=== PATIENT | male | born 1950 | race Caucasian/White ===

== ENCOUNTER 2020-10-31 23:25 | Inpatient (IN) | payer MEDICARE, OTHER, SELFPAY ==
--- NOTE | 2020-10-31 00:17 | RAD_ITS ---
HISTORY: Syncope EXAM: XR Chest 1 View: COMPARISON: April 27, 2015 FINDINGS: # of images incl. paperwork: 2 Pulmonary emphysema persists. Progressive fibrotic lung disease within the right lung greatest within the right lung apex. Persistent sternal wires. Persisting calcific plaque within the aortic arch. Heart is not enlarged. No acute osseous pathology perceived. Pulmonary vascularity is distinct. No effusions. RAD/Chest 1 View (Portable) IMPRESSION: Worsening fibrotic lung disease with greater interstitial thickening within the right lung, greatest within the right lung apex in this patient with underlying pulmonary emphysema.. at 0045 Reported and signed by: Nickolas Rinaldi MD Electronically Signed: Nickolas Rinaldi MD at 0:44 EDT Tel , Service support ,
[2020-10-31 23:27] VITALS: PULSE 60; RESP 16; TEMP 36.4; O2SAT 95; BMI 23.8
--- NOTE | 2020-10-31 23:27 | ED.RN ---
RN CALLED FOR EKG, PULLED OLD EKGS FOR
[2020-10-31 23:30] VITALS: PULSE 59; O2SAT 96
--- NOTE | 2020-10-31 23:37 | EKG12_ITS ---
Test Reason : SOB Blood Pressure : / mmHG Vent. Rate : 062 BPM Atrial Rate : 064 BPM P-R Int : 000 ms QRS Dur : 098 ms QT Int : 430 ms P-R-T Axes : 000 097 108 degrees QTc Int : 436 ms Junctional rhythm Nonspecific T wave abnormality Abnormal ECG Confirmed by MARIBEL BRITTON, NICOLE ([id number]), editor news JAYLA FIGUEROA ([id number]) on 11/03/2020 2:21:19 PM Referred By: [facility] Confirmed By:NICOLE LÓPEZ MD
[2020-10-31 23:56] LABS: Absolute Lymphocyte Count 1.64 X10^3/uL (0.83-4.51); Absolute Neutrophil Count 3.5 X10^3/uL (2.0-7.7); Basophil# 0.03 X10^3/uL; Basophil% 0.5 % (0-1); Eosinophil# 0.23 X10^3/uL; Eosinophils% 3.7 % (0-5); Hematocrit 37.9 % (40-54); Hemoglobin 12.5 g/dL (13.0-16.5); Lymphocyte # 1.64 X10^3/ul (0.83-4.51); Lymphocyte % 26.6 % (19-41); Mean Corpuscular Hgb 32.8 pg (27.0-32.0); Mean Corpuscular Volume 99.5 fL (80-94); Mean Platelet Vol. 9.6 fl (6.2-12.0); Monocyte# 0.71 X10^3/uL; Monocyte% 11.5 % (0-10); NRBC Flagged by Analyzer 0 % (0-5); Neutrophil # 3.54 X10^3/uL (2.7-7.7); Neutrophil % 57.4 % (47-70); Platelet Count 234 K/mm3 (150-450); RBC Distribution Width CV 13.1 % (11.6-14.6); Red Blood Count 3.81 M/mm3 (4.6-6.2); White Blood Count 6.2 K/mm3 (4.4-11.0)
--- NOTE | 2020-10-31 23:57 | EDS_ITS ---
HPI History of Present Illness Chief Complaint: Syncope Informant: patient Narrative Narrative: 70-year-old male with a history of coronary artery disease status post CABG and stents. Family notes he gets his care through [facility]. Tonight the patient was sleeping in his chair. He sat forward asked his what was happening and then fell back with his eyes rolled back. Family notes that he was unresponsive for approximately 5 minutes. His states that he was pale. There is no seizure activity. There is a family member present who is a medic who states he felt for pulse and it was present. He does not remember the exact rate. Patient currently denies any symptoms. [facility] Medical History Chronic back pain History of inguinal hernia Hypertension Myocardial infarct Home Medications albuterol sulfate 2.5 mg INHALATION Q4H PRN PRN 04/27/15 [History Last Taken Unknown] aspirin 81 mg PO DAILY@0800 04/27/15 [History Last Taken Unknown] atorvastatin 40 mg PO QHS 04/27/15 [History Last Taken Unknown] carvedilol 6.25 mg PO BID 04/27/15 [History Last Taken Unknown] lisinopril 20 mg PO DAILY 04/27/15 [History Last Taken Unknown] fluticasone propion-salmeterol [Advair HFA] 2 puff INHALATION BID 10/31/20 [History Last Taken Unknown] umeclidinium [Incruse Ellipta] 1 inh INHALATION DAILY 10/31/20 [History Last Taken Unknown] Allergy/AdvReac Type Severity Reaction Status Date / Time No Known Allergies Allergy Verified 10/31/20 23:30 Surgical History Hx of CABG Social History Smoking Status: Current some day smoker tobacco type: cigarettes substance use type: does not use ROS ROS ED Constitutional Constitutional ED: Denies chills or weight loss Eyes Eyes: Denies change in vision or diplopia ENT ENT ED: Denies ear pain, rhinorrhea or sore throat Cardiovascular Cardiovascular: Denies chest pain, orthopnea, palpitations or racing heartbeat Respiratory/Chest Respiratory/Chest: Denies cough, dyspnea or orthopnea Gastrointestinal Gastrointestinal: Denies abdominal pain, diarrhea, nausea or vomiting Genitourinary Genitourinary ED: Denies dysuria, hematuria or urinary frequency Musculoskeletal Musculoskeletal: Denies arthralgias or myalgias Integumentary Denies abscess or rash Neurologic Neurologic: Denies headache(s) or weakness Psychiatric Psychiatric: Denies anxiety, depression, suicidal ideation or suicidal thoughts Endocrine Endocrinology: Denies polydipsia, polyphagia or polyuria Allergic/Immunologic Allergic/Immunologic ED: Denies mouth swelling, tongue swelling or urticaria EXAM Physical Exam Const Vital Signs: 10/31/20 23:27 10/31/20 23:30 11/01/20 00:18 Temperature 97.6 F L Temperature Source Temporal Pulse Rate 60 59 L Respiratory Rate 16 Respiratory Effort Normal Non-Labored Blood Pressure Blood Pressure Mean Pulse Ox 95 96 Oxygen Delivery Method Room Air Nasal Cannula Oxygen Flow Rate (L/min) 2 11/01/20 00:46 11/01/20 01:17 Temperature Temperature Source Pulse Rate 82 61 Respiratory Rate 16 16 Respiratory Effort Blood Pressure 139/85 H 126/86 H Blood Pressure Mean 103 99 Pulse Ox 98 98 Oxygen Delivery Method Room Air Room Air Oxygen Flow Rate (L/min) Positive well nourished and well developed General Appearance ED: well developed HEENT Reports normocephalic, head/scalp atraumatic and moist mucous membranes Eyes PERRL and EOMs intact bilaterally Neck no lymphadenopathy, supple and no JVD Resp normal respiratory effort and clear to auscultation bilaterally Cardio regular rate, regular rhythm and no murmurs GI normal to inspection, nondistended, normoactive bowel sounds and non-tender Palpation: soft Back/Spine no CVA tenderness and normal ROM Extremity normal to inspection General Extremety ED: Negative for edema General Extremity: Negative for edema Neuro oriented x3 and CN's II-XII intact bilaterally Sensorium / Orientation: alert Motor Exam: strength 5/5 throughout Psych mental status grossly normal Mood & Affect: Negative for depressed or tearful Skin no rashes or lesions noted and no wounds MDM MDM MDM Narrative Medical decision making narrative: Patient was observed on the monitor. I have found no dysrhythmias. Heart enzymes negative. Basic blood work otherwise negative. My interpretation of the chest x-ray is chronic changes. Patient has a history of coronary artery disease and has unexplained syncope. I will speak with the hospitalist regarding admission Lab Data Attestation: I reviewed the patient's lab results. Labs: Laboratory Results - last 24 hr 10/31/20 10/31/20 10/31/20 23:40 23:40 23:40 WBC 6.2 RBC 3.81 L Hgb 12.5 L Hct 37.9 L MCV 99.5 H MCH 32.8 H MCHC 33.0 RDW Std Deviation 48.0 H RDW Coeff of Jamie 13.1 Plt Count 234 MPV 9.6 Immature Gran % (Auto) 0.300 Neut % (Auto) 57.4 Lymph % (Auto) 26.6 [place] % (Auto) 11.5 H Eos % (Auto) 3.7 Baso % (Auto) 0.5 Absolute Neuts (auto) 3.5 Absolute Lymphs (auto) 1.64 Nucleated RBC % 0 PT 14.2 INR 1.2 APTT 36.2 Sodium 138 Potassium 3.5 Chloride 106 Carbon Dioxide 26.0 Anion Gap 6 BUN 6 L Creatinine 0.53 L Estim Creat Clear Calc 79.92 Est GFR (MDRD) Af Amer 196 Est GFR (MDRD) Non-Af 162 BUN/Creatinine Ratio 11.2 Glucose 113 H Calcium 7.7 L Total Bilirubin 0.40 AST 18 ALT 15 L Alkaline Phosphatase 109 Troponin I < 0.015 Total Protein 5.6 L Albumin 2.8 L Globulin 2.8 Albumin/Globulin Ratio 1.0 Urine Color Urine Clarity Urine pH Ur Specific [place] Urine Protein Urine Glucose (UA) Urine Ketones Urine Occult Blood Urine Nitrite Urine Bilirubin Urine Urobilinogen Ur Leukocyte Esterase Urine RBC Urine WBC Ur Squamous Epith Cells Urine Bacteria Hyaline Casts Urine Mucus 11/01/20 00:40 WBC RBC Hgb Hct MCV MCH MCHC RDW Std Deviation RDW Coeff of Jamie Plt Count MPV Immature Gran % (Auto) Neut % (Auto) Lymph % (Auto) [place] % (Auto) Eos % (Auto) Baso % (Auto) Absolute Neuts (auto) Absolute Lymphs (auto) Nucleated RBC % PT INR APTT Sodium Potassium Chloride Carbon Dioxide Anion Gap BUN Creatinine Estim Creat Clear Calc Est GFR (MDRD) Af Amer Est GFR (MDRD) Non-Af BUN/Creatinine Ratio Glucose Calcium Total Bilirubin AST ALT Alkaline Phosphatase Troponin I Total Protein Albumin Globulin Albumin/Globulin Ratio Urine Color Yellow Urine Clarity Clear Urine pH 6.5 Ur Specific [place] 1.010 Urine Protein 30 H Urine Glucose (UA) Normal Urine Ketones Negative Urine Occult Blood Negative Urine Nitrite Negative Urine Bilirubin Negative Urine Urobilinogen 1 H Ur Leukocyte Esterase Negative Urine RBC 0 SEEN Urine WBC 0-5 SEEN Ur Squamous Epith Cells 0 SEEN Urine Bacteria 0 SEEN Hyaline Casts 0-5 SEEN Urine Mucus 0 SEEN Radiography Diagnostic Testing: Radiology Impression Chest X-Ray 10/31/20 00:17 IMPRESSION: Worsening fibrotic lung disease with greater interstitial thickening within the right lung, greatest within the right lung apex in this patient with underlying pulmonary emphysema.. at 0045 Reported and signed by: Nickolas Rinaldi MD Electronically Signed: Nickolas Rinaldi MD at 0:44 EDT Tel , Service support , Brain CT 10/31/20 23:59 IMPRESSION: No acute intracranial abnormality. Chronic left maxillary sinus disease with some more focal fluid within the left maxillary sinus that may be acute disease Chronic changes as above. ASPECT 10. Individualized dose optimization techniques were used for this CT. at 0023 Reported and signed by: Nickolas Rinaldi MD Electronically Signed: Nickolas Rinaldi MD at 0:22 EDT Tel , Service support , EKG Initial EKG: Attestation: I personally reviewed and interpreted this EKG as follows: Comments: EKG is a sinus rhythm at a rate of 62. Discharge Plan Dx/Rx/DC Orders Clinical Impression: CAD (coronary artery disease), Syncope and collapse Disposition Disposition: Acute Care [facility]
--- NOTE | 2020-10-31 23:59 | CT_ITS ---
HISTORY: Headache Technique:CT Head or Brain W/O Contrast Injection. Sagittal and coronal 2-D reformats. Number of Images including paperwork:257 Comparison: Most recent comparison CT scan of the brain is from April 27, 2015. Most recent MRI of the brain is from April 27, 2015 as well. Findings: Periventricular deep and subcortical white matter disease is present. Mucoperiosteal thickening with osseous sclerosis and fluid within the left maxillary sinus is likely acute and chronic disease.. The brain is atrophic. Calcific ASCVD involves intracranial arteries. No acute intracranial edema or hemorrhage. No acute abnormality of orbits. Middle ear cavities and mastoid air cells are well aerated. Skull is normal. CT/Brain/Head without Contrast IMPRESSION: No acute intracranial abnormality. Chronic left maxillary sinus disease with some more focal fluid within the left maxillary sinus that may be acute disease Chronic changes as above. ASPECT 10. Individualized dose optimization techniques were used for this CT. at 0023 Reported and signed by: Nickolas Rinaldi MD Electronically Signed: Nickolas Rinaldi MD at 0:22 EDT Tel , Service support ,
[2020-11-01] VITALS (16 sets, daily range): BP systolic 114–161; BP diastolic 65–98; PULSE 61–108; RESP 14–22; TEMP 36.5–37.2; O2SAT 92–98; BMI 22.6
[2020-11-01 00:28] LABS: AST(SGOT) 18 U/L (15-37); Alanine Aminotransfer ALT/SGPT 15 U/L (16-61); Albumin, Serum 2.8 g/dL (3.2-5.0); Alkaline Phosphatase 109 U/L (45-117); Anion Gap 6 (5-15); BUN 6 mg/dL (7-18); BUN/Creat Ratio 11.2 RATIO (10-20); Calcium,Total 7.7 mg/dL (8.5-10.1); Chloride 106 mmol/L (98-107); Creatinine, Serum 0.53 mg/dL (0.70-1.30); EST Glomerular Filtration Rate 162 mL/min (>60); Est Glom Filt Rate - Afr Amer 196 mL/min (>60); Estimated Creatinine Clearance 79.92 ml/min; Globulin 2.8 g/dL (2.2-4.2); Glucose 113 mg/dL (74-106); Potassium 3.5 mmol/L (3.5-5.1); Protein, Total 5.6 g/dL (6.4-8.2); Sodium Level 138 mmol/L (136-145)
[2020-11-01 00:30] LABS: International Normalized Ratio 1.2; Partial Thromboplast Time 36.2 Seconds (24.1-36.2); Prothrombin Time (Protime)PT. 14.2 SECONDS (11.7-14.9)
[2020-11-01 00:48] LABS: Bacteria 0 SEEN /hpf (None Seen); Mucous, Urine 0 SEEN /hpf (<or=2+); Red Blood Cells-Urine 0 SEEN /hpf (0-5); Squamous Epithelial Cells - UA 0 SEEN /hpf (0-5)
[2020-11-01 00:49] LABS: Color, Urine Yellow (Yellow); Glucose, Dipstick Normal (Normal); Ketone-Dipstick Negative (Negative); Leukocyte Esterase-Dipstick Negative /ul (Negative); Nitrite-Dipstick Negative (Negative); Occult Blood-Urine Negative /ul (Negative); Protein-Dipstick 30 mg/dl (Negative); Urine Bilirubin Dipstick Negative (Negative); Urine Clarity Clear (Clear); Urine Urobilinogen 1 mg/dl (Normal); Urine pH 6.5 (5.0 - 8.0)
[2020-11-01 01:05] LABS: Hyaline Cast 0-5 SEEN /lpf (0-5); White Blood Cells 0-5 SEEN /hpf (0-5)
--- NOTE | 2020-11-01 01:51 | PCM.HP.STD ---
Documented by User: ELOISA Gutiérrez 11/01/20 02:03 HPI - General HPI Narrative ASHLEY ROBLES, is a 70 M who presents following a syncopal episode. Patient's reports that patient was sitting in his recliner asleep and when he woke up he said was going on and went to stand up but instead fell back into his recliner. Patient's reports that his eyes were back in his head and he was unresponsive however he did have a pulse of 60. Patient reports feeling tired and mildly weak at this time but otherwise has no symptoms. Patient does not remember event. [facility] Medical History Chronic back pain History of inguinal hernia Hypertension Myocardial infarct Home Medications albuterol sulfate 2.5 mg INHALATION Q4H PRN PRN 04/27/15 [History Last Taken Unknown] aspirin 81 mg PO DAILY@0800 04/27/15 [History Last Taken Unknown] atorvastatin 40 mg PO QHS 04/27/15 [History Last Taken Unknown] carvedilol 6.25 mg PO BID 04/27/15 [History Last Taken Unknown] lisinopril 20 mg PO DAILY 04/27/15 [History Last Taken Unknown] fluticasone propion-salmeterol [Advair HFA] 2 puff INHALATION BID 10/31/20 [History Last Taken Unknown] umeclidinium [Incruse Ellipta] 1 inh INHALATION DAILY 10/31/20 [History Last Taken Unknown] Allergy/AdvReac Type Severity Reaction Status Date / Time No Known Allergies Allergy Verified 10/31/20 23:30 Surgical History Hx of CABG Social History Smoking Status: Current some day smoker tobacco type: cigarettes substance use type: does not use ROS Constitutional Constitutional: Reports fatigue and weakness; Denies anorexia or chills Cardiovascular Cardiovascular: Reports syncope; Denies chest pain, edema or palpitations Respiratory/Chest Respiratory/Chest: Denies cough, shortness of breath at rest or shortness of breath with exertion Gastrointestinal Gastrointestinal: Denies abdominal pain, constipation, diarrhea, nausea or vomiting Genitourinary Genitourinary: Denies dysuria Musculoskeletal Musculoskeletal: Denies back pain, extremity pain or joint pain Integumentary Integumentary: Denies dry skin Neurologic Neurologic: Reports weakness; Denies abnormal gait, abnormal speech or confusion Psychiatric Psychiatric: Denies anxiety or depression Endocrine Endocrinology: Denies change in body appearance Hematologic/Lymphatic Hematologic/Lymphatic: Denies easy bleeding or easy bruising Vital Signs Vital Signs Vital Signs: 10/31/20 23:27 10/31/20 23:30 11/01/20 00:18 Temperature 97.6 F L Temperature Source Temporal Pulse Rate 60 59 L Respiratory Rate 16 Respiratory Effort Normal Non-Labored Blood Pressure Blood Pressure Mean Pulse Ox 95 96 Oxygen Delivery Method Room Air Nasal Cannula Oxygen Flow Rate (L/min) 2 11/01/20 00:46 11/01/20 01:17 Temperature Temperature Source Pulse Rate 82 61 Respiratory Rate 16 16 Respiratory Effort Blood Pressure 139/85 H 126/86 H Blood Pressure Mean 103 99 Pulse Ox 98 98 Oxygen Delivery Method Room Air Room Air Oxygen Flow Rate (L/min) Weight Weight: 186 lb 1.122 oz Body Mass Index (BMI) 23.8 Physical Exam Const alert and oriented x3 General Appearance: cooperative HEENT normocephalic and head/scalp atraumatic Eyes PERRL Neck supple General: trachea midline Lymph Lymphatic: no lymphadenopathy noted Resp normal respiratory effort, normal air movement and clear to auscultation bilaterally Auscultation: wheezes expiratory wheezes and throughout Cardio regular rate, regular rhythm, S1 normal heart sound and S2 normal heart sound GI normal to inspection, nondistended, normoactive bowel sounds, soft to palpation and non-tender Extremity normal capillary refill and no clubbing, cyanosis or edema General Extremity: no tenderness to palpation of joints or extremities Skin General Skin Exam: no breakdown and turgor normal Lesions: no lesions Rashes: no rashes Neuro CN's II-XII intact bilaterally Psych thought process normal, cooperative and affect normal Appearance: appropriate Lab / Micro Data Result Diagrams: 10/31/20 23:40 10/31/20 23:40 Labs: Laboratory Results - last 24 hr 10/31/20 10/31/20 10/31/20 23:40 23:40 23:40 WBC 6.2 RBC 3.81 L Hgb 12.5 L Hct 37.9 L MCV 99.5 H MCH 32.8 H MCHC 33.0 RDW Std Deviation 48.0 H RDW Coeff of Jamie 13.1 Plt Count 234 MPV 9.6 Immature Gran % (Auto) 0.300 Neut % (Auto) 57.4 Lymph % (Auto) 26.6 [place] % (Auto) 11.5 H Eos % (Auto) 3.7 Baso % (Auto) 0.5 Absolute Neuts (auto) 3.5 Absolute Lymphs (auto) 1.64 Nucleated RBC % 0 PT 14.2 INR 1.2 APTT 36.2 Sodium 138 Potassium 3.5 Chloride 106 Carbon Dioxide 26.0 Anion Gap 6 BUN 6 L Creatinine 0.53 L Estim Creat Clear Calc 79.92 Est GFR (MDRD) Af Amer 196 Est GFR (MDRD) Non-Af 162 BUN/Creatinine Ratio 11.2 Glucose 113 H Calcium 7.7 L Total Bilirubin 0.40 AST 18 ALT 15 L Alkaline Phosphatase 109 Troponin I < 0.015 Total Protein 5.6 L Albumin 2.8 L Globulin 2.8 Albumin/Globulin Ratio 1.0 Urine Color Urine Clarity Urine pH Ur Specific [place] Urine Protein Urine Glucose (UA) Urine Ketones Urine Occult Blood Urine Nitrite Urine Bilirubin Urine Urobilinogen Ur Leukocyte Esterase Urine RBC Urine WBC Ur Squamous Epith Cells Urine Bacteria Hyaline Casts Urine Mucus 11/01/20 00:40 WBC RBC Hgb Hct MCV MCH MCHC RDW Std Deviation RDW Coeff of Jamie Plt Count MPV Immature Gran % (Auto) Neut % (Auto) Lymph % (Auto) [place] % (Auto) Eos % (Auto) Baso % (Auto) Absolute Neuts (auto) Absolute Lymphs (auto) Nucleated RBC % PT INR APTT Sodium Potassium Chloride Carbon Dioxide Anion Gap BUN Creatinine Estim Creat Clear Calc Est GFR (MDRD) Af Amer Est GFR (MDRD) Non-Af BUN/Creatinine Ratio Glucose Calcium Total Bilirubin AST ALT Alkaline Phosphatase Troponin I Total Protein Albumin Globulin Albumin/Globulin Ratio Urine Color Yellow Urine Clarity Clear Urine pH 6.5 Ur Specific [place] 1.010 Urine Protein 30 H Urine Glucose (UA) Normal Urine Ketones Negative Urine Occult Blood Negative Urine Nitrite Negative Urine Bilirubin Negative Urine Urobilinogen 1 H Ur Leukocyte Esterase Negative Urine RBC 0 SEEN Urine WBC 0-5 SEEN Ur Squamous Epith Cells 0 SEEN Urine Bacteria 0 SEEN Hyaline Casts 0-5 SEEN Urine Mucus 0 SEEN Radiology Impression Chest X-Ray 10/31/20 00:17 IMPRESSION: Worsening fibrotic lung disease with greater interstitial thickening within the right lung, greatest within the right lung apex in this patient with underlying pulmonary emphysema.. at 0045 Reported and signed by: Nickolas Rinaldi MD Electronically Signed: Nickolas Rinaldi MD at 0:44 EDT Tel , Service support , Brain CT 10/31/20 23:59 IMPRESSION: No acute intracranial abnormality. Chronic left maxillary sinus disease with some more focal fluid within the left maxillary sinus that may be acute disease Chronic changes as above. ASPECT 10. Individualized dose optimization techniques were used for this CT. at 0023 Reported and signed by: Nickolas Rinaldi MD Electronically Signed: Nickolas Rinaldi MD at 0:22 EDT Tel , Service support , Assessment & Plan Assessment/Plan (1) Syncope and collapse: PLAN: 1. Syncope and collapse -Admit to PCU for continuous cardiac monitoring -Echocardiogram ordered -EEG and seizure precautions ordered due to patient's reporting bladder incontinence with episode -Trend cardiac enzymes -PT and OT to eval and treat -Orthostatic vital signs -CBC and BMP daily 2. Coronary artery disease with stent -Patient not currently on antiplatelet therapy, continue aspirin daily 3. Hyperlipidemia -Continue atorvastatin 4. Hypertension - Continue carvedilol and lisinopril -Vital signs per protocol, trend BP and heart rate 5. Chronic obstructive pulmonary disease -Routine DuoNeb nebulizer treatments with as needed albuterol nebulizer treatments DVT prophylaxis-subcu Lovenox This patient was seen by Bhavya Dao NP-C under the supervision of Dr. Wilson. Documented by User: Dr. Randall Wilson MD 11/01/20 02:13 HPI - General General Date of Admission: 11/01/20 [facility] Medical History Chronic back pain History of inguinal hernia Hypertension Myocardial infarct Home Medications albuterol sulfate 2.5 mg INHALATION Q4H PRN PRN 04/27/15 [History Last Taken Unknown] aspirin 81 mg PO DAILY@0800 04/27/15 [History Last Taken Unknown] atorvastatin 40 mg PO QHS 04/27/15 [History Last Taken Unknown] carvedilol 6.25 mg PO BID 04/27/15 [History Last Taken Unknown] lisinopril 20 mg PO DAILY 04/27/15 [History Last Taken Unknown] fluticasone propion-salmeterol [Advair HFA] 2 puff INHALATION BID 10/31/20 [History Last Taken Unknown] umeclidinium [Incruse Ellipta] 1 inh INHALATION DAILY 10/31/20 [History Last Taken Unknown] Allergy/AdvReac Type Severity Reaction Status Date / Time No Known Allergies Allergy Verified 10/31/20 23:30 Surgical History Hx of CABG Social History Smoking Status: Current some day smoker tobacco type: cigarettes substance use type: does not use Lab / Micro Data Result Diagrams: 10/31/20 23:40 10/31/20 23:40 Addendum Addendum: Hospitalist note: I am seeing this patient in conjunction with Bhavya Holt.. I independently seen and examined the patient. History and physical, laboratory data and imaging studies reviewed and I concur with the above admission and work-up plan. Patient presented to the emergency room because of syncope. According to the patient's , patient was sleeping on a recliner, woke up and said what is going on and then he fell back and was unresponsive for about 5 minutes. The patient himself denied being dizzy or lightheaded before that happened. He denied chest pain or shortness of breath. Patient's mentioned that he was incontinent of urine. No reported seizure activity. Currently, patient has no symptoms. In the emergency department, vital signs were stable. Routine blood work was unremarkable. LFT was unremarkable. EKG revealed no acute ischemic changes or cardiac arrhythmias. Troponin was negative. Urinalysis showed no evidence of infection. Chest x-ray showed no acute findings. Brain CT scan showed no acute infarct or hemorrhage. Patient is being admitted for syncope for evaluation. - Physical Exam General: Alert, Oriented x3, Cooperative, No apparent distress. HEENT: Atraumatic, PERRLA, EOMI. Neck: Supple, No JVD, Negative Carotid Bruits, Trachea Midline, Thyroid Normal. Lungs: Clear to auscultation, Normal air movement, No rhonchi, No wheeze, No rales. Cardiovascular: Regular rate, Regular Rhythm, Normal S1, Normal S2, PMI Normal. Abdomen: Bowel Sounds Present, Soft, Non Tender, Non-Distended, No Hepato-splenomegaly. Extremities: No clubbing, No cyanosis, No edema Skin: No rashes, No breakdown Neurological: Cranial nerves are intact, normal power and tone, neuro grossly intact Vital Signs are stable. Assessment and plan: #1 syncope: Unclear etiology, could be due to cardiogenic. Neurogenic etiology cannot be ruled out especially patient had urine incontinence although no reported seizure activity. No history of seizure. EKG reviewed as above. CT scan brain showed no acute findings. Plan: Admit to PCU for observation, cardiac monitoring looking for cardiac arrhythmias, 2D echocardiogram, serial cardiac enzymes, orthostatic vitals, EEG, Tylenol as needed, Zofran as needed, PT OT evaluation and treatment. #2 other chronic medical problems: Stable, continue current medications as above. This note was generated with [employer] dictation software. It may contain incorrect words, spelling, and punctuation that were not noted in checking the note before signing. Visit Charges OBSV E&M: [id number] Initial observation care L3
--- NOTE | 2020-11-01 02:26 | ECHOCS_ITS ---
Reason For Study: Syncope Procedure This was a 2D Doppler, Color Flow transthoracic echocardiogram. Contrast injection was performed. Exam performed portable in patient room. Left Ventricle Normal LV size. Moderate segmental systolic dysfunction (see wall motion). Stage 2 diastolic dysfunction. The estimated ejection fraction is 40 %. [place] : Akinetic. Mid-Anterior : Akinetic. Mid- anteroseptal : Severely Hypokinetic. The rest of the wall segments are normal. Right Ventricle Normal RV size. Normal systolic function. Atria Normal left atrium. Normal right atrium. Mitral Valve Normal mitral valve. Great Vessels Normal aortic root. The pulmonary artery is normal size. Normal inferior vena cava. Pericardium/Pleural No pericardial effusion. Medication Diluted definity 4ml given slow IV push to enhance endocardial definition. MMode/2D Measurements & Calculations LVIDd: 5.4 cm IVSd: 1.0 cm Ao root diam: 3.6 cm LVIDs: 5.0 cm LVPWd: 1.1 cm RVDd: 3.4 cm FS: 7.9 % LAV(MOD-bp): 34.6 ml LA dimension(2D): 3.5 cm LA A4 area: 15.2 cm2 LAV(MOD-bp) Indexed: 16.8 ml/m2 LAV(MOD-sp2): 33.2 ml LAV(MOD-sp4): 33.3 ml RA A4 area: 14.3 cm2 Doppler Measurements & Calculations MV E max reddy: 33.2 cm/sec Lat Peak E' Reddy: 9.0 cm/sec Med Peak E' Reddy: 7.8 cm/sec MV A max reddy: 100.1 cm/sec E/E' lat: 3.7 E/E' med: 4.3 MV E/A: 0.33 Ao V2 max: 98.2 cm/sec LV V1 max: 85.0 cm/sec PA V2 max: 64.1 cm/sec Ao max P.9 mmHg LV V1 max P.9 mmHg Ao V2 mean: 70.1 cm/sec Ao mean P.1 mmHg Ao V2 VTI: 18.3 cm ECHO/Echo Complete W/ Contrast Interpretation Summary Normal LV size. Moderate segmental systolic dysfunction (see wall motion). Stage 2 diastolic dysfunction. Contrast injection was performed. Ordering Physician: Randall Wilson Referring Physician: Connor Villasenor Performed By: Cate Durán, HELEN, RVT
[2020-11-01 06:29] LABS: Absolute Neutrophil Count 5.6 X10^3/uL (2.0-7.7); Basophil# 0.02 X10^3/uL; Basophil% 0.2 % (0-1); Eosinophil# 0.08 X10^3/uL; Hematocrit 41.7 % (40-54); Hemoglobin 13.9 g/dL (13.0-16.5); Mean Corp Hgb Conc 33.3 g/dL (32-36); Mean Corpuscular Hgb 33.1 pg (27.0-32.0); Mean Corpuscular Volume 99.3 fL (80-94); Mean Platelet Vol. 9.8 fl (6.2-12.0); Monocyte# 0.64 X10^3/uL; Monocyte% 7.8 % (0-10); NRBC Flagged by Analyzer 0 % (0-5); Neutrophil # 5.63 X10^3/uL (2.7-7.7); Neutrophil % 68.6 % (47-70); Platelet Count 260 K/mm3 (150-450); RBC Distribution Width CV 13.1 % (11.6-14.6); RBC Distribution Width SD 46.9 fl (35.1-43.9); White Blood Count 8.2 K/mm3 (4.4-11.0)
[2020-11-01 06:50] LABS: Anion Gap 2 (5-15); BUN 6 mg/dL (7-18); BUN/Creat Ratio 10.3 RATIO (10-20); Calcium,Total 8.6 mg/dL (8.5-10.1); Chloride 103 mmol/L (98-107); Creatinine, Serum 0.58 mg/dL (0.70-1.30); EST Glomerular Filtration Rate 146 mL/min (>60); Est Glom Filt Rate - Afr Amer 177 mL/min (>60); Estimated Creatinine Clearance 77.97 ml/min; Glucose 118 mg/dL (74-106); Potassium 4.2 mmol/L (3.5-5.1); Sodium Level 136 mmol/L (136-145)
[2020-11-01] MEDS: Ipratropium/Albuterol Sulfate 3 ML AMPUL.NEB INHALATION ×3 (07:10→19:02)
--- NOTE | 2020-11-01 09:27 | EKG12_ITS ---
Test Reason : Blood Pressure : / mmHG Vent. Rate : 088 BPM Atrial Rate : 088 BPM P-R Int : 208 ms QRS Dur : 104 ms QT Int : 384 ms P-R-T Axes : 075 096 084 degrees QTc Int : 464 ms Sinus rhythm with occasional Premature ventricular complexes Low voltage QRS (Limb Leads) Poor R wave progression Confirmed by KARLI BRITTON, ANKUR ([id number]), editor producer JAYLA FIGUEROA ([id number]) on 11/04/2020 1:08:45 PM Referred By: ANAM Confirmed By:ANKUR CALVILLO MD
[2020-11-01] MEDS: Aspirin 81 MG TAB.CHEW PO (09:43)
[2020-11-01] MEDS: Lisinopril 20 MG Tablet PO (09:43)
[2020-11-01] MEDS: Carvedilol 6.25 MG Tablet PO ×2 (09:43→16:28)
[2020-11-01] MEDS: Enoxaparin 40 MG/0.4 ML Syringe SC (09:43)
--- NOTE | 2020-11-01 10:06 | TELEMED_ITS ---
[facility] Tele[facility] has confirmed receipt of a request for visit. This document confirms receipt of the order initiating the consult. To find the results of the consultation, please view the patient's reports for the scanned Telemed Consult.
--- NOTE | 2020-11-01 14:25 | PCM.HOSP.N ---
Hospitalist Note Mr. Spivey is a 70-year-old male who was admitted early this morning with a syncopal episode. He was sitting in his chair asleep and he awoke and said he was going to get up and stood up and fell backwards and passed out. His reported that his eyes were in the back of his head and he was unresponsive. He did have a pulse and there is apparently an episode of urinary incontinence. This morning the patient states he feels back to normal but does not remember any of the episode. A CT of his head performed the emergency department was overall unimpressive other than chronic maxillary sinus issues. An EEG was done and is pending at this time. An echocardiogram was ordered but will not be able to be done until Monday. The patient states he may not be able to stay that long and I informed him he have to leave AGAINST MEDICAL ADVICE if that is the case. We will continue to monitor him on telemetry. His troponins were cycled and negative. His labs are overall unremarkable and his vital signs have been stable. Orthostatic vitals were negative.
[2020-11-01] MEDS: Acetaminophen 325 MG Tablet 650 MG PO (17:57)
[2020-11-01] MEDS: Atorvastatin Calcium 40 MG Tablet PO (22:28)
[2020-11-02] VITALS (12 sets, daily range): BP systolic 120–133; BP diastolic 64–81; PULSE 71–98; RESP 15–22; TEMP 36.5–36.9; O2SAT 92–94
[2020-11-02] MEDS: Acetaminophen 325 MG Tablet 650 MG PO ×3 (03:40→17:19)
[2020-11-02 05:05] LABS: Absolute Lymphocyte Count 1.55 X10^3/uL (0.83-4.51); Absolute Neutrophil Count 4.5 X10^3/uL (2.0-7.7); Basophil# 0.03 X10^3/uL; Basophil% 0.4 % (0-1); Eosinophil# 0.12 X10^3/uL; Eosinophils% 1.8 % (0-5); Hematocrit 39.9 % (40-54); Hemoglobin 13.4 g/dL (13.0-16.5); Lymphocyte # 1.55 X10^3/ul (0.83-4.51); Lymphocyte % 22.6 % (19-41); Mean Corp Hgb Conc 33.6 g/dL (32-36); Mean Corpuscular Hgb 32.8 pg (27.0-32.0); Mean Corpuscular Volume 97.8 fL (80-94); Mean Platelet Vol. 9.7 fl (6.2-12.0); Monocyte# 0.62 X10^3/uL; Monocyte% 9.1 % (0-10); NRBC Flagged by Analyzer 0 % (0-5); Neutrophil # 4.51 X10^3/uL (2.7-7.7); Neutrophil % 65.8 % (47-70); Platelet Count 234 K/mm3 (150-450); RBC Distribution Width CV 13.1 % (11.6-14.6); RBC Distribution Width SD 46.9 fl (35.1-43.9); Red Blood Count 4.08 M/mm3 (4.6-6.2); White Blood Count 6.9 K/mm3 (4.4-11.0)
[2020-11-02 05:43] LABS: Anion Gap 7 (5-15); BUN 8 mg/dL (7-18); BUN/Creat Ratio 14.4 RATIO (10-20); Calcium,Total 8.5 mg/dL (8.5-10.1); Chloride 103 mmol/L (98-107); Creatinine, Serum 0.56 mg/dL (0.70-1.30); EST Glomerular Filtration Rate 155 mL/min (>60); Est Glom Filt Rate - Afr Amer 187 mL/min (>60); Estimated Creatinine Clearance 77.97 ml/min; Glucose 113 mg/dL (74-106); Potassium 3.8 mmol/L (3.5-5.1); Sodium Level 137 mmol/L (136-145)
[2020-11-02] MEDS: Ipratropium/Albuterol Sulfate 3 ML AMPUL.NEB INHALATION ×2 (07:10→13:27)
[2020-11-02] MEDS: Lisinopril 20 MG Tablet PO (09:48)
[2020-11-02] MEDS: Carvedilol 6.25 MG Tablet PO ×2 (09:48→17:44)
[2020-11-02] MEDS: Enoxaparin 40 MG/0.4 ML Syringe SC (09:48)
[2020-11-02] MEDS: Aspirin 81 MG TAB.CHEW PO (09:48)
--- NOTE | 2020-11-02 14:25 | PCM.DC ---
Discharge Instructions Diet Discharge Diet: 2000 mg Sodium Diet Activity Discharge Activity: May Not Drive Weight Bearing Status: Weight bearing as tolerated Follow Up Care Test Results: Test results from this visit will be discussed in further detail at your follow-up appointment, if applicable. Discharge Plan Admission Admit Date/Time: 11/01/20 20:15 Primary Reason for Your Visit: Syncope Attending Provider: Samir Potter Primary Care Provider: Connor Villasenor Instructions Patient Instructions: What Is Syncope? Discharge Orders/Prescriptions Prescriptions: Continued atorvastatin 80 MG tablet 40 mg PO QHS RF: 0 carvedilol 6.25 MG tablet 6.25 mg PO BID RF: 0 albuterol sulfate 2.5 MG/3 ML solution for nebulization 2.5 mg inhalation Q4H PRN PRN (Reason: Wheezing) RF: 0 lisinopril 20 MG tablet 20 mg PO DAILY RF: 0 aspirin 81 MG tablet,chewable 81 mg PO DAILY@0800 RF: 0 Advair HFA 115-21 mcg/actuation Hfa Aerosol Inhaler 2 puff INHALATION BID RF: 0 Incruse Ellipta 62.5 mcg/actuation Blister With Device 1 inh INHALATION DAILY RF: 0 Referrals / Follow Up: Connor Villasenor MD [Primary Care Provider] - Disposition Disposition (needs filled in before D/C Order can be placed): Home, self care
--- NOTE | 2020-11-02 14:29 | DS.PCM_ITS ---
Providers Date of Admission: 11/01/20 Primary Care Physician: Dr. Connor Villasenor MD Reason For Visit: SYNCOPE Diagnosis Discharge Diagnosis (1) Syncope and collapse: Status: Acute Code(s): R55 - Syncope and collapse Medications at Discharge Home Medications albuterol sulfate 2.5 mg INHALATION Q4H PRN PRN 04/27/15 aspirin 81 mg PO DAILY@0800 04/27/15 atorvastatin 40 mg PO QHS 04/27/15 carvedilol 6.25 mg PO BID 04/27/15 lisinopril 20 mg PO DAILY 04/27/15 Advair HFA 2 puff INHALATION BID 10/31/20 Incruse Ellipta 1 inh INHALATION DAILY 10/31/20 Hospital Course Summary of Care Provided Hospital Course: This 70-year-old patient gentleman was admitted for syncopal episode after he woke up from sleeping on recliner, then he stood up, fell backwards and then passed out. Patient was unresponsive and urinary inconti nence but he says he sometimes have it because of old age. Patient was admitted to PCU on telemetry. 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 EGD was done and did not show epileptiform discharges. Patient had recent echo on November 01, 2020 reported as normal LV size, stage II diastolic dysfunction with EF 40% with chronic systolic and diastolic heart failure. Orthostatic blood pressure was negative for significant change. Patient wants to go home. Patient does not want MRI done. Does not have history of chronic migraine headache, seizure disorder or other neurological issues in the past. [facility] neurologist has been consulted. [facility] neurologist agreed no focal neurological symptoms concerning for stroke or seizure. He is okay for discharge. Discharge medication reconciliation done. Discharge follow-up instructions completed. Discharge process discussed with the patient and all questions were answered to patient's satisfaction. Total time spent, exact 35 minutes on discharge meds reconciliation, examination, coordination of care with nurses and ancillary staff, review of i maging and blood test and discussion with the patient on follow-up instructions Physical Exam Narrative Patient wants to go home. Does not have chest pain/pressure, shortness of breath, dizziness or palpitation. small battery plate assembler shows sinus rhythm with arrhythmia, PVCs. Orthostatic blood pressure is negative for significant hypotension or tachycardia General: Alert, Oriented x3, Cooperative HEENT: Atraumatic, PERRLA, EOMI, Normocephalic Oral: Oral mucosa is moist. No Gingival or Mucosal Lesions/ Ulcerations Neck: Supple, No JVD, Negative Carotid Bruits Lungs: Air entry diminished in bilateral lung bases. No crepitation/rhonchi Cardiovascular: Sinus rhythm with PVCs, regular rate. Normal S1, Normal S2, No murmurs Abdomen: Bowel Sounds Present, Soft, Non Tender, Non-Distended : No renal angle tenderness. No suprapubic tenderness. Extremities: No edema, Capillary Refill Less than 3 Seconds Skin: No rashes, No breakdown Musculoskeletal: No Tenderness to Palpation of Joints or Extremities Neurological: Cranial nerves II-XII grossly intact, Deep Tendon Reflexes 2+/4 and Symmetrical, Neuro grossly intact Psych/Mental Status: Normal Affect, Appropriate. ABG / Lab / Microbiology Data Result Diagrams: 11/02/20 04:50 11/02/20 04:50 Laboratory: Laboratory Results - last 24 hr 11/02/20 11/02/20 04:50 04:50 WBC 6.9 RBC 4.08 L Hgb 13.4 Hct 39.9 L MCV 97.8 H MCH 32.8 H MCHC 33.6 RDW Std Deviation 46.9 H RDW Coeff of Jamei 13.1 Plt Count 234 MPV 9.7 Immature Gran % (Auto) 0.300 Neut % (Auto) 65.8 Lymph % (Auto) 22.6 [place] % (Auto) 9.1 Eos % (Auto) 1.8 Baso % (Auto) 0.4 Absolute Neuts (auto) 4.5 Absolute Lymphs (auto) 1.55 Nucleated RBC % 0 Sodium 137 Potassium 3.8 Chloride 103 Carbon Dioxide 27.0 Anion Gap 7 BUN 8 Creatinine 0.56 L Estim Creat Clear Calc 77.97 Est GFR (MDRD) Af Amer 187 Est GFR (MDRD) Non-Af 155 BUN/Creatinine Ratio 14.4 Glucose 113 H Calcium 8.5 Radiography Diagnostic Testing: Radiology Impression Echocardiogram 11/01/20 02:26 Interpretation Summary Normal LV size. Moderate segmental systolic dysfunction (see wall motion). Stage 2 diastolic dysfunction. Contrast injection was performed. Ordering Physician: Randall Wilson Referring Physician: Connor Villasenor Performed By: Cate Durán, HELEN, RVT D/C Instructions Discharge Diet: 2000 mg Sodium Diet Discharge Activity: May Not Drive Weight Bearing Status: Weight bearing as tolerated Meaningful Use Info Meaningful Use Diagnoses (Choose all that apply): None applicable Discharge Plan Admission Admit Date/Time: 11/01/20 20:15 Primary Reason for Your Visit: Syncope Attending Provider: Samir Potter Primary Care Provider: Connor Villasenor Instructions Patient Instructions: What Is Syncope? Additional Instructions / Restrictions: Patient Problems: Altered Health Status related to Hospitalization Patient Goals: *Optimal Level of Health *Keep Appointments *Medication Compliance *Remain Safe Discharge Orders/Prescriptions Prescriptions: Continued atorvastatin 80 MG tablet 40 mg PO QHS RF: 0 carvedilol 6.25 MG tablet 6.25 mg PO BID RF: 0 albuterol sulfate 2.5 MG/3 ML solution for nebulization 2.5 mg inhalation Q4H PRN PRN (Reason: Wheezing) RF: 0 lisinopril 20 MG tablet 20 mg PO DAILY RF: 0 aspirin 81 MG tablet,chewable 81 mg PO DAILY@0800 RF: 0 Advair HFA 115-21 mcg/actuation Hfa Aerosol Inhaler 2 puff INHALATION BID RF: 0 Incruse Ellipta 62.5 mcg/actuation Blister With Device 1 inh INHALATION DAILY RF: 0 Referrals / Follow Up: Connor Villasenor MD [Primary Care Provider] - Disposition Disposition (needs filled in before D/C Order can be placed): Home, self care Visit Charges Inpatient E&M: 08713 Disch Hosp
[2020-11-02 16:40] LABS: Cholesterol 120 mg/dL (200); High Density Lipoprotein 50 mg/dL; Triglycerides 64 mg/dL; Very Low Density Lipoprotein 13 mg/dL (5-40)
== END 2020-11-02 17:58 | disposition home or self-care (01) | DRG 312 ==
LOC: ED 11-01 01:34 → PCU 11-01 01:53
PROVIDERS: Internal Medicine; Physician Assistant; Admitting Provider Hospitalist; Emergency Provider Emergency Medicine; PCP Family Medicine; Visit Provider Internal Medicine
DX: R55 Syncope and collapse (principal); I50.42 Chronic combined systolic (congestive) and diastolic (congestive) heart failure; R32 Unspecified urinary incontinence; I11.0 Hypertensive heart disease with heart failure; I25.10 Atherosclerotic heart disease of native coronary artery without angina pectoris; W19.XXXA Unspecified fall, initial encounter; F17.210 Nicotine dependence, cigarettes, uncomplicated; I25.2 Old myocardial infarction; Z95.1 Presence of aortocoronary bypass graft; Z95.5 Presence of coronary angioplasty implant and graft; Z79.51 Long term (current) use of inhaled steroids; Z79.82 Long term (current) use of aspirin; Z79.899 Other long term (current) drug therapy
CPT/HCPCS: 36415; 70450; 71045; 80048; 80053; 80061; 81001; 83036; 84484; 85025; 85610; 85730; 93005; 93306; 94640; 95819; 97161; 97165; 99285; J7030; Q9957; A4216; C8929; J3490

== ENCOUNTER 2021-12-08 20:30 | Inpatient (IN) | payer MEDICARE, OTHER, SELFPAY ==
[2021-12-08 20:31] VITALS: BP 126/62; PULSE 109; RESP 23; TEMP 36.4; O2SAT 86; BMI 22.4
[2021-12-08 20:46] VITALS: PULSE 102; RESP 17; O2SAT 97
--- NOTE | 2021-12-08 21:05 | EKG12_ITS ---
Test Reason : sob Blood Pressure : / mmHG Vent. Rate : 088 BPM Atrial Rate : 088 BPM P-R Int : 236 ms QRS Dur : 104 ms QT Int : 378 ms P-R-T Axes : 076 101 095 degrees QTc Int : 457 ms Sinus rhythm with 1st degree A-V block with Premature supraventricular complexes Rightward axis Nonspecific T wave abnormality Poor R wave progression Abnormal ECG Confirmed by KARLI BRITTON, ANKUR ([id number]), editor producer JAYLA FIGUEROA ([id number]) on 12/11/2021 9:31:59 AM Referred By: Coy Hua Confirmed By:ANKUR CALVILLO MD
--- NOTE | 2021-12-08 21:08 | ED.VIS.DYS ---
HPI History of Present Illness Chief Complaint: Shortness of Breath Informant: patient and spouse/S.O. Onset/Context/Timing Onset: Weeks Narrative Narrative: Sent into the ED by PCP with findings of pneumonia on outpatient work-up. 2 weeks productive sputum no fevers. No chest pains. No vomiting or diarrhea. No urinary symptoms. Reports increasing dyspnea. History of coronary disease with bypass and MIs in the past. He also reported he had CHF findings. Denies any CHF history. Patient baby aspirin. Denies recent travel surgery or immobilizations. No history of PE or DVT. Reports seeing PCP in the office today per spouse confirms he was hypoxic in the 80s and did not want to go the emergency room. Outpatient work-up pursued. They called him back with results this evening stating there is pneumonia and had concerns of CHF. After discussion he was increased to coming to emergency department. Tobacco history however significant decrease in his tobacco use stating does not go through a pack a month currently. Patient COVID vaccinated denies any infections in the past. [facility] Medical History Chronic back pain COPD (chronic obstructive pulmonary disease) History of inguinal hernia Hypertension Myocardial infarct Home Medications albuterol sulfate 2.5 mg inhalation Q4H PRN PRN Wheezing 04/27/15 [History Last Taken Unknown] aspirin 81 mg chewable tablet 81 mg PO DAILY@0800 04/27/15 [History Last Taken Unknown] atorvastatin 80 mg tablet 40 mg PO QHS 04/27/15 [History Last Taken Unknown] carvedilol 6.25 mg tablet 6.25 mg PO BID 04/27/15 [History Last Taken Unknown] lisinopril 20 mg tablet 20 mg PO DAILY 04/27/15 [History Last Taken Unknown] fluticasone propionate 115 mcg-salmeterol 21 mcg/actuation HFA inhaler (Advair HFA) 2 puff inhalation BID 10/31/20 [History Last Taken Unknown] umeclidinium 62.5 mcg/actuation blister powder for inhalation (Incruse Ellipta) 1 inh inhalation DAILY 10/31/20 [History Last Taken Unknown] Lasix 12/08/21 [History Last Taken Unknown] prednisone 12/08/21 [History Last Taken Unknown] Allergy/AdvReac Type Severity Reaction Status Date / Time No Known Allergies Allergy Verified 12/08/21 20:31 Surgical History Hx of CABG Social History Smoking Status: Current some day smoker tobacco type: cigarettes substance use type: does not use ROS ROS ED Constitutional Constitutional ED: Denies chills, fever(s) or sweats Eyes Eyes: Denies change in vision ENT ENT ED: Denies dysphagia or sore throat Cardiovascular Cardiovascular: Denies chest pain, leg edema, palpitations or racing heartbeat Respiratory/Chest Respiratory/Chest: Reports cough, dyspnea and dyspnea on exertion Gastrointestinal Gastrointestinal: Denies abdominal pain, diarrhea, nausea or vomiting Genitourinary Genitourinary ED: Denies dysuria, hematuria or urinary frequency Musculoskeletal Musculoskeletal: Denies back pain, extremity pain or neck pain Integumentary Denies rash or wounds Neurologic Neurologic: Denies headache(s), paresthesias or weakness EXAM Physical Exam Const Vital Signs: 12/08/21 20:31 12/08/21 20:46 12/08/21 20:49 Temperature 97.5 F L Temperature Source Temporal Pulse Rate 109 H 102 H Respiratory Rate 23 H 17 Respiratory Effort Short of Breath Respiratory Depth Normal Respiratory Pattern Normal Blood Pressure 126/62 H Blood Pressure Mean 83 Pulse Ox 86 97 Oxygen Delivery Method Room Air Nasal Cannula Oxygen Flow Rate (L/min) 4 12/08/21 21:54 Temperature 97.5 F L Temperature Source Temporal Pulse Rate 83 Respiratory Rate 17 Respiratory Effort Respiratory Depth Respiratory Pattern Blood Pressure 103/62 Blood Pressure Mean 75 Pulse Ox 94 Oxygen Delivery Method Nasal Cannula Oxygen Flow Rate (L/min) 4 Positive well nourished and well developed Constitutional Narrative: Currently on 4 L nasal cannula with improved dyspnea. General Appearance ED: well developed and NAD HEENT Reports moist mucous membranes normocephalic and atraumatic Eyes PERRL, EOMs intact bilaterally and conjunctivae normal General Eye ED: Yes normal appearance of both eyes Neck no lymphadenopathy and supple General: Negative for tenderness Chest Wall Chest Narrative: Midline chest scar. Chest: Negative for tenderness Resp Resp Narrative: Diminished breath sounds Effort and Inspection: symmetric chest movement; Negative for respiratory distress Cardio regular rate, regular rhythm and no murmurs Peripheral Pulses: pulses 2+ throughout GI normal to inspection, nondistended, normoactive bowel sounds and non-tender Palpation: Negative for guarding or rebound tenderness present Back/Spine no CVA tenderness and no thoracic nor lumbar tenderness Extremity normal to inspection General Extremety ED: Negative for edema or tenderness General Extremity: Negative for edema Neuro oriented x3 and no sensory deficits noted Sensorium / Orientation: awake and alert Skin no rashes or lesions noted and no wounds MDM MDM MDM Narrative Medical decision making narrative: Patient tachycardic slight tachypneic on arrival. Sepsis labs. 86% on room air on arrival. Is currently stable 4 L of oxygen. Reported pneumonia as an outpatient. Unable to obtain films. Will obtain a chest x-ray, ABG with COVID testing. We will plan for admission. ABG on 1 L of oxygen PO2 77 pH of 7.36. He was increased on oxygenation by RT secondary to this. Chest x-ray 1 view reviewed myself and read by radiology shows no acute process. Labs White count 9.9 hemoglobin 13.7 lactate is 1.5. Sodium 133 creatinine 0.7. BNP 347. Minimal lower extremity edema. With a negative chest x-ray and hypoxia I did obtain a CT of the chest to rule out PE. This was negative. #2 pulmonary nodules. There is no infiltrates on this either. Symptoms likely from COPD exacerbation. Discussed nodular findings with the patient. He has tobacco history. He is covered with doxycycline and Solu-Medrol. I spoke with hospitalist Dr. Bermudez for admission. Lab Data Attestation: I reviewed the patient's lab results. Labs: Laboratory Results - last 24 hr 12/08/21 12/08/21 12/08/21 21:00 21:00 21:00 WBC 9.9 RBC 4.27 L Hgb 13.7 Hct 42.8 MCV 100.2 H MCH 32.1 H MCHC 32.0 RDW Std Deviation 49.0 H RDW Coeff of Jamie 13.2 Plt Count 260 MPV 10.3 Immature Gran % (Auto) 0.400 Neut % (Auto) 90.9 H Lymph % (Auto) 6.9 L [place] % (Auto) 1.4 Eos % (Auto) 0.2 Baso % (Auto) 0.2 Absolute Neuts (auto) 9.0 H Absolute Lymphs (auto) 0.68 L Nucleated RBC % 0 PT 13.7 INR 1.1 APTT 52.3 H Sodium Potassium Chloride Carbon Dioxide Anion Gap BUN Creatinine Estim Creat Clear Calc Est GFR (MDRD) Af Amer Est GFR (MDRD) Non-Af BUN/Creatinine Ratio Glucose Lactic Acid 1.5 Calcium Total Bilirubin AST ALT Alkaline Phosphatase B-Natriuretic Peptide Total Protein Albumin Globulin Albumin/Globulin Ratio 12/08/21 12/08/21 12/08/21 21:00 21:05 22:35 WBC RBC Hgb Hct MCV MCH MCHC RDW Std Deviation RDW Coeff of Jamie Plt Count MPV Immature Gran % (Auto) Neut % (Auto) Lymph % (Auto) [place] % (Auto) Eos % (Auto) Baso % (Auto) Absolute Neuts (auto) Absolute Lymphs (auto) Nucleated RBC % PT INR APTT Sodium Cancelled 133 L Potassium Cancelled 5.0 Chloride Cancelled 99 Carbon Dioxide Cancelled 31.0 Anion Gap Cancelled 3 L BUN Cancelled 7 Creatinine Cancelled 0.70 Estim Creat Clear Calc Cancelled 76.07 Est GFR (MDRD) Af Amer Cancelled 142 Est GFR (MDRD) Non-Af Cancelled 118 BUN/Creatinine Ratio Cancelled 10.0 Glucose Cancelled 170 H Lactic Acid Calcium Cancelled 8.4 L Total Bilirubin Cancelled 0.50 AST Cancelled 20 ALT Cancelled 18 Alkaline Phosphatase Cancelled 146 H B-Natriuretic Peptide 347.8 H Total Protein Cancelled 6.6 Albumin Cancelled 2.8 L Globulin Cancelled 3.8 Albumin/Globulin Ratio Cancelled 0.7 L ABG Data ABG results: ABG 12/08/21 22:20 Specimen Type ART Sample Site L Brach pH 7.36 Bicarbonate Actual 28.4 H Total CO2 30 Base Excess 3 H O2 Saturation 95 ABG pCO2 49.9 H ABG pO2 78 Jake Test Positive O2 Delivery Device Cannula Liter Flow 1.0 Radiography Chest X-Ray - ED: 1 View, Read by ED Physician and Read by Radiologist Diagnostic Testing: Clinical Impression(s) from Imaging Studies Chest X-Ray 12/08/21 21:17 IMPRESSION: There are no acute findings. Electronically Signed: James Baron MD at 21:28 EDT , Chest CTA 12/08/21 23:11 IMPRESSION: 1. No evidence of PE. No aortic dissection. 2. Infrarenal aortic aneurysm is not fully included, contrast enhanced abdomen and pelvis CT or ultrasound is suggested for further evaluation of the infrarenal aorta unless previously evaluated. 3. Advanced bullous disease. Mild suspected debris within proximal left lower lobe airways, not fully occluded. 4. Coronary artery bypass grafts, with nonopacified or slightly opacified right graft. 5. Juxtapleural opacity in the posterior-lateral right upper lobe is suspected to be focal scarring, 1.8 cm maximum diameter. 6. 9 mm mildly spiculated nodular focus near a large right upper lobe bulla. Indeterminate. RECOMMENDATIONS CONCERNING PULMONARY NODULE: For high-risk patients consider a follow-up CT at 3 months. If unchanged consider an additional follow-up CT at 18-24 months. Alternatively (or additionally) PET/CT or tissue sampling could be performed. Electronically Signed: Filomena Smith MD at 0:56 EDT , EKG Initial EKG: Attestation: I personally reviewed and interpreted this EKG as follows: Comments: Sinus rate of 88, first-degree AV block. No ST or T wave changes. Discharge Plan Dx/Rx/DC Orders Clinical Impression: Hypoxia, CAD (coronary artery disease), COPD (chronic obstructive pulmonary disease), Pulmonary nodules Disposition Disposition: Acute Care Hospital [facility]
--- NOTE | 2021-12-08 21:17 | RAD_ITS ---
STUDY: X-RAY CHEST REASON FOR EXAM: Male, 71 years old. cough TECHNIQUE: XR Chest 1 View COMPARISON: 5.30.21 FINDINGS: There is no demonstrated pleural abnormality. There are multiple median sternotomy wires. Normal size heart. Normal mediastinum and arnoldo. Normal visualized pulmonary arteries. There is atherosclerotic calcification of the aortic arch with tortuosity. There are diffuse degenerative changes of the visualized thoracic spine. There is degenerative osteoarthritis of the bilateral shoulders. There is no demonstrated abnormality of the visualized soft tissue structures of the upper abdomen. RAD/Chest 1 View (Portable) IMPRESSION: There are no acute findings. Electronically Signed: James Baron MD at 21:28 EDT ,
[2021-12-08 21:21] LABS: Absolute Lymphocyte Count 0.68 X10^3/uL (0.83-4.51); Basophil# 0.02 X10^3/uL; Basophil% 0.2 % (0-1); Eosinophil# 0.02 X10^3/uL; Eosinophils% 0.2 % (0-5); Hematocrit 42.8 % (40-54); Hemoglobin 13.7 g/dL (13.0-16.5); Lymphocyte # 0.68 X10^3/ul (0.83-4.51); Lymphocyte % 6.9 % (19-41); Mean Corpuscular Hgb 32.1 pg (27.0-32.0); Mean Corpuscular Volume 100.2 fL (80-94); Mean Platelet Vol. 10.3 fl (6.2-12.0); Monocyte# 0.14 X10^3/uL; Monocyte% 1.4 % (0-10); NRBC Flagged by Analyzer 0 % (0-5); Neutrophil # 8.97 X10^3/uL (2.7-7.7); Neutrophil % 90.9 % (47-70); Platelet Count 260 K/mm3 (150-450); RBC Distribution Width CV 13.2 % (11.6-14.6); Red Blood Count 4.27 M/mm3 (4.6-6.2); White Blood Count 9.9 K/mm3 (4.4-11.0)
[2021-12-08 21:31] LABS: International Normalized Ratio 1.1; Prothrombin Time (Protime)PT. 13.7 SECONDS (11.7-14.9)
[2021-12-08 21:32] LABS: Partial Thromboplast Time 52.3 Seconds (24.1-36.2)
[2021-12-08 21:48] LABS: BNP,B-Type NATRIURETIC PEPTIDE 347.8 pg/mL (0-100)
[2021-12-08 21:54] VITALS: BP 103/62; PULSE 83; RESP 17; TEMP 36.4; O2SAT 94
[2021-12-08 21:58] LABS: Lactic Acid 1.5 mmol/L (0.4-1.9)
[2021-12-08 22:25] LABS: Allen Test Positive; Base Excess 3 mmol/L (-2 to +2); Bicarbonate 28.4 mmol/L (22-26); Blood Gas Specimen Type ART; O2 Delivery Device Cannula; PO2 78 mmHG (75-100); SITE L Brach; SO2 95 % (95-99); Total Carbon Dioxide 30 mmol/L; pCO2 49.9 mmHg (35-45); pH 7.36 (7.35-7.45)
[2021-12-08 23:08] LABS: ALB/GLOB Ratio 0.7 RATIO (0.9-2.4); AST(SGOT) 20 U/L (15-37); Alanine Aminotransfer ALT/SGPT 18 U/L (16-61); Albumin, Serum 2.8 g/dL (3.2-5.0); Alkaline Phosphatase 146 U/L (45-117); Anion Gap 3 (5-15); BUN 7 mg/dL (7-18); Calcium,Total 8.4 mg/dL (8.5-10.1); Chloride 99 mmol/L (98-107); EST Glomerular Filtration Rate 118 mL/min (>60); Est Glom Filt Rate - Afr Amer 142 mL/min (>60); Estimated Creatinine Clearance 76.07 ml/min; Globulin 3.8 g/dL (2.2-4.2); Glucose 170 mg/dL (74-106); Protein, Total 6.6 g/dL (6.4-8.2); Sodium Level 133 mmol/L (136-145)
--- NOTE | 2021-12-08 23:11 | CT_ITS ---
ACR Level 3 findings have been noted. An addendum which confirms receipt of the report will follow. EXAM: CT ANGIOGRAPHY CHEST WITHOUT AND WITH INTRAVENOUS CONTRAST CLINICAL INDICATION: hypoxia TECHNIQUE: Helically acquired angiography images were obtained of the chest without and with intravenous contrast. This CT exam was performed using one or more of the following dose reduction techniques: automated exposure control, adjustment of the mA and/or kV according to patient size, and/or use of iterative reconstruction technique. This report was created using [employer] report generation technology. MIP reconstructed images were created and reviewed. RADIATION DOSE: CTDIvol = 11.26 mGy, DLP = 416.16 mGy-cmContrast: IV 100mL [id number] COMPARISON: None. FINDINGS: PULMONARY ARTERIES: Unremarkable. Normal in caliber. No evidence of pulmonary embolism. AORTA: Calcified aorta, mildly ectatic. The infrarenal aorta appears to slightly dilated to 3.1 cm x 3.6 cm on the most inferior images, not fully included, additional evaluation is recommended if not previously evaluated. GREAT VESSELS OF AORTIC ARCH: See below. LUNGS AND PLEURAL SPACES: Advanced bullous change in the right upper lobe, milder bullous changes in the left upper lobe. Mild airway thickening, there is some debris and proximal left lower lobe airways but they are patent more distally, suspicion of bronchitis. Juxtapleural opacity with small central cavitation since or focal bronchiectasis adjacent to the right upper lateral pleura and the major fissure, measuring roughly 1.8 cm x 0.9 cm. Also mildly thick-walled appearance of large right upper lobe lateral bulla, presumed scarring at its deep margin but small irregular nodule deep to the bulla measuring roughly 7 mm x 1 cm with mildly spiculated margins, best seen on axial image #223 and coronal image #147. HEART: Median sternotomy wires. Left internal thoracic artery bypass 2 left heart appears patent. A apparent graft from the ascending aorta to right heart is not obviously opacified, suspected to be occluded. Vascular calcifications and stents in the [place] coronary arteries. Normal heart size. Mildly prominent left heart chambers. No pericardial effusion. MEDIASTINUM: Unremarkable. No mediastinal or hilar adenopathy. Esophagus is unremarkable. No hiatal hernia. THYROID: Unremarkable. No thyroid lesions. BONES/JOINTS: Unremarkable. No suspicious lytic or blastic abnormality. ADRENALS: Mild fullness of the adrenal glands suspicious for mild hyperplasia without discrete nodules. Calcification and mild narrowing at the origins of the celiac axis and SMA and marked calcification at the origins of the renal arteries, suspicion of high-grade stenosis at the origin of the right renal artery and moderate stenosis at the origin of the left renal artery. Atherosclerotic calcification of the left subclavian artery without evidence of significant stenosis. CT/CTA Chest W/WO Contrast IMPRESSION: 1. No evidence of PE. No aortic dissection. 2. Infrarenal aortic aneurysm is not fully included, contrast enhanced abdomen and pelvis CT or ultrasound is suggested for further evaluation of the infrarenal aorta unless previously evaluated. 3. Advanced bullous disease. Mild suspected debris within proximal left lower lobe airways, not fully occluded. 4. Coronary artery bypass grafts, with nonopacified or slightly opacified right graft. 5. Juxtapleural opacity in the posterior-lateral right upper lobe is suspected to be focal scarring, 1.8 cm maximum diameter. 6. 9 mm mildly spiculated nodular focus near a large right upper lobe bulla. Indeterminate. RECOMMENDATIONS CONCERNING PULMONARY NODULE: For high-risk patients consider a follow-up CT at 3 months. If unchanged consider an additional follow-up CT at 18-24 months. Alternatively (or additionally) PET/CT or tissue sampling could be performed. Electronically Signed: Filomena Smith MD at 0:56 EDT ,
[2021-12-09] VITALS (12 sets, daily range): BP systolic 109–145; BP diastolic 63–87; PULSE 74–102; RESP 15–22; TEMP 35.8–36.6; O2SAT 95–98; BMI 21.2
--- NOTE | 2021-12-09 00:47 | PCM.HP.STD ---
HPI - General General Date of Admission: 12/09/21 Date of Service: 12/09/21 Chief Complaint: SOB HPI Narrative ASHLEY ROBLES, is a 71 M who presents with progessively worsening shortness of breath above his baseline. His worsening shortness of breath has been going on for about a month. Because of shortness of SOB he has been using his 's oxygen. Associated with symptom is a productive cough of greenish-melendez and yellowish sputum. Patient and family denies any wheezes. Of note on the same day of presentation patient went to see his PCP. Patient reported that it was his annual physical while reviewing PCPs notes show that patient presented because of a fall. Reportedly at PCPs office chest x-ray was done and patient was diagnosed with pneumonia and CHF. Of note patient reports of bilateral lower legs and feet edema that started 2 days ago. ON LICENSE OF [facility] Medical History (Updated 12/09/21 @ 02:[address] Willi Bermudez MD) Chronic back pain Congestive heart failure (CHF) COPD (chronic obstructive pulmonary disease) History of inguinal hernia Hypertension Myocardial infarct Home Medications albuterol sulfate 2.5 mg inhalation Q4H PRN PRN Wheezing 04/27/15 [History Last Taken Unknown] aspirin 81 mg chewable tablet 81 mg PO DAILY@0800 HEART 04/27/15 [History Last Taken Unknown] carvedilol 6.25 mg tablet 6.25 mg PO BID HEART 04/27/15 [History Last Taken Unknown] lisinopril 20 mg tablet 20 mg PO DAILY BLOOD PRESSURE 04/27/15 [History Last Taken Unknown] fluticasone propionate 115 mcg-salmeterol 21 mcg/actuation HFA inhaler (Advair HFA) 2 puff inhalation BID COPD 10/31/20 [History Last Taken Unknown] umeclidinium 62.5 mcg/actuation blister powder for inhalation (Incruse Ellipta) 1 inh inhalation DAILY COPD 10/31/20 [History Last Taken Unknown] Lasix 12/08/21 [History Last Taken Unknown] prednisone 12/08/21 [History Last Taken Unknown] atorvastatin 40 mg tablet 40 tab PO QHS CHOLESTEROL 12/09/21 [History Last Taken Unknown] Allergy/AdvReac Type Severity Reaction Status Date / Time No Known Allergies Allergy Verified 12/08/21 20:31 Family History Other Cancer Diabetes Essential tremor Surgical History (Updated 12/09/21 @ 02:[address] Willi Bermudez MD) History of coronary artery stent placement Hx of CABG S/P CABG x 3 Social History Smoking Status: Light Smoker (<10/day) substance use type: does not use ROS ROS Narrative Pertinent positives and pertinent negatives as noted in HPI. All other systems were reviewed and are negative.. Vital Signs Vital Signs Vital Signs: 12/08/21 20:31 12/08/21 20:46 12/08/21 20:49 Temperature 97.5 F L Temperature Source Temporal Pulse Rate 109 H 102 H Respiratory Rate 23 H 17 Respiratory Effort Short of Breath Respiratory Depth Normal Respiratory Pattern Normal Blood Pressure 126/62 H Blood Pressure Mean 83 Pulse Ox 86 97 Oxygen Delivery Method Room Air Nasal Cannula Oxygen Flow Rate (L/min) 4 12/08/21 21:54 Temperature 97.5 F L Temperature Source Temporal Pulse Rate 83 Respiratory Rate 17 Respiratory Effort Respiratory Depth Respiratory Pattern Blood Pressure 103/62 Blood Pressure Mean 75 Pulse Ox 94 Oxygen Delivery Method Nasal Cannula Oxygen Flow Rate (L/min) 4 Weight Weight: 79.379 kg Body Mass Index (BMI) 22.4 Physical Exam Narrative Physical exam: General: Well-nourished, well-developed. Head: Normocephalic, atraumatic, no tenderness Eyes: Vision is grossly intact. EOMI ENT, no trauma, moist mucous membranes, no rhinorrhea Neck: Nontender, full range of motion, no spinal tenderness CVS: Regular rate and rhythm. S1-S2 present. No murmur, gallop or rub. Respiratory : clear to auscultation bilaterally, chest wall nontender, no wheezing Abdomen: Soft, nontender, nondistended, normal bowel sounds, no masses : Deferred Back: Nontender, no CVA tenderness, no midline spinal tenderness, deformities, step-offs Extremities: Bilateral lower legs and feet edema. Nontender full range of motion, no trauma Skin: Normal color, no trauma, abrasions Neuro: Alert, oriented, cranial nerves II through XII grossly intact. Psychiatry: Normal mood. Normal affect. Not depressed. Not anxious. Results Lab / Micro Data Result Diagrams: 12/08/21 21:00 07/06/22 22:35 Labs: Laboratory Results - last 24 hr 12/08/21 21:00: WBC 9.9, RBC 4.27 L, Hgb 13.7, Hct 42.8, MCV 100.2 H, MCH 32.1 H, MCHC 32.0, RDW Std Deviation 49.0 H, RDW Coeff of Jamie 13.2, Plt Count 260, MPV 10.3, Immature Gran % (Auto) 0.400, Neut % (Auto) 90.9 H, Lymph % (Auto) 6.9 L, Cobb % (Auto) 1.4, Eos % (Auto) 0.2, Baso % (Auto) 0.2, Absolute Neuts (auto) 9.0 H, Absolute Lymphs (auto) 0.68 L, Nucleated RBC % 0 12/08/21 21:00: PT 13.7, INR 1.1, APTT 52.3 H 12/08/21 21:00: Lactic Acid 1.5 12/08/21 21:00: B-Natriuretic Peptide 347.8 H 12/08/21 21:05: Sodium Cancelled, Potassium Cancelled, Chloride Cancelled, Carbon Dioxide Cancelled, Anion Gap Cancelled, BUN Cancelled, Creatinine Cancelled, Estim Creat Clear Calc Cancelled, Est GFR (MDRD) Af Amer Cancelled, Est GFR (MDRD) Non-Af Cancelled, BUN/Creatinine Ratio Cancelled, Glucose Cancelled, Calcium Cancelled, Total Bilirubin Cancelled, AST Cancelled, ALT Cancelled, Alkaline Phosphatase Cancelled, Total Protein Cancelled, Albumin Cancelled, Globulin Cancelled, Albumin/Globulin Ratio Cancelled 12/08/21 22:35: Sodium 133 L, Potassium 5.0, Chloride 99, Carbon Dioxide 31.0, Anion Gap 3 L, BUN 7, Creatinine 0.70, Estim Creat Clear Calc 76.07, Est GFR (MDRD) Af Amer 142, Est GFR (MDRD) Non-Af 118, BUN/Creatinine Ratio 10.0, Glucose 170 H, Calcium 8.4 L, Total Bilirubin 0.50, AST 20, ALT 18, Alkaline Phosphatase 146 H, Total Protein 6.6, Albumin 2.8 L, Globulin 3.8, Albumin/Globulin Ratio 0.7 L Micro: Microbiology 12/08/21 21:00 Nasal Secretion SARS-CoV-2 Antigen (Rapid) - Final ABG Data ABG results: ABG 12/08/21 22:20 Specimen Type ART Sample Site L Brach pH 7.36 Bicarbonate Actual 28.4 H Total CO2 30 Base Excess 3 H O2 Saturation 95 ABG pCO2 49.9 H ABG pO2 78 Jake Test Positive O2 Delivery Device Cannula Liter Flow 1.0 Radiology Impression Chest X-Ray 12/08/21 21:17 IMPRESSION: There are no acute findings. Electronically Signed: James Baron MD at 21:28 EDT , Assessment & Plan Assessment/Plan (1) COPD (chronic obstructive pulmonary disease): (2) Pulmonary nodule: (3) Aneurysm of infrarenal abdominal aorta: (4) Hx of CABG: (5) SOB (shortness of breath): (6) Hypoxia: PLAN: Plan SOB with hypoxia Etiology on clear; Does not appear the patient is seen chronic COPD exacerbation. Cannot rule out worsening of baseline COPD. Infleunza A and B ordered. If negative consider comprehensive respiratory panel. BNP on presentation was 245.9. His BNP on the same day of presentation but before ED visit was 347.8. Review of record showed an echocardiogram on 11/01/2020 was remarkable for left ventricular ejection fraction of 40% and stage II diastolic dysfunction as well as severe hypokinesis. Repeat echocardiogram ordered. Chest x-ray on presentation was visualized and independently interpreted. No acute cardiopulmonary process was seen. CTA chest did not show heart failure. Focal scarring seen on chest CTA. Doxycycline started the emergency department and continued. DuoNeb [id number] ordered. As needed albuterol ordered. Scheduled Mucinex ordered. Solu-Medrol 60 mg IV push ordered emergency department. Prednisone 40 mg daily ordered. Bilateral lower legs and feet edema Duplex ultrasound of bilateral legs ordered. Lasix ordered. Fluid restriction ordered. Daily weights. Strict intake and output. History of CABG CTA on this presentation showed nonopacified of slightly opacified right graft. Of note in about 2009 patient had a coronary stent. Order to obtain records of coronary stents. Echocardiogram ordered. Spiculated pulmonary nodule. Consider pulmonary referral on discharge. Of note patient's heart rate since patient is a smoker. Tobacco abuse Counseled. Smokes about 1 pack/months and not interested in nicotine patch. Possible infrarenal aortic aneurysm. CTA chest showed possible infrarenal aortic aneurysm. Contrast enhanced abdomen and pelvis CT ultrasound ordered was recommended. Ultrasound ordered. DVT prophylaxis: Subcutaneous Lovenox ordered. Charges/Coding Visit Charges Inpatient E&M: 84873 Init Hosp L3
[2021-12-09] MEDS: MethylPREDNISolone 125 MG/2 ML Vial 60 MG IV (01:17)
--- NOTE | 2021-12-09 01:24 | ECHOCS_ITS ---
Reason For Study: SOB Procedure This was a 2D Doppler, Color Flow transthoracic echocardiogram. The study was technically difficult. Contrast injection was performed. Exam performed portable in patient room. Left Ventricle Normal left ventricle. The estimated ejection fraction is 40-45 %. Right Ventricle Normal right ventricle. Normal systolic function. Atria Normal left atrium. Normal right atrium. Mitral Valve The mitral valve is structurally normal. No prolapse or stenosis seen. Trivial mitral valve insufficiency. Tricuspid Valve Normal tricuspid valve. Trivial tricuspid valve insufficiency. Aortic Valve Aortic sclerosis, no stenosis. Mild (1+) aortic valve insufficiency. Pulmonic Valve The pulmonic valve is not well visualized. Great Vessels Calcified aortic root. Pericardium/Pleural No pericardial effusion. Medication Diluted definity 3ml given slow IV push to enhance endocardial definition. MMode/2D Measurements & Calculations Ao root diam: 3.5 cm LA dimension(2D): 3.3 cm Doppler Measurements & Calculations MV E max kathy: 128.8 cm/sec Ao V2 max: 97.3 cm/sec LV V1 max: 86.8 cm/sec Ao max P.8 mmHg LV V1 max P.0 mmHg PA V2 max: 70.6 cm/sec ECHO/Echo Complete W/ Contrast Interpretation Summary The estimated ejection fraction is 40-45 %. Moderate LV systolic function Segmental wall motion abnormalities anteroapical . no significant difference from prior Echo 2020 Ordering Physician: Willi Bermudez Performed By: Tamra Duong RCS
--- NOTE | 2021-12-09 01:44 | VDLE_ITS ---
Reason For Study: Swelling RIGHT LEFT GSV is normal. GSV is normal. CFV is compressible, spontaneous, phasic, CFV is compressible, spontaneous, phasic, competent and demonstrates normal competent, and demonstrates normal augmentation. augmentation. FV is compressible, spontaneous, phasic, FV is compressible, spontaneous, phasic, competent and demonstrates normal competent and demonstrates normal augmentation. augmentation. POP V is compressible, spontaneous, phasic, POP V is compressible, spontaneous, phasic, competent and demonstrates normal competent and demonstrates normal augmentation. augmentation. T/P Trunk is compressible. T/P Trunk is compressible. PTV is compressible. PTV is compressible. RT PerV is compressible. LT PerV is compressible. Procedure This is a venous duplex using B-mode, color flow and spectral Doppler. Exam performed portable in patient room. A preliminary report was called and/or faxed to [facility]. VL/Venous Duplex US - Magan Extrem Interpretation Summary No evidence for acute deep venous thrombosis right lower extremity with patent and compressible right great saphenous vein No evidence for acute deep venous thrombosis left lower extremity with surgical ly harvested left great saphenous vein Ordering Physician: Willi Bermudez Referring Physician: Connor Villasenor Performed By: Roxy Scott RVT
--- NOTE | 2021-12-09 01:44 | US_ITS ---
PROCEDURES: ULTRASOUND AORTA REASON FOR EXAM: Male, 71 years old. R/o infrarenal aortic aneurysm -- Seen on CTA chest TECHNIQUE: Ultrasound evaluation of the aorta was performed with real-time and static melendez-scale imaging. COMPARISON: None. FINDINGS: There is tortuous elongation of the abdominal aorta. Aorta measures: Proximal 3.5 cm. Middle 6.6 cm. Distal 2.3 cm. Aorta measure transversely: Proximal 3.2 cm. Middle 6.3 cm. Distal 2.2 cm. Saccular infrarenal abdominal aortic aneurysm with a transverse dimension of 6.3 cm and longitudinal dimension of 6.6 cm. Mural thrombus is seen.. US/Aorta IMPRESSION: Saccular infrarenal abdominal aortic aneurysm with a transverse dimension of 6.3 cm. Electronically Signed: Braydon Guthrie MD at 9:37 EDT ,
[2021-12-09] MEDS: Ipratropium/Albuterol Sulfate 3 ML AMPUL.NEB INHALATION ×6 (02:08→22:47)
[2021-12-09] MEDS: guaiFENesin 600 MG Tablet PO ×3 (02:22→21:44)
[2021-12-09] MEDS: Menthol/Lanolin/Calamine/Znox 113 GM Tube 1 APPLIC TOPICAL ×3 (05:00→21:45)
[2021-12-09 07:29] LABS: Absolute Neutrophil Count 4.4 X10^3/uL (2.0-7.7); Hematocrit 41.1 % (40-54); Hemoglobin 13.3 g/dL (13.0-16.5); Lymphocyte % 15.1 % (19-41); Mean Corp Hgb Conc 32.4 g/dL (32-36); Mean Corpuscular Hgb 32.1 pg (27.0-32.0); Mean Corpuscular Volume 99.3 fL (80-94); Monocyte# 0.05 X10^3/uL; Monocyte% 0.9 % (0-10); NRBC Flagged by Analyzer 0 % (0-5); Neutrophil # 4.39 X10^3/uL (2.7-7.7); Neutrophil % 82.7 % (47-70); Platelet Count 275 K/mm3 (150-450); RBC Distribution Width SD 47.1 fl (35.1-43.9); Red Blood Count 4.14 M/mm3 (4.6-6.2); White Blood Count 5.3 K/mm3 (4.4-11.0)
[2021-12-09 08:23] LABS: Anion Gap 6 (5-15); BUN 6 mg/dL (7-18); BUN/Creat Ratio 10.2 RATIO (10-20); Calcium,Total 8.7 mg/dL (8.5-10.1); Chloride 96 mmol/L (98-107); Creatinine, Serum 0.59 mg/dL (0.70-1.30); EST Glomerular Filtration Rate 145 mL/min (>60); Est Glom Filt Rate - Afr Amer 175 mL/min (>60); Estimated Creatinine Clearance 72.45 ml/min; Glucose 177 mg/dL (74-106); Sodium Level 133 mmol/L (136-145)
[2021-12-09] MEDS: Furosemide 20 MG/2 ML VIAL IV ×2 (09:56→16:14)
[2021-12-09] MEDS: Enoxaparin 40 MG/0.4 ML Syringe SC (09:56)
[2021-12-09] MEDS: Carvedilol 6.25 MG Tablet PO ×2 (09:56→16:14)
[2021-12-09] MEDS: Aspirin 81 MG TAB.CHEW PO (09:56)
[2021-12-09] MEDS: Lisinopril 20 MG Tablet PO (09:56)
[2021-12-09] MEDS: 0.9% Saline Lock 10 ML Syringe IV ×3 (09:56→21:45)
--- NOTE | 2021-12-09 10:51 | HP.PCM_ITS ---
HPI - General General Date of Admission: 12/09/21 Date of Service: 12/09/21 Chief Complaint: SOB HPI Narrative ASHLEY ROBLES, is a 71 M who presents [facility] Medical History (Updated 12/09/21 @ 02:[address] Willi Bermudez MD) Chronic back pain Congestive heart failure (CHF) COPD (chronic obstructive pulmonary disease) History of inguinal hernia Hypertension Myocardial infarct Home Medications albuterol sulfate 2.5 mg inhalation Q4H PRN PRN Wheezing 04/27/15 [History Last Taken Unknown] aspirin 81 mg chewable tablet 81 mg PO DAILY@0800 HEART 04/27/15 [History Last Taken Unknown] carvedilol 6.25 mg tablet 6.25 mg PO BID HEART 04/27/15 [History Last Taken Unknown] lisinopril 20 mg tablet 20 mg PO DAILY BLOOD PRESSURE 04/27/15 [History Last Taken Unknown] fluticasone propionate 115 mcg-salmeterol 21 mcg/actuation HFA inhaler (Advair HFA) 2 puff inhalation BID COPD 10/31/20 [History Last Taken Unknown] umeclidinium 62.5 mcg/actuation blister powder for inhalation (Incruse Ellipta) 1 inh inhalation DAILY COPD 10/31/20 [History Last Taken Unknown] Lasix 12/08/21 [History Last Taken Unknown] prednisone 12/08/21 [History Last Taken Unknown] atorvastatin 40 mg tablet 40 tab PO QHS CHOLESTEROL 12/09/21 [History Last Taken Unknown] Allergy/AdvReac Type Severity Reaction Status Date / Time No Known Allergies Allergy Verified 12/08/21 20:31 Family History Other Cancer Diabetes Essential tremor Surgical History (Updated 12/09/21 @ 02:[address] Willi Bermudez MD) History of coronary artery stent placement Hx of CABG S/P CABG x 3 Social History Smoking Status: Light Smoker (<10/day) substance use type: does not use Vital Signs Vital Signs Vital Signs: 12/08/21 20:31 12/08/21 20:46 12/08/21 20:49 Temperature 97.5 F L Temperature Source Temporal Pulse Rate 109 H 102 H Respiratory Rate 23 H 17 Respiratory Effort Short of Breath Respiratory Depth Normal Respiratory Pattern Normal Blood Pressure 126/62 H Blood Pressure Mean 83 Blood Pressure Source Blood Pressure Position Blood Pressure Location Pulse Ox 86 97 Oxygen Delivery Method Room Air Nasal Cannula Oxygen Flow Rate (L/min) 4 12/08/21 21:54 12/09/21 01:19 12/09/21 02:01 Temperature 97.5 F L 96.5 F L 97.8 F Temperature Source Temporal Temporal Oral Pulse Rate 83 77 83 Respiratory Rate 17 16 20 H Respiratory Effort Respiratory Depth Respiratory Pattern Blood Pressure 103/62 109/63 145/81 H Blood Pressure Mean 75 78 102 Blood Pressure Source Monitor Blood Pressure Position Semi-Fowlers Blood Pressure Location Right Arm Pulse Ox 94 97 98 Oxygen Delivery Method Nasal Cannula Nasal Cannula Nasal Cannula Oxygen Flow Rate (L/min) 4 2 2 12/09/21 01:29 12/09/21 02:08 12/09/21 02:08 Temperature Temperature Source Pulse Rate 80 Respiratory Rate 18 Respiratory Effort Normal Non-Labored Respiratory Depth Normal Respiratory Pattern Normal Normal Blood Pressure Blood Pressure Mean Blood Pressure Source Blood Pressure Position Blood Pressure Location Pulse Ox 98 Oxygen Delivery Method Nasal Cannula Nasal Cannula Oxygen Flow Rate (L/min) 2 2 12/09/21 02:08 12/09/21 04:53 12/09/21 05:00 Temperature 98 F Temperature Source Oral Pulse Rate 80 Respiratory Rate 16 18 Respiratory Effort Non-Labored Normal Non-Labored Respiratory Depth Normal Normal Respiratory Pattern Normal Normal Blood Pressure 136/87 H Blood Pressure Mean 103 Blood Pressure Source Monitor Blood Pressure Position Semi-Fowlers Blood Pressure Location Left Arm Pulse Ox 98 96 Oxygen Delivery Method Nasal Cannula Nasal Cannula Nasal Cannula Oxygen Flow Rate (L/min) 2 2 2 Weight Weight: 166 lb 10.711 oz Body Mass Index (BMI) 21.2 Results Lab / Micro Data Result Diagrams: 12/09/21 06:50 12/09/21 06:50 Labs: Laboratory Results - last 24 hr 12/08/21 21:00: WBC 9.9, RBC 4.27 L, Hgb 13.7, Hct 42.8, MCV 100.2 H, MCH 32.1 H , MCHC 32.0, RDW Std Deviation 49.0 H, RDW Coeff of Jamie 13.2, Plt Count 260, MPV 10.3, Immature Gran % (Auto) 0.400, Neut % (Auto) 90.9 H, Lymph % (Auto) 6.9 L, Haakon % (Auto) 1.4, Eos % (Auto) 0.2, Baso % (Auto) 0.2, Absolute Neuts (auto) 9.0 H, Absolute Lymphs (auto) 0.68 L, Nucleated RBC % 0 12/08/21 21:00: PT 13.7, INR 1.1, APTT 52.3 H 12/08/21 21:00: Lactic Acid 1.5 12/08/21 21:00: B-Natriuretic Peptide 347.8 H 12/08/21 21:05: Sodium Cancelled, Potassium Cancelled, Chloride Cancelled, Carbon Dioxide Cancelled, Anion Gap Cancelled, BUN Cancelled, Creatinine Cancelled, Estim Creat Clear Calc Cancelled, Est GFR (MDRD) Af Amer Cancelled, Est GFR (MDRD) Non-Af Cancelled, BUN/Creatinine Ratio Cancelled, Glucose Cance lled, Calcium Cancelled, Total Bilirubin Cancelled, AST Cancelled, ALT Cancelled, Alkaline Phosphatase Cancelled, Total Protein Cancelled, Albumin Cancelled, Globulin Cancelled, Albumin/Globulin Ratio Cancelled 12/08/21 22:35: Sodium 133 L, Potassium 5.0, Chloride 99, Carbon Dioxide 31.0, Anion Gap 3 L, BUN 7, Creatinine 0.70, Estim Creat Clear Calc 76.07, Est GFR (MDRD) Af Amer 142, Est GFR (MDRD) Non-Af 118, BUN/Creatinine Ratio 10.0, Glucose 170 H, Calcium 8.4 L, Total Bilirubin 0.50, AST 20, ALT 18, Alkaline Phosphatase 146 H, Total Protein 6.6, Albumin 2.8 L, Globulin 3.8, Albumin/Globulin Ratio 0.7 L 12/09/21 06:50: WBC 5.3, RBC 4.14 L, Hgb 13.3, Hct 41.1, MCV 99.3 H, MCH 32.1 H, MCHC 32.4, RDW Std Deviation 47.1 H, RDW Coeff of Jamie 13.0, Plt Count 275, MPV 10.0, Immature Gran % (Auto) 1.300 H, Neut % (Auto) 82.7 H, Lymph % (Auto) 15.1 L, Haakon % (Auto) 0.9, Eos % (Auto) 0.0, Baso % (Auto) 0.0, Absolute Neuts (auto) 4.4, Absolute Lymphs (auto) 0.80 L, Nucleated RBC % 0 12/09/21 06:50: Sodium 133 L, Potassium 4.0, Chloride 96 L, Carbon Dioxide 31.0, Anion Gap 6, BUN 6 L, Creatinine 0.59 L, Estim Creat Clear Calc 72.45, Est GFR (MDRD) Af Amer 175, Est GFR (MDRD) Non-Af 145, BUN/Creatinine Ratio 10.2, Glucose 177 H, Calcium 8.7 Micro: Microbiology 12/08/21 21:00 Nasal Secretion SARS-CoV-2 Antigen (Rapid) - Final ABG Data ABG results: ABG 12/08/21 22:20 Specimen Type ART Sample Site L Brach pH 7.36 Bicarbonate Actual 28.4 H Total CO2 30 Base Excess 3 H O2 Saturation 95 ABG pCO2 49.9 H ABG pO2 78 Jake Test Positive O2 Delivery Device Cannula Liter Flow 1.0 Radiology Impression Chest X-Ray 12/08/21 21:17 IMPRESSION: There are no acute findings. Electronically Signed: James Baron MD at 21:28 EDT , Chest CTA 12/08/21 23:11 IMPRESSION: 1. No evidence of PE. No aortic dissection. 2. Infrarenal aortic aneurysm is not fully included, contrast enhanced abdomen and pelvis CT or ultrasound is suggested for further evaluation of the infrarenal aorta unless previously evaluated. 3. Advanced bullous disease. Mild suspected debris within proximal left lower lobe airways, not fully occluded. 4. Coronary artery bypass grafts, with nonopacified or slightly opacified right graft. 5. Juxtapleural opacity in the posterior-lateral right upper lobe is suspected to be focal scarring, 1.8 cm maximum diameter. 6. 9 mm mildly spiculated nodular focus near a large right upper lobe bulla. Indeterminate. RECOMMENDATIONS CONCERNING PULMONARY NODULE: For high-risk patients consider a follow-up CT at 3 months. If unchanged consider an additional follow-up CT at 18-24 months. Alternatively (or additionally) PET/CT or tissue sampling could be performed. Electronically Signed: iFlomena Smith MD at 0:56 EDT , ADDENDUM: 12/09/21 0114 IMPRESSION: 1. No evidence of PE. No aortic dissection. 2. Infrarenal aortic aneurysm is not fully included, contrast enhanced abdomen and pelvis CT or ultrasound is suggested for further evaluation of the infrarenal aorta unless previously evaluated. 3. Advanced bullous disease. Mild suspected debris within proximal left lower lobe airways, not fully occluded. 4. Coronary artery bypass grafts, with nonopacified or slightly opacified right graft. 5. Juxtapleural opacity in the posterior-lateral right upper lobe is suspected to be focal scarring, 1.8 cm maximum diameter. 6. 9 mm mildly spiculated nodular focus near a large right upper lobe bulla. Indeterminate. RECOMMENDATIONS CONCERNING PULMONARY NODULE: For high-risk patients consider a follow-up CT at 3 months. If unchanged consider an additional follow-up CT at 18-24 months. Alternatively (or additionally) PET/CT or tissue sampling could be performed. N.B. : Dr Coy Hua MD, confirmed on 12/09/2021 01:07:13 (ET) that the healthcare facility has received the radiology report. Electronically Signed: Filomena Smith MD at 0:56 EDT , Aorta Ultrasound 12/09/21 01:44 IMPRESSION: Saccular infrarenal abdominal aortic aneurysm with a transverse dimension of 6.3 cm. Electronically Signed: Braydon Guthrie MD at 9:37 EDT ,
--- NOTE | 2021-12-09 10:54 | PCM.PN.HOSP ---
Documented by User: ELOISA Gutiérrez 12/09/21 11:07 Subjective Subjective Patient seen and examined. Patient sitting in bed no distress noted. Patient states that he feels improved from presentation. Patient was admitted earlier this morning. Objective Data Objective Data Vital Signs: Vital Signs Temp Pulse Resp BP Pulse Ox O2 Del Method O2 Flow Rate 98 F 80 18 136/87 H 96 Nasal Cannula 2 12/09/21 04:53 12/09/21 04:53 12/09/21 04:53 12/09/21 04:53 12/09/21 04:53 12/09/21 05:00 12/09/21 05:00 Oxygen Flow Rate (L/min) 2 Oxygen Delivery Method Nasal Cannula Weight: 166 lb 10.711 oz Body Mass Index (BMI) 21.2 Intake & Output: Intake and Output for Last 24 Hours 12/07/21 12/08/21 12/09/21 23:59 23:59 23:59 Intake Total 410 / 410 Balance 410 / 410 Lab / Micro Data Result Diagrams: 12/09/21 06:50 12/09/21 06:50 Labs: Laboratory Results - last 24 hr 12/08/21 21:00: WBC 9.9, RBC 4.27 L, Hgb 13.7, Hct 42.8, MCV 100.2 H, MCH 32.1 H, MCHC 32.0, RDW Std Deviation 49.0 H, RDW Coeff of Jamie 13.2, Plt Count 260, MPV 10.3, Immature Gran % (Auto) 0.400, Neut % (Auto) 90.9 H, Lymph % (Auto) 6.9 L, [place] % (Auto) 1.4, Eos % (Auto) 0.2, Baso % (Auto) 0.2, Absolute Neuts (auto) 9.0 H, Absolute Lymphs (auto) 0.68 L, Nucleated RBC % 0 12/08/21 21:00: PT 13.7, INR 1.1, APTT 52.3 H 12/08/21 21:00: Lactic Acid 1.5 12/08/21 21:00: B-Natriuretic Peptide 347.8 H 12/08/21 21:05: Sodium Cancelled, Potassium Cancelled, Chloride Cancelled, Carbon Dioxide Cancelled, Anion Gap Cancelled, BUN Cancelled, Creatinine Cancelled, Estim Creat Clear Calc Cancelled, Est GFR (MDRD) Af Amer Cancelled, Est GFR (MDRD) Non-Af Cancelled, BUN/Creatinine Ratio Cancelled, Glucose Cancelled, Calcium Cancelled, Total Bilirubin Cancelled, AST Cancelled, ALT Cancelled, Alkaline Phosphatase Cancelled, Total Protein Cancelled, Albumin Cancelled, Globulin Cancelled, Albumin/Globulin Ratio Cancelled 12/08/21 22:35: Sodium 133 L, Potassium 5.0, Chloride 99, Carbon Dioxide 31.0, Anion Gap 3 L, BUN 7, Creatinine 0.70, Estim Creat Clear Calc 76.07, Est GFR (MDRD) Af Amer 142, Est GFR (MDRD) Non-Af 118, BUN/Creatinine Ratio 10.0, Glucose 170 H, Calcium 8.4 L, Total Bilirubin 0.50, AST 20, ALT 18, Alkaline Phosphatase 146 H, Total Protein 6.6, Albumin 2.8 L, Globulin 3.8, Albumin/Globulin Ratio 0.7 L 12/09/21 06:50: WBC 5.3, RBC 4.14 L, Hgb 13.3, Hct 41.1, MCV 99.3 H, MCH 32.1 H, MCHC 32.4, RDW Std Deviation 47.1 H, RDW Coeff of Jamie 13.0, Plt Count 275, MPV 10.0, Immature Gran % (Auto) 1.300 H, Neut % (Auto) 82.7 H, Lymph % (Auto) 15.1 L, [place] % (Auto) 0.9, Eos % (Auto) 0.0, Baso % (Auto) 0.0, Absolute Neuts (auto) 4.4, Absolute Lymphs (auto) 0.80 L, Nucleated RBC % 0 12/09/21 06:50: Sodium 133 L, Potassium 4.0, Chloride 96 L, Carbon Dioxide 31.0, Anion Gap 6, BUN 6 L, Creatinine 0.59 L, Estim Creat Clear Calc 72.45, Est GFR (MDRD) Af Amer 175, Est GFR (MDRD) Non-Af 145, BUN/Creatinine Ratio 10.2, Glucose 177 H, Calcium 8.7 Micro: Microbiology 12/08/21 21:00 Nasal Secretion SARS-CoV-2 Antigen (Rapid) - Final ABG Data ABG results: ABG 12/08/21 22:20 Specimen Type ART Sample Site L Brach pH 7.36 Bicarbonate Actual 28.4 H Total CO2 30 Base Excess 3 H O2 Saturation 95 ABG pCO2 49.9 H ABG pO2 78 Jake Test Positive O2 Delivery Device Cannula Liter Flow 1.0 Radiography Diagnostic Testing: Radiology Impression Chest X-Ray 12/08/21 21:17 IMPRESSION: There are no acute findings. Electronically Signed: James Baron MD at 21:28 EDT , Chest CTA 12/08/21 23:11 IMPRESSION: 1. No evidence of PE. No aortic dissection. 2. Infrarenal aortic aneurysm is not fully included, contrast enhanced abdomen and pelvis CT or ultrasound is suggested for further evaluation of the infrarenal aorta unless previously evaluated. 3. Advanced bullous disease. Mild suspected debris within proximal left lower lobe airways, not fully occluded. 4. Coronary artery bypass grafts, with nonopacified or slightly opacified right graft. 5. Juxtapleural opacity in the posterior-lateral right upper lobe is suspected to be focal scarring, 1.8 cm maximum diameter. 6. 9 mm mildly spiculated nodular focus near a large right upper lobe bulla. Indeterminate. RECOMMENDATIONS CONCERNING PULMONARY NODULE: For high-risk patients consider a follow-up CT at 3 months. If unchanged consider an additional follow-up CT at 18-24 months. Alternatively (or additionally) PET/CT or tissue sampling could be performed. Electronically Signed: Filomena Smith MD at 0:56 EDT , ADDENDUM: 12/09/21 0114 IMPRESSION: 1. No evidence of PE. No aortic dissection. 2. Infrarenal aortic aneurysm is not fully included, contrast enhanced abdomen and pelvis CT or ultrasound is suggested for further evaluation of the infrarenal aorta unless previously evaluated. 3. Advanced bullous disease. Mild suspected debris within proximal left lower lobe airways, not fully occluded. 4. Coronary artery bypass grafts, with nonopacified or slightly opacified right graft. 5. Juxtapleural opacity in the posterior-lateral right upper lobe is suspected to be focal scarring, 1.8 cm maximum diameter. 6. 9 mm mildly spiculated nodular focus near a large right upper lobe bulla. Indeterminate. RECOMMENDATIONS CONCERNING PULMONARY NODULE: For high-risk patients consider a follow-up CT at 3 months. If unchanged consider an additional follow-up CT at 18-24 months. Alternatively (or additionally) PET/CT or tissue sampling could be performed. N.B. : Dr Coy Hua MD, confirmed on 12/09/2021 01:07:13 (ET) that the healthcare facility has received the radiology report. Electronically Signed: Filomena Smith MD at 0:56 EDT , Aorta Ultrasound 12/09/21 01:44 IMPRESSION: Saccular infrarenal abdominal aortic aneurysm with a transverse dimension of 6.3 cm. Electronically Signed: Braydon Guthrie MD at 9:37 EDT , Physical Exam Const alert, oriented x3 and no apparent distress HEENT head/scalp atraumatic and moist oral mucous membranes Eyes conjunctivae normal and no scleral icterus Neck no lymphadenopathy and supple Resp normal respiratory effort Effort and Inspection: able to speak in complete sentences and symmetric chest movement Auscultation: wheezes expiratory wheezes and right lower Cardio regular rate, regular rhythm, S1 normal heart sound and S2 normal heart sound GI normal to inspection, nondistended, normoactive bowel sounds, soft to palpation and non-tender Extremity normal to inspection and full ROM Neuro oriented x3, moves all extremities, no focal motor deficits and no sensory deficits noted Psych affect normal Assessment & Plan Assessment/Plan (1) COPD (chronic obstructive pulmonary disease): (2) SOB (shortness of breath): PLAN: Plan Patient was admitted earlier this morning and therefore is still undergoing initial work-up. Duplex ultrasound of bilateral legs ordered as well as an echocardiogram. Patient will continue on Lasix, fluid restriction with daily weights. Documented by User: Dr. Isis Moore MD 12/09/21 15:54 Objective Data Lab / Micro Data Result Diagrams: 12/09/21 06:50 12/09/21 06:50 Assessment & Plan Assessment/Plan (1) COPD (chronic obstructive pulmonary disease): (2) SOB (shortness of breath): Charges/Coding Addendum Addendum: This patient was seen in conjunction with Otis Dao NP. I have independently interviewed and examined the patient and reviewed pertinent historical, laboratory, and other data. I have reviewed her note and concur with her documentation Patient was seen and examined. He is on 2 L of oxygen. He stated that his breathing is better than when he came in. He admitted to still smoking. He did not know about his infrarenal aortic aneurysm. He was very tearful and overwhelmed. I told him that we will consult pulmonology. Patient was admitted in the early part of the day. Physical Exam: Gen: Comfortable, not pale, not jaundiced CVS:HS I +II, regular, no murmurs RESP: Diminished at lung bases GI: BS present and normal, soft, nontender, no palpable organs EXT:No edema ASSESSMENT: 1. Acute hypoxia secondary to acute COPD exacerbation. 2. Lung nodule 3. Acute infrarenal aortic aneurysm 4. Nicotine dependence 5. CAD s/p CABG Plan: Continue on breathing treatments, prednisone Continue with Doxycycline, Lasix Vascular, pulmonology consult Repeat blood work in am Visit Charges Inpatient E&M: 30456 Subs Hosp L2
[2021-12-09] MEDS: predniSONE 20 MG Tablet 40 MG PO (13:47)
--- NOTE | 2021-12-09 14:55 | NURSING ---
UPDATED , HEAVENLY, ON PATIENT STATUS. SOON WE HUNG UP, DR CALLE CAME THROUGH WITH THE VASCULAR SURGEON. WE THEN CALLED HEAVENLY BACK AND PUT PHONE ON SPEAKER SO SHE WOULD BE UP TO DATE
--- NOTE | 2021-12-09 15:00 | CASEMGMT ---
RN CM BPM ARCHITECT CM to room to meet with patient for initial transition planning/care coordination assessment. RN FLORY introduced self and role at [facility].? Pt voices understanding and consents to assessment at this time.? Pt resting in bed in no distress at this time.? Pt is A/O at this time and answers all questions appropriately.?? Care providers, pharmacy, and demographics verified/updated at this time. PCP: Dr Villasenor Specialists: denies Preferred Pharmacy: [facility] in [place] Insurance: MCR, MMO Prescription Benefit:? Yes Living Will/HPOA:? Pt does not think he has done LW, but thinks he has done HPOA and is his . LNOK: , Shalonda. One child- Gm, son Living Arrangements: Lives w/ and son in 2-story home w/2-3 steps to enter. [employer]. Denies difficulty w/stairs. Independent. does most home mgmt tasks. Transportation: Pt states drives self and states no transportation concerns at this time.? also drives. DME: ?States has the following DME:? cane-uses on occasion, nebulizer, pulse ox. Does not have home O2. States his has home O2. If pt qualifies for O2 @ discharge, he would like [place] get [place] [facility] [place] his gets her [place] from. Pt states no need for further DME at this time.? HHC/SNF: No hx of either. Denies need for HHC. Pt wishes to return home and states has no concerns with going home at time of discharge.? Pt states smokes once in awhile, stating it is less than a pack/month and less than a carton/yr. He drinks 2-3 beers/day. He denies wanting any resources to stop drinking. CM to follow for home oxygen needs and any further discharge planning/needs.? Pt voices no further concerns/needs at this time.? Advised pt to ask for CM if any further questions/concerns/needs arise.? Voices understanding. PLAN: ?Home w/family support and discharge plans in place. CM to follow for possible home O2 @ d/c. Aditya KNIGHT RN, CM
--- NOTE | 2021-12-09 15:08 | CON.PCM.CC_ITS ---
Assessment & Plan Assessment/Plan (1) COPD (chronic obstructive pulmonary disease): (2) Pulmonary nodule: (3) Aneurysm of infrarenal abdominal aorta: (4) Hx of CABG: (5) SOB (shortness of breath): (6) Hypoxia: PLAN: Plan RECOMMENDATIONS: 1. Agree with prednisone, mucolytic and bronchodilators 2. Continue antibiotics pending culture results 3. Agree with gentle diuresis 4. Attempt to clarify with if imaging studies have been done recently 5. Consult vascular surgery for AAA 6. Encourage incentive spirometer and Acapella IMPRESSIONS: 1. Acute hypoxic respiratory insufficiency secondary to COPD exacerbation Patient does have a history of a diastolic dysfunction with elevated BNP. Patient does have advanced emphysematous changes with a long smoking history. Agree with steroid therapy, bronchodilators and antibiotics. Patient does not reportedly have exposure to antibiotics in the last 3 months, so with dox ycycline is likely sufficient. Patient would benefit from outpatient pulmonary function test for quantification clarification of lung function. Patient will also need a walking oximetry prior to discharge. We will continue to monitor during hospitalization with additional recommendations. 2. Spiculated pulmonary nodule Personal review of the nodule indicates moderate to high risk malignancy potential. Anticipate following up as an outpatient. Patient can have LungNodify testing as an outpatient to help with pretest probability. Doubt patient will be a good candidate for CT-guided biopsy given risk of pneumothorax given surrounding emphysematous changes. PET scan would be an opportunity to further characterize lesion. 3. New finding AAA Consider vascular surgery for intervention. Patient would likely be at increased risk for complications, but this would not be prohibitive. 4. Tobacco abuse/poor insight/possible dementia/CAD with CHF/hypertension/advanced age Complicates care, management, recovery and prognosis. Precontemplative on smoking cessation at this time. Patient may have an element of congestive heart failure, but is on Lasix therapy and tolerating this well. Patient may benefit from improved heart rate control from both an aneurysmal and CHF component. Okay to use a beta-tyrone from a pulmonary perspective HPI Consult Data Date of Consult: 12/09/21 HPI Narrative Reason for Consultation: Hypoxia HPI Narrative: ASHLEY ROBLES is a 71 M, with past medical history listed below, who presents to [facility] on 12/08/2021 secondary to concern for pneumonia on outpatient work-up. Patient reportedly had had 2 weeks of productive cough without fevers or chest pain. Patient had reported worsening dyspnea. Patient had reported some increased lower extremity edema and there was also some concern for possible CHF. Patient is on a baby aspirin, but denied any recent travel or immobilization. No history of thrombophilia noted. Patient reportedly had seen his PCP and was noted to be in the 80s, but refused to go to the emergency department. Later that evening patient was called and reluctantly came to the ER for an evaluation. Patient reportedly has been vaccinated ag ainst COVID-19. In the ER, patient was afebrile, but tachycardic at 109 bpm. Patient was noted to be 86% on room air, but did respond to 4 L nasal cannula. Laboratory work-up showed a white blood cell count of 9.9 with a hemoglobin of 13.7. Coagulation studies were within normal limits, along with lactate. Chemistry showed a potassium of 5, bicarbonate of 31 and an elevated BNP of 347.8. ABG showed chronic respiratory acidosis with metabolic compensation (my interpretation) and increased AA gradient. Chest x-ray showed no acute findings, but a CTA of the chest showed advanced bullous disease with a 9 mm spiculated nodule near a large right upper lobe nodule. Given patient's new hypoxia, patient was admitted to the hospital for further evaluation. Since being in the hospital, patient feels subjectively slightly improved compared to previous. Patient does have some difficulty with remembering his presentation. Patient does not believe that he has been seen by pulmonary before. Patient was defensive about his smoking. Patient does report that he has lost weight, but attributes this to dietary modification. Patient does not have any chest pain or hemoptysis. Patient states that he gets all of his medical care here and that he had a CT of the chest 9 months ago. However, review of the medical literature shows no previous CT scans of the chest. Patient does have an extensive cardiac history including stents. Patient is reportedly on Incruse and Advair. Patient estimates that he uses albuterol 2-3 times per day. Patient was not able to provide much additional review of systems. Patient was ruminating on the fact that he had an abdominal aneurysm and wanted to know what had to be done with that. FORMERLY [facility], [facility] Medical History Chronic back pain Congestive heart failure (CHF) COPD (chronic obstructive pulmonary disease) History of inguinal hernia Hypertension Myocardial infarct Home Medications albuterol sulfate 2.5 mg inhalation Q4H PRN PRN Wheezing 04/27/15 [History Last Taken Unknown] aspirin 81 mg chewable tablet 81 mg PO DAILY@0800 HEART 04/27/15 [History Last Taken Unknown] carvedilol 6.25 mg tablet 6.25 mg PO BID HEART 04/27/15 [History Last Taken Unknown] lisinopril 20 mg tablet 20 mg PO DAILY BLOOD PRESSURE 04/27/15 [History Last Taken Unknown] fluticasone propionate 115 mcg-salmeterol 21 mcg/actuation HFA inhaler (Advair HFA) 2 puff inhalation BID COPD 10/31/20 [History Last Taken Unknown] umeclidinium 62.5 mcg/actuation blister powder for inhalation (Incruse Ellipta) 1 inh inhalation DAILY COPD 10/31/20 [History Last Taken Unknown] Lasix 12/08/21 [History Last Taken Unknown] prednisone 12/08/21 [History Last Taken Unknown] atorvastatin 40 mg tablet 40 tab PO QHS CHOLESTEROL 12/09/21 [History Last Taken Unknown] Allergy/AdvReac Type Severity Reaction Status Date / Time No Known Allergies Allergy Verified 12/08/21 20:31 Family History Other Cancer Diabetes Essential tremor Surgical History History of coronary artery stent placement Hx of CABG S/P CABG x 3 Social History Smoking Status: Light Smoker (<10/day) substance use type: does not use ROS ROS Narrative See HPI Review of Systems ROS Unobtainable: due to mental status Physical Exam Const alert, oriented x3 and no apparent distress General Appearance: Negative for ill appearing HEENT head/scalp atraumatic and moist oral mucous membranes Eyes conjunctivae normal and no scleral icterus Neck no lymphadenopathy and supple Chest Chest Narrative: Increased AP diameter Resp normal respiratory effort Effort and Inspection: able to speak in complete sentences and symmetric chest movement Auscultation: wheezes expiratory wheezes and right lower Cardio regular rate, regular rhythm, S1 normal heart sound, S2 normal heart sound, no murmurs, no rub and no gallops GI normal to inspection, nondistended, normoactive bowel sounds, soft to palpation and non-tender Extremity normal to inspection and full ROM Skin no rashes or lesions noted Neuro oriented x3, moves all extremities, no focal motor deficits and no sensory deficits noted Psych Mood & Affect: labile affect Medical Records Data Attestation: I reviewed the patient's medical records Medical records narrative: Patient has not been seen at [facility] since 2014. No CT scan can be found. Patient does not have PFTs on record. Lab / Micro Data Attestation: I reviewed the patient's lab results. Result Diagrams: 12/09/21 06:50 12/09/21 06:50 Labs: Laboratory Results - last 24 hr 12/08/21 21:00: WBC 9.9, RBC 4.27 L, Hgb 13.7, Hct 42.8, MCV 100.2 H, MCH 32.1 H , MCHC 32.0, RDW Std Deviation 49.0 H, RDW Coeff of Jamie 13.2, Plt Count 260, MPV 10.3, Immature Gran % (Auto) 0.400, Neut % (Auto) 90.9 H, Lymph % (Auto) 6.9 L, [place] % (Auto) 1.4, Eos % (Auto) 0.2, Baso % (Auto) 0.2, Absolute Neuts (auto) 9.0 H, Absolute Lymphs (auto) 0.68 L, Nucleated RBC % 0 12/08/21 21:00: PT 13.7, INR 1.1, APTT 52.3 H 12/08/21 21:00: Lactic Acid 1.5 12/08/21 21:00: B-Natriuretic Peptide 347.8 H 12/08/21 21:05: Sodium Cancelled, Potassium Cancelled, Chloride Cancelled, Carbon Dioxide Cancelled, Anion Gap Cancelled, BUN Cancelled, Creatinine Canc elled, Estim Creat Clear Calc Cancelled, Est GFR (MDRD) Af Amer Cancelled, Est GFR (MDRD) Non-Af Cancelled, BUN/Creatinine Ratio Cancelled, Glucose Cancelled, Calcium Cancelled, Total Bilirubin Cancelled, AST Cancelled, ALT Cancelled, Alkaline Phosphatase Cancelled, Total Protein Cancelled, Albumin Cancelled, Globulin Cancelled, Albumin/Globulin Ratio Cancelled 07/06/22 22:35: Sodium 133 L, Potassium 5.0, Chloride 99, Carbon Dioxide 31.0, Anion Gap 3 L, BUN 7, Creatinine 0.70, Estim Creat Clear Calc 76.07, Est GFR (MDRD) Af Amer 142, Est GFR (MDRD) Non-Af 118, BUN/Creatinine Ratio 10.0, Glucose 170 H, Calcium 8.4 L, Total Bilirubin 0.50, AST 20, ALT 18, Alkaline Ph osphatase 146 H, Total Protein 6.6, Albumin 2.8 L, Globulin 3.8, Albumin/Globulin Ratio 0.7 L 12/09/21 06:50: WBC 5.3, RBC 4.14 L, Hgb 13.3, Hct 41.1, MCV 99.3 H, MCH 32.1 H, MCHC 32.4, RDW Std Deviation 47.1 H, RDW Coeff of Jamie 13.0, Plt Count 275, MPV 10.0, Immature Gran % (Auto) 1.300 H, Neut % (Auto) 82.7 H, Lymph % (Auto) 15.1 L, [place] % (Auto) 0.9, Eos % (Auto) 0.0, Baso % (Auto) 0.0, Absolute Neuts (auto) 4.4, Absolute Lymphs (auto) 0.80 L, Nucleated RBC % 0 12/09/21 06:50: Sodium 133 L, Potassium 4.0, Chloride 96 L, Carbon Dioxide 31.0, Anion Gap 6, BUN 6 L, Creatinine 0.59 L, Estim Creat Clear Calc 72.45, Est GFR (MDRD) Af Amer 175, Est GFR (MDRD) Non-Af 145, BUN/Creatinine Ratio 10.2, Glucos e 177 H, Calcium 8.7 Micro: Microbiology 12/08/21 21:00 Nasal Secretion SARS-CoV-2 Antigen (Rapid) - Final ABG Data ABG results: ABG 12/08/21 22:20 Specimen Type ART Sample Site L Brach pH 7.36 Bicarbonate Actual 28.4 H Total CO2 30 Base Excess 3 H O2 Saturation 95 ABG pCO2 49.9 H ABG pO2 78 Jake Test Positive O2 Delivery Device Cannula Liter Flow 1.0 Attestation: I personally reviewed and interpreted this ABG as follows: Interpretation: Chronic respiratory acidosis with metabolic compensation. Radiology Impression Chest X-Ray 12/08/21 21:17 IMPRESSION: There are no acute findings. Electronically Signed: James Baorn MD at 21:28 EDT , Chest CTA 12/08/21 23:11 IMPRESSION: 1. No evidence of PE. No aortic dissection. 2. Infrarenal aortic aneurysm is not fully included, contrast enhanced abdomen and pelvis CT or ultrasound is suggested for further evaluation of the infrarenal aorta unless previously evaluated. 3. Advanced bullous disease. Mild suspected debris within proximal left lower lobe airways, not fully occluded. 4. Coronary artery bypass grafts, with nonopacified or slightly opacified right graft. 5. Juxtapleural opacity in the posterior-lateral right upper lobe is suspected to be focal scarring, 1.8 cm maximum diameter. 6. 9 mm mildly spiculated nodular focus near a large right upper lobe bulla. Indeterminate. RECOMMENDATIONS CONCERNING PULMONARY NODULE: For high-risk patients consider a follow-up CT at 3 months. If unchanged consider an additional follow-up CT at 18-24 months. Alternatively (or additionally) PET/CT or tissue sampling could be performed. Electronically Signed: Filomena Smith MD at 0:56 EDT , ADDENDUM: 12/09/21 0114 IMPRESSION: 1. No evidence of PE. No aortic dissection. 2. Infrarenal aortic aneurysm is not fully included, contrast enhanced abdomen and pelvis CT or ultrasound is suggested for further evaluation of the infrarenal aorta unless previously evaluated. 3. Advanced bullous disease. Mild suspected debris within proximal left lower lobe airways, not fully occluded. 4. Coronary artery bypass grafts, with nonopacified or slightly opacified right graft. 5. Juxtapleural opacity in the posterior-lateral right upper lobe is suspected to be focal scarring, 1.8 cm maximum diameter. 6. 9 mm mildly spiculated nodular focus near a large right upper lobe bulla. Indeterminate. RECOMMENDATIONS CONCERNING PULMONARY NODULE: For high-risk patients consider a follow-up CT at 3 months. If unchanged consider an additional follow-up CT at 18-24 months. Alternatively (or additionally) PET/CT or tissue sampling could be performed. N.B. : Dr Coy Hua MD, confirmed on 12/09/2021 01:07:13 (ET) that the healthcare facility has received the radiology report. Electronically Signed: Filomena Smith MD at 0:56 EDT , Aorta Ultrasound 12/09/21 01:44 IMPRESSION: Saccular infrarenal abdominal aortic aneurysm with a transverse dimension of 6.3 cm. Electronically Signed: Braydon Guthrie MD at 9:37 EDT , Venous Doppler Study 12/09/21 01:44 Interpretation Summary No evidence for acute deep venous thrombosis right lower extremity with patent and compressible right great saphenous vein No evidence for acute deep venous thrombosis left lower extremity with surgically harvested left great saphenous vein Ordering Physician: Willi Bermudez Referring Physician: Connor Villasenor Performed By: Roxy Scott RVT Charges/Coding Visit Charges Inpatient E&M: 89735 Init Hosp L3
--- NOTE | 2021-12-09 16:16 | CT_ITS ---
STUDY: CTA Abdomen and Pelvis WO/W Contrast Injection REASON FOR EXAM: Male, 71 years old. AAA Technologist Notes general pain, hypoxia, COPD exacerbation. Prior CABG. TECHNIQUE: Axial CT angiography multi-detector data acquisition was obtained following intravenous administration of IV 100mL Isovue-370 contrast. Axial images and MIP images were reconstructed from the axial data set. Post-processing of the angiographic images was performed, with multiplanar reformation and 3D reconstruction. MIPS images were obtained. Radiation: CTDIvol = [9.59] mGy, DLP = [589.96] mGy-cm Individualized dose optimization techniques were used for this CT. COMPARISON: None. Descriptors of Narrowing: None (0%) Mild (< 50%) Moderate (50-70%) Severe (70-90%) Subtotal/Total Occlusion (90-100%) Non-Evaluable (technically non-diagnostic FINDINGS: Multiple median sternotomy wires are noted consistent for cardiac surgery. There are coronary arterial calcifications. Normal liver. Normal gallbladder and extrahepatic biliary system. Normal spleen. Normal pancreas. Normal bilateral adrenal glands. No acute findings of the right kidney. No acute findings of the left kidney. Normal visualized stomach. Normal small intestine. There are multiple colonic diverticula consistent with diverticulosis. There is non-visualization of the appendix. Normal inferior vena cava. Normal retroperitoneum. The urinary bladder is distended. This can suggest urinary retention. Minimal inflammatory stranding and subcutaneous air noted in the right subcutaneous fat anteriorly. This can suggest insulin injection sites. There is a small umbilical hernia containing fat. There are diffuse degenerative changes of the visualized lumbar spine. There is an unremarkable-appearing IVC. Vacuum disc phenomenon. Abdominal aorta: There are calcifications of the abdominal aorta. This is consistent for atherosclerotic disease. There is 65 mm infrarenal abdominal aortic aneurysm. Celiac and superior mesenteric arteries: There is mild diffuse narrowing. Inferior mesenteric artery: There is mild diffuse narrowing. Right renal artery(arteries): There is mild diffuse narrowing. Left renal artery(arteries): There is mild diffuse narrowing. Right common iliac artery: There is mild diffuse narrowing. Right external iliac artery: There is mild diffuse narrowing. Right internal iliac artery: There is mild diffuse narrowing. Left common iliac artery: There is mild diffuse narrowing. Left external iliac artery: There is mild diffuse narrowing. Left internal iliac artery: There is mild diffuse narrowing. CT/CT ANGIO ABD&PEL W/O&W/DYE IMPRESSION: (NOT LISTED IN ORDER OF SIGNIFICANCE) 65 mm infrarenal abdominal aortic aneurysm. There are multiple colonic diverticula consistent with diverticulosis. The urinary bladder is distended. This can suggest urinary retention. Other findings as above. Electronically Signed: James Baron MD at 18:28 EDT ,
--- NOTE | 2021-12-09 16:38 | EX.PCM.CON.S ---
Assessment & Plan Assessment/Plan (1) AAA (abdominal aortic aneurysm) without rupture: PLAN: -by duplex large enough to warrant repair -will obtain CTA a/p for operative planning; proximal landing zone appears amenable though borderline to endovascular on limited slices from chest CT -given cardiac history should have current status evaluated and optimized -is eager to be discharged; from my standpoint can go home after CTA with plans to follow up in office early next week to plan repair -if remains admitted over weekend for tx/eval of resp status and cardiac status would consider repair while admitted if patient agreeable -will evaluate right popliteal artery for aneurysm as outpatient HPI Consult Data Date of Consult: 12/09/21 HPI Narrative HPI Narrative: ASHLEY ROBLES, is a 71 M who presents with worsening SOB. Frequently uses enhaler at home, not on home O2 but does borrow from his when he has been more symptomatic. Initial evaluation included CTA chest which was negative for PE but incidentally the superior portion of an infrarenal AAA was visualized. This was followed up by duplex which confirmed 6 cm AAA. He has chronic low midline back pain from known degenerative disc disease. This is intermittently worse and is positional. No abdominal or pelvic pain. No prior knowledge of aneurysm. Does have significant cardiac history with multiple WA, PCI, CABG last about 10 years ago. 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 [facility]LY [facility] Medical History Chronic back pain Congestive heart failure (CHF) COPD (chronic obstructive pulmonary disease) History of inguinal hernia Hypertension Myocardial infarct Home Medications albuterol sulfate 2.5 mg inhalation Q4H PRN PRN Wheezing 04/27/15 [History Last Taken Unknown] aspirin 81 mg chewable tablet 81 mg PO DAILY@0800 HEART 04/27/15 [History Last Taken Unknown] carvedilol 6.25 mg tablet 6.25 mg PO BID HEART 04/27/15 [History Last Taken Unknown] lisinopril 20 mg tablet 20 mg PO DAILY BLOOD PRESSURE 04/27/15 [History Last Taken Unknown] fluticasone propionate 115 mcg-salmeterol 21 mcg/actuation HFA inhaler (Advair HFA) 2 puff inhalation BID COPD 10/31/20 [History Last Taken Unknown] umeclidinium 62.5 mcg/actuation blister powder for inhalation (Incruse Ellipta) 1 inh inhalation DAILY COPD 10/31/20 [History Last Taken Unknown] Lasix 12/08/21 [History Last Taken Unknown] prednisone 12/08/21 [History Last Taken Unknown] atorvastatin 40 mg tablet 40 tab PO QHS CHOLESTEROL 12/09/21 [History Last Taken Unknown] Allergy/AdvReac Type Severity Reaction Status Date / Time No Known Allergies Allergy Verified 12/08/21 20:31 Family History Other Cancer Diabetes Essential tremor Surgical History History of coronary artery stent placement Hx of CABG S/P CABG x 3 Social History Smoking Status: Light Smoker (<10/day) substance use type: does not use Physical Exam Const alert, oriented x3, no apparent distress and healthy appearing General Appearance: cooperative; Negative for combative or lethargic Orientation / Consciousness: awake Exam Limitations: no limitations HEENT Head and Scalp: normocephalic and atraumatic Eyes EOMs intact bilaterally General Eye: normal appearance of both eyes Neck full ROM, no lymphadenopathy, thyroid normal and No no carotid bruits General: trachea midline; Negative for lymphadenopathy or tenderness Thyroid: thyroid normal Lymph Lymphatic: Negative for no lymphadenopathy noted Resp normal respiratory effort, no use of accessory muscles and clear to auscultation bilaterally Effort and Inspection: Negative for labored or stridor Auscultation: wheezes Cardio regular rate, regular rhythm and no murmurs Peripheral Pulses: brachial pulses present, radial pulses present, femoral pulses present, popliteal pulses present right and left (prominent), posterior tibial pulses present and dorsalis pedis pulses present GI non-tender, non-distended and hepatosplenomegaly Palpation: pulsatile mass Back/Spine Cervical Spine: cervical ROM normal Extremity full ROM, normal capillary refill and no clubbing, cyanosis or edema Skin no rashes or lesions noted and no wounds Neuro oriented x3, CN's II-XII intact bilaterally, no focal motor deficits and no sensory deficits noted Psych thought process normal, cooperative, affect normal, speech normal and activity/motor behavior normal Lab / Micro Data Result Diagrams: 12/09/21 06:50 12/09/21 06:50 Labs: Laboratory Results - last 24 hr 12/08/21 21:00: WBC 9.9, RBC 4.27 L, Hgb 13.7, Hct 42.8, MCV 100.2 H, MCH 32.1 H, MCHC 32.0, RDW Std Deviation 49.0 H, RDW Coeff of Jamie 13.2, Plt Count 260, MPV 10.3, Immature Gran % (Auto) 0.400, Neut % (Auto) 90.9 H, Lymph % (Auto) 6.9 L, [place] % (Auto) 1.4, Eos % (Auto) 0.2, Baso % (Auto) 0.2, Absolute Neuts (auto) 9.0 H, Absolute Lymphs (auto) 0.68 L, Nucleated RBC % 0 12/08/21 21:00: PT 13.7, INR 1.1, APTT 52.3 H 12/08/21 21:00: Lactic Acid 1.5 12/08/21 21:00: B-Natriuretic Peptide 347.8 H 12/08/21 21:05: Sodium Cancelled, Potassium Cancelled, Chloride Cancelled, Carbon Dioxide Cancelled, Anion Gap Cancelled, BUN Cancelled, Creatinine Cancelled, Estim Creat Clear Calc Cancelled, Est GFR (MDRD) Af Amer Cancelled, Est GFR (MDRD) Non-Af Cancelled, BUN/Creatinine Ratio Cancelled, Glucose Cancelled, Calcium Cancelled, Total Bilirubin Cancelled, AST Cancelled, ALT Cancelled, Alkaline Phosphatase Cancelled, Total Protein Cancelled, Albumin Cancelled, Globulin Cancelled, Albumin/Globulin Ratio Cancelled 12/08/21 22:35: Sodium 133 L, Potassium 5.0, Chloride 99, Carbon Dioxide 31.0, Anion Gap 3 L, BUN 7, Creatinine 0.70, Estim Creat Clear Calc 76.07, Est GFR (MDRD) Af Amer 142, Est GFR (MDRD) Non-Af 118, BUN/Creatinine Ratio 10.0, Glucose 170 H, Calcium 8.4 L, Total Bilirubin 0.50, AST 20, ALT 18, Alkaline Phosphatase 146 H, Total Protein 6.6, Albumin 2.8 L, Globulin 3.8, Albumin/Globulin Ratio 0.7 L 12/09/21 06:50: WBC 5.3, RBC 4.14 L, Hgb 13.3, Hct 41.1, MCV 99.3 H, MCH 32.1 H, MCHC 32.4, RDW Std Deviation 47.1 H, RDW Coeff of Jamie 13.0, Plt Count 275, MPV 10.0, Immature Gran % (Auto) 1.300 H, Neut % (Auto) 82.7 H, Lymph % (Auto) 15.1 L, [place] % (Auto) 0.9, Eos % (Auto) 0.0, Baso % (Auto) 0.0, Absolute Neuts (auto) 4.4, Absolute Lymphs (auto) 0.80 L, Nucleated RBC % 0 12/09/21 06:50: Sodium 133 L, Potassium 4.0, Chloride 96 L, Carbon Dioxide 31.0, Anion Gap 6, BUN 6 L, Creatinine 0.59 L, Estim Creat Clear Calc 72.45, Est GFR (MDRD) Af Amer 175, Est GFR (MDRD) Non-Af 145, BUN/Creatinine Ratio 10.2, Glucose 177 H, Calcium 8.7 Micro: Microbiology 12/08/21 21:00 Nasal Secretion SARS-CoV-2 Antigen (Rapid) - Final ABG Data ABG results: ABG 12/08/21 22:20 Specimen Type ART Sample Site L Brach pH 7.36 Bicarbonate Actual 28.4 H Total CO2 30 Base Excess 3 H O2 Saturation 95 ABG pCO2 49.9 H ABG pO2 78 Jake Test Positive O2 Delivery Device Cannula Liter Flow 1.0 Radiology Impression Chest X-Ray 12/08/21 21:17 IMPRESSION: There are no acute findings. Electronically Signed: James Baron MD at 21:28 EDT , Chest CTA 12/08/21 23:11 IMPRESSION: 1. No evidence of PE. No aortic dissection. 2. Infrarenal aortic aneurysm is not fully included, contrast enhanced abdomen and pelvis CT or ultrasound is suggested for further evaluation of the infrarenal aorta unless previously evaluated. 3. Advanced bullous disease. Mild suspected debris within proximal left lower lobe airways, not fully occluded. 4. Coronary artery bypass grafts, with nonopacified or slightly opacified right graft. 5. Juxtapleural opacity in the posterior-lateral right upper lobe is suspected to be focal scarring, 1.8 cm maximum diameter. 6. 9 mm mildly spiculated nodular focus near a large right upper lobe bulla. Indeterminate. RECOMMENDATIONS CONCERNING PULMONARY NODULE: For high-risk patients consider a follow-up CT at 3 months. If unchanged consider an additional follow-up CT at 18-24 months. Alternatively (or additionally) PET/CT or tissue sampling could be performed. Electronically Signed: Filomena Smith MD at 0:56 EDT , ADDENDUM: 12/09/21 0114 IMPRESSION: 1. No evidence of PE. No aortic dissection. 2. Infrarenal aortic aneurysm is not fully included, contrast enhanced abdomen and pelvis CT or ultrasound is suggested for further evaluation of the infrarenal aorta unless previously evaluated. 3. Advanced bullous disease. Mild suspected debris within proximal left lower lobe airways, not fully occluded. 4. Coronary artery bypass grafts, with nonopacified or slightly opacified right graft. 5. Juxtapleural opacity in the posterior-lateral right upper lobe is suspected to be focal scarring, 1.8 cm maximum diameter. 6. 9 mm mildly spiculated nodular focus near a large right upper lobe bulla. Indeterminate. RECOMMENDATIONS CONCERNING PULMONARY NODULE: For high-risk patients consider a follow-up CT at 3 months. If unchanged consider an additional follow-up CT at 18-24 months. Alternatively (or additionally) PET/CT or tissue sampling could be performed. N.B. : Dr Coy Hua MD, confirmed on 12/09/2021 01:07:13 (ET) that the healthcare facility has received the radiology report. Electronically Signed: Filomena Smith MD at 0:56 EDT , Aorta Ultrasound 12/09/21 01:44 IMPRESSION: Saccular infrarenal abdominal aortic aneurysm with a transverse dimension of 6.3 cm. Electronically Signed: Braydon Guthrie MD at 9:37 EDT , Venous Doppler Study 12/09/21 01:44 Interpretation Summary No evidence for acute deep venous thrombosis right lower extremity with patent and compressible right great saphenous vein No evidence for acute deep venous thrombosis left lower extremity with surgically harvested left great saphenous vein Ordering Physician: Willi Bermudez Referring Physician: Connor Villasenor Performed By: Roxy Scott RVT Charges/Coding Visit Charges Inpatient E&M: 25511 Init Hosp L3
[2021-12-09] MEDS: Atorvastatin Calcium 40 MG Tablet PO (21:44)
[2021-12-10] VITALS (11 sets, daily range): BP systolic 105–125; BP diastolic 64–77; PULSE 73–102; RESP 18–22; TEMP 36.4–36.8; O2SAT 91–97
[2021-12-10] MEDS: Ipratropium/Albuterol Sulfate 3 ML AMPUL.NEB INHALATION ×6 (03:01→23:10)
[2021-12-10 05:43] LABS: Absolute Lymphocyte Count 1.65 X10^3/uL (0.83-4.51); Absolute Neutrophil Count 11.9 X10^3/uL (2.0-7.7); Basophil# 0.01 X10^3/uL; Basophil% 0.1 % (0-1); Hematocrit 39.1 % (40-54); Hemoglobin 13.3 g/dL (13.0-16.5); Lymphocyte # 1.65 X10^3/ul (0.83-4.51); Lymphocyte % 11.3 % (19-41); Mean Corpuscular Hgb 33.2 pg (27.0-32.0); Mean Corpuscular Volume 97.5 fL (80-94); Mean Platelet Vol. 10.5 fl (6.2-12.0); Monocyte# 0.87 X10^3/uL; NRBC Flagged by Analyzer 0 % (0-5); Neutrophil # 11.89 X10^3/uL (2.7-7.7); Neutrophil % 81.7 % (47-70); Platelet Count 261 K/mm3 (150-450); RBC Distribution Width CV 12.6 % (11.6-14.6); RBC Distribution Width SD 44.9 fl (35.1-43.9); Red Blood Count 4.01 M/mm3 (4.6-6.2); White Blood Count 14.6 K/mm3 (4.4-11.0)
[2021-12-10 06:33] LABS: ALB/GLOB Ratio 0.8 RATIO (0.9-2.4); AST(SGOT) 14 U/L (15-37); Alanine Aminotransfer ALT/SGPT 16 U/L (16-61); Albumin, Serum 2.7 g/dL (3.2-5.0); Alkaline Phosphatase 131 U/L (45-117); Anion Gap 7 (5-15); BUN 11 mg/dL (7-18); BUN/Creat Ratio 21.7 RATIO (10-20); Calcium,Total 8.7 mg/dL (8.5-10.1); Chloride 94 mmol/L (98-107); Creatinine, Serum 0.51 mg/dL (0.70-1.30); EST Glomerular Filtration Rate 171 mL/min (>60); Est Glom Filt Rate - Afr Amer 207 mL/min (>60); Estimated Creatinine Clearance 71.88 ml/min; Globulin 3.6 g/dL (2.2-4.2); Glucose 153 mg/dL (74-106); Protein, Total 6.3 g/dL (6.4-8.2); Sodium Level 131 mmol/L (136-145)
[2021-12-10] MEDS: Menthol/Lanolin/Calamine/Znox 113 GM Tube 1 APPLIC TOPICAL ×3 (06:47→21:51)
[2021-12-10] MEDS: Carvedilol 6.25 MG Tablet PO ×2 (08:45→16:57)
[2021-12-10] MEDS: Aspirin 81 MG TAB.CHEW PO (08:45)
[2021-12-10] MEDS: Lisinopril 20 MG Tablet PO (08:46)
[2021-12-10] MEDS: predniSONE 20 MG Tablet 40 MG PO (08:46)
[2021-12-10] MEDS: Enoxaparin 40 MG/0.4 ML Syringe SC (08:46)
[2021-12-10] MEDS: Furosemide 20 MG/2 ML VIAL IV ×2 (08:46→16:57)
[2021-12-10] MEDS: 0.9% Saline Lock 10 ML Syringe IV ×3 (08:46→21:53)
[2021-12-10] MEDS: guaiFENesin 600 MG Tablet PO ×2 (08:46→21:51)
--- NOTE | 2021-12-10 09:26 | PN.CC_ITS ---
Assessment & Plan Assessment/Plan (1) COPD (chronic obstructive pulmonary disease): (2) Pulmonary nodule: (3) Aneurysm of infrarenal abdominal aorta: (4) Hx of CABG: (5) SOB (shortness of breath): (6) Hypoxia: PLAN: Plan RECOMMENDATIONS: 1. Agree with prednisone, mucolytic and bronchodilators 2. Patient could empirically be treated with a prednisone taper for the next 12 to 14 days and 7 days of antibiotics 3. Agree with gentle diuresis 4. Attempt to clarify with if imaging studies have been done recently 5. Consult vascular surgery for AAA 6. Encourage incentive spirometer and Acapella 7. Follow-up in pulmonary office in 2 weeks with nurse practitioner IMPRESSIONS: 1. Acute hypoxic respiratory insufficiency secondary to COPD exacerbation Patient does have a history of a diastolic dysfunction with elevated BNP. Patient does have advanced emphysematous changes with a long smoking history. Agree with steroid therapy, bronchodilators and antibiotics. Patient does not reportedly have exposure to antibiotics in the last 3 months, so with doxycycline is likely sufficient. Patient would benefit from outpatient pulmonary function test for quantification clarification of lung function. Patient will also need a walking oximetry with establishment of oxygen if indicated prior to discharge. 2. Spiculated pulmonary nodule Personal review of the nodule indicates moderate to high risk malignancy potential. Anticipate following up as an outpatient. Patient can have Winnie ngNodify testing as an outpatient to help with pretest probability and PET scan. Doubt patient will be a good candidate for CT-guided biopsy given risk of pneumothorax given surrounding emphysematous changes. 3. New finding AAA Consider vascular surgery for intervention. Patient would likely be at increased risk for complications, but this would not be prohibitive. Vascular surgery has seen the patient. CTA of the abdomen has been completed 4. Tobacco abuse/poor insight/possible dementia/CAD with CHF/hypertension/advanced age Complicates care, management, recovery and prognosis. Precontemplative on smoking cessation at this time. Patient may have an element of congestive heart failure, but is on Lasix therapy and tolerating this well. Patient may benefit from improved heart rate control from both an aneurysmal and CHF component. Okay to use a beta-tyrone from a pulmonary perspective Subjective Subjective Patient subjectively feels the same as yesterday. Patient did saturate well overnight. Patient is reporting a cough that is slightly more productive compared to previous. Patient is not reporting any hemoptysis. Objective Data Objective Data Vital Signs: Vital Signs Temp Pulse Resp BP Pulse Ox O2 Del Method O2 Flow Rate 36.8 C 102 H 18 125/67 H 94 Nasal Cannula 2 12/10/21 08:35 12/10/21 08:35 12/10/21 08:35 12/10/21 08:35 12/10/21 08:35 12/10/21 08:40 12/10/21 08:40 Oxygen Flow Rate (L/min) 2 Oxygen Delivery Method Nasal Cannula Weight: 75 kg Body Mass Index (BMI) 21.2 Intake & Output: Intake and Output for Last 24 Hours 12/08/21 12/09/21 12/10/21 23:59 23:59 23:59 Intake Total 1130 / 1130 50 / 50 Output Total 1700 / 1700 600 / 600 Balance -570 / -570 -550 / -550 Lab / Micro Data Attestation: I reviewed the patient's lab results. Result Diagrams: 12/10/21 04:29 12/10/21 04:29 Labs: Laboratory Results - last 24 hr 12/10/21 04:29: WBC 14.6 H, RBC 4.01 L, Hgb 13.3, Hct 39.1 L, MCV 97.5 H, MCH 33.2 H, MCHC 34.0, RDW Std Deviation 44.9 H, RDW Coeff of Jamie 12.6, Plt Count 261, MPV 10.5, Immature Gran % (Auto) 0.900, Neut % (Auto) 81.7 H, Lymph % (Auto) 11.3 L, [place] % (Auto) 6.0, Eos % (Auto) 0.0, Baso % (Auto) 0.1, Absolute Neuts (auto) 11.9 H, Absolute Lymphs (auto) 1.65, Nucleated RBC % 0 12/10/21 04:29: Sodium 131 L, Potassium 4.0, Chloride 94 L, Carbon Dioxide 30.0, Anion Gap 7, BUN 11, Creatinine 0.51 L, Estim Creat Clear Calc 71.88, Est GFR (MDRD) Af Amer 207, Est GFR (MDRD) Non-Af 171, BUN/Creatinine Ratio 21.7 H, Glucose 153 H, Calcium 8.7, Total Bilirubin 0.40, AST 14 L, ALT 16, Alkaline Phosphatase 131 H, Total Protein 6.3 L, Albumin 2.7 L, Globulin 3.6, Albumin/Globulin Ratio 0.8 L Micro: Microbiology 12/08/21 21:00 Nasal Secretion SARS-CoV-2 Antigen (Rapid) - Final Radiography Diagnostic Testing: Radiology Impression Aorta Ultrasound 12/09/21 01:44 IMPRESSION: Saccular infrarenal abdominal aortic aneurysm with a transverse dimension of 6.3 cm. Electronically Signed: Braydon Guthrie MD at 9:37 EDT , Venous Doppler Study 12/09/21 01:44 Interpretation Summary No evidence for acute deep venous thrombosis right lower extremity with patent and compressible right great saphenous vein No evidence for acute deep venous thrombosis left lower extremity with surgically harvested left great saphenous vein ____ Ordering Physician: Willi Bermudez Referring Physician: Connor Villasenor Performed By: Roxy Scott Mary Abdomen/Pelvis CTA 12/09/21 16:16 IMPRESSION: (NOT LISTED IN ORDER OF SIGNIFICANCE) 65 mm infrarenal abdominal aortic aneurysm. There are multiple colonic diverticula consistent with diverticulosis. The urinary bladder is distended. This can suggest urinary retention. Other findings as above. Electronically Signed: James Baron MD at 18:28 EDT , Physical Exam Const alert, oriented x3 and no apparent distress General Appearance: Negative for ill appearing HEENT head/scalp atraumatic and moist oral mucous membranes Eyes conjunctivae normal and no scleral icterus Neck no lymphadenopathy and supple Chest Chest Narrative: Increased AP diameter Resp normal respiratory effort Effort and Inspection: able to speak in complete sentences and symmetric chest movement Auscultation: wheezes expiratory wheezes and right lower Cardio regular rate, regular rhythm, S1 normal heart sound, S2 normal heart sound, no murmurs, no rub and no gallops GI normal to inspection, nondistended, normoactive bowel sounds, soft to palpation and non-tender Extremity normal to inspection and full ROM Skin no rashes or lesions noted Neuro oriented x3, moves all extremities, no focal motor deficits and no sensory deficits noted Psych Mood & Affect: labile affect Charges/Coding Visit Charges Inpatient E&M: 76488 Subs Hosp L2
[2021-12-10] MEDS: Acetaminophen 325 MG Tablet 650 MG PO ×2 (11:37→18:16)
--- NOTE | 2021-12-10 11:57 | DS.PCM_ITS ---
Documented by User: ELOISA Gutiérrez 12/10/21 12:02 Providers Date of Admission: 12/09/21 Date of Discharge: 12/10/21 Primary Care Physician: Dr. Connor Villasenor MD Consultations 12/09/21 11:44 Consult: [employer] / Pulmonary Medicine Routine Consulting Provider: Randal Davis Reason for Consult: COPD exacerbation EMERGENT Consult: No Notified: Yes Date Notified: 12/09/21 Time Notified: 12:08 Method of Notification: Text 12/09/21 14:00 Consult: Vascular Surgery Routine Consulting Provider: Kahlil Fernandes Reason for Consult: infrarenal aneurysm EMERGENT Consult: No Notified: Yes Date Notified: 12/09/21 Time Notified: 15:11 Method of Notification: Answering Service 12/10/21 10:21 Consult: Cardiology Routine Consulting Provider: Francesco Hassan Reason for Consult: pre-op clearance EMERGENT Consult: No Notified: Yes Date Notified: 12/10/21 Time Notified: 10:22 Method of Notification: Corby LEATHER COVERER talked with them Reason For Visit: COPD EXACERBATION, HYPOXIA Diagnosis Discharge Diagnosis (1) COPD (chronic obstructive pulmonary disease): Status: Chronic Code(s): J44.9 - Chronic obstructive pulmonary disease, unspecified (2) Pulmonary nodule: Status: Acute Code(s): R91.1 - Solitary pulmonary nodule (3) Aneurysm of infrarenal abdominal aorta: Status: Acute Code(s): I71.4 - Abdominal aortic aneurysm, without rupture (4) Hx of CABG: Status: Chronic Code(s): Z95.1 - Presence of aortocoronary bypass graft (5) SOB (shortness of breath): Status: Acute Code(s): R06.02 - Shortness of breath (6) Hypoxia: Status: Acute Code(s): R09.02 - Hypoxemia Plan Patient was admitted earlier this morning and therefore is still undergoing initial work-up. Duplex ultrasound of bilateral legs ordered as well as an echocardiogram. Patient will continue on Lasix, fluid restriction with daily weights. Medications at Discharge Home Medications albuterol sulfate 2.5 mg inhalation Q4H PRN PRN Wheezing 04/27/15 aspirin 81 mg chewable tablet 81 mg PO DAILY@0800 HEART 04/27/15 carvedilol 6.25 mg tablet 6.25 mg PO BID HEART 04/27/15 lisinopril 20 mg tablet 20 mg PO DAILY BLOOD PRESSURE 04/27/15 fluticasone propionate 115 mcg-salmeterol 21 mcg/actuation HFA inhaler (Advair HFA) 2 puff inhalation BID COPD 10/31/20 umeclidinium 62.5 mcg/actuation blister powder for inhalation (Incruse Ellipta) 1 inh inhalation DAILY COPD 10/31/20 atorvastatin 40 mg tablet 40 tab PO QHS CHOLESTEROL 12/09/21 doxycycline hyclate 100 mg capsule 100 mg PO BID #10 caps 12/10/21 furosemide 40 mg tablet (Lasix) 40 mg PO BID #60 tabs 12/10/21 guaifenesin 600 mg tablet, extended release 12 hr (Mucus Relief ER) 600 mg PO BID #0 tabs 12/10/21 prednisone 10 mg tablet See Taper PO BREAKFAST 12 days #30 tabs 12/10/21 Hospital Course Operations None Procedures None Summary of Care Provided Minutes Spent on Discharge: 35 Hospital Course: Patient is a 71-year-old who initially came in for COPD exacerbation and pneumonia. Patient reported increased shortness of breath this patient has COPD and uses oxygen at baseline. Patient received 2 days of IV doxycycline and will be discharged home on 5 more days of doxycycline as well as a prednisone taper which patient received inpatient. Patient was noted to have an infrarenal aortic aneurysm on CTA and subsequently underwent aorta ultrasound as well as CTA of the abdomen and pelvis. Patient was evaluated by Dr. Fernandes of vascular medicine and patient will follow up with him on 12/14/2021 outpatient for further evaluation and work-up of his AAA. Patient will also follow-up with Dr. Davis outpatient for pulmonology follow-up. Patient underwent cardiac work-up for pending procedure with Dr. Fernandes. Echocardiogram demonstrates EF 40 to 45%, patient to be evaluated by cardiology for cardiac clearance. Physical Exam Const alert, oriented x3 and no apparent distress HEENT head/scalp atraumatic and moist oral mucous membranes Eyes conjunctivae normal and no scleral icterus Neck no lymphadenopathy and supple Resp normal respiratory effort Effort and Inspection: able to speak in complete sentences and symmetric chest movement Auscultation: wheezes expiratory wheezes and right lower Cardio regular rate, regular rhythm, S1 normal heart sound and S2 normal heart sound GI normal to inspection, nondistended, normoactive bowel sounds, soft to palpation and non-tender Extremity normal to inspection and full ROM Neuro oriented x3, moves all extremities, no focal motor deficits and no sensory de ficits noted Psych affect normal Weight / BMI Weight Weight: 165 lb 5.547 oz Body Mass Index (BMI) 21.2 ABG / Lab / Microbiology Data Result Diagrams: 12/11/21 06:10 12/11/21 06:10 Laboratory: Laboratory Results - last 24 hr 12/10/21 04:29: WBC 14.6 H, RBC 4.01 L, Hgb 13.3, Hct 39.1 L, MCV 97.5 H, MCH 33.2 H, MCHC 34.0, RDW Std Deviation 44.9 H, RDW Coeff of Jamie 12.6, Plt Count 261, MPV 10.5, Immature Gran % (Auto) 0.900, Neut % (Auto) 81.7 H, Lymph % (Auto) 11.3 L, Jennings % (Auto) 6.0, Eos % (Auto) 0.0, Baso % (Auto) 0.1, Absolute Neuts (auto) 11.9 H, Absolute Lymphs (auto) 1.65, Nucleated RBC % 0 12/10/21 04:29: Sodium 131 L, Potassium 4.0, Chloride 94 L, Carbon Dioxide 30.0, Anion Gap 7, BUN 11, Creatinine 0.51 L, Estim Creat Clear Calc 71.88, Est GFR (MDRD) Af Amer 207, Est GFR (MDRD) Non-Af 171, BUN/Creatinine Ratio 21.7 H, Glucose 153 H, Calcium 8.7, Total Bilirubin 0.40, AST 14 L, ALT 16, Alkaline Phosphatase 131 H, Total Protein 6.3 L, Albumin 2.7 L, Globulin 3.6, Albumin/Globulin Ratio 0.8 L Microbiology: Microbiology 12/08/21 21:00 Nasal Secretion SARS-CoV-2 Antigen (Rapid) - Final Radiography Diagnostic Testing: Radiology Impression Echocardiogram 12/09/21 01:24 Interpretation Summary The estimated ejection fraction is 40-45 %. Moderate LV systolic function Segmental wall motion abnormalities anteroapical . no significant difference from prior Echo 2020 Ordering Physician: Willi Bermudez Performed By: Tamra Duong RCS Abdomen/Pelvis CTA 12/09/21 16:16 IMPRESSION: (NOT LISTED IN ORDER OF SIGNIFICANCE) 65 mm infrarenal abdominal aortic aneurysm. There are multiple colonic diverticula consistent with diverticulosis. The urinary bladder is distended. This can suggest urinary retention. Other findings as above. Electronically Signed: James Baron MD at 18:28 EDT Reading Location ID and State: [address] [place] [address] , Service support , D/C Instructions Discharge Diet: Low fat / Low cholesterol and 2000 mg Sodium Diet Call your doctor if you observe: Inability to have a bowel movement, Swelling in the ankles, Chest pain, Increased palpitations (irregular heartbeat) and Uncontrolled pain Meaningful Use Info Meaningful Use Diagnoses (Choose all that apply): None applicable Discharge Plan Admission Admit Date/Time: 12/09/21 00:39 Primary Reason for Your Visit: COPD exacerbation Attending Provider: Isis Moore Primary Care Provider: Connor Villasenor Consulting Providers: Willi Bermudez ; Randal Davis ; Kahlil Fernandes ; Francesco Hassan Discharge Orders/Prescriptions Prescriptions: New guaifenesin [Mucus Relief ER] 600 mg Tablet Extended Release 12hr 600 mg PO BID Qty: 0 0RF prednisone 10 mg tablet See Taper PO BREAKFAST Qty: 30 0RF Taper: Prednisone Taper 40 mg WITH BREAKFAST for 3 Days and 0 Hour 30 mg WITH BREAKFAST for 3 Days and 0 Hour 20 mg WITH BREAKFAST for 3 Days and 0 Hour 10 mg WITH BREAKFAST for 3 Days and 0 Hour furosemide [Lasix] 40 mg tablet 40 mg PO BID Qty: 60 0RF doxycycline hyclate 100 mg capsule 100 mg PO BID Qty: 10 0RF Continued carvedilol 6.25 MG tablet 6.25 mg PO BID albuterol sulfate 2.5 MG/3 ML solution for nebulization 2.5 mg inhalation Q4H PRN PRN (Reason: Wheezing) lisinopril 20 MG tablet 20 mg PO DAILY aspirin 81 MG tablet,chewable 81 mg PO DAILY@0800 Advair HFA 115-21 mcg/actuation Hfa Aerosol Inhaler 2 puff INHALATION BID Incruse Ellipta 62.5 mcg/actuation Blister With Device 1 inh INHALATION DAILY atorvastatin 40 mg tablet 40 tab PO QHS Label Comments: TAKE ONE TABLET BY MOUTH EVERY DAY Discontinued Lasix prednisone Referrals / Follow Up: Randal Davis MD [STAFF PHYSICIAN] - Within 1 Month Kahlil Fernandes MD [STAFF PHYSICIAN] - 12/13/21 1:30 pm Connor Villasenor MD [Primary Care Provider] - Disposition Disposition (needs filled in before D/C Order can be placed): Home, Self Care Documented by User: Dr. Isis Moore MD 12/11/21 13:59 Providers Date of Admission: 12/09/21 Reason For Visit: COPD EXACERBATION, HYPOXIA Diagnosis Discharge Diagnosis (1) COPD (chronic obstructive pulmonary disease): Status: Chronic Code(s): J44.9 - Chronic obstructive pulmonary disease, unspecified (2) Pulmonary nodule: Status: Acute Code(s): R91.1 - Solitary pulmonary nodule (3) Aneurysm of infrarenal abdominal aorta: Status: Acute Code(s): I71.4 - Abdominal aortic aneurysm, without rupture (4) Hx of CABG: Status: Chronic Code(s): Z95.1 - Presence of aortocoronary bypass graft (5) SOB (shortness of breath): Status: Acute Code(s): R06.02 - Shortness of breath (6) Hypoxia: Status: Acute Code(s): R09.02 - Hypoxemia Medications at Discharge Home Medications albuterol sulfate 2.5 mg inhalation Q4H PRN PRN Wheezing 04/27/15 aspirin 81 mg chewable tablet 81 mg PO DAILY@0800 HEART 04/27/15 carvedilol 6.25 mg tablet 6.25 mg PO BID HEART 04/27/15 lisinopril 20 mg tablet 20 mg PO DAILY BLOOD PRESSURE 04/27/15 fluticasone propionate 115 mcg-salmeterol 21 mcg/actuation HFA inhaler (Advair HFA) 2 puff inhalation BID COPD 10/31/20 umeclidinium 62.5 mcg/actuation blister powder for inhalation (Incruse Ellipta) 1 inh inhalation DAILY COPD 10/31/20 atorvastatin 40 mg tablet 40 tab PO QHS CHOLESTEROL 12/09/21 doxycycline hyclate 100 mg capsule 100 mg PO BID #10 caps 12/10/21 furosemide 40 mg tablet (Lasix) 40 mg PO BID #60 tabs 12/10/21 guaifenesin 600 mg tablet, extended release 12 hr (Mucus Relief ER) 600 mg PO BID #0 tabs 12/10/21 prednisone 10 mg tablet See Taper PO BREAKFAST 12 days #30 tabs 12/10/21 ABG / Lab / Microbiology Data Result Diagrams: 12/11/21 06:10 12/11/21 06:10 Discharge Plan Admission Admit Date/Time: 12/09/21 00:39 Primary Reason for Your Visit: COPD exacerbation Attending Provider: Isis Moore Primary Care Provider: Connor Villasenor Consulting Providers: Willi Bermudez ; Randal Davis ; Kahlil Fernandes ; Francesco Hassan Discharge Orders/Prescriptions Prescriptions: New guaifenesin [Mucus Relief ER] 600 mg Tablet Extended Release 12hr 600 mg PO BID Qty: 0 0RF prednisone 10 mg tablet See Taper PO BREAKFAST Qty: 30 0RF Taper: Prednisone Taper 40 mg WITH BREAKFAST for 3 Days and 0 Hour 30 mg WITH BREAKFAST for 3 Days and 0 Hour 20 mg WITH BREAKFAST for 3 Days and 0 Hour 10 mg WITH BREAKFAST for 3 Days and 0 Hour furosemide [Lasix] 40 mg tablet 40 mg PO BID Qty: 60 0RF doxycycline hyclate 100 mg capsule 100 mg PO BID Qty: 10 0RF Continued carvedilol 6.25 MG tablet 6.25 mg PO BID albuterol sulfate 2.5 MG/3 ML solution for nebulization 2.5 mg inhalation Q4H PRN PRN (Reason: Wheezing) lisinopril 20 MG tablet 20 mg PO DAILY aspirin 81 MG tablet,chewable 81 mg PO DAILY@0800 Advair HFA 115-21 mcg/actuation Hfa Aerosol Inhaler 2 puff INHALATION BID Incruse Ellipta 62.5 mcg/actuation Blister With Device 1 inh INHALATION DAILY atorvastatin 40 mg tablet 40 tab PO QHS Label Comments: TAKE ONE TABLET BY MOUTH EVERY DAY Discontinued Lasix prednisone Referrals / Follow Up: Randal Davis MD [STAFF PHYSICIAN] - Within 1 Month Kahlil Fernandes MD [STAFF PHYSICIAN] - 12/13/21 1:30 pm Connor Villasenor MD [Primary Care Provider] - Disposition Disposition (needs filled in before D/C Order can be placed): Home, Self Care
--- NOTE | 2021-12-10 15:22 | CON.PCM.CA_ITS ---
Documented by User: Melinda GARCIA PA 12/10/21 16:12 Assessment & Plan Assessment/Plan (1) CAD (coronary artery disease): QUALIFIERS: Coronary Disease-Associated Artery/Lesion type: grayling artery [place] vs. transplanted heart: grayling heart PLAN: Pt does not have any symptoms of angina. With his upcoming vascular surgery, concerns over recednt CHF would like to obtain a pharmacologic stress test prior to surgery. Will see if we can obtain previous CABG report (2) Hx of CABG: (3) Cardiomyopathy: PLAN: EF is slightly worse than before, will obtain stress test to further evalu ate. He is on Coreg and lisinopril, based on findings of stress test may decide to optimize medications (4) Hypertension: PLAN: Blood pressure controlled on current home medications. (5) HLD (hyperlipidemia): QUALIFIERS: Hyperlipidemia type: unspecified hyperlipidemia Qualified Code(s): E78.5 - Hyperlipidemia, unspecified PLAN: pt will continue with current dose of statin. HPI Consult Data Date of Consult: 12/10/21 HPI Narrative HPI Narrative: ASHLEY ROBLES, is a 71 M who presented to [facility] for increased SOB/edema for one month. He was seen by his PCP earlier that day and was being treated for pneumonia and CHF. His CTA demonstrated ?Coronary artery bypass grafts, with nonopacified or slightly opacified, right graft Infrarenal aortic aneurysm, spiculated nodule. Abdomen/pelvis CTA demonstrated 65 mm infrarenal abdominal aortic aneurysm. We were consulted for cardiac surgical clearance. He does have a history of CAD with CABG(pt thinks in 2007), Hypertension, hyperlipidemia, and COPD. Pt has not seen a chief engineer production in a number of years. He has not had any recent stress done. He did have an echo done during this hospital stay. He notes that he does not have any chest pain/heaviness/tightness. He feels that his SOB has improved since being in the hospital. He does not have any symptoms of palpitations. He does not routinely exercise but does keep busy. He did have some balance issues but does not have any lightheadedness or syncope. He does not have any claudication. He notes his edema is better since being in the hospital. [facility] Medical History (Updated 12/10/21 @ 15:59 by Melinda GARCIA PA) CAD (coronary artery disease) Cardiomyopathy Chronic back pain Congestive heart failure (CHF) COPD (chronic obstructive pulmonary disease) History of inguinal hernia HLD (hyperlipidemia) Hypertension Myocardial infarct Home Medications albuterol sulfate 2.5 mg inhalation Q4H PRN PRN Wheezing 04/27/15 [History Last Taken Unknown] aspirin 81 mg chewable tablet 81 mg PO DAILY@0800 HEART 04/27/15 [History Last Taken Unknown] carvedilol 6.25 mg tablet 6.25 mg PO BID HEART 04/27/15 [History Last Taken Unknown] lisinopril 20 mg tablet 20 mg PO DAILY BLOOD PRESSURE 04/27/15 [History Last Taken Unknown] fluticasone propionate 115 mcg-salmeterol 21 mcg/actuation HFA inhaler (Advair HFA) 2 puff inhalation BID COPD 10/31/20 [History Last Taken Unknown] umeclidinium 62.5 mcg/actuation blister powder for inhalation (Incruse Ellipta) 1 inh inhalation DAILY COPD 10/31/20 [History Last Taken Unknown] atorvastatin 40 mg tablet 40 tab PO QHS CHOLESTEROL 12/09/21 [History Last Taken Unknown] doxycycline hyclate 100 mg capsule 100 mg PO BID #10 caps 12/10/21 [Rx Last Taken Unknown] furosemide 40 mg tablet (Lasix) 40 mg PO BID #60 tabs 12/10/21 [Rx Last Taken Unknown] guaifenesin 600 mg tablet, extended release 12 hr (Mucus Relief ER) 600 mg PO BID #0 tabs 12/10/21 [Rx Last Taken Unknown] prednisone 10 mg tablet See Taper PO BREAKFAST 12 days #30 tabs 12/10/21 [Rx Last Taken Unknown] Allergy/AdvReac Type Severity Reaction Status Date / Time No Known Allergies Allergy Verified 12/08/21 20:31 Family History Other Cancer Diabetes Essential tremor Surgical History (Updated 12/10/21 @ 15:35 by Melinda GARCIA, PA) History of coronary artery stent placement Hx of CABG S/P CABG x 3 Social History Smoking Status: Light Smoker (<10/day) substance use type: does not use Prior Cardiac Testing/Procedures Prior Cardiac Testing/Procedures: Echocardiogram (10/2020:Normal LV size. Moderate segmental systolic dysfunction (see wall motion). Stage 2 diastolic dysfunction. Contrast injection was performed.) ROS Constitutional Constitutional: Reports fatigue; Denies change in weight, chills, frequent falls, headache(s) or lethargy Eyes Eyes: Denies acute decrease in peripheral vision, blurry vision or change in vision ENT HEENT: Denies dizziness, dry mouth, epistaxis, headache(s), tinnitus or vertigo Cardiovascular Cardiovascular: Reports edema; Denies chest pain at rest, chest pain with activity, claudication, dyspnea at rest, dyspnea on exertion, irregular heart rhythm, lightheadedness, orthopnea, orthostatic symptoms, palpitations or pedal edema Respiratory/Chest Respiratory/Chest: Reports dyspnea and dyspnea on exertion; Denies cough, tachypnea or wheezing Gastrointestinal Gastrointestinal: Denies abdominal pain, bloating, coffee ground emesis, diarrhea, heartburn, hematemesis, hematochezia, melena or nausea Genitourinary Genitourinary: Denies hematuria Musculoskeletal Musculoskeletal: Denies myalgias, numbness or tingling Neurologic Neurologic: Denies abnormal gait, abnormal speech, memory loss, paresthesias or weakness Physical Exam Const alert, oriented x3 and no apparent distress HEENT normocephalic, head/scalp atraumatic, hearing grossly normal bilaterally, external ears normal, external nose normal and moist oral mucous membranes Eyes PERRL, EOMs intact bilaterally, conjunctivae normal and no scleral icterus Neck no lymphadenopathy, supple and no JVD Resp normal respiratory effort and no use of accessory muscles Auscultation: diminished lung sounds bilateral Cardio regular rate, regular rhythm, S1 normal heart sound, S2 normal heart sound, no murmurs, no rub, no gallops, no clicks, no JVD and peripheral pulses 2+ throughout GI normal to inspection, nondistended, normoactive bowel sounds, soft to palpation, non-tender and non-distended Extremity normal to inspection, normal capillary refill, no clubbing, cyanosis or edema and no pedal edema Neuro oriented x3, CN's II-XII intact bilaterally, moves all extremities and no focal motor deficits Psych cooperative and affect normal Risk Stratification Risk Stratification Applicable: No Charges/Coding Visit Charges Office Visits / Consults: 53349 IP Consult L3 Objective Data Vital Signs: Vital Signs Temp Pulse Resp BP Pulse Ox O2 Del Method O2 Flow Rate 98.2 F 90 20 H 125/67 H 96 Nasal Cannula 2 12/10/21 08:35 12/10/21 11:28 12/10/21 11:28 12/10/21 08:35 12/10/21 10:25 12/10/21 10:25 12/10/21 10:25 Oxygen Flow Rate (L/min) 2 Oxygen Delivery Method Nasal Cannula Weight: 165 lb 5.547 oz Body Mass Index (BMI) 21.2 Intake & Output: Intake and Output for Last 24 Hours 12/08/21 12/09/21 12/10/21 23:59 23:59 23:59 Intake Total 1130 / 1130 310 / 310 Output Total 1700 / 1700 1400 / 1400 Balance -570 / -570 -1090 / -1090 Lab / Micro Data Result Diagrams: 12/10/21 04:29 12/10/21 04:29 Labs: Laboratory Results - last 24 hr 12/10/21 04:29: WBC 14.6 H, RBC 4.01 L, Hgb 13.3, Hct 39.1 L, MCV 97.5 H, MCH 33.2 H, MCHC 34.0, RDW Std Deviation 44.9 H, RDW Coeff of Jamie 12.6, Plt Count 261, MPV 10.5, Immature Gran % (Auto) 0.900, Neut % (Auto) 81.7 H, Lymph % (Auto) 11.3 L, [place] % (Auto) 6.0, Eos % (Auto) 0.0, Baso % (Auto) 0.1, Absolute Neuts (auto) 11.9 H, Absolute Lymphs (auto) 1.65, Nucleated RBC % 0 12/10/21 04:29: Sodium 131 L, Potassium 4.0, Chloride 94 L, Carbon Dioxide 30.0, Anion Gap 7, BUN 11, Creatinine 0.51 L, Estim Creat Clear Calc 71.88, Est GFR (MDRD) Af Amer 207, Est GFR (MDRD) Non-Af 171, BUN/Creatinine Ratio 21.7 H, Glucose 153 H, Calcium 8.7, Total Bilirubin 0.40, AST 14 L, ALT 16, Alkaline Phosphatase 131 H, Total Protein 6.3 L, Albumin 2.7 L, Globulin 3.6, Albumin/Globulin Ratio 0.8 L Cardiology Labs/Tests 12/10/21 04:29: WBC 14.6 H, RBC 4.01 L, Hgb 13.3, Hct 39.1 L, MCV 97.5 H, MCH 33.2 H, MCHC 34.0, Plt Count 261, MPV 10.5, Immature Gran % (Auto) 0.900, Neut % (Auto) 81.7 H, Lymph % (Auto) 11.3 L, [place] % (Auto) 6.0, Eos % (Auto) 0.0, Baso % (Auto) 0.1, Absolute Neuts (auto) 11.9 H, Nucleated RBC % 0 12/10/21 04:29: Sodium 131 L, Potassium 4.0, Chloride 94 L, Carbon Dioxide 30.0, Anion Gap 7, BUN 11, Creatinine 0.51 L, Est GFR (MDRD) Af Amer 207, Est GFR (M DRD) Non-Af 171, BUN/Creatinine Ratio 21.7 H, Glucose 153 H, Calcium 8.7, Total Bilirubin 0.40 Radiography Diagnostic Testing: Radiology Impression Echocardiogram 12/09/21 01:24 Interpretation Summary The estimated ejection fraction is 40-45 %. Moderate LV systolic function Segmental wall motion abnormalities anteroapical . no significant difference from prior Echo 2020 Ordering Physician: Willi Bermudez Performed By: Tamra Duong RCS Abdomen/Pelvis CTA 12/09/21 16:16 IMPRESSION: (NOT LISTED IN ORDER OF SIGNIFICANCE) 65 mm infrarenal abdominal aortic aneurysm. There are multiple colonic diverticula consistent with diverticulosis. The urinary bladder is distended. This can suggest urinary retention. Other findings as above. Electronically Signed: James Baron MD at 18:28 EDT Reading Location ID and State: [facility] / [place] , Service support , Documented by User: Dr. Francesco Hassan MD 12/10/21 18:15 Assessment & Plan Assessment/Plan (1) CAD (coronary artery disease): QUALIFIERS: Coronary Disease-Associated Artery/Lesion type: grayling artery [place] vs. transplanted heart: grayling heart (2) Hx of CABG: (3) Cardiomyopathy: (4) Hypertension: (5) HLD (hyperlipidemia): QUALIFIERS: Hyperlipidemia type: unspecified hyperlipidemia Qualified Code(s): E78.5 - Hyperlipidemia, unspecified PLAN: Plan I independently examined this patient reviewed the current data including previous reports of bypass surgery and ast cardiac catheterization report. Very high risk patient with severe grayling coronary artery atherosclerosis involving LAD, circumflex and occluded RCA Also noted occluded SVG graft to RCA and occluded SVG graft to the left circumflex with a patent ESTRADA to LAD Patient had segmental wall motion abnormalities and reduced LV systolic function, moderate with EF around 40% Cardiac care plan recommendations; 1. I agree with the plan of evaluating with Lexiscan sestamibi perfusion study prior to undergo AAA repair 2. We will continue to monitor and follow-up clinically with medical therapy and will risk stratify for AAA repair/EVAR Based on nuclear stress result. HPI Consult Data Date of Consult: 12/10/21 [facility] Medical History (Updated 12/10/21 @ 15:59 by Melinda GARCIA, PA) CAD (coronary artery disease) Cardiomyopathy Chronic back pain Congestive heart failure (CHF) COPD (chronic obstructive pulmonary disease) History of inguinal hernia HLD (hyperlipidemia) Hypertension Myocardial infarct Home Medications albuterol sulfate 2.5 mg inhalation Q4H PRN PRN Wheezing 04/27/15 [History Last Taken Unknown] aspirin 81 mg chewable tablet 81 mg PO DAILY@0800 HEART 04/27/15 [History Last Taken Unknown] carvedilol 6.25 mg tablet 6.25 mg PO BID HEART 04/27/15 [History Last Taken Unk nown] lisinopril 20 mg tablet 20 mg PO DAILY BLOOD PRESSURE 04/27/15 [History Last Taken Unknown] fluticasone propionate 115 mcg-salmeterol 21 mcg/actuation HFA inhaler (Advair HFA) 2 puff inhalation BID COPD 10/31/20 [History Last Taken Unknown] umeclidinium 62.5 mcg/actuation blister powder for inhalation (Incruse Ellipta) 1 inh inhalation DAILY COPD 10/31/20 [History Last Taken Unknown] atorvastatin 40 mg tablet 40 tab PO QHS CHOLESTEROL 12/09/21 [History Last Taken Unknown] doxycycline hyclate 100 mg capsule 100 mg PO BID #10 caps 12/10/21 [Rx Last Taken Unknown] furosemide 40 mg tablet (Lasix) 40 mg PO BID #60 tabs 12/10/21 [Rx Last Taken Unknown] guaifenesin 600 mg tablet, extended release 12 hr (Mucus Relief ER) 600 mg PO BID #0 tabs 12/10/21 [Rx Last Taken Unknown] prednisone 10 mg tablet See Taper PO BREAKFAST 12 days #30 tabs 12/10/21 [Rx Last Taken Unknown] Allergy/AdvReac Type Severity Reaction Status Date / Time No Known Allergies Allergy Verified 12/08/21 20:31 Family History Other Cancer Diabetes Essential tremor Surgical History (Updated 12/10/21 @ 15:35 by Melinda Garner PA, PA) History of coronary artery stent placement Hx of CABG S/P CABG x 3 Social History Smoking Status: Light Smoker (<10/day) substance use type: does not use Lab / Micro Data Result Diagrams: 12/10/21 04:29 12/10/21 04:29
--- NOTE | 2021-12-10 16:50 | PCM.PN.HOSP ---
Subjective Subjective Patient seen and examined. Patient lying in bed no distress noted. Objective Data Objective Data Vital Signs: Vital Signs Temp Pulse Resp BP Pulse Ox O2 Del Method O2 Flow Rate 97.6 F L 88 21 H 120/75 95 Nasal Cannula 2 12/10/21 15:29 12/10/21 15:33 12/10/21 15:33 12/10/21 15:29 12/10/21 15:33 12/10/21 15:31 12/10/21 15:31 Oxygen Flow Rate (L/min) 2 Oxygen Delivery Method Nasal Cannula Weight: 165 lb 5.547 oz Body Mass Index (BMI) 21.2 Intake & Output: Intake and Output for Last 24 Hours 12/08/21 12/09/21 12/10/21 23:59 23:59 23:59 Intake Total 1130 / 1130 310 / 310 Output Total 1700 / 1700 1400 / 1400 Balance -570 / -570 -1090 / -1090 Lab / Micro Data Result Diagrams: 12/10/21 04:29 12/10/21 04:29 Labs: Laboratory Results - last 24 hr 12/10/21 04:29: WBC 14.6 H, RBC 4.01 L, Hgb 13.3, Hct 39.1 L, MCV 97.5 H, MCH 33.2 H, MCHC 34.0, RDW Std Deviation 44.9 H, RDW Coeff of Jamie 12.6, Plt Count 261, MPV 10.5, Immature Gran % (Auto) 0.900, Neut % (Auto) 81.7 H, Lymph % (Auto) 11.3 L, [place] % (Auto) 6.0, Eos % (Auto) 0.0, Baso % (Auto) 0.1, Absolute Neuts (auto) 11.9 H, Absolute Lymphs (auto) 1.65, Nucleated RBC % 0 12/10/21 04:29: Sodium 131 L, Potassium 4.0, Chloride 94 L, Carbon Dioxide 30.0, Anion Gap 7, BUN 11, Creatinine 0.51 L, Estim Creat Clear Calc 71.88, Est GFR (MDRD) Af Amer 207, Est GFR (MDRD) Non-Af 171, BUN/Creatinine Ratio 21.7 H, Glucose 153 H, Calcium 8.7, Total Bilirubin 0.40, AST 14 L, ALT 16, Alkaline Phosphatase 131 H, Total Protein 6.3 L, Albumin 2.7 L, Globulin 3.6, Albumin/Globulin Ratio 0.8 L Micro: Microbiology 12/08/21 21:00 Nasal Secretion SARS-CoV-2 Antigen (Rapid) - Final Radiography Diagnostic Testing: Radiology Impression Echocardiogram 12/09/21 01:24 Interpretation Summary The estimated ejection fraction is 40-45 %. Moderate LV systolic function Segmental wall motion abnormalities anteroapical . no significant difference from prior Echo 2020 Ordering Physician: Willi Bermudez Performed By: Tamra Duong RCS Abdomen/Pelvis CTA 12/09/21 16:16 IMPRESSION: (NOT LISTED IN ORDER OF SIGNIFICANCE) 65 mm infrarenal abdominal aortic aneurysm. There are multiple colonic diverticula consistent with diverticulosis. The urinary bladder is distended. This can suggest urinary retention. Other findings as above. Electronically Signed: James Baron MD at 18:28 EDT Reading Location ID and State: [facility] / [place] , Service support , Physical Exam Const alert, oriented x3 and no apparent distress HEENT head/scalp atraumatic and moist oral mucous membranes Eyes conjunctivae normal and no scleral icterus Neck no lymphadenopathy and supple Resp normal respiratory effort Effort and Inspection: able to speak in complete sentences and symmetric chest movement Auscultation: wheezes expiratory wheezes and right lower Cardio regular rate, regular rhythm, S1 normal heart sound and S2 normal heart sound GI normal to inspection, nondistended, normoactive bowel sounds, soft to palpation and non-tender Extremity normal to inspection and full ROM Neuro oriented x3, moves all extremities, no focal motor deficits and no sensory deficits noted Psych affect normal Assessment & Plan Assessment/Plan (1) AAA (abdominal aortic aneurysm) without rupture: (2) Cardiomyopathy: PLAN: Plan 1. Pneumonia -Continue doxycycline -Continue as needed and scheduled breathing treatments -Continue Mucinex 2. Aortic aneurysm -Dr. Fernandes following -Cardiology following for preprocedural clearance -Patient underwent echocardiogram -cardiology plan for stress test 12/11/2021 AM 3. COPD exacerbation -continue oxygen 2 L nasal cannula oxygen -Continue as needed and scheduled breathing treatments 4. Bilateral lower leg edema -Duplex ultrasound negative 5. History of CABG -Echo and stress pending for presurgical clearance for AAA 6. Spiculated pulmonary nodule -We will follow-up with pulmonary DVT prophylaxis-subcu Lovenox This patient was seen by Bhavya Dao NP-C under the supervision of Dr. Moore. 14 minutes spent in clinical coordination of patient's plan of care.
[2021-12-10] MEDS: Atorvastatin Calcium 40 MG Tablet PO (21:51)
[2021-12-11] VITALS (17 sets, daily range): BP systolic 97–139; BP diastolic 50–88; PULSE 65–94; RESP 14–22; TEMP 36.1–37.2; O2SAT 93–97
[2021-12-11] MEDS: Ipratropium/Albuterol Sulfate 3 ML AMPUL.NEB INHALATION ×6 (03:54→22:40)
[2021-12-11] MEDS: Menthol/Lanolin/Calamine/Znox 113 GM Tube 1 APPLIC TOPICAL ×3 (05:30→21:08)
[2021-12-11] MEDS: Lisinopril 20 MG Tablet PO (05:30)
[2021-12-11] MEDS: Aspirin 81 MG TAB.CHEW PO (05:30)
--- NOTE | 2021-12-11 05:55 | EKG12_ITS ---
Test Reason : AM EKG Blood Pressure : / mmHG Vent. Rate : 069 BPM Atrial Rate : 069 BPM P-R Int : 200 ms QRS Dur : 104 ms QT Int : 424 ms P-R-T Axes : 078 097 089 degrees QTc Int : 454 ms Sinus rhythm with occasional Premature ventricular complexes Nonspecific T wave abnormality Abnormal ECG When compared with ECG of 08-DEC-2021 21:23, MANUAL COMPARISON REQUIRED, DATA IS UNCONFIRMED Confirmed by MARIBEL BRITTON, NICOLE ([id number]), legal editor JAYLA FIGUEROA ([id number]) on 12/14/2021 9:12:14 AM Referred By: WILTON Confirmed By:NICOLE LÓPEZ MD
[2021-12-11 06:41] LABS: Absolute Lymphocyte Count 2.41 X10^3/uL (0.83-4.51); Absolute Neutrophil Count 9.7 X10^3/uL (2.0-7.7); Basophil# 0.01 X10^3/uL; Basophil% 0.1 % (0-1); Eosinophil# 0.03 X10^3/uL; Eosinophils% 0.2 % (0-5); Hematocrit 39.3 % (40-54); Hemoglobin 13.2 g/dL (13.0-16.5); Lymphocyte # 2.41 X10^3/ul (0.83-4.51); Lymphocyte % 18.3 % (19-41); Mean Corp Hgb Conc 33.6 g/dL (32-36); Mean Corpuscular Hgb 32.9 pg (27.0-32.0); Mean Platelet Vol. 9.9 fl (6.2-12.0); Monocyte% 7.6 % (0-10); NRBC Flagged by Analyzer 0 % (0-5); Neutrophil # 9.66 X10^3/uL (2.7-7.7); Neutrophil % 73.1 % (47-70); Platelet Count 295 K/mm3 (150-450); RBC Distribution Width CV 12.8 % (11.6-14.6); Red Blood Count 4.01 M/mm3 (4.6-6.2); White Blood Count 13.2 K/mm3 (4.4-11.0)
[2021-12-11 07:08] LABS: ALB/GLOB Ratio 0.8 RATIO (0.9-2.4); AST(SGOT) 14 U/L (15-37); Alanine Aminotransfer ALT/SGPT 18 U/L (16-61); Albumin, Serum 2.7 g/dL (3.2-5.0); Alkaline Phosphatase 124 U/L (45-117); Anion Gap 5 (5-15); BUN 13 mg/dL (7-18); BUN/Creat Ratio 22.8 RATIO (10-20); Calcium,Total 8.6 mg/dL (8.5-10.1); Chloride 95 mmol/L (98-107); Creatinine, Serum 0.57 mg/dL (0.70-1.30); EST Glomerular Filtration Rate 149 mL/min (>60); Est Glom Filt Rate - Afr Amer 181 mL/min (>60); Estimated Creatinine Clearance 71.49 ml/min; Globulin 3.4 g/dL (2.2-4.2); Glucose 99 mg/dL (74-106); Potassium 3.7 mmol/L (3.5-5.1); Protein, Total 6.1 g/dL (6.4-8.2); Sodium Level 133 mmol/L (136-145)
--- NOTE | 2021-12-11 07:23 | PN.CC_ITS ---
Assessment & Plan Assessment/Plan (1) COPD (chronic obstructive pulmonary disease): (2) Pulmonary nodule: (3) Aneurysm of infrarenal abdominal aorta: (4) Hx of CABG: (5) SOB (shortness of breath): (6) Hypoxia: PLAN: Plan RECOMMENDATIONS: 1. Agree with prednisone (wean over 10 to 12 days), mucolytic and bronchodilators 2. Patient could empirically be treated with a prednisone taper for the next 12 to 14 days and 7 days of antibiotics 3. Agree with gentle diuresis 4. Stressed the need to follow-up for optimization of lung care and follow- up of nodule 5. Defer to vascular surgery for AAA 6. Encourage incentive spirometer and Acapella 7. Follow-up in pulmonary office in 2 weeks with nurse practitioner IMPRESSIONS: 1. Acute hypoxic respiratory insufficiency secondary to COPD exacerbation Patient does have a history of a diastolic dysfunction with elevated BNP. Patient does have advanced emphysematous changes with a long smoking history. Agree with steroid therapy, bronchodilators and antibiotics. Patient does not reportedly have exposure to antibiotics in the last 3 months, so with doxycycline is likely sufficient. Patient would benefit from outpatient pulmonary function test for quantification clarification of lung function. Patient will also need a walking oximetry with establishment of oxygen if i ndicated prior to discharge. 2. Spiculated pulmonary nodule Personal review of the nodule indicates moderate to high risk malignancy potential. Anticipate following up as an outpatient. Patient can have LungNodify testing as an outpatient to help with pretest probability and PET scan. Doubt patient will be a good candidate for CT-guided biopsy given risk of pneumothorax given surrounding emphysematous changes. Stressed to the patient the possibility that this would represent cancer and must be followed up. Patient voiced understanding. 3. New finding AAA Consider vascular surgery for intervention. Patient would likely be at increased risk for complications, but this would not be prohibitive. Vascular surgery has seen the patient. CTA of the abdomen has been completed. Patient to have a stress test for presurgical optimization. 4. Tobacco abuse/poor insight/possible dementia/CAD with CHF/hypertensi on/advanced age Complicates care, management, recovery and prognosis. Precontemplative on smoking cessation at this time. Patient may have an element of congestive heart failure, but is on Lasix therapy and tolerating this well. Patient may benefit from improved heart rate control from both an aneurysmal and CHF component. Okay to use a beta-tyrone from a pulmonary perspective Subjective Subjective Patient did well overnight. No acute issues were reported. Patient is currently tolerating room air and doing well. Patient is scheduled for a stress test today, so he was not discharged yesterday. Patient is just asking to go home. Patient does have a cough that is productive, but he is not examining the sputum to see if it is changed. Objective Data Objective Data Vital Signs: Vital Signs Temp Pulse Resp BP Pulse Ox O2 Del Method O2 Flow Rate 36.8 C 77 18 139/88 H 94 Room Air 2 12/11/21 05:30 12/11/21 05:30 12/11/21 05:30 12/11/21 05:30 12/11/21 05:30 12/11/21 05:30 12/10/21 15:31 Oxygen Flow Rate (L/min) 2 Oxygen Delivery Method Room Air Weight: 74.6 kg Body Mass Index (BMI) 21.2 Intake & Output: Intake and Output for Last 24 Hours 12/09/21 12/10/21 12/11/21 23:59 23:59 23:59 Intake Total 1130 / 1130 930 / 930 Output Total 1700 / 1700 1400 / 1850 1100 / 1100 Balance -570 / -570 -470 / -920 -1100 / -1100 Lab / Micro Data Attestation: I reviewed the patient's lab results. Result Diagrams: 12/11/21 06:10 12/11/21 06:10 Labs: Laboratory Results - last 24 hr 12/11/21 06:10: WBC 13.2 H, RBC 4.01 L, Hgb 13.2, Hct 39.3 L, MCV 98.0 H, MCH 32.9 H, MCHC 33.6, RDW Std Deviation 46.0 H, RDW Coeff of Jamie 12.8, Plt Count 295, MPV 9.9, Immature Gran % (Auto) 0.700, Neut % (Auto) 73.1 H, Lymph % (Auto) 18.3 L, [place] % (Auto) 7.6, Eos % (Auto) 0.2, Baso % (Auto) 0.1, Absolute Neuts (auto) 9.7 H, Absolute Lymphs (auto) 2.41, Nucleated RBC % 0 12/11/21 06:10: Sodium 133 L, Potassium 3.7, Chloride 95 L, Carbon Dioxide 33.0 H, Anion Gap 5, BUN 13, Creatinine 0.57 L, Estim Creat Clear Calc 71.49, Est GFR (MDRD) Af Amer 181, Est GFR (MDRD) Non-Af 149, BUN/Creatinine Ratio 22.8 H, G lucose 99, Calcium 8.6, Total Bilirubin 0.40, AST 14 L, ALT 18, Alkaline Phosphatase 124 H, Total Protein 6.1 L, Albumin 2.7 L, Globulin 3.4, Albumin/Globulin Ratio 0.8 L Micro: Microbiology 12/08/21 21:50 Blood Culture (Wb) - Left Hand Blood Culture - Preliminary No growth in 48 hours. 12/08/21 21:00 Blood Culture (Wb) - Anticubital Left Blood Culture - Preliminary No growth in 48 hours. 12/08/21 21:00 Nasal Secretion SARS-CoV-2 Antigen (Rapid) - Final Radiography Diagnostic Testing: Radiology Impression Echocardiogram 12/09/21 01:24 Interpretation Summary The estimated ejection fraction is 40-45 %. Moderate LV systolic function Segmental wall motion abnormalities anteroapical . no significant difference from prior Echo 2020 Ordering Physician: Willi Bermudez Performed By: Tamra Duong RCS Physical Exam Const alert, oriented x3 and no apparent distress General Appearance: Negative for ill appearing HEENT head/scalp atraumatic and moist oral mucous membranes Eyes conjunctivae normal and no scleral icterus Neck no lymphadenopathy and supple Chest Chest Narrative: Increased AP diameter Resp normal respiratory effort Effort and Inspection: able to speak in complete sentences and symmetric chest movement Auscultation: wheezes expiratory wheezes and right lower Cardio regular rate, regular rhythm, S1 normal heart sound, S2 normal heart sound, no murmurs, no rub and no gallops GI normal to inspection, nondistended, normoactive bowel sounds, soft to palpation and non-tender Extremity normal to inspection and full ROM Skin no rashes or lesions noted Neuro oriented x3, moves all extremities, no focal motor deficits and no sensory deficits noted Psych Mood & Affect: labile affect Charges/Coding Visit Charges Inpatient E&M: 60083 Subs Hosp L2
[2021-12-11] MEDS: guaiFENesin 600 MG Tablet PO ×2 (10:13→21:06)
[2021-12-11] MEDS: predniSONE 20 MG Tablet 40 MG PO (10:13)
[2021-12-11] MEDS: Carvedilol 6.25 MG Tablet PO (10:13)
[2021-12-11] MEDS: Furosemide 20 MG/2 ML VIAL IV (10:14)
[2021-12-11] MEDS: 0.9% Saline Lock 10 ML Syringe IV (10:21)
--- NOTE | 2021-12-11 11:30 | STRESSREP ---
Stress Test Report Pharmacological/Lexiscan c myocardial perfusion stress test. Indication; 71-year-old patient, with known cardiac history, severe coronary arthrosclerosis with CABG 2007 Recently noted worsening of his LV function, echocardiogram evaluation. Patient had CTA which demonstrated 65 mm infrarenal abdominal aortic aneurysm And cardiac consultation requested for preop evaluation. Patient symptomatic with what he describes as heaviness and discomfort in the chest. Stress protocol: Resting EKG demonstrates. Normal sinus rhythm. Age indeterminate anterolateral and inferior IA. 0.4 mg of regadenoson was infused per usual protocol followed by rapid intravenous saline flush injection continuous EKG monitoring was performed. The maximum heart rate attained was 121 bpm which was 81% of maximum predicted heart . Stress EKG showed[, no significant change from the resting EKG, with maximum heart rate of 121 bpm. Arrhythmia: Infrequent PVCs Symptoms: Patient had no symptoms of chest pain Blood pressure at rest: 142/86 mmHg blood pressure at the end of stress: 142/86 Myocardial perfusion protocol. 12 mCi ]of Technetium 99m Sestamibi was injected at rest. [ 0.4 mg ]of Regadenoson was infused per usual protocol peak infusion 35.8 mCi ]of Technetium 99m sestamibi was injected. Stress images were obtained stress and rest images were reconstructed and compared in the short axis vertical and horizontal long axis. Gated images were also obtained Perfusion SPECT analysis: Review of the images demonstrate abnormal uptake of sestamibi, with a fixed anteroseptal defect consistent with previous myocardial infarction. Large area of reversible myocardial ischemia was noted in the lateral, inferior. Findings are consistent with severe three-vessel coronary artery atherosclerosis Gated SPECT analysis: The gated ejection fraction calculated as 29% Very abnormal gated SPECT images revealed akinetic anterior/septum segment with severe Anterolateral and inferior hypokinesia. This is consistent with severe ischemic cardiomyopathy with severe LV systolic dysfunction and significant Abnormal wall motion Conclusion, recommendation; This study is very abnormal with significant prior IA as described And large area of reversible myocardial ischemia and severe ischemic cardiomyopathy Francesco Hassan MD,FACC,[facility]
--- NOTE | 2021-12-11 11:45 | PCM.PN.CARD ---
Subjective Subjective No events noted from last night Objective Data Vital Signs: Vital Signs Temp Pulse Resp BP Pulse Ox O2 Del Method O2 Flow Rate 98.2 F 84 20 H 128/80 H 94 Nasal Cannula 2 12/11/21 10:01 12/11/21 11:16 12/11/21 11:16 12/11/21 10:01 12/11/21 10:01 12/11/21 10:29 12/11/21 10:29 Oxygen Flow Rate (L/min) 2 Oxygen Delivery Method Nasal Cannula Weight: 164 lb 7.437 oz Body Mass Index (BMI) 21.2 Intake & Output: Intake and Output for Last 24 Hours 12/09/21 12/10/21 12/11/21 23:59 23:59 23:59 Intake Total 1130 / 1130 930 / 930 Output Total 1700 / 1700 1400 / 1850 1100 / 1100 Balance -570 / -570 -470 / -920 -1100 / -1100 Lab / Micro Data Result Diagrams: 12/11/21 06:10 12/11/21 06:10 Labs: Laboratory Results - last 24 hr 12/11/21 06:10: WBC 13.2 H, RBC 4.01 L, Hgb 13.2, Hct 39.3 L, MCV 98.0 H, MCH 32.9 H, MCHC 33.6, RDW Std Deviation 46.0 H, RDW Coeff of Jamie 12.8, Plt Count 295, MPV 9.9, Immature Gran % (Auto) 0.700, Neut % (Auto) 73.1 H, Lymph % (Auto) 18.3 L, [place] % (Auto) 7.6, Eos % (Auto) 0.2, Baso % (Auto) 0.1, Absolute Neuts (auto) 9.7 H, Absolute Lymphs (auto) 2.41, Nucleated RBC % 0 12/11/21 06:10: Sodium 133 L, Potassium 3.7, Chloride 95 L, Carbon Dioxide 33.0 H, Anion Gap 5, BUN 13, Creatinine 0.57 L, Estim Creat Clear Calc 71.49, Est GFR (MDRD) Af Amer 181, Est GFR (MDRD) Non-Af 149, BUN/Creatinine Ratio 22.8 H, Glucose 99, Calcium 8.6, Total Bilirubin 0.40, AST 14 L, ALT 18, Alkaline Phosphatase 124 H, Total Protein 6.1 L, Albumin 2.7 L, Globulin 3.4, Albumin/Globulin Ratio 0.8 L Micro: Microbiology 12/08/21 21:50 Blood Culture (Wb) - Left Hand Blood Culture - Preliminary No growth in 48 hours. 12/08/21 21:00 Blood Culture (Wb) - Anticubital Left Blood Culture - Preliminary No growth in 48 hours. Cardiology Labs/Tests 12/11/21 06:10: WBC 13.2 H, RBC 4.01 L, Hgb 13.2, Hct 39.3 L, MCV 98.0 H, MCH 32.9 H, MCHC 33.6, Plt Count 295, MPV 9.9, Immature Gran % (Auto) 0.700, Neut % (Auto) 73.1 H, Lymph % (Auto) 18.3 L, [place] % (Auto) 7.6, Eos % (Auto) 0.2, Baso % (Auto) 0.1, Absolute Neuts (auto) 9.7 H, Nucleated RBC % 0 12/11/21 06:10: Sodium 133 L, Potassium 3.7, Chloride 95 L, Carbon Dioxide 33.0 H, Anion Gap 5, BUN 13, Creatinine 0.57 L, Est GFR (MDRD) Af Amer 181, Est GFR (MDRD) Non-Af 149, BUN/Creatinine Ratio 22.8 H, Glucose 99, Calcium 8.6, Total Bilirubin 0.40 Rhythm: Normal sinus rhythm, infrequent PVCs, noted on the stress EKG EKG: Age-indeterminate anterior and inferior AL with normal sinus rhythm Stress Test: Revealed severe ischemic cardiomyopathy with EF 29% Large area of reversible myocardial ischemia noted in the inferior and lateral myocardium with the fixed defect Consistent with prior scar in the anterior and septum which is akinetic Abnormal study consistent with severe coronary artery atherosclerosis, three-vessel disease and severe ischemic cardiomyopathy Physical Exam Narrative Patient alert orientated x3 Cardiac exam S1-S2 regular Had a mid sternotomy scar No systolic or diastolic murmur Chest exam clear to auscultation bilateral Assessment & Plan Assessment/Plan (1) CAD (coronary artery disease): QUALIFIERS: Coronary Disease-Associated Artery/Lesion type: [place] artery [place] vs. transplanted heart: [place] heart (2) AAA (abdominal aortic aneurysm) without rupture: (3) SOB (shortness of breath): (4) Aneurysm of infrarenal abdominal aorta: (5) FH: CABG (coronary artery bypass surgery): (6) COPD (chronic obstructive pulmonary disease): (7) Cardiomyopathy: PLAN: Plan This 71-year-old patient with severe coronary artery disease Patient had CABG in 2007 Last cardiac catheterization revealed severe [place] coronary artery disease involving LAD, left circumflex and occluded RCA Also noted he had occluded SVG graft to RCA and occluded SVG graft to the left circumflex with patent ESTRADA to LAD The stress test is significantly abnormal with worsening of LV systolic function ejection fraction calculated 29%. Wall motion abnormality consistent with prior anteroseptal AL and significantly large area of reversible inferior and lateral ischemia This patient is scheduled to undergo AAA repair/EVAR. Other medical problem include history of COPD, hypertension, hyperlipidemia and acute on chronic systolic heart failure Cardiac care plan recommendations; 1. Patient will need further evaluation by cardiac catheterization and to maximize medical therapy/high risk and critical patient. 2. We will continue to monitor and follow-up clinically
--- NOTE | 2021-12-11 12:35 | PN.HOSP_ITS ---
Documented by User: ELOISA Gutiérrez 12/11/21 12:42 Subjective Subjective Patient seen and examined. Discussed with patient stress test results and need for cardiac catheterization. at bedside during conversation. Patient and verbalized understanding but are extremely frustrated. Objective Data Objective Data Vital Signs: Vital Signs Temp Pulse Resp BP Pulse Ox O2 Del Method O2 Flow Rate 98.2 F 84 20 H 128/80 H 94 Nasal Cannula 2 12/11/21 10:01 12/11/21 11:16 12/11/21 11:16 12/11/21 10:01 12/11/21 10:01 12/11/21 10:29 12/11/21 10:29 Oxygen Flow Rate (L/min) 2 Oxygen Delivery Method Nasal Cannula Weight: 164 lb 7.437 oz Body Mass Index (BMI) 21.2 Intake & Output: Intake and Output for Last 24 Hours 12/09/21 12/10/21 12/11/21 23:59 23:59 23:59 Intake Total 1130 / 1130 930 / 930 510 / 510 Output Total 1700 / 1700 1400 / 1850 1600 / 1600 Balance -570 / -570 -470 / -920 -1090 / -1090 Lab / Micro Data Result Diagrams: 12/11/21 06:10 12/11/21 06:10 Labs: Laboratory Results - last 24 hr 12/11/21 06:10: WBC 13.2 H, RBC 4.01 L, Hgb 13.2, Hct 39.3 L, MCV 98.0 H, MCH 32.9 H, MCHC 33.6, RDW Std Deviation 46.0 H, RDW Coeff of Jamie 12.8, Plt Count 295, MPV 9.9, Immature Gran % (Auto) 0.700, Neut % (Auto) 73.1 H, Lymph % (Auto) 18.3 L, [place] % (Auto) 7.6, Eos % (Auto) 0.2, Baso % (Auto) 0.1, Absolute Neuts (auto) 9.7 H, Absolute Lymphs (auto) 2.41, Nucleated RBC % 0 12/11/21 06:10: Sodium 133 L, Potassium 3.7, Chloride 95 L, Carbon Dioxide 33.0 H, Anion Gap 5, BUN 13, Creatinine 0.57 L, Estim Creat Clear Calc 71.49, Est GFR (MDRD) Af Amer 181, Est GFR (MDRD) Non-Af 149, BUN/Creatinine Ratio 22.8 H, Glucose 99, Calcium 8.6, Total Bilirubin 0.40, AST 14 L, ALT 18, Alkaline Phosphatase 124 H, Total Protein 6.1 L, Albumin 2.7 L, Globulin 3.4, Albumin/Globulin Ratio 0.8 L Micro: Microbiology 12/08/21 21:50 Blood Culture (Wb) - Left Hand Blood Culture - Preliminary No growth in 48 hours. 12/08/21 21:00 Blood Culture (Wb) - Anticubital Left Blood Culture - Preliminary No growth in 48 hours. 12/08/21 21:00 Nasal Secretion SARS-CoV-2 Antigen (Rapid) - Final Physical Exam Const alert, oriented x3 and no apparent distress HEENT head/scalp atraumatic and moist oral mucous membranes Eyes conjunctivae normal and no scleral icterus Neck no lymphadenopathy and supple Resp normal respiratory effort Effort and Inspection: able to speak in complete sentences and symmetric chest movement Auscultation: wheezes expiratory wheezes and right lower Cardio regular rate, regular rhythm, S1 normal heart sound and S2 normal heart sound GI normal to inspection, nondistended, normoactive bowel sounds, soft to palpation and non-tender Extremity normal to inspection and full ROM Neuro oriented x3, moves all extremities, no focal motor deficits and no sensory defi cits noted Psych affect normal Assessment & Plan Assessment/Plan (1) AAA (abdominal aortic aneurysm) without rupture: (2) Cardiomyopathy: PLAN: Plan 1. Pneumonia -Continue doxycycline -Continue as needed and scheduled breathing treatments -Continue Mucinex 2. Aortic aneurysm -Dr. Fernandes following -Cardiology following for preprocedural clearance 3. Abnormal stress test -Dr. Hassan to see patient -Plan for cardiac catheterization on 12/13/2021 -Dr. Fernandes updated with cardiology's plan -Patient initiated on aldactone at cardiology's instruction -Per cardiology patient will need a lifevest at discharge 4. COPD exacerbation -continue oxygen 2 L nasal cannula oxygen -Continue as needed and scheduled breathing treatments 4. Bilateral lower leg edema -Duplex ultrasound negative 5. History of CABG -Echo and stress pending for presurgical clearance for AAA 6. Spiculated pulmonary nodule -We will follow-up with pulmonary DVT prophylaxis-subcu Lovenox This patient was seen by Bhavya Dao NP-C under the supervision of Dr. Moore. 14 minutes spent in clinical coordination of patient's plan of care. Documented by User: Dr. Isis Moore MD 12/11/21 14:07 Objective Data Lab / Micro Data Result Diagrams: 12/11/21 06:10 12/11/21 06:10 Assessment & Plan Assessment/Plan (1) AAA (abdominal aortic aneurysm) without rupture: (2) Cardiomyopathy: Charges/Coding Addendum Addendum: This patient was seen in conjunction with Otis Dao NP.? I have independently interviewed and examined the patient and reviewed pertinent historical, laboratory, and other data. I have reviewed her note and concur with her documentation Patient was seen and examined.? Patient was going to be discharged yesterday by cardiology wanted to do a stress test today. Stress test was reportedly abnormal with a large area of reversible ischemia in the inferior lateral area. EF is 29%. Physical Exam: Gen: Comfortable, not pale, not jaundiced CVS:HS I +II, regular, no murmurs RESP: Diminished at lung bases GI: BS present and normal, soft, nontender, no palpable organs EXT:No edema ASSESSMENT: 1.?Acute hypoxia secondary to acute COPD exacerbation. 2.?Abnormal stress test 3. Malignant looking lung nodule 4.? Acute infrarenal aortic aneurysm 5. Nicotine dependence 6. CAD s/p CABG Plan: Patient will stay for cardiac cath on Monday Continue on breathing treatments, prednisone Continue with Doxycycline po, Lasix Nicotine replacement Vascular, pulmonology, cardiology consult Repeat blood work in am Visit Charges Inpatient E&M: 15854 Subs Hosp L2
[2021-12-11] MEDS: oxyCODONE 5 MG Tablet PO ×2 (13:26→21:06)
[2021-12-11] MEDS: Doxycycline 100 MG CAPSULE PO (21:06)
[2021-12-11] MEDS: Atorvastatin Calcium 40 MG Tablet PO (21:06)
[2021-12-12] VITALS (17 sets, daily range): BP systolic 90–131; BP diastolic 61–78; PULSE 63–93; RESP 16–20; TEMP 36.3–36.7; O2SAT 90–96
[2021-12-12] MEDS: Ipratropium/Albuterol Sulfate 3 ML AMPUL.NEB INHALATION ×5 (03:35→23:07)
[2021-12-12] MEDS: Menthol/Lanolin/Calamine/Znox 113 GM Tube 1 APPLIC TOPICAL ×3 (05:06→21:34)
--- NOTE | 2021-12-12 05:17 | PCM.PN.INT ---
Assessment & Plan Assessment/Plan (1) COPD (chronic obstructive pulmonary disease): (2) Pulmonary nodule: (3) Aneurysm of infrarenal abdominal aorta: (4) Hx of CABG: (5) SOB (shortness of breath): (6) Hypoxia: PLAN: Plan RECOMMENDATIONS: 1. Agree with prednisone (wean over 10 to 12 days), mucolytic and bronchodilators 2. Patient could empirically be treated with a prednisone taper for the next 12 to 14 days and 7 days of antibiotics 3. Agree with gentle diuresis 4. Stressed the need to follow-up for optimization of lung care and follow-up of nodule 5. Defer to vascular surgery for AAA 6. Encourage incentive spirometer and Acapella 7. Follow-up in pulmonary office in 2 weeks with nurse practitioner. We will sign off from a pulmonary perspective IMPRESSIONS: 1. Acute hypoxic respiratory insufficiency secondary to COPD exacerbation Patient does have a history of a diastolic dysfunction with elevated BNP. Patient does have advanced emphysematous changes with a long smoking history. Agree with steroid therapy, bronchodilators and antibiotics. Patient does not reportedly have exposure to antibiotics in the last 3 months, so with doxycycline is likely sufficient. Patient would benefit from outpatient pulmonary function test for quantification clarification of lung function. Patient will also need a walking oximetry with establishment of oxygen if indicated prior to discharge. Cannot exclude the need for supplemental oxygen with ambulation given baseline disease and lack of a primary induction coordination power engineer. This would not be a reason for continued hospitalization. 2. Spiculated pulmonary nodule Personal review of the nodule indicates moderate to high risk malignancy potential. Anticipate following up as an outpatient. Patient can have LungNodify testing as an outpatient to help with pretest probability and PET scan. Doubt patient will be a good candidate for CT-guided biopsy given risk of pneumothorax given surrounding emphysematous changes. Stressed to the patient the possibility that this would represent cancer and must be followed up. Patient voiced understanding. 3. New finding AAA Consider vascular surgery for intervention. Patient would likely be at increased risk for complications, but this would not be prohibitive. Vascular surgery has seen the patient. CTA of the abdomen has been completed. Patient to have a heart catheterization for presurgical optimization. 4. Tobacco abuse/poor insight/possible dementia/CAD with CHF/hypertension/advanced age Complicates care, management, recovery and prognosis. Precontemplative on smoking cessation at this time. Patient may have an element of congestive heart failure, but is on Lasix therapy and tolerating this well. Patient may benefit from improved heart rate control from both an aneurysmal and CHF component. Okay to use a beta-tyrone from a pulmonary perspective Subjective Subjective Patient did okay overnight. Patient significantly frustrated that he is still hospitalized, but stress test is suggestive of a need for heart catheterization. Patient with no respiratory complaints at this time. Patient was placed on minimal nasal cannula oxygen to help with desaturation with sleep. Objective Data Objective Data Vital Signs: Vital Signs Temp Pulse Resp BP Pulse Ox O2 Del Method O2 Flow Rate 36.5 C L 69 20 H 131/78 H 95 Nasal Cannula 1 12/12/21 04:49 12/12/21 04:49 12/12/21 04:49 12/12/21 04:49 12/12/21 04:49 12/12/21 05:04 12/12/21 05:04 Oxygen Flow Rate (L/min) 1 Oxygen Delivery Method Nasal Cannula Weight: 74.6 kg Body Mass Index (BMI) 21.2 Intake & Output: Intake and Output for Last 24 Hours 12/10/21 12/11/21 12/12/21 23:59 23:59 23:59 Intake Total 930 / 930 850 / 850 Output Total 1400 / 1850 1950 / 1950 Balance -470 / -920 -1100 / -1100 Lab / Micro Data Attestation: I reviewed the patient's lab results. Result Diagrams: 12/11/21 06:10 12/11/21 06:10 Labs: Laboratory Results - last 24 hr 12/11/21 06:10: WBC 13.2 H, RBC 4.01 L, Hgb 13.2, Hct 39.3 L, MCV 98.0 H, MCH 32.9 H, MCHC 33.6, RDW Std Deviation 46.0 H, RDW Coeff of Jamie 12.8, Plt Count 295, MPV 9.9, Immature Gran % (Auto) 0.700, Neut % (Auto) 73.1 H, Lymph % (Auto) 18.3 L, [place] % (Auto) 7.6, Eos % (Auto) 0.2, Baso % (Auto) 0.1, Absolute Neuts (auto) 9.7 H, Absolute Lymphs (auto) 2.41, Nucleated RBC % 0 12/11/21 06:10: Sodium 133 L, Potassium 3.7, Chloride 95 L, Carbon Dioxide 33.0 H, Anion Gap 5, BUN 13, Creatinine 0.57 L, Estim Creat Clear Calc 71.49, Est GFR (MDRD) Af Amer 181, Est GFR (MDRD) Non-Af 149, BUN/Creatinine Ratio 22.8 H, Glucose 99, Calcium 8.6, Total Bilirubin 0.40, AST 14 L, ALT 18, Alkaline Phosphatase 124 H, Total Protein 6.1 L, Albumin 2.7 L, Globulin 3.4, Albumin/Globulin Ratio 0.8 L Micro: Microbiology 12/08/21 21:50 Blood Culture (Wb) - Left Hand Blood Culture - Preliminary No growth in 48 hours. 12/08/21 21:00 Blood Culture (Wb) - Anticubital Left Blood Culture - Preliminary No growth in 48 hours. 12/08/21 21:00 Nasal Secretion SARS-CoV-2 Antigen (Rapid) - Final Physical Exam Const alert, oriented x3 and no apparent distress General Appearance: Negative for ill appearing HEENT head/scalp atraumatic and moist oral mucous membranes Eyes conjunctivae normal and no scleral icterus Neck no lymphadenopathy and supple Chest Chest Narrative: Increased AP diameter Resp normal respiratory effort Effort and Inspection: able to speak in complete sentences and symmetric chest movement Auscultation: wheezes expiratory wheezes and right lower Cardio regular rate, regular rhythm, S1 normal heart sound, S2 normal heart sound, no murmurs, no rub and no gallops GI normal to inspection, nondistended, normoactive bowel sounds, soft to palpation and non-tender Extremity normal to inspection and full ROM Skin no rashes or lesions noted Neuro oriented x3, moves all extremities, no focal motor deficits and no sensory deficits noted Psych Mood & Affect: labile affect Charges/Coding Visit Charges Inpatient E&M: 65807 Subs Hosp L2
[2021-12-12] MEDS: Lisinopril 20 MG Tablet PO (09:04)
[2021-12-12] MEDS: Aspirin 81 MG TAB.CHEW PO (09:05)
[2021-12-12] MEDS: Doxycycline 100 MG CAPSULE PO ×2 (09:05→21:35)
[2021-12-12] MEDS: predniSONE 20 MG Tablet 40 MG PO (09:06)
[2021-12-12] MEDS: Spironolactone 25 MG Tablet PO (09:08)
[2021-12-12] MEDS: guaiFENesin 600 MG Tablet PO ×2 (09:08→21:35)
[2021-12-12] MEDS: Enoxaparin 40 MG/0.4 ML Syringe SC (09:08)
[2021-12-12] MEDS: Carvedilol 6.25 MG Tablet PO (09:08)
[2021-12-12] MEDS: Furosemide 20 MG/2 ML VIAL IV (09:09)
--- NOTE | 2021-12-12 10:55 | PN.HOSP_ITS ---
Documented by User: ELOISA Gutiérrez 12/12/21 10:58 Subjective Subjective Patient seen and examined. Patient lying in bed no distress noted. Patient states that he did sleep better last night with addition of pain medicine for chronic back pain. Objective Data Objective Data Vital Signs: Vital Signs Temp Pulse Resp BP Pulse Ox O2 Del Method O2 Flow Rate 98.1 F 93 16 120/73 94 Nasal Cannula 2 12/12/21 09:00 12/12/21 09:00 12/12/21 09:00 12/12/21 09:00 12/12/21 09:00 12/12/21 09:01 12/12/21 09:01 Oxygen Flow Rate (L/min) 2 Oxygen Delivery Method Nasal Cannula Weight: 162 lb 4.163 oz Body Mass Index (BMI) 21.2 Intake & Output: Intake and Output for Last 24 Hours 12/10/21 12/11/21 12/12/21 23:59 23:59 23:59 Intake Total 930 / 930 850 / 850 50 / 50 Output Total 1400 / 1850 1950 / 1950 200 / 200 Balance -470 / -920 -1100 / -1100 -150 / -150 Lab / Micro Data Result Diagrams: 12/11/21 06:10 12/11/21 06:10 Micro: Microbiology 12/08/21 21:50 Blood Culture (Wb) - Left Hand Blood Culture - Preliminary No growth in 48 hours. 12/08/21 21:00 Blood Culture (Wb) - Anticubital Left Blood Culture - Preliminary No growth in 48 hours. 12/08/21 21:00 Nasal Secretion SARS-CoV-2 Antigen (Rapid) - Final Physical Exam Const alert, oriented x3 and no apparent distress HEENT head/scalp atraumatic and moist oral mucous membranes Eyes conjunctivae normal and no scleral icterus Neck no lymphadenopathy and supple Resp normal respiratory effort Effort and Inspection: able to speak in complete sentences and symmetric chest movement Auscultation: wheezes expiratory wheezes and right lower Cardio regular rate, regular rhythm, S1 normal heart sound and S2 normal heart sound GI normal to inspection, nondistended, normoactive bowel sounds, soft to palpation and non-tender Extremity normal to inspection and full ROM Neuro oriented x3, moves all extremities, no focal motor deficits and no sensory deficits noted Psych affect normal Assessment & Plan Assessment/Plan (1) AAA (abdominal aortic aneurysm) without rupture: (2) Cardiomyopathy: PLAN: Plan 1. Pneumonia -Continue doxycycline -Continue as needed and scheduled breathing treatments -Continue Mucinex 2. Aortic aneurysm -Dr. Fernandes following -Cardiology following for preprocedural clearance 3. Abnormal stress test -Dr. Hassan following -Plan for cardiac catheterization on 12/13/2021 -Dr. Fernandes updated with cardiology's plan -Patient initiated on aldactone at cardiology's instruction -Per cardiology patient will need a lifevest at discharge 4. COPD exacerbation -continue oxygen 2 L nasal cannula oxygen -Continue as needed and scheduled breathing treatments 4. Bilateral lower leg edema -Duplex ultrasound negative 5. History of CABG -Echo and stress pending for presurgical clearance for AAA 6. Spiculated pulmonary nodule -We will follow-up with pulmonary DVT prophylaxis-subcu Lovenox This patient was seen by Bhavya Dao NP-C under the supervision of Dr. Moore. 12 minutes spent in clinical coordination of patient's plan of care. Documented by User: Dr. Isis Moore MD 12/12/21 12:14 Objective Data Lab / Micro Data Result Diagrams: 12/11/21 06:10 12/11/21 06:10 Assessment & Plan Assessment/Plan (1) AAA (abdominal aortic aneurysm) without rupture: (2) Cardiomyopathy: Charges/Coding Addendum Addendum: This patient was seen in conjunction with Otis Dao NP.? I have independently interviewed and examined the patient and reviewed pertinent historical, laboratory, and other data. I have reviewed her note and concur with her documentation Patient was seen and examined.? No new complaints. Refused nicotine patches. Physical Exam: Gen: Comfortable, not pale, not jaundiced CVS:HS I +II, regular, no murmurs RESP: Diminished at lung bases GI: BS present and normal, soft, nontender, no palpable organs EXT:No edema ASSESSMENT: 1.?Acute hypoxia secondary to acute COPD exacerbation. 2.?Abnormal stress test 3. Malignant looking lung nodule 4.? Acute infrarenal aortic aneurysm 5. Nicotine dependence 6. CAD s/p CABG Plan: Patient will stay for cardiac cath on Monday Continue on breathing treatments, prednisone Continue with Doxycycline po( for total of 7 days), Lasix Vascular, pulmonology, cardiology following Repeat blood work in am Time spent reviewing patient's data, coordinating patient's care, discussing w ith nursin minutes Visit Charges Inpatient E&M: 32145 Subs Hosp L2
[2021-12-12] MEDS: oxyCODONE 5 MG Tablet PO ×2 (11:26→18:54)
[2021-12-12] MEDS: Docusate Sodium 100 MG Capsule PO ×2 (13:49→21:39)
--- NOTE | 2021-12-12 14:46 | PN.CARD_ITS ---
Subjective Subjective Seen and evaluated at bedside No symptoms reported No event from last night Objective Data Vital Signs: Vital Signs Temp Pulse Resp BP Pulse Ox O2 Del Method O2 Flow Rate 97.8 F 87 18 107/70 92 Nasal Cannula 2 12/12/21 13:46 12/12/21 13:46 12/12/21 13:46 12/12/21 13:46 12/12/21 13:46 12/12/21 13:46 12/12/21 13:46 Oxygen Flow Rate (L/min) 2 Oxygen Delivery Method Nasal Cannula Weight: 162 lb 4.163 oz Body Mass Index (BMI) 21.2 Intake & Output: Intake and Output for Last 24 Hours 12/10/21 12/11/21 12/12/21 23:59 23:59 23:59 Intake Total 930 / 930 850 / 850 290 / 290 Output Total 1400 / 1850 1950 / 1950 600 / 600 Balance -470 / -920 -1100 / -1100 -310 / -310 Lab / Micro Data Result Diagrams: 12/11/21 06:10 12/11/21 06:10 Cardiology Labs/Tests Rhythm: EKG: ECHO: Stress Test: Cardiac Cath: PCI: CT Surgery: Holter monitor: EPS: PPM: CXR: Chest CT Scan: Physical Exam Narrative View of environmental monitoring technician showed underlying normal sinus Cardiovascular S1-S2 regular Chest exam clear to auscultation bilateral Examination lower extremity no lower extremity edema Assessment & Plan Assessment/Plan (1) AAA (abdominal aortic aneurysm) without rupture: (2) SOB (shortness of breath): (3) Hx of CABG: (4) Aneurysm of infrarenal abdominal aorta: (5) Pulmonary nodule: (6) Hypertension: (7) Stented coronary artery: (8) Cardiomyopathy: PLAN: This 71-year-old patient with significant cardiac history With a prior PCI and stent to the LAD in 2009 at [facility] Subsequently had bypass surgery with ESTRADA to LAD/SVG to RCA, SVG to OM1 On this admission patient noted to have infrarenal abdominal aortic aneurysm measuring around 65 cm Cardiac consult requested for preop evaluation and risk assessment Subsequent evaluation with Lexiscan sestamibi showed significantly abnormal stress test With severe LV dysfunction ejection fraction of around 29% With abnormal nuclear stress result, patient had severe three-vessel coronary artery disease with a prior cardiac catheterization showed patent ESTRADA to LAD with occluded SVG to RCA and SVG to left circumflex and [employer] of the RCA and int ermediate lesion in the left circumflex which is large with 3 OM branches. Had significantly abnormal stress test, with reversible myocardial ischemia left circumflex and LAD distribution. Cardiac care plan recommendations; 1. Patient will be evaluated with cardiac catheterization tomorrow Recommend a left radial artery approach due to history of infrarenal aneurysm 2. Continue current medical treatment. High risk and critical patient. 3. I will defer to the vascular team regarding infrarenal abdominal aneurysm further evaluation/EVAR 4. High risk patient with severe ischemic cardiomyopathy will need further evaluation ICD/BiV pacer which can be set up post EAVR
[2021-12-12] MEDS: Atorvastatin Calcium 40 MG Tablet PO (21:39)
[2021-12-12] MEDS: 0.9% Saline Lock 10 ML Syringe IV (22:03)
[2021-12-13] VITALS (21 sets, daily range): BP systolic 96–141; BP diastolic 64–91; PULSE 66–101; RESP 16–20; TEMP 36.1–36.9; O2SAT 89–98
[2021-12-13] MEDS: Ipratropium/Albuterol Sulfate 3 ML AMPUL.NEB INHALATION ×3 (03:07→14:29)
[2021-12-13 05:50] LABS: Absolute Lymphocyte Count 2.85 X10^3/uL (0.83-4.51); Absolute Neutrophil Count 9.4 X10^3/uL (2.0-7.7); Basophil# 0.02 X10^3/uL; Basophil% 0.1 % (0-1); Eosinophil# 0.04 X10^3/uL; Eosinophils% 0.3 % (0-5); Hematocrit 43.2 % (40-54); Hemoglobin 14.4 g/dL (13.0-16.5); Lymphocyte # 2.85 X10^3/ul (0.83-4.51); Lymphocyte % 21.2 % (19-41); Mean Corp Hgb Conc 33.3 g/dL (32-36); Mean Corpuscular Hgb 32.5 pg (27.0-32.0); Mean Corpuscular Volume 97.5 fL (80-94); Monocyte# 1.01 X10^3/uL; Monocyte% 7.5 % (0-10); NRBC Flagged by Analyzer 0 % (0-5); Neutrophil # 9.42 X10^3/uL (2.7-7.7); Neutrophil % 70.2 % (47-70); Platelet Count 327 K/mm3 (150-450); RBC Distribution Width CV 12.8 % (11.6-14.6); RBC Distribution Width SD 45.9 fl (35.1-43.9); Red Blood Count 4.43 M/mm3 (4.6-6.2); White Blood Count 13.4 K/mm3 (4.4-11.0)
--- NOTE | 2021-12-13 05:55 | EKG12_ITS ---
Test Reason : AM EKG Blood Pressure : / mmHG Vent. Rate : 077 BPM Atrial Rate : 077 BPM P-R Int : 220 ms QRS Dur : 104 ms QT Int : 394 ms P-R-T Axes : 076 097 083 degrees QTc Int : 445 ms Sinus rhythm with 1st degree A-V block Rightward axis Nonspecific T wave abnormality Abnormal ECG When compared with ECG of 11-DEC-2021 04:01, MANUAL COMPARISON REQUIRED, DATA IS UNCONFIRMED Confirmed by MARIBEL BRITTON, NICOLE ([id number]), editor publications JAYLA FIGUEROA ([id number]) on 12/14/2021 9:14:04 AM Referred By: Confirmed By:NICOLE LÓPEZ MD
[2021-12-13 06:33] LABS: ALB/GLOB Ratio 0.8 RATIO (0.9-2.4); AST(SGOT) 22 U/L (15-37); Alanine Aminotransfer ALT/SGPT 21 U/L (16-61); Albumin, Serum 2.7 g/dL (3.2-5.0); Alkaline Phosphatase 131 U/L (45-117); Anion Gap 6 (5-15); BUN 16 mg/dL (7-18); BUN/Creat Ratio 26.5 RATIO (10-20); Calcium,Total 8.8 mg/dL (8.5-10.1); Chloride 94 mmol/L (98-107); EST Glomerular Filtration Rate 140 mL/min (>60); Est Glom Filt Rate - Afr Amer 170 mL/min (>60); Estimated Creatinine Clearance 70.53 ml/min; Globulin 3.6 g/dL (2.2-4.2); Glucose 109 mg/dL (74-106); Potassium 4.3 mmol/L (3.5-5.1); Protein, Total 6.3 g/dL (6.4-8.2); Sodium Level 130 mmol/L (136-145)
[2021-12-13] MEDS: Menthol/Lanolin/Calamine/Znox 113 GM Tube 1 APPLIC TOPICAL ×2 (06:57→15:44)
[2021-12-13] MEDS: Aspirin 81 MG TAB.CHEW PO (06:58)
[2021-12-13] MEDS: Lisinopril 20 MG Tablet PO (06:58)
[2021-12-13] MEDS: Carvedilol 6.25 MG Tablet PO (06:59)
[2021-12-13] MEDS: oxyCODONE 5 MG Tablet PO (09:21)
--- NOTE | 2021-12-13 10:58 | PN.HOSP_ITS ---
Documented by User: ELOISA Gutiérrez 12/13/21 11:01 Subjective Subjective Patient seen and examined. Patient lying in bed no distress noted. Patient awaiting to go to cardiac catheterization Objective Data Objective Data Vital Signs: Vital Signs Temp Pulse Resp BP Pulse Ox O2 Del Method O2 Flow Rate 97.6 F L 79 18 126/88 H 94 Nasal Cannula 2 12/13/21 06:51 12/13/21 07:01 12/13/21 07:55 12/13/21 06:51 12/13/21 07:01 12/13/21 07:55 12/13/21 07:55 Oxygen Flow Rate (L/min) 2 Oxygen Delivery Method Nasal Cannula Weight: 160 lb 0.889 oz Body Mass Index (BMI) 21.2 Intake & Output: Intake and Output for Last 24 Hours 12/11/21 12/12/21 12/13/21 23:59 23:59 23:59 Intake Total 850 / 850 530 / 530 Output Total 1950 / 1950 1350 / 1350 300 / 300 Balance -1100 / -1100 -820 / -820 -300 / -300 Lab / Micro Data Result Diagrams: 12/13/21 05:00 12/13/21 05:00 Labs: Laboratory Results - last 24 hr 12/13/21 05:00: WBC 13.4 H, RBC 4.43 L, Hgb 14.4, Hct 43.2, MCV 97.5 H, MCH 32.5 H, MCHC 33.3, RDW Std Deviation 45.9 H, RDW Coeff of Jamie 12.8, Plt Count 327, MPV 10.0, Immature Gran % (Auto) 0.700, Neut % (Auto) 70.2 H, Lymph % (Auto) 21.2, [place] % (Auto) 7.5, Eos % (Auto) 0.3, Baso % (Auto) 0.1, Absolute Neuts (auto) 9.4 H, Absolute Lymphs (auto) 2.85, Nucleated RBC % 0 12/13/21 05:00: Sodium 130 L, Potassium 4.3, Chloride 94 L, Carbon Dioxide 30.0, Anion Gap 6, BUN 16, Creatinine 0.60 L, Estim Creat Clear Calc 70.53, Est GFR (MDRD) Af Amer 170, Est GFR (MDRD) Non-Af 140, BUN/Creatinine Ratio 26.5 H, Glucose 109 H, Calcium 8.8, Total Bilirubin 0.50, AST 22, ALT 21, Alkaline Phosphatase 131 H, Total Protein 6.3 L, Albumin 2.7 L, Globulin 3.6, Albumin/Globulin Ratio 0.8 L Micro: Microbiology 12/08/21 21:50 Blood Culture (Wb) - Left Hand Blood Culture - Preliminary No growth in 48 hours. 12/08/21 21:00 Blood Culture (Wb) - Anticubital Left Blood Culture - Preliminary No growth in 48 hours. 12/08/21 21:00 Nasal Secretion SARS-CoV-2 Antigen (Rapid) - Final Physical Exam Const alert, oriented x3 and no apparent distress HEENT head/scalp atraumatic and moist oral mucous membranes Eyes conjunctivae normal and no scleral icterus Neck no lymphadenopathy and supple Resp normal respiratory effort Effort and Inspection: able to speak in complete sentences and symmetric chest movement Auscultation: wheezes expiratory wheezes and right lower Cardio regular rate, regular rhythm, S1 normal heart sound and S2 normal heart sound GI normal to inspection, nondistended, normoactive bowel sounds, soft to palpation and non-tender Extremity normal to inspection and full ROM Neuro oriented x3, moves all extremities, no focal motor deficits and no sensory deficits noted Psych affect normal Assessment & Plan Assessment/Plan (1) AAA (abdominal aortic aneurysm) without rupture: (2) Cardiomyopathy: PLAN: Plan 1. Pneumonia -Continue doxycycline -Continue as needed and scheduled breathing treatments -Continue Mucinex 2. Aortic aneurysm -Dr. Fernandes following -Cardiology following for preprocedural clearance 3. Abnormal stress test -Cardiac catheterization 12/13/2021 -Continue Aldactone -Per cardiology patient will need a lifevest at discharge 4. COPD exacerbation -continue oxygen 2 L nasal cannula oxygen -Continue as needed and scheduled breathing treatments 4. Bilateral lower leg edema -Duplex ultrasound negative 5. History of CABG 6. Spiculated pulmonary nodule -We will follow-up with pulmonary DVT prophylaxis-subcu Lovenox This patient was seen by Bhavya Dao, DORMITORY COUNSELOR-C under the supervision of Dr. Atul davies. 12 minutes spent in clinical coordination of patient's plan of care. Documented by User: Dr. Dagoberto Mead MD 12/13/21 12:05 Objective Data Lab / Micro Data Result Diagrams: 12/13/21 05:00 12/13/21 05:00 Assessment & Plan Assessment/Plan (1) AAA (abdominal aortic aneurysm) without rupture: (2) Cardiomyopathy: Addt'l Comments This patient was seen in conjunction with ELOISA Gutiérrez . I have independently interviewed and examined the patient and reviewed pertinent historical, laboratory, and other data. Please refer to ELOISA Gutiérrez note for details of this patient's presentation, findings, and recommendations. I have reviewed ELOISA Gutiérrez note and concur with documented findings. In brief, patient is a 71-year-old gentleman admitted with shortness of breath imaging studies on admission was consistent with pneumonia. Patient was also found to have COPD with acute exacerbation and has been treated per protocol. Subsequent evaluation demonstrated presence of abdominal aortic aneurysm for which surgery has been scheduled for 12/15/2021. Patient is supposed to undergo left heart catheterization as part of his preop management Physical Examination: GENERAL: cooperative HEENT: Atraumatic; EYES; Anicteric, Normal Conjunctiva NECK; supple, normal thyroid, RESPIRATORY: Diminished to auscultation CARDIOVASCULAR: Regular S1 S2, GI: soft, normoactive bowel sounds, : No Renal angle tenderness; EXTREMITIES: No edema, no clubbing, MUSCULOSKELETAL: no muscle wasting NEURO: Awake; no lateralizing signs. SKIN: No Rash PSYCH; Flat affect Assessment: 1. Community-acquired pneumonia 2. COPD with acute exacerbation 3. Abnormal stress test scheduled to undergo left heart catheterization on 12/13/2021 4. Coronary artery disease with previous CABG 5. Right renal abdominal aortic aneurysm 6. Lung nodule 7. Tobacco dependence Recommendations: 1. I have discussed the results of my overview and impressions with the patient 2. Options for management were reviewed Total time spent by myself and the advanced practice practitioner evaluating patient, reviewing labs, subsequent management decisions, discussion with patient as well as other providers 40 minutes ( 25 of which was spent by myself) Charges/Coding Visit Charges Inpatient E&M: 34284 Subs Hosp L2
--- NOTE | 2021-12-13 11:15 | NURSING ---
pt in gown only. iv fluids with stop cock sent. no questions voiced. denies need to void. pt report called to [facility] laboratory. vs stable. pt to [facility] via bed with chart and accompanying.
--- NOTE | 2021-12-13 13:53 | CL.D_ITS ---
Patient Name: ASHLEY ROBLES Study Date: 12/13/2021 Performing: Dion Solis MD Ht: 73 inches 185 cm : 1950 Wt: 161.1 lbs 73 kg Age: 71 Gender: male BSA: 1.96 PROCEDURE(S) PERFORMED [id number])LHC/COR/CABG CLINICAL PROFILE AND INDICATIONS Indications: Pre-Operative Evaluation Heart Failure: None Stress/Imaging Stress Test w/SPECT MPI: Yes Result: Positive High RiskStress Test with SPECT MPI: Positive High Risk CONCLUSIONS CAD as described with patent 1/3 bypass grafts RECOMMENDATIONS PCI of LCx can be considered as an outpatient after surgical treatment of AAA if felt to be clinicall y indicated at that time DESCRIPTION OF PROCEDURE The patient arrived to the procedure lab. The risks and benefits of the procedure as well as a full d escription of our services here and current unavailability of surgical backup were fully explained to the patient and/or their significant other prior to the catheterization. The Timeout was completed, verifying the correct patient and procedure. The patient's procedural site was prepped and draped in the usual fashion. Local anesthetic was given subcutaneously to left radial region with Lidocaine 2%. Using a modified Seldinger technique, arterial access was obtained via the left radial artery, a 6Fr sheath was inserted. Left Coronary Artery selective angiography was performed in multiple views usi ng a 5 Fr. JL3.5 catheter. Right Coronary Artery selective angiography was then performed in multiple views using a 5 Fr. IM catheter. Left internal mammary artery graft to the LAD selective angiography was performed in multiple views using a 5 Fr. IM catheter.The arterial sheath was pulled and a TR Band was applied for hemostasis CORONARY ANGIOGRAPHY DOMINANCE: Right Dominant 2/3 bypass grafts (Saphenus vein grafts) known to be occluded from cath in 2010 and were not injected this time. LEFT MAIN: Mild luminal irregularities LEFT ANTERIOR DESCENDING ARTERY: PROX LAD: Mild luminal irregularities, Previously placed stent is patent MID LAD: Mild to moderate disease DIAGONAL 1: Proximal - Previously placed stent is patent CIRCUMFLEX ARTERY: 80 % Stenosis in the mid portion DISTAL CIRC: 50 % Stenosis OM 1: Proximal - Mild luminal irregularities OM 2: Proximal - Mild luminal irregularities OM 3: Proximal - Mild luminal irregularities RIGHT CORONARY ARTERY: PROX RCA: 100 % Stenosis. (Known occlusion from cath in 2011). Collaterals to the RPDA from the LAD f ill via ESTRADA to LAD GRAFTS: ESTRADA graft to the Mid LAD is patent COMPLICATIONS No Complications PROCEDURE MEDICATIONS Fentanyl 50 mcg IV Versed 1 mg IV Oxygen: 2 L/min via nasal cannula Heparin given IA 12/13/2021 12:10:19 Verapamil 2.5mg, Ntg 100mcgs, 3000 units of Heparin given IA 12/13/2021 12:10:19 IV Bolus: .9 NaCl 450 ml total 12/13/2021 12:35:22 SUMMARY OF HEMODYNAMIC DATA Time AIR REST ECG 11:41:47 AO 81/63 (71) SA 12:15:10 AO 90/69 (80) 12:24:45 Signed By Dion Solis MD On 12/13/2021 13:52:48 Dion Solis MD
[2021-12-13] MEDS: Spironolactone 25 MG Tablet PO (14:07)
[2021-12-13] MEDS: Docusate Sodium 100 MG Capsule PO (14:07)
[2021-12-13] MEDS: predniSONE 20 MG Tablet 40 MG PO (14:07)
[2021-12-13] MEDS: guaiFENesin 600 MG Tablet PO (14:08)
[2021-12-13] MEDS: Doxycycline 100 MG CAPSULE PO (14:08)
[2021-12-13] MEDS: 0.9% Normal Saline 1,000 ML 60 ML IV (14:09)
[2021-12-13] MEDS: Furosemide 20 MG/2 ML VIAL IV (14:09)
--- NOTE | 2021-12-13 14:19 | NURSING ---
1330 vascular in to set up aaa stenting for next . ok from his standpoint for dc today or ana.
--- NOTE | 2021-12-13 14:21 | CASEMGMT ---
Pt to be discharged home later today but cannot have oxygen testing completed at this time d/t heart cath recovery. Green sheet on chart, if pt qualifies and Anibal, PCU charge, aware. Martha SCHNEIDER CM
--- NOTE | 2021-12-13 15:46 | DCINST_ITS ---
Discharge Instructions Diet Discharge Diet: Low fat / Low cholesterol and 2000 mg Sodium Diet Dressing / Incision Call your doctor if you observe: Inability to have a bowel movement, Swelling in the ankles, Chest pain, Increased palpitations (irregular heartbeat) and Uncontrolled pain Follow Up Care Test Results: Test results from this visit will be discussed in further detail at your follow- up appointment, if applicable. Discharge Plan Admission Admit Date/Time: 12/09/21 00:39 Primary Reason for Your Visit: COPD exacerbation Attending Provider: Dagoberto Mead Primary Care Provider: Connor Villasenor Consulting Providers: Willi Bermudez ; Francesco Hassan ; Randal Davis ; Kahlil Fernandes ; Isis Moore Discharge Orders/Prescriptions Prescriptions: New guaifenesin [Mucus Relief ER] 600 mg Tablet Extended Release 12hr 600 mg PO BID Qty: 0 0RF prednisone 10 mg tablet See Taper PO BREAKFAST Qty: 30 0RF Taper: Prednisone Taper 40 mg WITH BREAKFAST for 3 Days and 0 Hour 30 mg WITH BREAKFAST for 3 Days and 0 Hour 20 mg WITH BREAKFAST for 3 Days and 0 Hour 10 mg WITH BREAKFAST for 3 Days and 0 Hour furosemide [Lasix] 40 mg tablet 40 mg PO BID Qty: 60 0RF doxycycline hyclate 100 mg capsule 100 mg PO BID Qty: 10 0RF spironolactone 25 mg Tablet 25 mg PO DAILY 30 Days Qty: 30 0RF Continued carvedilol 6.25 MG tablet 6.25 mg PO BID albuterol sulfate 2.5 MG/3 ML solution for nebulization 2.5 mg inhalation Q4H PRN PRN (Reason: Wheezing) lisinopril 20 MG tablet 20 mg PO DAILY aspirin 81 MG tablet,chewable 81 mg PO DAILY@0800 Advair HFA 115-21 mcg/actuation Hfa Aerosol Inhaler 2 puff INHALATION BID Incruse Ellipta 62.5 mcg/actuation Blister With Device 1 inh INHALATION DAILY atorvastatin 40 mg tablet 40 tab PO QHS Label Comments: TAKE ONE TABLET BY MOUTH EVERY DAY Discontinued Lasix prednisone Referrals / Follow Up: Randal Davis MD [STAFF PHYSICIAN] - Within 1 Month Kahlil Fernandes MD [STAFF PHYSICIAN] - None (Outpatient surgery 12/21/2021) Connor Villasenor MD [Primary Care Provider] - Disposition Disposition (needs filled in before D/C Order can be placed): Home, Self Care
--- NOTE | 2021-12-13 16:52 | PCM.DC.SUM ---
Documented by User: Bhavya Dao NP-C 12/13/21 17:24 Providers Date of Admission: 12/09/21 Date of Discharge: 12/13/21 Primary Care Physician: Dr. Connor Villasenor MD Consultations 12/09/21 11:44 Consult: Liquid Sugar Fortifier / Pulmonary Medicine Routine Consulting Provider: Randal Davis Reason for Consult: COPD exacerbation EMERGENT Consult: No Notified: Yes Date Notified: 12/09/21 Time Notified: 12:08 Method of Notification: Text 12/09/21 14:00 Consult: Vascular Surgery Routine Consulting Provider: Kahlil Fernandes Reason for Consult: infrarenal aneurysm EMERGENT Consult: No Notified: Yes Date Notified: 12/09/21 Time Notified: 15:11 Method of Notification: Answering Service 12/10/21 10:21 Consult: Cardiology Routine Consulting Provider: Francesco Hassan Reason for Consult: pre-op clearance EMERGENT Consult: No Notified: Yes Date Notified: 12/10/21 Time Notified: 10:22 Method of Notification: Corby PULIDO talked with them Reason For Visit: COPD EXACERBATION, HYPOXIA Diagnosis Discharge Diagnosis (1) AAA (abdominal aortic aneurysm) without rupture: Status: Acute Code(s): I71.4 - Abdominal aortic aneurysm, without rupture (2) Cardiomyopathy: Status: Acute Code(s): I42.9 - Cardiomyopathy, unspecified Plan 1. Pneumonia -Continue doxycycline -Continue as needed and scheduled breathing treatments -Continue Mucinex 2. Aortic aneurysm -Dr. Fernandes following -Cardiology following for preprocedural clearance 3. Abnormal stress test -Cardiac catheterization 12/13/2021 -Continue Aldactone -Per cardiology patient will need a lifevest at discharge 4. COPD exacerbation -continue oxygen 2 L nasal cannula oxygen -Continue as needed and scheduled breathing treatments 4. Bilateral lower leg edema -Duplex ultrasound negative 5. History of CABG 6. Spiculated pulmonary nodule -We will follow-up with pulmonary DVT prophylaxis-subcu Lovenox This patient was seen by Bhavya Dao NP-C under the supervision of Dr. Mead. 12 minutes spent in clinical coordination of patient's plan of care. Medications at Discharge Home Medications albuterol sulfate 2.5 mg inhalation Q4H PRN PRN Wheezing 04/27/15 aspirin 81 mg chewable tablet 81 mg PO DAILY@0800 HEART 04/27/15 carvedilol 6.25 mg tablet 6.25 mg PO BID HEART 04/27/15 lisinopril 20 mg tablet 20 mg PO DAILY BLOOD PRESSURE 04/27/15 fluticasone propionate 115 mcg-salmeterol 21 mcg/actuation HFA inhaler (Advair HFA) 2 puff inhalation BID COPD 10/31/20 umeclidinium 62.5 mcg/actuation blister powder for inhalation (Incruse Ellipta) 1 inh inhalation DAILY COPD 10/31/20 atorvastatin 40 mg tablet 40 tab PO QHS CHOLESTEROL 12/09/21 doxycycline hyclate 100 mg capsule 100 mg PO BID #10 caps 12/10/21 furosemide 40 mg tablet (Lasix) 40 mg PO BID #60 tabs 12/10/21 guaifenesin 600 mg tablet, extended release 12 hr (Mucus Relief ER) 600 mg PO BID #0 tabs 12/10/21 prednisone 10 mg tablet See Taper PO BREAKFAST 12 days #30 tabs 12/10/21 spironolactone 25 mg tablet 25 mg PO DAILY 30 days #30 tabs 12/13/21 Hospital Course Operations None Procedures 2-D Echocardiogram, Cardiac catheterization and Stress test Summary of Care Provided Minutes Spent on Discharge: 35 Hospital Course: Patient is a 71 year old male who originally presented for shortness of breath. Patient has a significant history of COPD, CABG, CAD. Patient underwent chest CT which showed an infrarenal AAA which was followed up with an aortic ultrasound and Abdomen and Pelvis CT. Dr. Fernandes was consulted for evaluation of AAA and requested cardiac clearance due to patients history. Dr. Hassan was consulted and patient underwent Echocardiogram and stress test which showed abnormalities. Patient was then scheduled for cardiac catheterization today. Patient showed CAD, PCI of LCx can be considered for outpatient follow up at a later date with medical management in the meantime, cleared by cardiology for surgical treatment of AAA. Dr. Fernandes scheduled patient for outpatient procedure next monday i12/21/2021, ok to discharge patient home in the meantime. Physical Exam Const alert, oriented x3 and no apparent distress HEENT head/scalp atraumatic and moist oral mucous membranes Eyes conjunctivae normal and no scleral icterus Neck no lymphadenopathy and supple Resp normal respiratory effort Effort and Inspection: able to speak in complete sentences and symmetric chest movement Auscultation: wheezes expiratory wheezes and right lower Cardio regular rate, regular rhythm, S1 normal heart sound and S2 normal heart sound GI normal to inspection, nondistended, normoactive bowel sounds, soft to palpation and non-tender Extremity normal to inspection and full ROM Neuro oriented x3, moves all extremities, no focal motor deficits and no sensory deficits noted Psych affect normal Weight / BMI Weight Weight: 160 lb 0.889 oz Body Mass Index (BMI) 21.2 ABG / Lab / Microbiology Data Result Diagrams: 12/13/21 05:00 12/13/21 05:00 Laboratory: Laboratory Results - last 24 hr 12/13/21 05:00: WBC 13.4 H, RBC 4.43 L, Hgb 14.4, Hct 43.2, MCV 97.5 H, MCH 32.5 H, MCHC 33.3, RDW Std Deviation 45.9 H, RDW Coeff of Jamie 12.8, Plt Count 327, MPV 10.0, Immature Gran % (Auto) 0.700, Neut % (Auto) 70.2 H, Lymph % (Auto) 21.2, [place] % (Auto) 7.5, Eos % (Auto) 0.3, Baso % (Auto) 0.1, Absolute Neuts (auto) 9.4 H, Absolute Lymphs (auto) 2.85, Nucleated RBC % 0 12/13/21 05:00: Sodium 130 L, Potassium 4.3, Chloride 94 L, Carbon Dioxide 30.0, Anion Gap 6, BUN 16, Creatinine 0.60 L, Estim Creat Clear Calc 70.53, Est GFR (MDRD) Af Amer 170, Est GFR (MDRD) Non-Af 140, BUN/Creatinine Ratio 26.5 H, Glucose 109 H, Calcium 8.8, Total Bilirubin 0.50, AST 22, ALT 21, Alkaline Phosphatase 131 H, Total Protein 6.3 L, Albumin 2.7 L, Globulin 3.6, Albumin/Globulin Ratio 0.8 L Microbiology: Microbiology 12/08/21 21:50 Blood Culture (Wb) - Left Hand Blood Culture - Preliminary No growth in 48 hours. 12/08/21 21:00 Blood Culture (Wb) - Anticubital Left Blood Culture - Preliminary No growth in 48 hours. 12/08/21 21:00 Nasal Secretion SARS-CoV-2 Antigen (Rapid) - Final D/C Instructions Discharge Diet: Low fat / Low cholesterol and 2000 mg Sodium Diet Call your doctor if you observe: Inability to have a bowel movement, Swelling in the ankles, Chest pain, Increased palpitations (irregular heartbeat) and Uncontrolled pain Meaningful Use Info Meaningful Use Diagnoses (Choose all that apply): None applicable Discharge Plan Admission Admit Date/Time: 12/09/21 00:39 Primary Reason for Your Visit: COPD exacerbation Attending Provider: Dagoberto Mead Primary Care Provider: Connor Villasenor Consulting Providers: Willi Bermudez ; Francesco Hassan ; Randal Davis ; Kahlil Fernandes ; Isis Moore Discharge Orders/Prescriptions Prescriptions: New guaifenesin [Mucus Relief ER] 600 mg Tablet Extended Release 12hr 600 mg PO BID Qty: 0 0RF prednisone 10 mg tablet See Taper PO BREAKFAST Qty: 30 0RF Taper: Prednisone Taper 40 mg WITH BREAKFAST for 3 Days and 0 Hour 30 mg WITH BREAKFAST for 3 Days and 0 Hour 20 mg WITH BREAKFAST for 3 Days and 0 Hour 10 mg WITH BREAKFAST for 3 Days and 0 Hour furosemide [Lasix] 40 mg tablet 40 mg PO BID Qty: 60 0RF doxycycline hyclate 100 mg capsule 100 mg PO BID Qty: 10 0RF spironolactone 25 mg Tablet 25 mg PO DAILY 30 Days Qty: 30 0RF Continued carvedilol 6.25 MG tablet 6.25 mg PO BID albuterol sulfate 2.5 MG/3 ML solution for nebulization 2.5 mg inhalation Q4H PRN PRN (Reason: Wheezing) lisinopril 20 MG tablet 20 mg PO DAILY aspirin 81 MG tablet,chewable 81 mg PO DAILY@0800 Advair HFA 115-21 mcg/actuation Hfa Aerosol Inhaler 2 puff INHALATION BID Incruse Ellipta 62.5 mcg/actuation Blister With Device 1 inh INHALATION DAILY atorvastatin 40 mg tablet 40 tab PO QHS Label Comments: TAKE ONE TABLET BY MOUTH EVERY DAY Discontinued Lasix prednisone Referrals / Follow Up: Randal Davis MD [STAFF PHYSICIAN] - Within 1 Month (Please call office tomorrow morning to schedule your appointment. ) Kahlil Fernandes MD [STAFF PHYSICIAN] - None (Outpatient surgery 12/21/2021) Connor Villasenor MD [Primary Care Provider] - 12/22/21 10:00 am Disposition Disposition (needs filled in before D/C Order can be placed): Home, Self Care Documented by User: Dr. Dagoberto Mead MD 12/13/21 18:05 Providers Date of Admission: 12/09/21 Reason For Visit: COPD EXACERBATION, HYPOXIA Diagnosis Discharge Diagnosis (1) AAA (abdominal aortic aneurysm) without rupture: Status: Acute Code(s): I71.4 - Abdominal aortic aneurysm, without rupture (2) Cardiomyopathy: Status: Acute Code(s): I42.9 - Cardiomyopathy, unspecified Medications at Discharge Home Medications albuterol sulfate 2.5 mg inhalation Q4H PRN PRN Wheezing 04/27/15 aspirin 81 mg chewable tablet 81 mg PO DAILY@0800 HEART 04/27/15 carvedilol 6.25 mg tablet 6.25 mg PO BID HEART 04/27/15 lisinopril 20 mg tablet 20 mg PO DAILY BLOOD PRESSURE 04/27/15 fluticasone propionate 115 mcg-salmeterol 21 mcg/actuation HFA inhaler (Advair HFA) 2 puff inhalation BID COPD 10/31/20 umeclidinium 62.5 mcg/actuation blister powder for inhalation (Incruse Ellipta) 1 inh inhalation DAILY COPD 10/31/20 atorvastatin 40 mg tablet 40 tab PO QHS CHOLESTEROL 12/09/21 doxycycline hyclate 100 mg capsule 100 mg PO BID #10 caps 12/10/21 furosemide 40 mg tablet (Lasix) 40 mg PO BID #60 tabs 12/10/21 guaifenesin 600 mg tablet, extended release 12 hr (Mucus Relief ER) 600 mg PO BID #0 tabs 12/10/21 prednisone 10 mg tablet See Taper PO BREAKFAST 12 days #30 tabs 12/10/21 spironolactone 25 mg tablet 25 mg PO DAILY 30 days #30 tabs 12/13/21 Hospital Course Operations None Procedures 2-D Echocardiogram, Cardiac catheterization and Stress test Summary of Care Provided Minutes Spent on Discharge: 40 ABG / Lab / Microbiology Data Result Diagrams: 12/13/21 05:00 12/13/21 05:00 Discharge Plan Admission Admit Date/Time: 12/09/21 00:39 Primary Reason for Your Visit: COPD exacerbation Attending Provider: Dagoberto Mead Primary Care Provider: Connor Villasenor Consulting Providers: Willi Bermudez ; Francesco Hassan ; Randal Davis ; Kahlil Fernandes ; Isis Moore Discharge Orders/Prescriptions Prescriptions: New guaifenesin [Mucus Relief ER] 600 mg Tablet Extended Release 12hr 600 mg PO BID Qty: 0 0RF prednisone 10 mg tablet See Taper PO BREAKFAST Qty: 30 0RF Taper: Prednisone Taper 40 mg WITH BREAKFAST for 3 Days and 0 Hour 30 mg WITH BREAKFAST for 3 Days and 0 Hour 20 mg WITH BREAKFAST for 3 Days and 0 Hour 10 mg WITH BREAKFAST for 3 Days and 0 Hour furosemide [Lasix] 40 mg tablet 40 mg PO BID Qty: 60 0RF doxycycline hyclate 100 mg capsule 100 mg PO BID Qty: 10 0RF spironolactone 25 mg Tablet 25 mg PO DAILY 30 Days Qty: 30 0RF Continued carvedilol 6.25 MG tablet 6.25 mg PO BID albuterol sulfate 2.5 MG/3 ML solution for nebulization 2.5 mg inhalation Q4H PRN PRN (Reason: Wheezing) lisinopril 20 MG tablet 20 mg PO DAILY aspirin 81 MG tablet,chewable 81 mg PO DAILY@0800 Advair HFA 115-21 mcg/actuation Hfa Aerosol Inhaler 2 puff INHALATION BID Incruse Ellipta 62.5 mcg/actuation Blister With Device 1 inh INHALATION DAILY atorvastatin 40 mg tablet 40 tab PO QHS Label Comments: TAKE ONE TABLET BY MOUTH EVERY DAY Discontinued Lasix prednisone Referrals / Follow Up: Randal Davis MD [STAFF PHYSICIAN] - Within 1 Month (Please call office tomorrow morning to schedule your appointment. ) Kahlil Fernandes MD [STAFF PHYSICIAN] - None (Outpatient surgery 12/21/2021) Connor Villasenor MD [Primary Care Provider] - 12/22/21 10:00 am Disposition Disposition (needs filled in before D/C Order can be placed): Home, Self Care Charges/Coding Visit Charges Inpatient E&M: 98703 Disch Hosp Hospital Course and Treatment Consultations 12/09/21 11:44 Consult: Liquid Sugar Fortifier / Pulmonary Medicine Routine Consulting Provider: Randal Davis Reason for Consult: COPD exacerbation EMERGENT Consult: No MD Notified: Yes Date Notified: 12/09/21 Time Notified: 12:08 Method of Notification: Text 12/09/21 14:00 Consult: Vascular Surgery Routine Consulting Provider: Kahlil Fernandes Reason for Consult: infrarenal aneurysm EMERGENT Consult: No MD Notified: Yes Date Notified: 12/09/21 Time Notified: 15:11 Method of Notification: Answering Service 12/10/21 10:21 Consult: Cardiology Routine Consulting Provider: Francesco Hassan Reason for Consult: pre-op clearance EMERGENT Consult: No MD Notified: Yes Date Notified: 12/10/21 Time Notified: : Method of Notification: Corby PULIDO talked with them Operations: None Procedures: 2-D Echocardiogram, Cardiac catheterization and Stress test Summary of Care Provided: This patient was seen in conjunction with ELOISA Gutiérrez .? I have independently interviewed and examined the patient and reviewed pertinent historical, laboratory, and other data.? Please refer to ELOISA Gutiérrez? note for details of this patient's presentation, findings, and recommendations.? I have reviewed? ELOISA Gutiérrez note and concur? with documented findings. In brief, patient is a 71-year-old gentleman admitted with shortness of breath imaging studies on admission was consistent with pneumonia.? Patient was also found to have COPD with acute exacerbation and has been treated per protocol.? Subsequent evaluation demonstrated presence of abdominal aortic aneurysm for which surgery has been scheduled for 12/15/2021.? Patient is supposed to undergo left heart catheterization as part of his preop management Physical Examination: GENERAL: cooperative HEENT: Atraumatic; EYES; Anicteric, Normal Conjunctiva NECK; supple, normal thyroid, RESPIRATORY: Diminished to auscultation CARDIOVASCULAR:? Regular S1 S2, GI:? soft, normoactive bowel sounds, : No Renal angle tenderness; EXTREMITIES:? No edema, no clubbing, MUSCULOSKELETAL:? no muscle wasting NEURO:? Awake;? no lateralizing signs. SKIN:? No Rash PSYCH; Flat? affect Assessment:? 1.? Community-acquired pneumonia 2.? COPD with acute exacerbation 3.? Abnormal stress test scheduled to undergo left heart catheterization on 12/13/2021 4.? Coronary artery disease with previous CABG 5.? Right renal abdominal aortic aneurysm 6.? Lung nodule 7.? Tobacco dependence Hospital course; as documented above Total time spent by myself and the advanced practice practitioner evaluating patient, reviewing labs, subsequent management decisions, discussion with patient as well as other providers 40 minutes ( 25 of which was spent by myself)
== END 2021-12-13 17:31 | disposition home or self-care (01) | DRG 190 ==
LOC: ED 12-09 00:30 → MS3 12-09 01:25 → PCU 12-11 15:06
PROVIDERS: Nurse Practitioner Family; Admitting Provider Hospitalist; Emergency Provider Emergency Medicine; PCP Family Medicine; Visit Provider Internal Medicine
DX: J44.1 Chronic obstructive pulmonary disease with (acute) exacerbation (principal); J18.9 Pneumonia, unspecified organism; I50.22 Chronic systolic (congestive) heart failure; I11.0 Hypertensive heart disease with heart failure; F03.90 Unspecified dementia, unspecified severity, without behavioral disturbance, psychotic disturbance, mood disturbance, and anxiety; J44.0 Chronic obstructive pulmonary disease with (acute) lower respiratory infection; I71.4 Abdominal aortic aneurysm, without rupture; F17.210 Nicotine dependence, cigarettes, uncomplicated; I25.10 Atherosclerotic heart disease of native coronary artery without angina pectoris; I25.2 Old myocardial infarction; I25.5 Ischemic cardiomyopathy; E78.5 Hyperlipidemia, unspecified; I25.83 Coronary atherosclerosis due to lipid rich plaque; R91.1 Solitary pulmonary nodule; R09.02 Hypoxemia; Z20.822 Contact with and (suspected) exposure to COVID-19; Z79.82 Long term (current) use of aspirin; Z79.899 Other long term (current) drug therapy; Z95.1 Presence of aortocoronary bypass graft; Z95.5 Presence of coronary angioplasty implant and graft; R60.0 Localized edema
CPT/HCPCS: 36415; 36600; 71045; 71275; 74174; 76775; 78452; 80048; 80053; 82803; 83605; 83880; 85025; 85610; 85730; 87040; 87811; 93005; 93017; 93306; 93455; 93458; 93970; 94640; 94762; 97802; 99152; 99153; 99251; 99285; A9500; J7030; J7050; Q9957; Q9967; A4216; C1769; C8929; G0463; J1940; J2785

== ENCOUNTER → 2021-12-08 | Outpatient (CLI) | payer MEDICARE, OTHER, SELFPAY ==
[2021-12-08 11:29] LABS: BNP,B-Type NATRIURETIC PEPTIDE 245.9 pg/mL (0-100)
== END | disposition home or self-care (01) ==
LOC: LABSPEC 11:06
PROVIDERS: PCP Family Medicine; Visit Provider Family Medicine
DX: I25.10 Atherosclerotic heart disease of native coronary artery without angina pectoris (principal); I25.83 Coronary atherosclerosis due to lipid rich plaque; R06.02 Shortness of breath; R60.0 Localized edema
CPT/HCPCS: 83880

== ENCOUNTER 2021-12-21 09:04 | Inpatient (IN) | payer MEDICARE, OTHER, SELFPAY ==
--- NOTE | 2021-12-20 16:07 | PCM.HP.BLA ---
History and Physical Date of Admission: 12/21/21 Assessment & Plan Assessment/Plan (1) AAA (abdominal aortic aneurysm) without rupture: PLAN: -cardiac/pulm eval completed, patient optimized -EVAR, percutaneous HPI Consult Data Date of Consult: 12/09/21 HPI Narrative HPI Narrative: ASHLEY ROBLES, is a 71 M who presents with worsening SOB. Frequently uses enhaler at home, not on home O2 but does borrow from his when he has been more symptomatic. Initial evaluation included CTA chest which was negative for PE but incidentally the superior portion of an infrarenal AAA was visualized. This was followed up by duplex which confirmed 6 cm AAA. He has chronic low midline back pain from known degenerative disc disease. This is intermittently worse and is positional. No abdominal or pelvic pain. No prior knowledge of aneurysm. Does have significant cardiac history with multiple IA, PCI, CABG last about 10 years ago. 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 PFSH Medical History? Chronic back pain Congestive heart failure (CHF) COPD (chronic obstructive pulmonary disease) History of inguinal hernia Hypertension Myocardial infarct Home Medications albuterol sulfate 2.5 mg inhalation Q4H PRN PRN Wheezing 04/27/15 [History Last Taken Unknown] aspirin 81 mg chewable tablet 81 mg PO DAILY@0800 HEART 04/27/15 [History Last Taken Unknown] carvedilol 6.25 mg tablet 6.25 mg PO BID HEART 04/27/15 [History Last Taken Unknown] lisinopril 20 mg tablet 20 mg PO DAILY BLOOD PRESSURE 04/27/15 [History Last Taken Unknown] fluticasone propionate 115 mcg-salmeterol 21 mcg/actuation HFA inhaler (Advair HFA) 2 puff inhalation BID COPD 10/31/20 [History Last Taken Unknown] umeclidinium 62.5 mcg/actuation blister powder for inhalation (Incruse Ellipta) 1 inh inhalation DAILY COPD 10/31/20 [History Last Taken Unknown] Lasix? 12/08/21 [History Last Taken Unknown] prednisone? 12/08/21 [History Last Taken Unknown] atorvastatin 40 mg tablet 40 tab PO QHS CHOLESTEROL 12/09/21 [History Last Taken Unknown] Allergy/AdvReac Type Severity Reaction Status Date / Time No Known Allergies Allergy ? ? Verified 12/08/21 20:31 Family History? Other Cancer Diabetes Essential tremor Surgical History? History of coronary artery stent placement Hx of CABG S/P CABG x 3 Social History? Smoking Status:? Light Smoker (<10/day) substance use type:? does not use Physical Exam Const alert, oriented x3, no apparent distress and healthy appearing General Appearance: cooperative; Negative for combative or lethargic Orientation / Consciousness: awake Exam Limitations: no limitations HEENT Head and Scalp: normocephalic and atraumatic Eyes EOMs intact bilaterally General Eye: normal appearance of both eyes Neck full ROM, no lymphadenopathy, thyroid normal and No no carotid bruits General: trachea midline; Negative for lymphadenopathy or tenderness Thyroid: thyroid normal Lymph Lymphatic: Negative for no lymphadenopathy noted Resp normal respiratory effort, no use of accessory muscles and clear to auscultation bilaterally Effort and Inspection: Negative for labored or stridor Auscultation: wheezes Cardio regular rate, regular rhythm and no murmurs Peripheral Pulses: brachial pulses present, radial pulses present, femoral pulses present, popliteal pulses present right and left (prominent), posterior tibial pulses present and dorsalis pedis pulses present GI non-tender, non-distended and hepatosplenomegaly Palpation: pulsatile mass Back/Spine Cervical Spine: cervical ROM normal Extremity full ROM, normal capillary refill and no clubbing, cyanosis or edema Skin no rashes or lesions noted and no wounds Neuro oriented x3, CN's II-XII intact bilaterally, no focal motor deficits and no sensory deficits noted Psych thought process normal, cooperative, affect normal, speech normal and activity/motor behavior normal Lab / Micro Data Result Diagrams: 12/09/21 06:50? 12/09/21 06:50? Labs: Laboratory Results - last 24 hr 12/08/21 21:00:?WBC 9.9,?RBC 4.27 L, Hgb 13.7, Hct 42.8,?MCV 100.2 H,?MCH 32.1 H, MCHC 32.0,?RDW Std Deviation 49.0 H, RDW Coeff of Jmaie 13.2, Plt Count 260, MPV 10.3, Immature Gran % (Auto) 0.400,?Neut % (Auto) 90.9 H,?Lymph % (Auto) 6.9 L, Ocean % (Auto) 1.4, Eos % (Auto) 0.2, Baso % (Auto) 0.2,?Absolute Neuts (auto) 9.0 H,?Absolute Lymphs (auto) 0.68 L, Nucleated RBC % 0 12/08/21 21:00:?PT 13.7, INR 1.1,?APTT 52.3 H 12/08/21 21:00:?Lactic Acid 1.5 12/08/21 21:00: B-Natriuretic Peptide 347.8 H 12/08/21 21:05:?Sodium Cancelled, Potassium Cancelled, Chloride Cancelled, Carbon Dioxide Cancelled, Anion Gap Cancelled, BUN Cancelled, Creatinine Cancelled, Estim Creat Clear Calc Cancelled, Est GFR (MDRD) Af Amer Cancelled, Est GFR (MDRD) Non-Af Cancelled, BUN/Creatinine Ratio Cancelled, Glucose Cancelled, Calcium Cancelled, Total Bilirubin Cancelled, AST Cancelled, ALT Cancelled, Alkaline Phosphatase Cancelled, Total Protein Cancelled, Albumin Cancelled, Globulin Cancelled, Albumin/Globulin Ratio Cancelled 12/08/21 22:35: Sodium 133 L, Potassium 5.0, Chloride 99, Carbon Dioxide 31.0,?Anion Gap 3 L, BUN 7, Creatinine 0.70, Estim Creat Clear Calc 76.07, Est GFR (MDRD) Af Amer 142, Est GFR (MDRD) Non-Af 118, BUN/Creatinine Ratio 10.0,?Glucose 170 H,?Calcium 8.4 L, Total Bilirubin 0.50, AST 20, ALT 18,?Alkaline Phosphatase 146 H, Total Protein 6.6,?Albumin 2.8 L, Globulin 3.8,?Albumin/Globulin Ratio 0.7 L 12/09/21 06:50:?WBC 5.3,?RBC 4.14 L, Hgb 13.3, Hct 41.1,?MCV 99.3 H,?MCH 32.1 H, MCHC 32.4,?RDW Std Deviation 47.1 H, RDW Coeff of Jamie 13.0, Plt Count 275, MPV 10.0,?Immature Gran % (Auto) 1.300 H,?Neut % (Auto) 82.7 H,?Lymph % (Auto) 15.1 L, Ocean % (Auto) 0.9, Eos % (Auto) 0.0, Baso % (Auto) 0.0, Absolute Neuts (auto) 4.4,?Absolute Lymphs (auto) 0.80 L, Nucleated RBC % 0 12/09/21 06:50: Sodium 133 L, Potassium 4.0,?Chloride 96 L, Carbon Dioxide 31.0, Anion Gap 6,?BUN 6 L,?Creatinine 0.59 L, Estim Creat Clear Calc 72.45, Est GFR (MDRD) Af Amer 175, Est GFR (MDRD) Non-Af 145, BUN/Creatinine Ratio 10.2,?Glucose 177 H, Calcium 8.7 Micro: Microbiology 12/08/21 21:00 ? Nasal Secretion ? SARS-CoV-2 Antigen (Rapid) - Final ABG Data ABG results: ABG ? 12/08/21 ? 22:20 Specimen Type ?ART Sample Site ?L Brach pH ?7.36 Bicarbonate Actual ?28.4 H Total CO2 ?30 Base Excess ?3 H O2 Saturation ?95 ABG pCO2 ?49.9 H ABG pO2 ?78 Jake Test ?Positive O2 Delivery Device ?Cannula Liter Flow ?1.0 Radiology Impression Chest X-Ray? 12/08/21 21:17 IMPRESSION: There are no acute findings. ? Electronically Signed: James Baron MD at 21:28 EDT , ? Chest CTA? 12/08/21 23:11 IMPRESSION: ? 1.? No evidence of PE.? No aortic dissection. ? 2.? Infrarenal aortic aneurysm is not fully included, contrast enhanced abdomen and pelvis CT or ultrasound is suggested for further evaluation of the infrarenal aorta unless previously evaluated. ? 3.? Advanced bullous disease.? Mild suspected debris within proximal left lower lobe airways, not fully occluded. ? 4.? Coronary artery bypass grafts, with nonopacified or slightly opacified right graft. ? 5.? Juxtapleural opacity in the posterior-lateral right upper lobe is suspected to be focal scarring, 1.8 cm maximum diameter. ? 6.? 9 mm mildly spiculated nodular focus near a large right upper lobe bulla.? Indeterminate. ? RECOMMENDATIONS CONCERNING PULMONARY NODULE: ? For high-risk patients consider a follow-up CT at 3 months.? If unchanged consider an additional follow-up CT at 18-24 months.? Alternatively (or additionally) PET/CT or tissue sampling could be performed. ? Electronically Signed: Filomena Smith MD at 0:56 EDT , ? ADDENDUM: 12/09/21 0114 IMPRESSION: ? 1.? No evidence of PE.? No aortic dissection. ? 2.? Infrarenal aortic aneurysm is not fully included, contrast enhanced abdomen and pelvis CT or ultrasound is suggested for further evaluation of the infrarenal aorta unless previously evaluated. ? 3.? Advanced bullous disease.? Mild suspected debris within proximal left lower lobe airways, not fully occluded. ? 4.? Coronary artery bypass grafts, with nonopacified or slightly opacified right graft. ? 5.? Juxtapleural opacity in the posterior-lateral right upper lobe is suspected to be focal scarring, 1.8 cm maximum diameter. ? 6.? 9 mm mildly spiculated nodular focus near a large right upper lobe bulla.? Indeterminate. ? RECOMMENDATIONS CONCERNING PULMONARY NODULE: ? For high-risk patients consider a follow-up CT at 3 months.? If unchanged consider an additional follow-up CT at 18-24 months.? Alternatively (or additionally) PET/CT or tissue sampling could be performed. ? N.B. : Dr Coy Hua MD, confirmed on 12/09/2021 01:07:13 (ET) that the healthcare facility has received the radiology report. ? Electronically Signed: Filomena Smith MD at 0:56 EDT , ? Aorta Ultrasound? 12/09/21 01:44 IMPRESSION: Saccular infrarenal abdominal aortic aneurysm with a transverse dimension of 6.3 cm. ? Electronically Signed: Braydon Guthrie MD at 9:37 EDT , ? Venous Doppler Study? 12/09/21 01:44 Interpretation Summary No evidence for acute deep venous thrombosis right lower extremity with patent and compressible right great saphenous vein No evidence for acute deep venous thrombosis left lower extremity with surgically harvested left great saphenous vein ? ?
[2021-12-21] VITALS (18 sets, daily range): BP systolic 74–105; BP diastolic 41–85; PULSE 59–97; RESP 13–22; TEMP 36.3–36.6; O2SAT 91–97; BMI 21.5; BMI 21.9
[2021-12-21] MEDS: Lactated Ringers 1,000 ML 15 ML IV (09:15)
--- NOTE | 2021-12-21 10:24 | PCM.PN.SRG ---
Subjective Subjective Patient with initial and repeat vital signs with hypotension significantly lower than baseline and recent hospital visit. With his significant coronary history and reduced EF felt to be best to admit and optimize/evaluate and potentially perform evar tomorrow. Admit to ICU, cardiology and intensive care consults. Objective Data Objective Data Vital Signs: Vital Signs Temp Pulse Resp BP Pulse Ox O2 Del Method 97.5 F L 67 19 H 91/58 L 97 Room Air 12/21/21 10:00 12/21/21 10:00 12/21/21 10:00 12/21/21 10:00 12/21/21 10:00 12/21/21 10:00 Oxygen Delivery Method Room Air Weight: 163 lb 2.273 oz Body Mass Index (BMI) 21.5 Lab / Micro Data Micro: Microbiology 12/18/21 07:33 Swab (Method) Nasal Screen MRSA/MSSA - Final
[2021-12-21 12:58] LABS: Absolute Neutrophil Count 8.2 X10^3/uL (2.0-7.7); Basophil# 0.03 X10^3/uL; Basophil% 0.2 % (0-1); Eosinophil# 0.14 X10^3/uL; Eosinophils% 1.1 % (0-5); Hematocrit 41.8 % (40-54); Lymphocyte % 25.6 % (19-41); Mean Corp Hgb Conc 33.5 g/dL (32-36); Mean Corpuscular Hgb 32.3 pg (27.0-32.0); Mean Corpuscular Volume 96.5 fL (80-94); Mean Platelet Vol. 9.9 fl (6.2-12.0); Monocyte# 1.08 X10^3/uL; Monocyte% 8.4 % (0-10); NRBC Flagged by Analyzer 0 % (0-5); Neutrophil % 63.6 % (47-70); Platelet Count 303 K/mm3 (150-450); RBC Distribution Width CV 12.8 % (11.6-14.6); RBC Distribution Width SD 45.9 fl (35.1-43.9); Red Blood Count 4.33 M/mm3 (4.6-6.2); White Blood Count 12.9 K/mm3 (4.4-11.0)
[2021-12-21] MEDS: oxyCODONE 5 MG Tablet PO ×2 (13:02→19:56)
[2021-12-21] MEDS: Dext 5%-0.45% NS 1,000 ML 75 ML IV (13:03)
[2021-12-21 13:09] LABS: Anion Gap 5 (5-15); BUN 22 mg/dL (7-18); BUN/Creat Ratio 33.5 RATIO (10-20); Calcium,Total 8.7 mg/dL (8.5-10.1); Chloride 91 mmol/L (98-107); Creatinine, Serum 0.66 mg/dL (0.70-1.30); EST Glomerular Filtration Rate 127 mL/min (>60); Est Glom Filt Rate - Afr Amer 154 mL/min (>60); Estimated Creatinine Clearance 72.29 ml/min; Glucose 92 mg/dL (74-106); Magnesium 1.9 mg/dL (1.6-2.6); Potassium 4.6 mmol/L (3.5-5.1); Sodium Level 130 mmol/L (136-145)
--- NOTE | 2021-12-21 14:05 | EX.PCM.CONCC ---
Assessment & Plan Assessment/Plan (1) Hypotension: (2) COPD (chronic obstructive pulmonary disease): (3) Pulmonary nodule: (4) AAA (abdominal aortic aneurysm) without rupture: PLAN: Plan RECOMMENDATIONS: 1. Hold baseline antihypertensive medications 2. Hold Lasix therapy for now 3. Await cardiology recommendations 4. Would not recommend antibiotics 5. Bolus with normal saline as necessary for hypotension 6. Therapeutic substitution for home inhaler therapy IMPRESSIONS: 1. Hypotension Clinical suspicion for hypotension secondary to antihypertensive medications. This should be held for now. Patient is not showing signs or symptoms suggestive of sepsis. Patient is not showing signs or symptoms of cardiogenic shock or adrenal insufficiency in my opinion. Defer to cardiology, but could consider holding 1 or 2 of his baseline medications. Okay with blood pressures as high as 140 systolic prior to surgery 2. Probable COPD/spiculated pulmonary nodule Patient has been placed on the therapeutic substitution for home triple therapy. This is likely appropriate. Patient does have some mild end expiration wheezing, but this is likely baseline. Would not recommend steroid therapy at this time. Unclear if hyponatremia is secondary to spiculated nodule with paraneoplastic SIADH, but this is being investigated as an outpatient. Patient could be bolused with normal saline if necessary for hypotension. 3. AAA/tobacco abuse/poor insight/history of CHF/hypertension/advanced age Complicates care, management, recovery and prognosis. Patient can likely proceed with AAA repair from my perspective. We will continue to monitor the patient, but anticipate little complications following surgery. Patient appears to be optimized at this time. HPI Consult Data Date of Consult: 12/21/21 HPI Narrative Reason for Consultation: Hypotension HPI Narrative: ASHLEY ROBLES is a 71 M, with past medical history listed below, who presents to [facility] on 12/21/2021 secondary to an elective AAA repair by vascular surgery. Patient reportedly was of his usual health and had no complaints when he presented. However, in the preop area, patient was noted to be hypotensive and there was concern that he needed to be optimized prior to proceeding with surgery. Patient was recently hospitalized with hypoxic respiratory failure, but is not using supplemental oxygen at baseline. Patient has not followed up in our office since that hospitalization. Given patient's hypotension, patient was admitted to the hospital in the intensive care unit for closer monitoring. Since being in the intensive care unit, patient's blood pressures have remained adequate. Patient has not received any fluid boluses or other interventions at this time. Patient is not reporting any pain. Patient has not had any change in cough, fever, chills, nausea or vomiting. Patient has not reported any change in his sputum production. Patient is not requiring any supplemental oxygen from his . Patient did report taking his Advair and Incruse on the morning of the procedure. Patient is on Lasix twice daily, lisinopril 20, carvedilol and spironolactone at baseline and did take them this morning prior to surgery. Patient's was at the bedside. She again reiterated that the patient had been doing well and they were surprised when they could not proceed with surgery. Review of systems otherwise negative from a constitutional, HEENT, respiratory, cardiovascular, GI, genitourinary, musculoskeletal, skin, neurologic, psychiatric and hematologic system unless stated above. [facility] Medical History Alcohol abuse Arthritis Bleeding tendency CAD (coronary artery disease) Cardiology follow-up encounter Cardiomyopathy Chronic back pain Chronic cough Congestive heart failure (CHF) COPD (chronic obstructive pulmonary disease) Difficulty chewing Difficulty swallowing Emphysema lung Gout High cholesterol History of back injury History of back pain History of heart attack History of inguinal hernia History of steroid therapy History of stress test HLD (hyperlipidemia) Hx of congestive heart failure Hx of edema Hx of essential hypertension Hx of gastroesophageal reflux (GERD) Hx of migraine headaches Hx of shortness of breath Hx of smoking Hypertension Kidney stones Myocardial infarct Home Medications albuterol sulfate 2.5 mg/3 mL (0.083 %) solution for nebulization 2.5 mg inhalation Q4H PRN PRN Wheezing 04/27/15 [History Last Taken Unknown] aspirin 81 mg chewable tablet 81 mg PO DAILY@0800 HEART 04/27/15 [History Last Taken Unknown] carvedilol 6.25 mg tablet 6.25 mg PO BID HEART 04/27/15 [History Last Taken Unknown] lisinopril 20 mg tablet 20 mg PO DAILY BLOOD PRESSURE 04/27/15 [History Last Taken Unknown] fluticasone propionate 115 mcg-salmeterol 21 mcg/actuation HFA inhaler (Advair HFA) 2 puff inhalation BID COPD 10/31/20 [History Last Taken Unknown] umeclidinium 62.5 mcg/actuation blister powder for inhalation (Incruse Ellipta) 1 inh inhalation DAILY COPD 10/31/20 [History Last Taken Unknown] atorvastatin 40 mg tablet 40 mg PO QHS CHOLESTEROL 12/09/21 [History Last Taken Unknown] doxycycline hyclate 100 mg capsule 100 mg PO BID COUGH 12/17/21 [History Last Taken Unknown] furosemide 40 mg tablet (Lasix) 40 mg PO BID EDEMA 12/17/21 [History Last Taken Unknown] guaifenesin 600 mg tablet, extended release 12 hr (Mucus Relief ER) 600 mg PO BID COUGH 12/17/21 [History Last Taken Unknown] prednisone 10 mg tablet See Taper PO BREAKFAST SOB 12/17/21 [History Last Taken Unknown] spironolactone 25 mg tablet 25 mg PO DAILY BLOOD PRESSURE 12/17/21 [History Last Taken Unknown] Allergy/AdvReac Type Severity Reaction Status Date / Time No Known Allergies Allergy Verified 12/21/21 09:59 Family History Other Cancer Diabetes Essential tremor Surgical History History of cardiac cath History of coronary artery stent placement Hx of CABG Hx of hernia repair S/P CABG x 3 Social History Smoking Status: Light Smoker (<10/day) substance use type: does not use ROS ROS Narrative See HPI Physical Exam Const alert, oriented x3 and no apparent distress Constitutional Narrative: Appears older than stated age HEENT head/scalp atraumatic and moist oral mucous membranes Eyes conjunctivae normal and no scleral icterus Neck no lymphadenopathy and supple Resp Effort and Inspection: able to speak in complete sentences and symmetric chest movement Auscultation: wheezes expiratory wheezes (end exhalation) and scattered wheezes Cardio regular rate, regular rhythm, S1 normal heart sound, S2 normal heart sound, no murmurs, no rub and no gallops GI normal to inspection, nondistended, normoactive bowel sounds, soft to palpation and non-tender Extremity normal to inspection and full ROM General Extremity: clubbing Skin Skin Narrative: dermal atrophy Neuro oriented x3, moves all extremities, no focal motor deficits and no sensory deficits noted Psych affect normal Medical Records Data Attestation: I reviewed the patient's medical records Medical records narrative: no outpatient pulmonary follow-up has been completed. Patient does have a history of an incidental pulmonary nodule that has not been worked up at this time Lab / Micro Data Result Diagrams: 12/21/21 12:30 12/21/21 12:30 Labs: Laboratory Results - last 24 hr 12/21/21 12:30: Sodium 130 L, Potassium 4.6, Chloride 91 L, Carbon Dioxide 34.0 H, Anion Gap 5, BUN 22 H, Creatinine 0.66 L, Estim Creat Clear Calc 72.29, Est GFR (MDRD) Af Amer 154, Est GFR (MDRD) Non-Af 127, BUN/Creatinine Ratio 33.5 H, Glucose 92, Calcium 8.7, Magnesium 1.9 12/21/21 12:30: WBC 12.9 H, RBC 4.33 L, Hgb 14.0, Hct 41.8, MCV 96.5 H, MCH 32.3 H, MCHC 33.5, RDW Std Deviation 45.9 H, RDW Coeff of Jamie 12.8, Plt Count 303, MPV 9.9, Immature Gran % (Auto) 1.100 H, Neut % (Auto) 63.6, Lymph % (Auto) 25.6, [place] % (Auto) 8.4, Eos % (Auto) 1.1, Baso % (Auto) 0.2, Absolute Neuts (auto) 8.2 H, Absolute Lymphs (auto) 3.30, Nucleated RBC % 0 Charges/Coding Visit Charges Inpatient E&M: 97137 Init Hosp L2
--- NOTE | 2021-12-21 15:49 | EKG12_ITS ---
Test Reason : RYTHUM CHANGE Blood Pressure : / mmHG Vent. Rate : 133 BPM Atrial Rate : 267 BPM P-R Int : 000 ms QRS Dur : 078 ms QT Int : 304 ms P-R-T Axes : 000 099 022 degrees QTc Int : 452 ms Atrial flutter with variable A-V block Low voltage QRS Nonspecific T wave abnormality Abnormal ECG When compared with ECG of 13-DEC-2021 05:28, Significant changes have occurred Confirmed by MARIBEL BRITTON, NICOLE ([id number]), publication editor JAYLA FIGUEROA ([id number]) on 12/28/2021 11:20:33 AM Referred By: Kahlil Fernandes Confirmed By:NICOLE LÓPEZ MD
--- NOTE | 2021-12-21 15:53 | PCM.CONS.C ---
Assessment & Plan Assessment/Plan (1) Preop cardiovascular exam: PLAN: In terms of preoperative cardiovascular assessment I think that he is stable at this time to undergo the intended abdominal aortic aneurysm repair via the femoral approach. We will hold his blood pressure medications and resume them postoperatively. (2) Hypotension: PLAN: He is mildly hypotensive but asymptomatic. The above is likely secondary to dehydration as well as medications. He will get cautiously rehydrated and will continue to monitor his blood pressures. (3) Hx of CABG: PLAN: Status post coronary bypass surgery as noted above with his graft anatomy being recently documented. (4) Cardiomyopathy: PLAN: He does have a mild cardiomyopathy. He does not appear to be in any heart failure we will continue to monitor him. (5) AAA (abdominal aortic aneurysm) without rupture: PLAN: He does have a 6.5 cm abdominal aortic aneurysm for which she is scheduled to undergo AAA repair. The above has been discussed with the vascular surgeon and appropriate plans have been made. Thank you for allowing me to participate in the care of your patient. Please don't hesitate to call if any issues arise. HPI Consult Data Date of Consult: 12/21/21 HPI Narrative HPI Narrative: ASHLEY ROBLES, is a 71 M who presents for preoperative optimization for abdominal aortic aneurysm repair via percutaneous approach. He is a gentleman with a history of known coronary artery disease who was recently in the hospital and underwent cardiovascular evaluation with an echocardiogram demonstrating an ejection fraction of 45% as well as a cardiac catheterization which demonstrated the following:LEFT MAIN: Mild luminal irregularities, proximal left anterior descending artery with mild luminal irregularities in the previously placed stent which was patent, the mid LAD with mild to moderate disease in the first diagonal vessel with a previously placed stent which was patent. The circumflex artery had an 80% stenosis in the midportion and the first second and third obtuse marginal branch had luminal irregularities. His right coronary artery was noted to be occluded from a cath in 2010 and filled via [id number] collaterals his left internal mammary artery to the left anterior descending artery was patent. Medical therapy was recommended. He was placed on maximum guideline directed medical therapy. He presented today for his evaluation and he was noted to be mildly hypotensive but asymptomatic. He is denied any chest pain or shortness of breath or paroxysmal nocturnal dyspnea or pedal edema no neck arm or jaw discomfort suggest angina. He does attest to the fact that he is probably not been drinking as much fluid as he should have been drinking. His EKG here today demonstrates normal sinus rhythm with a first-degree AV block and a rate of 85 bpm and no acute changes. [facility] Medical History Alcohol abuse Arthritis Bleeding tendency CAD (coronary artery disease) Cardiology follow-up encounter Cardiomyopathy Chronic back pain Chronic cough Congestive heart failure (CHF) COPD (chronic obstructive pulmonary disease) Difficulty chewing Difficulty swallowing Emphysema lung Gout High cholesterol History of back injury History of back pain History of heart attack History of inguinal hernia History of steroid therapy History of stress test HLD (hyperlipidemia) Hx of congestive heart failure Hx of edema Hx of essential hypertension Hx of gastroesophageal reflux (GERD) Hx of migraine headaches Hx of shortness of breath Hx of smoking Hypertension Kidney stones Myocardial infarct Home Medications albuterol sulfate 2.5 mg/3 mL (0.083 %) solution for nebulization 2.5 mg inhalation Q4H PRN PRN Wheezing 04/27/15 [History Last Taken Unknown] aspirin 81 mg chewable tablet 81 mg PO DAILY@0800 HEART 04/27/15 [History Last Taken Unknown] carvedilol 6.25 mg tablet 6.25 mg PO BID HEART 04/27/15 [History Last Taken Unknown] lisinopril 20 mg tablet 20 mg PO DAILY BLOOD PRESSURE 04/27/15 [History Last Taken Unknown] fluticasone propionate 115 mcg-salmeterol 21 mcg/actuation HFA inhaler (Advair HFA) 2 puff inhalation BID COPD 10/31/20 [History Last Taken Unknown] umeclidinium 62.5 mcg/actuation blister powder for inhalation (Incruse Ellipta) 1 inh inhalation DAILY COPD 10/31/20 [History Last Taken Unknown] atorvastatin 40 mg tablet 40 mg PO QHS CHOLESTEROL 12/09/21 [History Last Taken Unknown] doxycycline hyclate 100 mg capsule 100 mg PO BID COUGH 12/17/21 [History Last Taken Unknown] furosemide 40 mg tablet (Lasix) 40 mg PO BID EDEMA 12/17/21 [History Last Taken Unknown] guaifenesin 600 mg tablet, extended release 12 hr (Mucus Relief ER) 600 mg PO BID COUGH 12/17/21 [History Last Taken Unknown] prednisone 10 mg tablet See Taper PO BREAKFAST SOB 12/17/21 [History Last Taken Unknown] spironolactone 25 mg tablet 25 mg PO DAILY BLOOD PRESSURE 12/17/21 [History Last Taken Unknown] Allergy/AdvReac Type Severity Reaction Status Date / Time No Known Allergies Allergy Verified 12/21/21 09:59 Family History Other Cancer Diabetes Essential tremor Surgical History History of cardiac cath History of coronary artery stent placement Hx of CABG Hx of hernia repair S/P CABG x 3 Social History Smoking Status: Light Smoker (<10/day) substance use type: does not use Physical Exam Const alert, oriented x3 and no apparent distress Constitutional Narrative: Appears older than stated age HEENT head/scalp atraumatic and moist oral mucous membranes Eyes conjunctivae normal and no scleral icterus Neck no lymphadenopathy and supple Resp Effort and Inspection: able to speak in complete sentences and symmetric chest movement Auscultation: wheezes expiratory wheezes (end exhalation) and scattered wheezes Cardio regular rate, regular rhythm, S1 normal heart sound, S2 normal heart sound, no murmurs, no rub and no gallops GI normal to inspection, nondistended, normoactive bowel sounds, soft to palpation and non-tender Extremity normal to inspection and full ROM General Extremity: clubbing Skin Skin Narrative: dermal atrophy Neuro oriented x3, moves all extremities, no focal motor deficits and no sensory deficits noted Psych affect normal Risk Stratification Risk Stratification Applicable: No Objective Data Vital Signs: Vital Signs Temp Pulse Resp BP Pulse Ox O2 Del Method 97.3 F L 86 22 H 99/73 97 Room Air 12/21/21 12:00 12/21/21 12:00 12/21/21 12:00 12/21/21 12:00 12/21/21 12:00 12/21/21 12:00 Oxygen Delivery Method Room Air Weight: 166 lb 4.8 oz Body Mass Index (BMI) 21.9 Intake & Output: Intake and Output for Last 24 Hours 12/19/21 12/20/21 12/21/21 23:59 23:59 23:59 Intake Total 300 / 300 Output Total 200 / 200 Balance 100 / 100 Lab / Micro Data Result Diagrams: 12/21/21 12:30 12/21/21 12:30 Labs: Laboratory Results - last 24 hr 12/21/21 12:30: Sodium 130 L, Potassium 4.6, Chloride 91 L, Carbon Dioxide 34.0 H, Anion Gap 5, BUN 22 H, Creatinine 0.66 L, Estim Creat Clear Calc 72.29, Est GFR (MDRD) Af Amer 154, Est GFR (MDRD) Non-Af 127, BUN/Creatinine Ratio 33.5 H, Glucose 92, Calcium 8.7, Magnesium 1.9 12/21/21 12:30: WBC 12.9 H, RBC 4.33 L, Hgb 14.0, Hct 41.8, MCV 96.5 H, MCH 32.3 H, MCHC 33.5, RDW Std Deviation 45.9 H, RDW Coeff of Jamie 12.8, Plt Count 303, MPV 9.9, Immature Gran % (Auto) 1.100 H, Neut % (Auto) 63.6, Lymph % (Auto) 25.6, [place] % (Auto) 8.4, Eos % (Auto) 1.1, Baso % (Auto) 0.2, Absolute Neuts (auto) 8.2 H, Absolute Lymphs (auto) 3.30, Nucleated RBC % 0 Cardiology Labs/Tests 12/21/21 12:30: Sodium 130 L, Potassium 4.6, Chloride 91 L, Carbon Dioxide 34.0 H, Anion Gap 5, BUN 22 H, Creatinine 0.66 L, Est GFR (MDRD) Af Amer 154, Est GFR (MDRD) Non-Af 127, BUN/Creatinine Ratio 33.5 H, Glucose 92, Calcium 8.7, Magnesium 1.9 12/21/21 12:30: WBC 12.9 H, RBC 4.33 L, Hgb 14.0, Hct 41.8, MCV 96.5 H, MCH 32.3 H, MCHC 33.5, Plt Count 303, MPV 9.9, Immature Gran % (Auto) 1.100 H, Neut % (Auto) 63.6, Lymph % (Auto) 25.6, [place] % (Auto) 8.4, Eos % (Auto) 1.1, Baso % (Auto) 0.2, Absolute Neuts (auto) 8.2 H, Nucleated RBC % 0 Rhythm: EKG: ECHO: Stress Test: Cardiac Cath: PCI: CT Surgery: Holter monitor: EPS: PPM: CXR: Chest CT Scan:
[2021-12-21] MEDS: Albuterol 2.5 MG/3 ML VIAL.NEB. INHALATION (16:22)
[2021-12-21] MEDS: 0.9% Normal Saline 1,000 ML 100 ML IV (18:54)
[2021-12-21] MEDS: Ipratropium/Albuterol Sulfate 3 ML AMPUL.NEB INHALATION (19:30)
[2021-12-21] MEDS: Budesonide Respules 0.5 MG/2 ML AMPUL.NEB. INHALATION (19:30)
[2021-12-21] MEDS: Acetaminophen 325 MG Tablet 650 MG PO (19:55)
[2021-12-21] MEDS: Doxycycline 100 MG CAPSULE PO (19:55)
[2021-12-21] MEDS: predniSONE 10 MG Tablet PO (19:56)
[2021-12-21] MEDS: guaiFENesin 600 MG Tablet PO (19:56)
[2021-12-21] MEDS: Atorvastatin Calcium 40 MG Tablet PO (19:56)
[2021-12-22] VITALS (38 sets, daily range): BP systolic 46–161; BP diastolic 24–92; PULSE 31–125; RESP 12–19; TEMP 35.4–36.8; O2SAT 90–100; BMI 21.4
[2021-12-22] MEDS: 0.9% Normal Saline 1,000 ML 100 ML IV ×2 (04:54→11:07)
[2021-12-22] MEDS: Budesonide Respules 0.5 MG/2 ML AMPUL.NEB. INHALATION (06:51)
[2021-12-22] MEDS: Ipratropium/Albuterol Sulfate 3 ML AMPUL.NEB INHALATION (06:51)
--- NOTE | 2021-12-22 07:12 | PN.CC_ITS ---
Assessment & Plan Assessment/Plan (1) Hypotension: (2) COPD (chronic obstructive pulmonary disease): (3) Pulmonary nodule: (4) AAA (abdominal aortic aneurysm) without rupture: PLAN: Plan RECOMMENDATIONS: 1. Consider reevaluation of antihypertensive medications following surgery 2. Hold Lasix therapy for now 3. Await cardiology recommendations 4. Would not recommend antibiotics outside of prophylaxis 5. Bolus with normal saline as necessary for hypotension 6. Therapeutic substitution for home inhaler therapy 7. Defer to surgery if patient needs to come back to ICU following OR IMPRESSIONS: 1. Hypotension Clinical suspicion for hypotension secondary to antihypertensive medications. Spontaneous resolution with holding of antihypertensives. Patient is not showing signs or symptoms suggestive of sepsis. Patient is receiving prophylactic antibiotics only. Patient is not showing signs or symptoms of cardiogenic shock or adrenal insufficiency in my opinion. Defer to cardiology, but would consider reinitiation of antihypertensives in a stepwise fashion postoperatively. 2. Probable COPD/spiculated pulmonary nodule Patient has been placed on the therapeutic substitution for home triple therapy. This is likely appropriate. Patient does have some mild end expiratio n wheezing, but this is likely baseline. Would not recommend steroid therapy at this time. Unclear if hyponatremia is secondary to spiculated nodule with paraneoplastic SIADH, but this is being investigated as an outpatient. Patient could be bolused with normal saline if necessary for hypotension. Labs are currently pending 3. AAA/tobacco abuse/poor insight/history of CHF/hypertension/advanced age Complicates care, management, recovery and prognosis. Patient can likely proceed with AAA repair from my perspective. We will continue to monitor the patient, but anticipate little complications following surgery. Patient appears to be optimized at this time. Addendum 4 PM: Patient with hemorrhagic complications during AAA repair. Patient was evaluated in the [facility]. Patient has received 4 units of packed red blood cells. ABG shows respiratory and metabolic acidosis. It does appear the tamponade has been achieved. Patient is receiving Levophed and phenylephrine per anesthesia. Patient was tachycardic, but blood pressures are adequate. Unable to perform a complete physical examination given sterile barrier. Did discuss at length with respiratory and ICU nursing about plan of care. Anticipate continuing mechanical ventilation overnight. Will obtain an ABG 1 hour after arrival to the intensive care unit with recommendations following. Anticipate keeping invasive arterial line for blood pressure monitoring. Dr. Fernandes to discuss with family about possible transfer to a tertiary center. TIME: 34 minutes critical care time, in addition to morning assessment, was spent addressing patient's hemorrhagic shock, respiratory failure, review of all data and collaboration with care team Subjective Subjective Patient did well overnight. No acute issues were reported. Patient states he is ready to get this done. Patient is not reporting any new pain outside of back stiffness associated with this terrible bed.. No change in respiratory status. Patient is not reporting any orthostatic symptoms. Objective Data Objective Data No pressors or fluid boluses have been required overnight. Labs have been sent, but are delayed secondary to downtime. Vital Signs: Vital Signs Temp Pulse Resp BP Pulse Ox O2 Del Method 36.6 C 81 15 119/75 100 Room Air 12/22/21 04:00 12/22/21 07:00 12/22/21 07:00 12/22/21 07:00 12/22/21 07:00 12/22/21 07:00 Oxygen Delivery Method Room Air Weight: 73.9 kg Body Mass Index (BMI) 21.9 Intake & Output: Intake and Output for Last 24 Hours 12/20/21 12/21/21 12/22/21 23:59 23:59 23:59 Intake Total 2491.25 / 2491.25 1000 / 1000 Output Total 1600 / 1600 975 / 975 Balance 891.25 / 891.25 Lab / Micro Data Result Diagrams: 12/22/21 03:35 12/22/21 03:35 Labs: Laboratory Results - last 24 hr 12/21/21 12:30: Sodium 130 L, Potassium 4.6, Chloride 91 L, Carbon Dioxide 34.0 H, Anion Gap 5, BUN 22 H, Creatinine 0.66 L, Estim Creat Clear Calc 72.29, Est GFR (MDRD) Af Amer 154, Est GFR (MDRD) Non-Af 127, BUN/Creatinine Ratio 33.5 H, Glucose 92, Calcium 8.7, Magnesium 1.9 12/21/21 12:30: WBC 12.9 H, RBC 4.33 L, Hgb 14.0, Hct 41.8, MCV 96.5 H, MCH 32.3 H, MCHC 33.5, RDW Std Deviation 45.9 H, RDW Coeff of Jamie 12.8, Plt Count 303, MPV 9.9, Immature Gran % (Auto) 1.100 H, Neut % (Auto) 63.6, Lymph % (Auto) 25.6, [place] % (Auto) 8.4, Eos % (Auto) 1.1, Baso % (Auto) 0.2, Absolute Neuts (auto) 8.2 H, Absolute Lymphs (auto) 3.30, Nucleated RBC % 0 Micro: Microbiology 12/18/21 07:33 Swab (Method) Nasal Screen MRSA/MSSA - Final Physical Exam Const alert, oriented x3 and no apparent distress Constitutional Narrative: Appears older than stated age HEENT head/scalp atraumatic and moist oral mucous membranes Eyes conjunctivae normal and no scleral icterus Neck no lymphadenopathy and supple Resp Effort and Inspection: able to speak in complete sentences and symmetric chest movement Auscultation: wheezes expiratory wheezes (end exhalation) and scattered wheezes Cardio regular rate, regular rhythm, S1 normal heart sound, S2 normal heart sound, no murmurs, no rub and no gallops GI normal to inspection, nondistended, normoactive bowel sounds, soft to palpation and non-tender Extremity normal to inspection and full ROM General Extremity: clubbing Skin Skin Narrative: dermal atrophy Neuro oriented x3, moves all extremities, no focal motor deficits and no sensory deficits noted Psych affect normal Charges/Coding Visit Charges Inpatient E&M: 79401 Subs Hosp L2 Multi [employer] Codes Hospitalists' Procedures Procedures: 87462 Critial Care 1st Hr
[2021-12-22 07:21] LABS: Absolute Lymphocyte Count 1.78 X10^3/uL (0.83-4.51); Absolute Neutrophil Count 10.6 X10^3/uL (2.0-7.7); Basophil# 0.03 X10^3/uL; Basophil% 0.2 % (0-1); Eosinophil# 0.02 X10^3/uL; Eosinophils% 0.2 % (0-5); Hematocrit 41.1 % (40-54); Hemoglobin 13.5 g/dL (13.0-16.5); Lymphocyte # 1.78 X10^3/ul (0.83-4.51); Lymphocyte % 13.5 % (19-41); Mean Corp Hgb Conc 32.8 g/dL (32-36); Mean Corpuscular Hgb 32.4 pg (27.0-32.0); Mean Corpuscular Volume 98.6 fL (80-94); Mean Platelet Vol. 11.1 fl (6.2-12.0); Monocyte# 0.66 X10^3/uL; NRBC Flagged by Analyzer 0 % (0-5); Neutrophil % 80.2 % (47-70); Platelet Count 252 K/mm3 (150-450); RBC Distribution Width CV 12.9 % (11.6-14.6); RBC Distribution Width SD 46.5 fl (35.1-43.9); Red Blood Count 4.17 M/mm3 (4.6-6.2); White Blood Count 13.2 K/mm3 (4.4-11.0)
[2021-12-22 07:32] LABS: Anion Gap 5 (5-15); BUN 23 mg/dL (7-18); BUN/Creat Ratio 37.2 RATIO (10-20); Chloride 94 mmol/L (98-107); Creatinine, Serum 0.62 mg/dL (0.70-1.30); EST Glomerular Filtration Rate 136 mL/min (>60); Est Glom Filt Rate - Afr Amer 165 mL/min (>60); Estimated Creatinine Clearance 70.82 ml/min; Glucose 123 mg/dL (74-106); Potassium 4.9 mmol/L (3.5-5.1); Sodium Level 130 mmol/L (136-145)
[2021-12-22] MEDS: Acetaminophen 325 MG Tablet 650 MG PO (08:00)
[2021-12-22] MEDS: oxyCODONE 5 MG Tablet PO (08:00)
[2021-12-22] MEDS: predniSONE 10 MG Tablet PO (08:01)
[2021-12-22] MEDS: Doxycycline 100 MG CAPSULE PO (08:01)
[2021-12-22] MEDS: guaiFENesin 600 MG Tablet PO (08:01)
--- NOTE | 2021-12-22 10:17 | PN.SURG_ITS ---
Subjective Subjective No issues overnight. Back pain better. Normotensive overnight on no PO meds. Ready for surgery. Objective Data Objective Data Vital Signs: Vital Signs Temp Pulse Resp BP Pulse Ox O2 Del Method O2 Flow Rate 97.7 F L 79 16 116/74 97 Nasal Cannula 2 12/22/21 08:00 12/22/21 10:00 12/22/21 10:00 12/22/21 10:00 12/22/21 10:00 12/22/21 10:00 12/22/21 10:00 Oxygen Flow Rate (L/min) 2 Oxygen Delivery Method Nasal Cannula Weight: 162 lb 14.746 oz Body Mass Index (BMI) 21.9 Intake & Output: Intake and Output for Last 24 Hours 12/20/21 12/21/21 12/22/21 23:59 23:59 23:59 Intake Total 2491.25 / 2491.25 1060 / 1060 Output Total 1600 / 1600 2125 / 2125 Balance 891.25 / 891.25 -1065 / -1065 Lab / Micro Data Result Diagrams: 12/22/21 03:35 12/22/21 03:35 Labs: Laboratory Results - last 24 hr 12/21/21 12:30: Sodium 130 L, Potassium 4.6, Chloride 91 L, Carbon Dioxide 34.0 H, Anion Gap 5, BUN 22 H, Creatinine 0.66 L, Estim Creat Clear Calc 72.29, Est GFR (MDRD) Af Amer 154, Est GFR (MDRD) Non-Af 127, BUN/Creatinine Ratio 33.5 H, Glucose 92, Calcium 8.7, Magnesium 1.9 12/21/21 12:30: WBC 12.9 H, RBC 4.33 L, Hgb 14.0, Hct 41.8, MCV 96.5 H, MCH 32.3 H, MCHC 33.5, RDW Std Deviation 45.9 H, RDW Coeff of Jamie 12.8, Plt Count 303, MPV 9.9, Immature Gran % (Auto) 1.100 H, Neut % (Auto) 63.6, Lymph % (Auto) 25.6, [place] % (Auto) 8.4, Eos % (Auto) 1.1, Baso % (Auto) 0.2, Absolute Neuts (auto) 8.2 H, Absolute Lymphs (auto) 3.30, Nucleated RBC % 0 12/22/21 03:35: WBC 13.2 H, RBC 4.17 L, Hgb 13.5, Hct 41.1, MCV 98.6 H, MCH 32.4 H, MCHC 32.8, RDW Std Deviation 46.5 H, RDW Coeff of Jamie 12.9, Plt Count 252, MPV 11.1, Immature Gran % (Auto) 0.900, Neut % (Auto) 80.2 H, Lymph % (Auto) 13.5 L, [place] % (Auto) 5.0, Eos % (Auto) 0.2, Baso % (Auto) 0.2, Absolute Neuts (auto) 10.6 H, Absolute Lymphs (auto) 1.78, Nucleated RBC % 0 12/22/21 03:35: Sodium 130 L, Potassium 4.9, Chloride 94 L, Carbon Dioxide 31.0, Anion Gap 5, BUN 23 H, Creatinine 0.62 L, Estim Creat Clear Calc 70.82, Est GFR (MDRD) Af Amer 165, Est GFR (MDRD) Non-Af 136, BUN/Creatinine Ratio 37.2 H, Glucose 123 H, Calcium 8.0 L Micro: Microbiology 12/18/21 07:33 Swab (Method) Nasal Screen MRSA/MSSA - Final Physical Exam Const alert, oriented x3 and no apparent distress General Appearance: cooperative; Negative for combative or lethargic Orientation / Consciousness: awake Exam Limitations: no limitations HEENT Head and Scalp: normocephalic and atraumatic Eyes EOMs intact bilaterally General Eye: normal appearance of both eyes Neck General: trachea midline; Negative for lymphadenopathy Thyroid: thyroid normal Resp normal respiratory effort and no use of accessory muscles Effort and Inspection: Negative for labored, stridor or audible wheezes Cardio regular rate and regular rhythm Back/Spine Cervical Spine: cervical ROM normal Skin no rashes or lesions noted and no wounds Neuro oriented x3, CN's II-XII intact bilaterally, no focal motor deficits and no sens ory deficits noted Psych thought process normal, cooperative, affect normal, speech normal and activity/motor behavior normal Assessment & Plan Assessment/Plan (1) AAA (abdominal aortic aneurysm) without rupture: PLAN: -hemodynamically improved -EVAR today
[2021-12-22] MEDS: 0.9% Saline Lock 10 ML Syringe IV (11:08)
--- NOTE | 2021-12-22 14:48 | CASEMGMT ---
RN CM chart review: Patient was admitted from 12/09-12/13- for COPD exacerbation and hypoxia. See RN CM assessment from 12/09/21. Patient did not qualify for home oxygen at discharge. Patient was discharged to home. Follow-up phone call completed next day and patient was doing well, taking medications as prescribed. Patient was scheduled for AAA repair on 12/21/21. While in preop it was noted that patient had low blood pressures. Patient was admitted to ICU to optimize BP. EVAR was rescheduled for 12/22/21. Patient is currently in surgery and unable to discuss discharge disposition. CM will continue to follow this patient and plan for a safe discharge.
[2021-12-22 15:35] LABS: Base Excess -12 mmol/L (-2 to +2); Bicarbonate 17.1 mmol/L (22-26); Blood Gas Specimen Type ART; PO2 431 mmHG (75-100); SO2 100 % (95-99); Total Carbon Dioxide 19 mmol/L; pCO2 50.3 mmHg (35-45); pH 7.14 (7.35-7.45)
[2021-12-22 15:44] LABS: Absolute Lymphocyte Count 5.32 X10^3/uL (0.83-4.51); Absolute Neutrophil Count 11.8 X10^3/uL (2.0-7.7); Basophil# 0.05 X10^3/uL; Basophil% 0.3 % (0-1); Eosinophil# 0.03 X10^3/uL; Eosinophils% 0.2 % (0-5); Hematocrit 35.8 % (40-54); Hemoglobin 11.4 g/dL (13.0-16.5); Lymphocyte # 5.32 X10^3/ul (0.83-4.51); Lymphocyte % 27.9 % (19-41); Mean Corp Hgb Conc 31.8 g/dL (32-36); Mean Corpuscular Hgb 31.5 pg (27.0-32.0); Mean Corpuscular Volume 98.9 fL (80-94); Mean Platelet Vol. 10.7 fl (6.2-12.0); Monocyte# 1.18 X10^3/uL; Monocyte% 6.2 % (0-10); NRBC Flagged by Analyzer 0.1 % (0-5); Neutrophil % 61.8 % (47-70); POSITIVE DIFFERENTIAL YES; Platelet Count 181 K/mm3 (150-450); RBC Distribution Width SD 50.7 fl (35.1-43.9); Red Blood Count 3.62 M/mm3 (4.6-6.2); White Blood Count 19.1 K/mm3 (4.4-11.0)
[2021-12-22 15:48] LABS: International Normalized Ratio 1.7; Prothrombin Time (Protime)PT. 19.5 SECONDS (11.7-14.9)
[2021-12-22 16:04] LABS: Differential Indicated SCAN CRITERIA MET
[2021-12-22 16:07] LABS: Partial Thromboplast Time > 200.0 Seconds (24.1-36.2)
[2021-12-22 16:11] LABS: Anion Gap 11 (5-15); BUN 18 mg/dL (7-18); BUN/Creat Ratio 22.8 RATIO (10-20); Calcium,Total 6.5 mg/dL (8.5-10.1); Chloride 103 mmol/L (98-107); Creatinine, Serum 0.79 mg/dL (0.70-1.30); EST Glomerular Filtration Rate 103 mL/min (>60); Est Glom Filt Rate - Afr Amer 124 mL/min (>60); Estimated Creatinine Clearance 70.82 ml/min; Glucose 408 mg/dL (74-106); Potassium 5.6 mmol/L (3.5-5.1); Sodium Level 132 mmol/L (136-145)
--- NOTE | 2021-12-22 16:34 | OP.PCM_ITS ---
Report of Operation Pre-Operative Diagnosis: AAA Post-Operative Diagnosis: Same; left iliac artery rupture Surgery/Procedure Performed:: aorto-bifemoral angiogram, left common/external iliac stents Surgeon: Kahlil Fernandes Type of Anesthesia: General Estimated Blood Loss (mL): 1000 Description of Procedure: HPI: Patient is a 71-year-old male with multiple medical comorbidities including coronary artery disease heart failure and COPD who recently was incidentally found to have a large infrarenal abdominal aortic aneurysm. After cardiac and pulmonary optimization and stratification he is taken now for elective endovascular aneurysm repair evaluation at his initial same-day surgery check-in he was found to be hypotensive and he was admitted for further optimization and was felt that this was due to to excess blood pressure medication. The following day he is now stable with improved blood pressure and he is taken for endovascular exclusion of his AAA. Description of procedure: Upon obtaining informed consent and verification of correct patient procedure and site the patient was taken to the [facility] where an arterial line was placed by anesthesia. He was then placed under general anesthesia and positioned prepped and draped in usual sterile fashion. Timeout was then performed. Under ultrasound guidance the right common femoral artery was accessed in retrograde fashion using my puncture needle and wire. This was then exchanged for micropuncture sheath routine injection angiogram was performed which revealed satisfactory placement with no extravasation or dissection. Through the micropuncture sheath a Magic wire was advanced into the abdominal aorta and the micropuncture sheath exchanged out for 6 German sheath to dilate the tract. The 6 German sheath was then withdrawn and a pair of Pro- glide suture mediated closure devices were deployed and preclosed technique. An 8 German sheath was then advanced over the wire and positioned in the external iliac artery. Next the left common femoral artery was accessed in retrograde fashion using microneedle and wire. This was then exchanged for my puncture sheath through which femoral angiogram was performed revealing satisfactory placement no extravasation or dissection. Through the micro sheath Magic wire was advanced and my puncture sheath exchanged for 6 German sheath to dilate the tract. Next Pro-glide suture mediated devices were deployed to preclosed technique followed by an 8 German sheath. Patient was then heparinized left circumflex of 30 minutes and ACT performed. Further heparin dose was given due to inadequate ACT change. Next via the left femoral access site we advanced a glide catheter over the Magic wire and navigated the abdominal aorta and into the proximal descending thoracic aorta. The Magic wire was then exchanged for a Lunderquist wire. We were unable to pass the Lunderquist wire given the tortuosity of the iliac vessel and poor support from the catheter so we withdrew the Lunderquist wire and advanced a Amplatz wire which we were able to advance into the descending thoracic aorta. Given the amount of tortuosity in the iliac artery felt that the maximum off support would be necessary to advance catheters and devices so the 8 German sheath was then exchanged for a 12 German sheath which was advanced in the position and the external iliac artery. The dilator was then withdrawn in a KMP catheter was then advanced over the Amplatz wire into position the proximal descending thoracic aorta. The Amplatz was again exchanged for the Lunderquist wire this time with success in advancing the wire into the descending thoracic aorta. We then withdrew the catheter and exchanged the 12 German sheath for a 16 German sheath. Advancing the 16 German sheath over the Lunderquist wire we had significant amount of recoil back due to the tortuosity and ultimately inched the sheath and dilator over the wire. We had nearly traverse the tortuosity and were approaching the aortic bifurcation and in order to gain her final full purchase we advanced the sheath over the dilator to establish purchase within the proximal common iliac artery. At this point anesthesia recognized abrupt change in hemodynamics and subsequent rapid decline in blood pressure. Dilators then withdrawn and hand-injection iliac angiogram of the left iliac system was performed which revealed significant disruption of the external iliac artery the point where the sheath had been recoiling and bowing out. We then quickly placed a [employer] equalizer balloon via the left femoral sheath in the proximal common iliac artery and inflated it to profile. The patient then established improved hemodynamics and blood pressure and tachycardia improved. At this point given the relative stability we obtained blood from the blood bank and began transfusion and formulated our plan to control our iliac disruption. Given the location just below the iliac bifurcation into the internal and external it was felt that a 18 mm diameter graft will give us her best option to seal within the area above and below the rupture. Once anesthesia had adequate time to resuscitate the patient and catch up with the brief but rapid blood loss we then brought an 18 mm x 45 Endologix ovation iliac limb onto the field and prepped for manufactures instructions. When everybody was prepared the balloon was deflated and withdrawn and the stent advanced via the left femoral 16 German sheath into position and deployed. The delivery system was then withdrawn and the equalizer balloon readvanced into the common iliac artery as the patient again developed hemodynamic instability. The balloon was inflated to profile and hemodynamics improved. Repeat angiography via the left femoral sheath revealed a proximal coverage of the tear with continued disruption distal to the distal endpoint of the stent. Is felt that lengthy coverage of the entirety of the common and external iliac artery would give us our best chance to resolve our extravasation so a long iliac limb was selected. First however we exchanged a right femoral 8 German sheath for a 14 German sheath. This would allow us to readvanced the equalizer balloon via the right femoral access site. A Endologix iliac limb ovation 16 x 160 was selected and brought on the field and prepped for manufactures instructions. Again once anesthesia had fully resuscitated and gained some hemodynamic stability we deflated our balloon extracted it from the femoral sheath and advanced the left iliac limb. There was some difficulty traversing the iliac so once this was partially into position we then readvanced the equalizer balloon via the right femoral access sheath into the distal abdominal aorta. This was inflated to profile and hemodynamics improved. We then were able to fully advance the second iliac limb piece in the position just below the aortic bifurcation. This was then deployed and the delivery sheath withdrawn. Repeat left iliac angiography revealed satisfactory exclusion of the disrupted iliac with no further extravasation and no dissection. Given the amount of tortuosity was uncertain how much of the iliac limbs would foreshorten so third piece a 16 x 120 Endologix ovation limb was brought in the field prepped for specification writer's instructions. This was then advanced via the left femoral access sheath with satisfactory overlap into the previously placed stent and distal position just above the acetabulum. This was then deployed in position and the delivery system withdrawn. Repeat angiography confirmed continued exclusion of the disrupted iliac vessel. This point is felt that the amount of hemodynamic instability and physiologic stress on the patient and ongoing need for pressor support that attempting to further address the abdominal aortic component would be unwise. Also there was concern that further manipulation of her iliac stents would undo are satisfactory exclusion of the injury. At this point the right femoral access sheath was then withdrawn as was the support wire and the Pro- glide secured with satisfactory hemostasis. There continued to be palpable right femoral pulse. Next the left femoral access sheath and wire were withdrawn and the Pro-glide sutures secured. There is satisfactory hemostasis and a continued left femoral pulse. Surgicel topical hemostatic was then placed within the tracts and the incision closed with 4 Monocryl followed by dry sterile dressing. Patient then remained intubated and was taken to the intensive care unit with continued hemodynamic pressor support though stable on these agents. Grafts/Implants Used: Endologix Oviation iliac limb 18 x 45; 16 x 160; 16 x 120 Complications Left external iliac artery rupture, hemodynamic instability Admit VTE Documentation VTE Pharm Prophylaxis ordered?: Yes
--- NOTE | 2021-12-22 16:41 | CHAPLAIN ---
Type of Pastoral Visit ___ Initial Visit ___ Follow-up Visit ___ On-call Visit ___ General Patient Visit ___ Spiritual Assessment _x__ Family Conference ___ Bereavement ___ Rapid Response ___ Code Blue ___ Other (describe below) Pastoral Care Referral From ___ Patient ___ Family _x__ Nurse _x__ Physician ___ Jig Filler ___ Box Feeder ___ Other (describe below) Sacrament/Intervention _x__ Active listening ___ Anointing ___ Zoroastrian ___ Bereavement ___ Communion ___ Rebeca exploration ___ _x__ Life review _x__ Prayer ___ Reconciliation ___ Sacrament of Sick _x__ Supportive presence ___ Wedding ___ Other (describe below) Pastoral Comments request from RN and ICU DR to meet with family following the patient being in the [facility]; came to waiting room and found spouse and son listening to the DR explain that surgery had not been successful and that life was in the balance with soon return to ICU; sat with family following the doctor consultation and gave support, presence, listening ear, and a prayer; family members portray realistic understanding of the serious situation and state that they will be okay and that they are strong as a family; family has a baptist connection but are not active in their baptist; ongoing support offered as needed and desired
[2021-12-22 16:51] LABS: Differential Comment SCANNED
--- NOTE | 2021-12-22 17:44 | CM.ED ---
SW Note SW responded to Rapid Response. GLORIA met with patient's and son. Emotional support provided. met with patient's family and updated them and escorted them back to the room. GLORIA called Cafe Attendant and advised that if additional support is needed to contact the home health care social worker in ED. SW remains available. Tana WOO
--- NOTE | 2021-12-22 17:45 | RAD_ITS ---
STUDY: X-RAY CHEST REASON FOR EXAM: Male, 71 years old. ETT and central line placement TECHNIQUE: XR Chest 1 View COMPARISON: 12/08/2021 FINDINGS: Right IJ line. There is no pneumothorax. There are multiple median sternotomy wires. ET tube in place. Normal size heart. Normal mediastinum and arnoldo. Normal visualized pulmonary arteries. There is atherosclerotic calcification of the aortic arch with tortuosity. There are diffuse degenerative changes of the visualized thoracic spine. There is degenerative osteoarthritis of the bilateral shoulders. There is no demonstrated abnormality of the visualized soft tissue structures of the upper abdomen. RAD/Chest 1 View (Portable) IMPRESSION: There are no acute findings. Electronically Signed: James Baron MD at 18:54 EDT ,
[2021-12-22 18:00] LABS: Base Excess -17 mmol/L (-2 to +2); Bicarbonate 13.5 mmol/L (22-26); Blood Gas Specimen Type ART; FI02 30; Mode AC; O2 Delivery Device Adult Vent; PEEP 5; PO2 84 mmHG (75-100); RR 16; SITE Art Line; SO2 91 % (95-99); Total Carbon Dioxide 15 mmol/L; Vt 500; pCO2 45.5 mmHg (35-45); pH 7.08 (7.35-7.45)
[2021-12-22 18:02] LABS: Hematocrit 39.4 % (40-54); Hemoglobin 12.6 g/dL (13.0-16.5); Mean Corpuscular Hgb 31.3 pg (27.0-32.0); Mean Corpuscular Volume 97.8 fL (80-94); Mean Platelet Vol. 10.4 fl (6.2-12.0); POSITIVE COUNT YES; POSITIVE DIFFERENTIAL YES; POSITIVE MORPHOLOGY YES; Platelet Count 187 K/mm3 (150-450); RBC Distribution Width CV 14.9 % (11.6-14.6); RBC Distribution Width SD 54.2 fl (35.1-43.9); Red Blood Count 4.03 M/mm3 (4.6-6.2)
[2021-12-22 18:03] LABS: White Blood Count 37.1 K/mm3 (4.4-11.0)
[2021-12-22 18:04] LABS: Differential Indicated MANUAL DIFF
[2021-12-22] MEDS: Propofol 10MG/Ml 1,000 MG/100 ML Bottle 4.4 MG CONT INF (18:30)
[2021-12-22] MEDS: SODIUM CHLORIDE CONT INF (18:31)
[2021-12-22] MEDS: PHENYLEPHRINE CONT INF (18:31)
[2021-12-22 18:33] LABS: Lymphocyte 14 % (19-41); Monocyte 5 % (0-10); Neutrophil-Band 2 % (0-5); Neutrophil-Segmented 79 % (47-70); Total Cells Counted 100 (MANUAL DIFF)
[2021-12-22 18:38] LABS: Absolute Lymphocyte Count 5.19 X10^3/uL (0.83-4.51)
[2021-12-22] MEDS: 0.9% Normal Saline 1,000 ML 75 ML IV (18:58)
[2021-12-22] MEDS: 0.9% Normal Saline 1,000 ML 999 ML IV ×2 (19:00→20:45)
[2021-12-22 19:14] LABS: CPK Total, Creatine Kinase 31 U/L (39-308); Triglycerides 53 mg/dL
--- NOTE | 2021-12-22 19:19 | CPS ---
ABG drawn per RN from A line and handed to RT to run at this time.
[2021-12-22 19:26] LABS: Base Excess -10 mmol/L (-2 to +2); Bicarbonate 17.3 mmol/L (22-26); Blood Gas Specimen Type ART; FI02 30; Mode AC; O2 Delivery Device Adult Vent; PEEP 5; PO2 89 mmHG (75-100); RR 16; SITE Art Line; SO2 95 % (95-99); Total Carbon Dioxide 19 mmol/L; Vt 500; pCO2 42.2 mmHg (35-45); pH 7.22 (7.35-7.45)
--- NOTE | 2021-12-22 19:27 | NURSING ---
1630-Arrived from [facility]ou[facility] w/ garden labourer and anesthesia staff. Intubated. Upon arrival, difficulty obtaining ART line pressure reading, Unable to palpate pedal pulses, Groin sites benign but scrotum severely edematous LT>RT. Maxed on Levophed and Phenylephrine via peripheral lines. Fluid bolus running w/o. Unable to obtain accurate BP or Pulse ox reading. Lots of ectopy on monitor. CHOIR ACCOMPANIST called Dr. Shaw (anesthesiologist) to come insert central line. Hemodynamics continued to worsen, FOOD CLERK called at 1714. Dr. Guzman, Dr. Fernandes, Dr. Cedeno, and Dr. Mak, and garden labourer staff responded to FOOD CLERK. See FOOD CLERK documentation. Dr. Davis updated via phone. Family in waiting room and updated by Dr. Fernandes.
[2021-12-22] MEDS: Hydrocortisone Sod Succinate 100 MG/2 ML Vial IV ×2 (19:33→21:26)
[2021-12-22] MEDS: Phenylephrine 40 mg/250 mL 0.9% NS 75 MG CONT INF ×2 (19:44→22:37)
[2021-12-22] MEDS: TITRATION PARAMETER CHANGE 1 EACH IV (19:52)
--- NOTE | 2021-12-22 20:03 | PCM.OP.PRO ---
Procedure Report Date of Procedure: 12/22/21 Central Venous Catheter Placement-US Guided Dx: Hypotension Time out: Emergent The R Neck in the area of the IJ vein was prepped with CHG. The proceduralist washer her hand after hat and mask were in place. The standard CVC kit was opened and the procedralist placed a sterile gown and gloves. The pt was drapped from head to toe with the sterile drape. The kit was prepared for insertion and the US probe sterile cover was placed. The R IJ was identified and with the finder needle blood was aspirated. Using Seldinger technique the CVC was placed. All 3 ports had excellent blood return and were flushed with NS flushes. The line was sutured in place and a sterile dressing was placed. CXR was ordered and is pending. Procedures Hospitalists Procedures: [id number] Insert Non-tunnel CV Cath
[2021-12-22] MEDS: Sodium Bicarbonate 8.4% 50 ML Syringe 50 MEQ IV (20:45)
--- NOTE | 2021-12-22 21:13 | NURSING ---
12/22/21 @ 1900- Propofol gtt turned off sometime prior to this RNs shift. Medication gtt was started at 1830 by prior shift and turned off shortly after due to low BPs.
[2021-12-22 23:34] LABS: Absolute Lymphocyte Count 1.13 X10^3/uL (0.83-4.51); Absolute Neutrophil Count 46.8 X10^3/uL (2.0-7.7); Basophil# 0.05 X10^3/uL; Basophil% 0.1 % (0-1); Eosinophil# 0.01 X10^3/uL; Hematocrit 42.5 % (40-54); Hemoglobin 14.2 g/dL (13.0-16.5); Lymphocyte # 1.13 X10^3/ul (0.83-4.51); Lymphocyte % 2.1 % (19-41); Mean Corp Hgb Conc 33.4 g/dL (32-36); Mean Corpuscular Hgb 31.7 pg (27.0-32.0); Mean Corpuscular Volume 94.9 fL (80-94); Mean Platelet Vol. 10.4 fl (6.2-12.0); Monocyte# 3.84 X10^3/uL; Monocyte% 7.1 % (0-10); NRBC Flagged by Analyzer 0 % (0-5); Neutrophil # 46.81 X10^3/uL (2.7-7.7); Neutrophil % 86.8 % (47-70); POSITIVE COUNT YES; POSITIVE DIFFERENTIAL YES; POSITIVE MORPHOLOGY YES; Platelet Count 187 K/mm3 (150-450); RBC Distribution Width CV 15.2 % (11.6-14.6); RBC Distribution Width SD 53.4 fl (35.1-43.9); Red Blood Count 4.48 M/mm3 (4.6-6.2)
[2021-12-22 23:36] LABS: Differential Indicated SCAN CRITERIA MET; White Blood Count 53.9 K/mm3 (4.4-11.0)
[2021-12-22 23:58] LABS: Differential Comment SCANNED
[2021-12-23] VITALS (59 sets, daily range): BP systolic 62–179; BP diastolic 46–94; PULSE 72–121; RESP 16–30; TEMP 35.7–36.6; O2SAT 91–99
[2021-12-23 00:44] LABS: Anion Gap 13 (5-15); BUN 25 mg/dL (7-18); Calcium,Total 6.3 mg/dL (8.5-10.1); Chloride 108 mmol/L (98-107); Creatinine, Serum 1.25 mg/dL (0.70-1.30); EST Glomerular Filtration Rate 60 mL/min (>60); Est Glom Filt Rate - Afr Amer 73 mL/min (>60); Estimated Creatinine Clearance 56.66 ml/min; Glucose 262 mg/dL (74-106); Potassium 5.6 mmol/L (3.5-5.1); Sodium Level 138 mmol/L (136-145)
[2021-12-23] MEDS: Phenylephrine 40 mg/250 mL 0.9% NS 75 MG CONT INF (02:14)
--- NOTE | 2021-12-23 03:30 | NURSING ---
Pt's ABP holding steady w/MAP > 75mmHg consistently x1hr, informed family that we'll start reducing the vasopressor drips slowly and cont to monitor his response. Family denies questions at this time.
[2021-12-23 03:46] LABS: Absolute Neutrophil Count 46.6 X10^3/uL (2.0-7.7); Basophil# 0.17 X10^3/uL; Basophil% 0.3 % (0-1); Hematocrit 39.7 % (40-54); Hemoglobin 13.5 g/dL (13.0-16.5); Mean Corpuscular Hgb 31.6 pg (27.0-32.0); Mean Platelet Vol. 10.2 fl (6.2-12.0); Monocyte# 3.58 X10^3/uL; Monocyte% 6.7 % (0-10); NRBC Flagged by Analyzer 0 % (0-5); Neutrophil # 46.56 X10^3/uL (2.7-7.7); POSITIVE COUNT YES; POSITIVE DIFFERENTIAL YES; Platelet Count 175 K/mm3 (150-450); RBC Distribution Width CV 15.5 % (11.6-14.6); RBC Distribution Width SD 52.9 fl (35.1-43.9); Red Blood Count 4.27 M/mm3 (4.6-6.2)
[2021-12-23 03:48] LABS: Differential Indicated SCAN CRITERIA MET; White Blood Count 53.5 K/mm3 (4.4-11.0)
[2021-12-23 03:59] LABS: Anion Gap 9 (5-15); BUN 29 mg/dL (7-18); BUN/Creat Ratio 22.3 RATIO (10-20); Calcium,Total 6.9 mg/dL (8.5-10.1); Chloride 108 mmol/L (98-107); EST Glomerular Filtration Rate 58 mL/min (>60); Est Glom Filt Rate - Afr Amer 70 mL/min (>60); Estimated Creatinine Clearance 54.48 ml/min; Glucose 278 mg/dL (74-106); Potassium 5.2 mmol/L (3.5-5.1); Sodium Level 137 mmol/L (136-145)
--- NOTE | 2021-12-23 04:24 | NURSING ---
No heart failure teaching done at this time d/t pt condition.
[2021-12-23 04:27] LABS: Differential Comment SCANNED
--- NOTE | 2021-12-23 05:54 | CPS ---
ABG obtained by RN from A line at this time and given to RT to run.
[2021-12-23] MEDS: Phenylephrine 40 mg/250 mL 0.9% NS 67.5 MG CONT INF (06:00)
[2021-12-23 06:06] LABS: Base Excess -9 mmol/L (-2 to +2); Bicarbonate 17.1 mmol/L (22-26); Blood Gas Specimen Type ART; FI02 30; Mode AC; O2 Delivery Device Adult Vent; PEEP 5; PO2 79 mmHG (75-100); RR 16; SITE Art Line; SO2 95 % (95-99); Total Carbon Dioxide 18 mmol/L; Vt 500; pCO2 32.3 mmHg (35-45); pH 7.33 (7.35-7.45)
[2021-12-23] MEDS: Hydrocortisone Sod Succinate 100 MG/2 ML Vial IV ×3 (06:33→21:57)
--- NOTE | 2021-12-23 06:37 | US_ITS ---
STUDY: RENAL ULTRASOUND - COMPLETE REASON FOR EXAM: Male, 71 years old. Decreased urine output with pelvic bleeding TECHNIQUE: Ultrasound evaluation of the kidneys was performed with real-time and static soler-scale imaging. COMPARISON: None. FINDINGS: RIGHT KIDNEY: Normal location of the right kidney, which is normal in size. The right kidney measures 10.1 cm x 4.8 cm x 4.6 cm. There is a normal cortex of the right kidney. The renal cortex measures 1.4 cm. There is no right renal mass or cyst. There are no right renal calculi. There is no right hydronephrosis. DISTAL RIGHT URETER: There is non-visualization of the distal right ureter. There is no demonstrated right ureterovesical junction calculus. There is no demonstrated right ureteral jet. LEFT KIDNEY: Normal location of the left kidney, which is normal in size. The left kidney measures 10.5 cm x 4.3 cm x 5.5 cm. There is a normal cortex of the left kidney. The renal cortex measures 1.7 cm. There is no left renal mass or cyst. There are no left renal calculi. There is no left hydronephrosis. DISTAL LEFT URETER: There is non-visualization of the distal left ureter. There is no demonstrated left ureterovesical junction calculus. There is no demonstrated left ureteral jet. BLADDER: A ESTES catheter is seen within the bladder. Trace amount of free fluid in the pelvis. US/Kidney and Bladder IMPRESSION: Normal ultrasound of the kidneys. Trace amount of free fluid in the pelvis. Electronically Signed: Braydon Guthrie MD at 14:55 EDT ,
--- NOTE | 2021-12-23 06:42 | PN.CC_ITS ---
Assessment & Plan Assessment/Plan (1) Hypotension: (2) COPD (chronic obstructive pulmonary disease): (3) Pulmonary nodule: (4) AAA (abdominal aortic aneurysm) without rupture: PLAN: Plan RECOMMENDATIONS: 1. Initiate Precedex therapy 2. Obtain renal ultrasound 3. Supplement calcium 4. Okay to discontinue bicarbonate drip following current bag 5. Continue ventilation given hemdynamic instability 6. Await cardiac recommendations 7. Continue arterial line monitoring. Wean pressors as tolerated. Continue stress dose steroids IMPRESSIONS: 1. Hemorrhagic shock secondary to femoral artery bleed Patient on significant therapies at this time to maintain blood pressures. Continue with Levophed and vasopressin. Will wean Rony-Synephrine as tolerated. Patient remains on stress dose steroids. Continue arterial line. Hemoglobin shows no transfusions are necessary at this time. Patient does have significant cardiogenic issues that may be contributing to hypotension. Could attempt a repeat echocardiogram, but defer to cardiology. 2. Probable COPD/spiculated pulmonary nodule/acute hypoxic respiratory failure Continue mechanical ventilation at the current settings. ABG shows adequate oxygenation and ventilation. Patient still has a small element of metabolic acidosis. Discontinue budesonide as patient is on stress dose steroids. Will initiate Precedex therapy to help with vent synchrony given increased mentation. Unclear if hyponatremia is secondary to spiculated nodule with paraneoplastic SIADH, but this is being investigated as an outpatient. Patient could be bolused with normal saline if necessary for hypotension. Labs are currently pending 3. AAA/tobacco abuse/poor insight/history of CHF/hypertension/advanced age/chronic back pain Complicates care, management, recovery and prognosis. Family has changed CODE STATUS to DNR Comfort Care arrest with intubation given prognosis. I believe this is appropriate. Given chronic back pain, patient will be placed on fentanyl drip 4. Decreased urine output Unclear etiology. Creatinine is not significantly elevated. Patient does have some hyperkalemia, but unclear if this is related to intravascular deposition through bleeding. Patient did have significant bleeding complications yesterday. We will check a renal ultrasound to be sure there is no hydronephrosis. Patient may also have an element of ATN secondary to problem #1 that has not resulted in elevated creatinine at this time. TIME: 45 minutes critical care time, in addition to morning assessment, was spent addressing patient's hemorrhagic shock, respiratory failure, review of all data and collaboration with care team Subjective Subjective Yesterday's events were reviewed. Patient did have a central line placed overnight by the hospitalist to facilitate pressor therapy. Patient has been on only fentanyl overnight. No restraints have been required until this morning. Patient is now complaining of back pain and is more fidgety. Family has been at the bedside throughout the evening. Nursing is not reporting any expanding masses in the groin, but patient has had decreased urine output overnight. Objective Data Objective Data Patient remains maxed out on vasopressin and Levophed. Some improvement in Rony- Synephrine overnight. Patient has been on a bicarbonate drip with total IV fluids at 150 cc an hour. ABG completed this morning shows improvement in acidosis on the current settings. Vital Signs: Vital Signs Temp Pulse Resp BP Pulse Ox O2 Del Method O2 Flow Rate 35.7 C L 120 H 25 H 68/55 L 95 Mechanical Ventilator 2 12/23/21 03:00 12/23/21 05:43 12/23/21 05:43 12/23/21 06:00 12/23/21 05:00 12/23/21 05:00 12/22/21 11:21 FiO2 30 12/23/21 05:43 Oxygen Flow Rate (L/min) 2 Oxygen Delivery Method Mechanical Ventilator Weight: 73.9 kg Body Mass Index (BMI) 21.4 Intake & Output: Intake and Output for Last 24 Hours 12/21/21 12/22/21 12/23/21 23:59 23:59 23:59 Intake Total 2491.25 / 2491.25 5361.78 / 5500.58 1794.06 / 1794.06 Output Total 1600 / 1600 2910 / 2910 Balance 891.25 / 891.25 2451.78 / 2590.58 1794.06 / 1794.06 Lab / Micro Data Attestation: I reviewed the patient's lab results. Result Diagrams: 12/23/21 03:40 12/23/21 03:40 Labs: Laboratory Results - last 24 hr 12/18/21 07:33: A1 Antigen Typing Cancelled, Rho(D) Type Cancelled, Crossmatch See Detail 12/22/21 03:35: WBC 13.2 H, RBC 4.17 L, Hgb 13.5, Hct 41.1, MCV 98.6 H, MCH 32.4 H, MCHC 32.8, RDW Std Deviation 46.5 H, RDW Coeff of Jamie 12.9, Plt Count 252, MPV 11.1, Immature Gran % (Auto) 0.900, Neut % (Auto) 80.2 H, Lymph % (Auto) 13.5 L, Nuckolls % (Auto) 5.0, Eos % (Auto) 0.2, Baso % (Auto) 0.2, Absolute Neuts (auto) 10.6 H, Absolute Lymphs (auto) 1.78, Nucleated RBC % 0 12/22/21 03:35: Sodium 130 L, Potassium 4.9, Chloride 94 L, Carbon Dioxide 31.0, Anion Gap 5, BUN 23 H, Creatinine 0.62 L, Estim Creat Clear Calc 70.82, Est GFR (MDRD) Af Amer 165, Est GFR (MDRD) Non-Af 136, BUN/Creatinine Ratio 37.2 H, G lucose 123 H, Calcium 8.0 L 12/22/21 15:25: WBC 19.1 H, RBC 3.62 L, Hgb 11.4 L, Hct 35.8 L, MCV 98.9 H, MCH 31.5, MCHC 31.8 L, RDW Std Deviation 50.7 H, RDW Coeff of Jamie 14.0, Plt Count 181, MPV 10.7, Immature Gran % (Auto) 3.600 H, Neut % (Auto) 61.8, Lymph % (Auto) 27.9, Nuckolls % (Auto) 6.2, Eos % (Auto) 0.2, Baso % (Auto) 0.3, Absolute Neuts (auto) 11.8 H, Absolute Lymphs (auto) 5.32 H, Nucleated RBC % 0.1, D ifferential Comment SCANNED 12/22/21 15:25: PT 19.5 H, INR 1.7, APTT > 200.0 H* 12/22/21 15:25: Sodium 132 L, Potassium 5.6 H, Chloride 103, Carbon Dioxide 18.0 L, Anion Gap 11, BUN 18, Creatinine 0.79, Estim Creat Clear Calc 70.82, Est GFR (MDRD) Af Amer 124, Est GFR (MDRD) Non-Af 103, BUN/Creatinine Ratio 22.8 H, Glucose 408 H, Calcium 6.5 L* 12/22/21 15:25: Total Creatine Kinase 31 L, Triglycerides 53 12/22/21 17:47: WBC 37.1 H*, RBC 4.03 L, Hgb 12.6 L, Hct 39.4 L, MCV 97.8 H, MCH 31.3, MCHC 32.0, RDW Std Deviation 54.2 H, RDW Coeff of Jamie 14.9 H, Plt Count 187, MPV 10.4, Neut % (Auto) Not Reportable, Absolute Neuts (auto) 30.0 H, Absolute Lymphs (auto) 5.19 H, Total Counted 100, Neutrophils % (Manual) 79 H, Band Neutrophils % 2, Lymphocytes % (Manual) 14 L, Monocytes % (Manual) 5, Diff Path Review October [facility] 12/22/21 23:23: WBC 53.9 H*, RBC 4.48 L, Hgb 14.2, Hct 42.5, MCV 94.9 H, MCH 31.7, MCHC 33.4, RDW Std Deviation 53.4 H, RDW Coeff of Jamie 15.2 H, Plt Count 187, MPV 10.4, Immature Gran % (Auto) 3.900 H, Neut % (Auto) 86.8 H, Lymph % (Auto) 2.1 L, Nuckolls % (Auto) 7.1, Eos % (Auto) 0.0, Baso % (Auto) 0.1, Absolute Neuts (auto) 46.8 H, Absolute Lymphs (auto) 1.13, Nucleated RBC % 0, Differential Comment SCANNED, Diff Path Review October [facility] 12/22/21 23:23: Sodium 138, Potassium 5.6 H, Chloride 108 H, Carbon Dioxide 17.0 L, Anion Gap 13, BUN 25 H, Creatinine 1.25, Estim Creat Clear Calc 56.66, Est GFR (MDRD) Af Amer 73, Est GFR (MDRD) Non-Af 60, BUN/Creatinine Ratio 20.0, Glucose 262 H, Calcium 6.3 L* 12/23/21 03:40: WBC 53.5 H*, RBC 4.27 L, Hgb 13.5, Hct 39.7 L, MCV 93.0, MCH 31.6, MCHC 34.0, RDW Std Deviation 52.9 H, RDW Coeff of Jamie 15.5 H, Plt Count 175, MPV 10.2, Immature Gran % (Auto) 3.000 H, Neut % (Auto) 87.0 H, Lymph % (Auto) 3.0 L, Nuckolls % (Auto) 6.7, Eos % (Auto) 0.0, Baso % (Auto) 0.3, Absolute Neuts (auto) 46.6 H, Absolute Lymphs (auto) 1.60, Nucleated RBC % 0, Differential Comment SCANNED, Diff Path Review October12/23/21 03:40: Sodium 137, Potassium 5.2 H, Chloride 108 H, Carbon Dioxide 20.0 L, Anion Gap 9, BUN 29 H, Creatinine 1.30, Estim Creat Clear Calc 54.48, Est GFR (MDRD) Af Amer 70, Est GFR (MDRD) Non-Af 58 L, BUN/Creatinine Ratio 22.3 H, Glucose 278 H, Calcium 6.9 L Micro: Microbiology 12/18/21 07:33 Swab (Method) Nasal Screen MRSA/MSSA - Final ABG Data ABG results: ABG 12/22/21 12/22/21 12/22/21 15:26 17:52 19:22 Specimen Type ART ART ART Sample Site Art Line Art Line pH 7.14 L* 7.08 L* 7.22 L Bicarbonate Actual 17.1 L 13.5 L 17.3 L Total CO2 19 15 19 Base Excess -12 L -17 L -10 L O2 Saturation 100 H 91 L 95 O2 % 30 30 ABG pCO2 50.3 H 45.5 H 42.2 ABG pO2 431 H* 84 89 Jake Test N/A Respiration Rate 16 16 O2 Delivery Device Adult Vent Adult Vent Vent Mode AC AC Tidal Volume 500 500 POC PEEP 5 5 Crit Call To/Read Back Yes Yes Blood Gas Notified Whom shell/kirill 12/23/21 05:57 Specimen Type ART Sample Site Art Line pH 7.33 L Bicarbonate Actual 17.1 L Total CO2 18 Base Excess -9 L O2 Saturation 95 O2 % 30 ABG pCO2 32.3 L ABG pO2 79 Jake Test N/A Respiration Rate 16 O2 Delivery Device Adult Vent Vent Mode AC Tidal Volume 500 POC PEEP 5 Crit Call To/Read Back Blood Gas Notified Whom Attestation: I personally reviewed and interpreted this ABG as follows: Interpretation: See above Radiography Diagnostic Testing: Radiology Impression Chest X-Ray 12/22/21 17:45 IMPRESSION: There are no acute findings. Electronically Signed: James Baron MD at 18:54 EDT , Rhythm Strip Rhythm Strip: Sinus Tach Rate: 108 Physical Exam Const alert Constitutional Narrative: Appears older than stated age. Readily makes eye contact. General Appearance: ill appearing and patient mechanically ventilated HEENT head/scalp atraumatic and moist oral mucous membranes Eyes Eyes Narrative: Scleral edema appreciated. Neck no lymphadenopathy and supple Chest inspection of chest normal Resp normal respiratory effort Effort and Inspection: symmetric chest movement Auscultation: Negative for rales, rhonchi or wheezes Cardio regular rhythm, S1 normal heart sound, S2 normal heart sound, no murmurs, no rub and no gallops Rate: tachycardic GI soft to palpation and non-tender GI Narrative: Slightly distended abdomen. No pulsatile masses or worsening ecchymosis appreciated Narrative: Flushing of catheter shows no sediment Extremity Extremity Narrative: Generalized edema noted. General Extremity: clubbing Skin Skin Narrative: dermal atrophy. Some lower extremity mottling noted. Erythema of the hands. Neuro moves all extremities, no focal motor deficits and no sensory deficits noted Psych Activity / Motor Behavior: restless Mood & Affect: anxious Charges/Coding Procedures Hospitalists Procedures: 29097 Critial Care 1st Hr
--- NOTE | 2021-12-23 08:33 | CPS ---
RN notified CLASSROOM TEACHER of ET Tube being at 26 @ lip, RN and CLASSROOM TEACHER repositioned ET Tube back to original placement at 25 at the lip
[2021-12-23] MEDS: Albuterol 2.5 MG/3 ML VIAL.NEB. INHALATION (09:31)
[2021-12-23] MEDS: 0.9% Normal Saline 1,000 ML 75 ML IV (10:47)
[2021-12-23] MEDS: Aspirin 81 MG TAB.CHEW PO (10:47)
[2021-12-23] MEDS: Enoxaparin 40 MG/0.4 ML Syringe SC (10:48)
[2021-12-23] MEDS: Doxycycline 100 MG CAPSULE PO ×2 (10:48→21:57)
[2021-12-23] MEDS: Phenylephrine 40 mg/250 mL 0.9% NS 37.5 MG CONT INF (11:00)
--- NOTE | 2021-12-23 11:26 | ECHOLC_ITS ---
Reason For Study: AAA Procedure This was a limited 2D transthoracic echocardiogram. The study was technically difficult. Contrast injection was performed. Exam performed portable in ICU/CCU. Medication Diluted definity 3ml given slow IV push to enhance endocardial definition. MMode/2D Measurements & Calculations LA dimension(2D): 3.6 cm ECHO/Echo Limited w/Contrast Interpretation Summary Probable mildly reduced LV function estimated to be 40+- Contrast injection was performed. The study was technically limited. The study was technically difficult. Ordering Physician: Michael Cedeno Referring Physician: Kahlil Fernandes Performed By: Tamra Duong RCS
[2021-12-23 11:45] LABS: Bedside Glucose 175 mg/dL (74-106)
[2021-12-23 12:17] LABS: Pathologist Review Reviewed
[2021-12-23 12:17] LABS: Pathologist Review Reviewed
--- NOTE | 2021-12-23 12:17 | PN.SURG_ITS ---
Subjective Subjective Slowly improvement overnight. Was awake and following commands on vent, sedation later needed. Weaning pressors slowly, BP ultimately satisfactory. Hgb stable with no further transfusions. UOP dropped significantly overnight, cr elevated some from baseline. Objective Data Objective Data Vital Signs: Vital Signs Temp Pulse Resp BP Pulse Ox O2 Del Method O2 Flow Rate 96.2 F L 72 18 179/88 H 96 Mechanical Ventilator 30 12/23/21 03:00 12/23/21 11:00 12/23/21 11:00 12/23/21 11:00 12/23/21 11:00 12/23/21 11:00 12/23/21 10:15 FiO2 30 12/23/21 11:00 Oxygen Flow Rate (L/min) 30 Oxygen Delivery Method Mechanical Ventilator Weight: 162 lb 14.746 oz Body Mass Index (BMI) 21.4 Intake & Output: Intake and Output for Last 24 Hours 12/21/21 12/22/21 12/23/21 23:59 23:59 23:59 Intake Total 2491.25 / 2491.25 5361.78 / 5500.58 3880.10 / 3880.10 Output Total 1600 / 1600 2910 / 2910 90 / 90 Balance 891.25 / 891.25 2451.78 / 2590.58 3790.10 / 3790.10 Lab / Micro Data Result Diagrams: 12/23/21 03:40 12/23/21 03:40 Labs: Laboratory Results - last 24 hr 12/18/21 07:33: Blood Type Cancelled, A1 Antigen Typing Cancelled, Rho(D) Type Cancelled, Antibody Screen Cancelled, Crossmatch See Detail 12/22/21 15:25: WBC 19.1 H, RBC 3.62 L, Hgb 11.4 L, Hct 35.8 L, MCV 98.9 H, MCH 31.5, MCHC 31.8 L, RDW Std Deviation 50.7 H, RDW Coeff of Jamie 14.0, Plt Count 181, MPV 10.7, Immature Gran % (Auto) 3.600 H, Neut % (Auto) 61.8, Lymph % (Auto) 27.9, Schuyler % (Auto) 6.2, Eos % (Auto) 0.2, Baso % (Auto) 0.3, Absolute Neuts (auto) 11.8 H, Absolute Lymphs (auto) 5.32 H, Nucleated RBC % 0.1, Differential Comment SCANNED 12/22/21 15:25: PT 19.5 H, INR 1.7, APTT > 200.0 H* 12/22/21 15:25: Sodium 132 L, Potassium 5.6 H, Chloride 103, Carbon Dioxide 18.0 L, Anion Gap 11, BUN 18, Creatinine 0.79, Estim Creat Clear Calc 70.82, Est GFR (MDRD) Af Amer 124, Est GFR (MDRD) Non-Af 103, BUN/Creatinine Ratio 22.8 H, Glucose 408 H, Calcium 6.5 L* 12/22/21 15:25: Total Creatine Kinase 31 L, Triglycerides 53 12/22/21 17:47: WBC 37.1 H*, RBC 4.03 L, Hgb 12.6 L, Hct 39.4 L, MCV 97.8 H, MCH 31.3, MCHC 32.0, RDW Std Deviation 54.2 H, RDW Coeff of Jamie 14.9 H, Plt Count 187, MPV 10.4, Neut % (Auto) Not Reportable, Absolute Neuts (auto) 30.0 H, Absolute Lymphs (auto) 5.19 H, Total Counted 100, Neutrophils % (Manual) 79 H, Band Neutrophils % 2, Lymphocytes % (Manual) 14 L, Monocytes % (Manual) 5, Diff Path Review Reviewed 12/22/21 23:23: WBC 53.9 H*, RBC 4.48 L, Hgb 14.2, Hct 42.5, MCV 94.9 H, MCH 31.7, MCHC 33.4, RDW Std Deviation 53.4 H, RDW Coeff of Jamie 15.2 H, Plt Count 187, MPV 10.4, Immature Gran % (Auto) 3.900 H, Neut % (Auto) 86.8 H, Lymph % (Auto) 2.1 L, Schuyler % (Auto) 7.1, Eos % (Auto) 0.0, Baso % (Auto) 0.1, Absolute Neuts (auto) 46.8 H, Absolute Lymphs (auto) 1.13, Nucleated RBC % 0, Differential Comment SCANNED, Diff Path Review October12/22/21 23:23: Sodium 138, Potassium 5.6 H, Chloride 108 H, Carbon Dioxide 17.0 L, Anion Gap 13, BUN 25 H, Creatinine 1.25, Estim Creat Clear Calc 56.66, Est GFR (MDRD) Af Amer 73, Est GFR (MDRD) Non-Af 60, BUN/Creatinine Ratio 20.0, Glucose 262 H, Calcium 6.3 L* 12/23/21 03:40: WBC 53.5 H*, RBC 4.27 L, Hgb 13.5, Hct 39.7 L, MCV 93.0, MCH 31.6, MCHC 34.0, RDW Std Deviation 52.9 H, RDW Coeff of Jamie 15.5 H, Plt Count 175, MPV 10.2, Immature Gran % (Auto) 3.000 H, Neut % (Auto) 87.0 H, Lymph % (Auto) 3.0 L, Schuyler % (Auto) 6.7, Eos % (Auto) 0.0, Baso % (Auto) 0.3, Absolute Neuts (auto) 46.6 H, Absolute Lymphs (auto) 1.60, Nucleated RBC % 0, Differential Comment SCANNED, Diff Path Review May foll 12/23/21 03:40: Sodium 137, Potassium 5.2 H, Chloride 108 H, Carbon Dioxide 20.0 L, Anion Gap 9, BUN 29 H, Creatinine 1.30, Estim Creat Clear Calc 54.48, Est GFR (MDRD) Af Amer 70, Est GFR (MDRD) Non-Af 58 L, BUN/Creatinine Ratio 22.3 H, Glucose 278 H, Calcium 6.9 L 12/23/21 11:07: POC Glucose 175 H Micro: Microbiology 12/18/21 07:33 Swab (Method) Nasal Screen MRSA/MSSA - Final ABG Data ABG results: ABG 12/22/21 12/22/21 12/22/21 15:26 17:52 19:22 Specimen Type ART ART ART Sample Site Art Line Art Line pH 7.14 L* 7.08 L* 7.22 L Bicarbonate Actual 17.1 L 13.5 L 17.3 L Total CO2 19 15 19 Base Excess -12 L -17 L -10 L O2 Saturation 100 H 91 L 95 O2 % 30 30 ABG pCO2 50.3 H 45.5 H 42.2 ABG pO2 431 H* 84 89 Jake Test N/A Respiration Rate 16 16 O2 Delivery Device Adult Vent Adult Vent Vent Mode AC AC Tidal Volume 500 500 POC PEEP 5 5 Crit Call To/Read Back Yes Yes Blood Gas Notified Whom shell/kirill 12/23/21 05:57 Specimen Type ART Sample Site Art Line pH 7.33 L Bicarbonate Actual 17.1 L Total CO2 18 Base Excess -9 L O2 Saturation 95 O2 % 30 ABG pCO2 32.3 L ABG pO2 79 Jake Test N/A Respiration Rate 16 O2 Delivery Device Adult Vent Vent Mode AC Tidal Volume 500 POC PEEP 5 Crit Call To/Read Back Blood Gas Notified Whom Radiography Diagnostic Testing: Radiology Impression Chest X-Ray 12/22/21 17:45 IMPRESSION: There are no acute findings. Electronically Signed: James Baron MD at 18:54 EDT , Rhythm Strip Rhythm Strip: Sinus Tach Rate: 108 Physical Exam Const General Appearance: intubated and patient mechanically ventilated Orientation / Consciousness: other Other Details: sedated HEENT Head and Scalp: normocephalic and atraumatic Resp Effort and Inspection: mechanically ventilated Cardio regular rate and regular rhythm Peripheral Pulses: femoral pulses present GI soft to palpation, non-tender and non-distended Scrotum: edematous Extremity normal capillary refill and no clubbing, cyanosis or edema Skin no rashes or lesions noted and no wounds Skin Narrative: puncture sites clean, dry, no hematoma Neuro Neuro Narrative: sedated Assessment & Plan Assessment/Plan (1) Ruptured iliac artery: PLAN: -remains critically ill, but slowly improving -no further transfusions after immediate post op and with stable hgb -initially post op had adequate uop, has dropped significantly overnight; renal duplex planned for today -suspect from severe/prolonged hypotension and pressor support -mild hyperkalemia, avoid in any iv solutions - does not think he would want dialysis if it came to that, though may consider temporary -appreciate ICU and cardiology care
[2021-12-23 12:18] LABS: Pathologist Review Reviewed
--- NOTE | 2021-12-23 12:30 | RAD_ITS ---
STUDY: X-RAY - ABDOMEN/PELVIS REASON FOR EXAM: Male, 71 years old. OG placement TECHNIQUE: Single AP view of the abdomen / pelvis. COMPARISON: None. FINDINGS: The tip of the orogastric tube is in the body of the stomach. RAD/Abdomen Single View (Portable) IMPRESSION: The tip of the orogastric tube is in the body of the stomach. Electronically Signed: Braydon Guthrie MD at 13:34 EDT ,
[2021-12-23] MEDS: Ipratropium/Albuterol Sulfate 3 ML AMPUL.NEB INHALATION ×2 (13:24→19:19)
[2021-12-23] MEDS: Norepinephrine 16 mg/250 mL 0.9% NS 28.1 MG CONT INF (13:44)
[2021-12-23] MEDS: Insulin Lispro 100 UNIT/ML INSULN.PEN SC ×2 (13:48→16:50)
[2021-12-23] MEDS: Phenylephrine 40 mg/250 mL 0.9% NS 15 MG CONT INF (14:00)
--- NOTE | 2021-12-23 15:13 | CHAPLAIN ---
Type of Pastoral Visit ___ Initial Visit _x__ Follow-up Visit ___ On-call Visit ___ General Patient Visit ___ Spiritual Assessment ___ Family Conference ___ Bereavement ___ Rapid Response ___ Code Blue ___ Other (describe below) Pastoral Care Referral From ___ Patient _x__ Family ___ Nurse ___ Physician ___ Glove [employer] ___ Labeling Specialist ___ Other (describe below) Sacrament/Intervention _x__ Active listening ___ Anointing ___ Jehovah'S Witness ___ Bereavement ___ Communion _x__ Rebeca exploration ___ ___ Life review _x__ Prayer ___ Reconciliation ___ Sacrament of Sick _x__ Supportive presence ___ Wedding ___ Other (describe below) Pastoral Comments met with the patient's late this morning; spouse has been here all night as patient has been in critical situation; son had just gone home for a nap and is to return later today; sat with spouse as she reviewed status of patient; spouse is clear that if patient lives but isn't able to live a normal life, he is going to be so angry; spouse repeats several times I just don't know how this is going to shank turner, but I'm not in control of it; offer of support through presence, listening, affirming feelings; spouse welcomes prayer support; offer of getting spouse something to eat but she declines; will give ongoing support
--- NOTE | 2021-12-23 15:48 | CHAPLAIN ---
Type of Pastoral Visit ___ Initial Visit _x__ Follow-up Visit ___ On-call Visit ___ General Patient Visit ___ Spiritual Assessment ___ Family Conference ___ Bereavement ___ Rapid Response ___ Code Blue ___ Other (describe below) Pastoral Care Referral From ___ Patient _x__ Family ___ Nurse ___ Physician ___ [employer] ___ School Health Aide ___ Other (describe below) Sacrament/Intervention _x__ Active listening ___ Anointing ___ Zoroastrian ___ Bereavement ___ Communion ___ Rebeca exploration ___ ___ Life review ___ Prayer ___ Reconciliation ___ Sacrament of Sick ___ Supportive presence ___ Wedding ___ Other (describe below) Pastoral Comments second follow up visit to patient and spouse this afternoon; spouse still at bedside and has not gone home; spouse considering going home for the evening if patient is stable enough; encouraged spouse to care to her needs as well; time to listen to spouse and her concerns; spouse states there is nothing that I could have done; spouse again states that patient is an angry person and she has concerns about how he will respond to his future; offer of ongoing support and a return for tomorrow visit
[2021-12-23 16:24] LABS: Anion Gap 12 (5-15); BUN 40 mg/dL (7-18); BUN/Creat Ratio 19.3 RATIO (10-20); Calcium,Total 7.5 mg/dL (8.5-10.1); Chloride 108 mmol/L (98-107); Creatinine, Serum 2.07 mg/dL (0.70-1.30); EST Glomerular Filtration Rate 34 mL/min (>60); Est Glom Filt Rate - Afr Amer 41 mL/min (>60); Estimated Creatinine Clearance 34.21 ml/min; Glucose 227 mg/dL (74-106); Magnesium 1.7 mg/dL (1.6-2.6); Phosphorus 7.3 mg/dL (2.5-4.9); Potassium 5.9 mmol/L (3.5-5.1); Sodium Level 139 mmol/L (136-145)
--- NOTE | 2021-12-23 17:39 | PCM.PN.CARD ---
Subjective Subjective Events of yesterday noted. Patient underwent significant resuscitative efforts yesterday. This morning still on ventilator but blood pressures are better. Objective Data Vital Signs: Vital Signs Temp Pulse Resp BP Pulse Ox O2 Del Method O2 Flow Rate 97.2 F L 96 16 123/83 H 95 Mechanical Ventilator 30 12/23/21 12:00 12/23/21 17:00 12/23/21 17:00 12/23/21 17:00 12/23/21 17:00 12/23/21 17:00 12/23/21 10:15 FiO2 30 12/23/21 16:00 Oxygen Flow Rate (L/min) 30 Oxygen Delivery Method Mechanical Ventilator Weight: 162 lb 14.746 oz Body Mass Index (BMI) 21.4 Intake & Output: Intake and Output for Last 24 Hours 12/21/21 12/22/21 12/23/21 23:59 23:59 23:59 Intake Total 2491.25 / 2491.25 5361.78 / 5500.58 4690.14 / 4690.14 Output Total 1600 / 1600 2910 / 2910 170 / 170 Balance 891.25 / 891.25 2451.78 / 2590.58 4520.14 / 4520.14 Lab / Micro Data Result Diagrams: 12/23/21 03:40 12/23/21 14:53 Labs: Laboratory Results - last 24 hr 12/18/21 07:33: Blood Type Cancelled, A1 Antigen Typing Cancelled, Rho(D) Type Cancelled, Antibody Screen Cancelled, Crossmatch See Detail 12/22/21 15:25: Total Creatine Kinase 31 L, Triglycerides 53 12/22/21 17:47: WBC 37.1 H*, RBC 4.03 L, Hgb 12.6 L, Hct 39.4 L, MCV 97.8 H, MCH 31.3, MCHC 32.0, RDW Std Deviation 54.2 H, RDW Coeff of Jamie 14.9 H, Plt Count 187, MPV 10.4, Neut % (Auto) Not Reportable, Absolute Neuts (auto) 30.0 H, Absolute Lymphs (auto) 5.19 H, Total Counted 100, Neutrophils % (Manual) 79 H, Band Neutrophils % 2, Lymphocytes % (Manual) 14 L, Monocytes % (Manual) 5, Diff Path Review Reviewed 12/22/21 23:23: WBC 53.9 H*, RBC 4.48 L, Hgb 14.2, Hct 42.5, MCV 94.9 H, MCH 31.7, MCHC 33.4, RDW Std Deviation 53.4 H, RDW Coeff of Jamie 15.2 H, Plt Count 187, MPV 10.4, Immature Gran % (Auto) 3.900 H, Neut % (Auto) 86.8 H, Lymph % (Auto) 2.1 L, Morgan % (Auto) 7.1, Eos % (Auto) 0.0, Baso % (Auto) 0.1, Absolute Neuts (auto) 46.8 H, Absolute Lymphs (auto) 1.13, Nucleated RBC % 0, Differential Comment SCANNED, Diff Path Review Reviewed 12/22/21 23:23: Sodium 138, Potassium 5.6 H, Chloride 108 H, Carbon Dioxide 17.0 L, Anion Gap 13, BUN 25 H, Creatinine 1.25, Estim Creat Clear Calc 56.66, Est GFR (MDRD) Af Amer 73, Est GFR (MDRD) Non-Af 60, BUN/Creatinine Ratio 20.0, Glucose 262 H, Calcium 6.3 L* 12/23/21 03:40: WBC 53.5 H*, RBC 4.27 L, Hgb 13.5, Hct 39.7 L, MCV 93.0, MCH 31.6, MCHC 34.0, RDW Std Deviation 52.9 H, RDW Coeff of Jamie 15.5 H, Plt Count 175, MPV 10.2, Immature Gran % (Auto) 3.000 H, Neut % (Auto) 87.0 H, Lymph % (Auto) 3.0 L, Morgan % (Auto) 6.7, Eos % (Auto) 0.0, Baso % (Auto) 0.3, Absolute Neuts (auto) 46.6 H, Absolute Lymphs (auto) 1.60, Nucleated RBC % 0, Differential Comment SCANNED, Diff Path Review Reviewed 12/23/21 03:40: Sodium 137, Potassium 5.2 H, Chloride 108 H, Carbon Dioxide 20.0 L, Anion Gap 9, BUN 29 H, Creatinine 1.30, Estim Creat Clear Calc 54.48, Est GFR (MDRD) Af Amer 70, Est GFR (MDRD) Non-Af 58 L, BUN/Creatinine Ratio 22.3 H, Glucose 278 H, Calcium 6.9 L 12/23/21 11:07: POC Glucose 175 H 12/23/21 14:53: Sodium 139, Potassium 5.9 H, Chloride 108 H, Carbon Dioxide 19.0 L, Anion Gap 12, BUN 40 H, Creatinine 2.07 H, Estim Creat Clear Calc 34.21, Est GFR (MDRD) Af Amer 41 L, Est GFR (MDRD) Non-Af 34 L, BUN/Creatinine Ratio 19.3, Glucose 227 H, Calcium 7.5 L, Phosphorus 7.3 H, Magnesium 1.7 ABG Data ABG results: ABG 12/22/21 12/22/21 12/23/21 17:52 19:22 05:57 Specimen Type ART ART ART Sample Site Art Line Art Line Art Line pH 7.08 L* 7.22 L 7.33 L Bicarbonate Actual 13.5 L 17.3 L 17.1 L Total CO2 15 19 18 Base Excess -17 L -10 L -9 L O2 Saturation 91 L 95 95 O2 % 30 30 30 ABG pCO2 45.5 H 42.2 32.3 L ABG pO2 84 89 79 Jake Test N/A N/A Respiration Rate 16 16 16 O2 Delivery Device Adult Vent Adult Vent Adult Vent Vent Mode AC AC AC Tidal Volume 500 500 500 POC PEEP 5 5 5 Crit Call To/Read Back Yes Blood Gas Notified Whom shell/kirill Rhythm Strip Rhythm Strip: Sinus Tach Rate: 108 Cardiology Labs/Tests 12/22/21 15:25: Triglycerides 53 12/22/21 17:47: WBC 37.1 H*, RBC 4.03 L, Hgb 12.6 L, Hct 39.4 L, MCV 97.8 H, MCH 31.3, MCHC 32.0, Plt Count 187, MPV 10.4, Neut % (Auto) Not Reportable, Absolute Neuts (auto) 30.0 H, Total Counted 100, Neutrophils % (Manual) 79 H, Band Neutrophils % 2, Lymphocytes % (Manual) 14 L, Monocytes % (Manual) 5 12/22/21 17:52: pH 7.08 L*, Bicarbonate Actual 13.5 L, Base Excess -17 L, O2 Saturation 91 L, ABG pCO2 45.5 H, ABG pO2 84 07/20/22 19:22: pH 7.22 L, Bicarbonate Actual 17.3 L, Base Excess -10 L, O2 Saturation 95, ABG pCO2 42.2, ABG pO2 89, Jake Test N/A 12/22/21 23:23: WBC 53.9 H*, RBC 4.48 L, Hgb 14.2, Hct 42.5, MCV 94.9 H, MCH 31.7, MCHC 33.4, Plt Count 187, MPV 10.4, Immature Gran % (Auto) 3.900 H, Neut % (Auto) 86.8 H, Lymph % (Auto) 2.1 L, Morgan % (Auto) 7.1, Eos % (Auto) 0.0, Baso % (Auto) 0.1, Absolute Neuts (auto) 46.8 H, Nucleated RBC % 0 12/22/21 23:23: Sodium 138, Potassium 5.6 H, Chloride 108 H, Carbon Dioxide 17.0 L, Anion Gap 13, BUN 25 H, Creatinine 1.25, Est GFR (MDRD) Af Amer 73, Est GFR (MDRD) Non-Af 60, BUN/Creatinine Ratio 20.0, Glucose 262 H, Calcium 6.3 L* 12/23/21 03:40: WBC 53.5 H*, RBC 4.27 L, Hgb 13.5, Hct 39.7 L, MCV 93.0, MCH 31.6, MCHC 34.0, Plt Count 175, MPV 10.2, Immature Gran % (Auto) 3.000 H, Neut % (Auto) 87.0 H, Lymph % (Auto) 3.0 L, Morgan % (Auto) 6.7, Eos % (Auto) 0.0, Baso % (Auto) 0.3, Absolute Neuts (auto) 46.6 H, Nucleated RBC % 0 12/23/21 03:40: Sodium 137, Potassium 5.2 H, Chloride 108 H, Carbon Dioxide 20.0 L, Anion Gap 9, BUN 29 H, Creatinine 1.30, Est GFR (MDRD) Af Amer 70, Est GFR (MDRD) Non-Af 58 L, BUN/Creatinine Ratio 22.3 H, Glucose 278 H, Calcium 6.9 L 12/23/21 05:57: pH 7.33 L, Bicarbonate Actual 17.1 L, Base Excess -9 L, O2 Saturation 95, ABG pCO2 32.3 L, ABG pO2 79, Jake Test N/A 12/23/21 14:53: Sodium 139, Potassium 5.9 H, Chloride 108 H, Carbon Dioxide 19.0 L, Anion Gap 12, BUN 40 H, Creatinine 2.07 H, Est GFR (MDRD) Af Amer 41 L, Est GFR (MDRD) Non-Af 34 L, BUN/Creatinine Ratio 19.3, Glucose 227 H, Calcium 7.5 L, Phosphorus 7.3 H, Magnesium 1.7 Rhythm: EKG: ECHO: Stress Test: Cardiac Cath: PCI: CT Surgery: Holter monitor: EPS: PPM: CXR: Chest CT Scan: Radiography Diagnostic Testing: Radiology Impression Chest X-Ray 12/22/21 17:45 IMPRESSION: There are no acute findings. Electronically Signed: James Baron MD at 18:54 EDT , Renal Ultrasound 12/23/21 06:37 IMPRESSION: Normal ultrasound of the kidneys. Trace amount of free fluid in the pelvis. Electronically Signed: Braydon Guthrie MD at 14:55 EDT , Echocardiogram 12/23/21 11:26 Interpretation Summary Probable mildly reduced LV function estimated to be 40+- Contrast injection was performed. The study was technically limited. The study was technically difficult. Ordering Physician: Pao, [place] Referring Physician: Kahlil Fernandes Performed By: Tamra Duong RCS X-Ray 12/23/21 12:30 IMPRESSION: The tip of the orogastric tube is in the body of the stomach. Electronically Signed: Braydon Guthrie MD at 13:34 EDT , Physical Exam Const General Appearance: intubated and patient mechanically ventilated Orientation / Consciousness: other Other Details: sedated HEENT Head and Scalp: normocephalic and atraumatic Resp Effort and Inspection: mechanically ventilated Cardio regular rate and regular rhythm Peripheral Pulses: femoral pulses present GI soft to palpation, non-tender and non-distended Scrotum: edematous Extremity normal capillary refill and no clubbing, cyanosis or edema Skin no rashes or lesions noted and no wounds Skin Narrative: puncture sites clean, dry, no hematoma Neuro Neuro Narrative: sedated Assessment & Plan Assessment/Plan (1) Hypotension: PLAN: Patient developed significant hypotension following IV echo rupture. Required significant IV fluid resuscitation as well as pressor resuscitation and blood. At the moment appears to be fairly stable. I do not think that this is secondary to an acute cardiac event. We will continue with resuscitative efforts. (2) Stented coronary artery: PLAN: Patient is status post previous angioplasty and stenting. Recent cardiac catheterization also demonstrated a patent ESTRADA to the LAD and disease of the circumflex artery. The above appears to have been stable. Recent echocardiogram demonstrates no significant change in the left ventricular ejection fraction. (3) AAA (abdominal aortic aneurysm) without rupture: PLAN: Abdominal aortic aneurysm status post attempted repair. (4) Cardiomyopathy: PLAN: Patient has a mild cardiomyopathy. At this time I would recommend that we continue to follow expectant management. Thank you for allowing me to participate in the care of your patient. Please don't hesitate to call if any issues arise.
[2021-12-23 21:20] LABS: Bedside Glucose 186 mg/dL (74-106)
[2021-12-23] MEDS: 0.9% Saline Lock 10 ML Syringe IV (21:54)
[2021-12-23] MEDS: Atorvastatin Calcium 40 MG Tablet PO (21:57)
[2021-12-23] MEDS: Norepinephrine 16 mg/250 mL 0.9% NS 18.8 MG CONT INF (23:50)
[2021-12-24] VITALS (72 sets, daily range): BP systolic 67–112; BP diastolic 44–77; PULSE 75–127; RESP 15–23; TEMP 36.2–37.8; O2SAT 92–99
[2021-12-24] MEDS: 0.9% Normal Saline 1,000 ML 75 ML IV
[2021-12-24] MEDS: Insulin Lispro 100 UNIT/ML INSULN.PEN SC ×3 (00:10→11:56)
[2021-12-24 01:21] LABS: Bedside Glucose 189 mg/dL (74-106)
[2021-12-24] MEDS: TITRATION PARAMETER CHANGE 1 EACH IV (02:10)
[2021-12-24 04:05] LABS: Absolute Lymphocyte Count 1.57 X10^3/uL (0.83-4.51); Absolute Neutrophil Count 28.8 X10^3/uL (2.0-7.7); Basophil# 0.07 X10^3/uL; Basophil% 0.2 % (0-1); Hemoglobin 11.2 g/dL (13.0-16.5); Lymphocyte # 1.57 X10^3/ul (0.83-4.51); Lymphocyte % 4.7 % (19-41); Mean Corp Hgb Conc 32.9 g/dL (32-36); Mean Corpuscular Hgb 31.5 pg (27.0-32.0); Mean Corpuscular Volume 95.8 fL (80-94); Mean Platelet Vol. 11.2 fl (6.2-12.0); Monocyte# 2.12 X10^3/uL; Monocyte% 6.4 % (0-10); NRBC Flagged by Analyzer 0 % (0-5); Neutrophil # 28.79 X10^3/uL (2.7-7.7); POSITIVE COUNT YES; POSITIVE DIFFERENTIAL YES; Platelet Count 109 K/mm3 (150-450); RBC Distribution Width CV 15.6 % (11.6-14.6); RBC Distribution Width SD 55.1 fl (35.1-43.9); Red Blood Count 3.55 M/mm3 (4.6-6.2)
[2021-12-24 04:06] LABS: Differential Indicated SCAN CRITERIA MET
[2021-12-24 04:07] LABS: White Blood Count 33.1 K/mm3 (4.4-11.0)
[2021-12-24 04:17] LABS: Anion Gap 10 (5-15); BUN 49 mg/dL (7-18); Chloride 110 mmol/L (98-107); Creatinine, Serum 2.23 mg/dL (0.70-1.30); EST Glomerular Filtration Rate 31 mL/min (>60); Est Glom Filt Rate - Afr Amer 38 mL/min (>60); Estimated Creatinine Clearance 34.34 ml/min; Glucose 212 mg/dL (74-106); Magnesium 2.4 mg/dL (1.6-2.6); Potassium 5.7 mmol/L (3.5-5.1); Sodium Level 138 mmol/L (136-145)
[2021-12-24 04:44] LABS: Differential Comment SCANNED
[2021-12-24 04:45] LABS: Platelet Estimate SLT DEC (ADEQ)
[2021-12-24] MEDS: Hydrocortisone Sod Succinate 100 MG/2 ML Vial IV ×3 (06:22→21:11)
[2021-12-24] MEDS: Ipratropium/Albuterol Sulfate 3 ML AMPUL.NEB INHALATION ×3 (06:58→18:52)
--- NOTE | 2021-12-24 06:58 | PN.CC_ITS ---
Assessment & Plan Assessment/Plan (1) Hypotension: (2) COPD (chronic obstructive pulmonary disease): (3) Pulmonary nodule: (4) AAA (abdominal aortic aneurysm) without rupture: PLAN: Plan RECOMMENDATIONS: 1. Continue Precedex therapy 2. Spontaneous breathing and awakening trials per protocol 3. Discontinue IV fluids. Hold on diuresis given pressor requirements 4. Wean Levophed as tolerated 5. Continue stress dose steroids for now 6. Await cardiac recommendations IMPRESSIONS: 1. Hemorrhagic shock secondary to femoral artery bleed Patient on significant therapies at this time to maintain blood pressures. Continue with Levophed. Patient remains on stress dose steroids. Continue arterial line. Hemoglobin shows no transfusions are necessary at this time. Patient does have significant cardiogenic issues that may be contributing to hypotension, but echocardiogram was relatively unimpressive. Patient is significantly positive, but will hold off on diuresis given pressor requirements. Will hold IV fluids as an initial step 2. Probable COPD/spiculated pulmonary nodule/acute hypoxic respiratory failure Continue mechanical ventilation at the current settings. ABG shows adequate oxygenation and ventilation. Patient still has a small element of metabolic acidosis. Discontinued budesonide as patient is on stress dose steroids. Continue Precedex to help with vent synchrony. Unclear if hyponatremia is secondary to spiculated nodule with paraneoplastic SIADH, but this is being investigated as an outpatient. Patient could be bolused with normal saline if necessary for hypotension. 3. AAA/tobacco abuse/poor insight/history of CHF/hypertension/advanced age/chronic back pain Complicates care, management, recovery and prognosis. Family has changed CODE STATUS to DNR Comfort Care arrest with intubation given prognosis. I bel ieve this is appropriate. Given chronic back pain, patient will be placed on fentanyl drip 4. Decreased urine output Unclear etiology. Creatinine is only slightly elevated. Patient does have some hyperkalemia, but unclear if this is related to intravascular depositi on through bleeding. Patient with significant improvement in urine output overnight. Clinical suspicion for ATN secondary to problem #1. Will monitor for polyuric phase. TIME: 34 minutes critical care time, in addition to morning assessment, was spent addressing patient's hemorrhagic shock, respiratory failure, review of all data and collaboration with care team Subjective Subjective Patient did well overnight. Patient has been able to be taken off of Rony- Synephrine and vasopressin. Vasopressin was discontinued at approximately 5 AM and there has been some increase in Levophed requirements. IV fluids have also been discontinued. Patient has tolerated Precedex well with better vent synchrony per nursing. No bleeding has been reported. Patient's arterial line did become nonfunctional overnight and has been discontinued. Objective Data Objective Data Patient was noted to have dark yellow urine with sediment Vital Signs: Vital Signs Temp Pulse Resp BP Pulse Ox O2 Del Method O2 Flow Rate 36.5 C L 87 23 H 67/47 L 94 Mechanical Ventilator 30 12/24/21 00:00 12/24/21 06:45 12/24/21 06:00 12/24/21 06:45 12/24/21 06:00 12/24/21 06:00 12/23/21 10:15 FiO2 30 12/24/21 06:00 Oxygen Flow Rate (L/min) 30 Oxygen Delivery Method Mechanical Ventilator Weight: 88.3 kg Body Mass Index (BMI) 21.4 Intake & Output: Intake and Output for Last 24 Hours 12/22/21 12/23/21 12/24/21 23:59 23:59 23:59 Intake Total 5361.78 / 5500.58 5162.85 / 6187.53 1805.21 / 1805.21 Output Total 2910 / 2910 375 / 375 Balance 2451.78 / 2590.58 4787.85 / 5812.53 1805.21 / 1805.21 Lab / Micro Data Attestation: I reviewed the patient's lab results. Result Diagrams: 12/24/21 03:57 12/24/21 03:57 Labs: Laboratory Results - last 24 hr 12/18/21 07:33: Blood Type Cancelled, A1 Antigen Typing Cancelled, Rho(D) Type Cancelled, Antibody Screen Cancelled, Crossmatch See Detail 12/22/21 17:47: Diff Path Review Reviewed 12/22/21 23:23: Diff Path Review Reviewed 12/23/21 03:40: Diff Path Review Reviewed 12/23/21 11:07: POC Glucose 175 H 12/23/21 14:53: Sodium 139, Potassium 5.9 H, Chloride 108 H, Carbon Dioxide 19.0 L, Anion Gap 12, BUN 40 H, Creatinine 2.07 H, Estim Creat Clear Calc 34.21, Est GFR (MDRD) Af Amer 41 L, Est GFR (MDRD) Non-Af 34 L, BUN/Creatinine Ratio 19.3, Glucose 227 H, Calcium 7.5 L, Phosphorus 7.3 H, Magnesium 1.7 12/23/21 16:47: POC Glucose 186 H 12/24/21 00:09: POC Glucose 189 H 12/24/21 03:57: WBC 33.1 H*, RBC 3.55 L, Hgb 11.2 L, Hct 34.0 L, MCV 95.8 H, MCH 31.5, MCHC 32.9, RDW Std Deviation 55.1 H, RDW Coeff of Jamie 15.6 H, Plt Count 109 L, MPV 11.2, Immature Gran % (Auto) 1.700 H, Neut % (Auto) 87.0 H, Lymph % (Auto) 4.7 L, [place] % (Auto) 6.4, Eos % (Auto) 0.0, Baso % (Auto) 0.2, Absolute Neuts (auto) 28.8 H, Absolute Lymphs (auto) 1.57, Nucleated RBC % 0, Differential Comment SCANNED, Diff Path Review October, Platelet Estimate SLT 12/24/21 03:57: Sodium 138, Potassium 5.7 H, Chloride 110 H, Carbon Dioxide 18.0 L, Anion Gap 10, BUN 49 H, Creatinine 2.23 H, Estim Creat Clear Calc 34.34, Est GFR (MDRD) Af Amer 38 L, Est GFR (MDRD) Non-Af 31 L, BUN/Creatinine Ratio 22.0 H , Glucose 212 H, Calcium 7.0 L, Phosphorus 7.0 H, Magnesium 2.4 Micro: Microbiology 12/18/21 07:33 Swab (Method) Nasal Screen MRSA/MSSA - Final Radiography Diagnostic Testing: Radiology Impression Renal Ultrasound 12/23/21 06:37 IMPRESSION: Normal ultrasound of the kidneys. Trace amount of free fluid in the pelvis. Electronically Signed: Braydon Guthrie MD at 14:55 EDT , Echocardiogram 12/23/21 11:26 Interpretation Summary Probable mildly reduced LV function estimated to be 40+- Contrast injection was performed. The study was technically limited. The study was technically difficult. Ordering Physician: Michael Cedeno Referring Physician: Kahlil Fernandes Performed By: Tamra Duong RCS X-Ray 12/23/21 12:30 IMPRESSION: The tip of the orogastric tube is in the body of the stomach. Electronically Signed: Braydon Guthrie MD at 13:34 EDT , Rhythm Strip Rhythm Strip: Sinus Tach Rate: 108 Physical Exam Const no apparent distress Constitutional Narrative: Appears older than stated age. RASS -2 General Appearance: ill appearing and patient mechanically ventilated HEENT head/scalp atraumatic and moist oral mucous membranes Mouth: endotracheal tube in place and OG tube in place Eyes conjunctivae normal and no scleral icterus Eyes Narrative: Scleral edema appreciated. Periorbital edema noted Neck no lymphadenopathy and supple Chest inspection of chest normal Resp normal respiratory effort Effort and Inspection: able to speak in complete sentences and symmetric chest movement Auscultation: Negative for rales, rhonchi or wheezes Cardio regular rate, regular rhythm, S1 normal heart sound, S2 normal heart sound, no murmurs, no rub and no gallops Rate: tachycardic GI normal to inspection, nondistended, normoactive bowel sounds, soft to palpation and non-tender GI Narrative: Slightly distended abdomen. No pulsatile masses or worsening ecchymosis appreciated Narrative: Dark urine with sediment noted in [place] Extremity normal to inspection and full ROM Extremity Narrative: Generalized edema noted. General Extremity: clubbing and edema bilateral (Anasarca) Skin Skin Narrative: dermal atrophy. Continued erythema of the hands. Oozing from IV sites noted. Neuro moves all extremities, no focal motor deficits and no sensory deficits noted Psych affect normal Activity / Motor Behavior: restless Mood & Affect: anxious Charges/Coding Procedures Hospitalists Procedures: 21135 Critial Care 1st Hr
[2021-12-24] MEDS: Aspirin 81 MG TAB.CHEW PO (09:33)
[2021-12-24] MEDS: Doxycycline 100 MG CAPSULE PO ×2 (09:43→21:11)
[2021-12-24] MEDS: Enoxaparin 40 MG/0.4 ML Syringe SC (09:44)
[2021-12-24] MEDS: Vital AF 1.2 Cal Liquid 1,000 ML 10 ML GT (09:54)
[2021-12-24] MEDS: Chlorhexidine 15 ML PO ×2 (10:05→21:11)
[2021-12-24] MEDS: Norepinephrine 16 mg/250 mL 0.9% NS 28.1 MG CONT INF (11:54)
[2021-12-24 12:25] LABS: Bedside Glucose 155 mg/dL (74-106)
[2021-12-24 13:10] LABS: Pathologist Review Reviewed
--- NOTE | 2021-12-24 14:35 | CHAPLAIN ---
Type of Pastoral Visit ___ Initial Visit _x__ Follow-up Visit ___ On-call Visit ___ General Patient Visit ___ Spiritual Assessment ___ Family Conference ___ Bereavement ___ Rapid Response ___ Code Blue ___ Other (describe below) Pastoral Care Referral From ___ Patient _x__ Family ___ Nurse ___ Physician ___ Produce Wrapper ___ Blankbook Forwarder ___ Other (describe below) Sacrament/Intervention _x__ Active listening ___ Anointing ___ Yazidi ___ Bereavement ___ Communion ___ Rebeca exploration ___ ___ Life review _x__ Prayer ___ Reconciliation ___ Sacrament of Sick _x__ Supportive presence ___ Wedding ___ Other (describe below) Pastoral Comments spouse is at bedside and welcomes the presence of this directory operator for comfort and support; per spouse, the patient is making some minor improvements but as she states, it is all up to him and God; spouse makes statements of realism about this situation and the future; spouse states she reached out to her scientology and requested prayer support; spouse indicates that the support of spiritual care in the hospital has been much appreciated; informed spouse that this directory operator will be on vacation and unable to follow the situation but staff can be helpful in any further needs
[2021-12-24 18:01] LABS: Bedside Glucose 137 mg/dL (74-106)
[2021-12-24] MEDS: Atorvastatin Calcium 40 MG Tablet PO (21:11)
[2021-12-24] MEDS: Norepinephrine 16 mg/250 mL 0.9% NS 23.4 MG CONT INF (21:49)
[2021-12-25] VITALS (92 sets, daily range): BP systolic 68–144; BP diastolic 45–88; PULSE 78–134; RESP 16–23; TEMP 36.3–36.7; O2SAT 88–97
[2021-12-25 00:01] LABS: Bedside Glucose 145 mg/dL (74-106)
[2021-12-25] MEDS: CHLORHEXIDINE GLUC 2% CLOTH 1 EACH TOWELETTE TOPICAL (05:30)
[2021-12-25] MEDS: Hydrocortisone Sod Succinate 100 MG/2 ML Vial IV ×3 (05:30→19:58)
[2021-12-25] MEDS: 0.9% Saline Lock 10 ML Syringe IV (05:31)
[2021-12-25] MEDS: Insulin Lispro 100 UNIT/ML INSULN.PEN SC ×2 (05:35→19:58)
--- NOTE | 2021-12-25 05:42 | NURSING ---
Fentanyl rate decreased to 50 mcg/hr for awakening trial. Pt following commands prior to and after the decrease in rate. HR increased to 120s-130s, increased rate d/t tachycardia and pt restlessness.
[2021-12-25 05:43] LABS: Absolute Lymphocyte Count 0.85 X10^3/uL (0.83-4.51); Absolute Neutrophil Count 19.2 X10^3/uL (2.0-7.7); Basophil# 0.02 X10^3/uL; Basophil% 0.1 % (0-1); Hemoglobin 9.9 g/dL (13.0-16.5); Lymphocyte # 0.85 X10^3/ul (0.83-4.51); Mean Corpuscular Hgb 31.3 pg (27.0-32.0); Mean Corpuscular Volume 94.9 fL (80-94); Mean Platelet Vol. 10.4 fl (6.2-12.0); Monocyte# 0.71 X10^3/uL; Monocyte% 3.4 % (0-10); NRBC Flagged by Analyzer 0 % (0-5); Neutrophil # 19.19 X10^3/uL (2.7-7.7); Neutrophil % 91.2 % (47-70); Platelet Count 126 K/mm3 (150-450); RBC Distribution Width CV 15.1 % (11.6-14.6); RBC Distribution Width SD 52.5 fl (35.1-43.9); Red Blood Count 3.16 M/mm3 (4.6-6.2); White Blood Count 21.1 K/mm3 (4.4-11.0)
[2021-12-25 06:00] LABS: Bedside Glucose 159 mg/dL (74-106)
[2021-12-25 06:05] LABS: ALB/GLOB Ratio 0.7 RATIO (0.9-2.4); AST(SGOT) 520 U/L (15-37); Alanine Aminotransfer ALT/SGPT 936 U/L (16-61); Albumin, Serum 1.9 g/dL (3.2-5.0); Alkaline Phosphatase 66 U/L (45-117); Anion Gap 9 (5-15); BUN 67 mg/dL (7-18); BUN/Creat Ratio 21.7 RATIO (10-20); Calcium,Total 7.4 mg/dL (8.5-10.1); Chloride 110 mmol/L (98-107); Creatinine, Serum 3.09 mg/dL (0.70-1.30); EST Glomerular Filtration Rate 21 mL/min (>60); Est Glom Filt Rate - Afr Amer 26 mL/min (>60); Estimated Creatinine Clearance 24.78 ml/min; Globulin 2.7 g/dL (2.2-4.2); Glucose 178 mg/dL (74-106); Magnesium 2.3 mg/dL (1.6-2.6); Phosphorus 6.8 mg/dL (2.5-4.9); Potassium 5.8 mmol/L (3.5-5.1); Protein, Total 4.6 g/dL (6.4-8.2); Sodium Level 141 mmol/L (136-145)
--- NOTE | 2021-12-25 06:22 | PCM.PN.INT ---
Assessment & Plan Assessment/Plan (1) Hypotension: (2) COPD (chronic obstructive pulmonary disease): (3) Pulmonary nodule: (4) AAA (abdominal aortic aneurysm) without rupture: PLAN: Plan RECOMMENDATIONS: 1. Continue Precedex and fentanyl therapy 2. Spontaneous breathing and awakening trials per protocol 3. IV fluids as bolus only. Hold on diuresis given pressor requirements 4. Wean Levophed as tolerated. Continue stress dose steroids 5. Possible nephrology consult if not improving in the next 24 to 48 hours 6. Await cardiac recommendations IMPRESSIONS: 1. Hemorrhagic shock secondary to femoral artery bleed Patient on significant therapies at this time to maintain blood pressures. Continue with Levophed. Patient remains on stress dose steroids. Hemoglobin shows no transfusions are necessary at this time. Patient does have significant cardiogenic issues that may be contributing to hypotension, but echocardiogram was relatively unimpressive. Patient is significantly positive, but will hold off on diuresis given pressor requirements. IV fluids should be given as a bolus only. Sinus tachycardia likely secondary to lack of fentanyl, but hemoglobin has been drifting down. No active clinical bleeding. Equilibration? 2. Probable COPD/spiculated pulmonary nodule/acute hypoxic respiratory failure Continue mechanical ventilation at the current settings. ABG shows adequate oxygenation and ventilation. Patient still has a small element of metabolic acidosis. Discontinued budesonide as patient is on stress dose steroids. Continue Precedex to help with vent synchrony. Unclear if initial hyponatremia is secondary to spiculated nodule with paraneoplastic SIADH, but this is being investigated as an outpatient. Patient could be bolused with normal saline if necessary for hypotension. 3. AAA/tobacco abuse/poor insight/history of CHF/hypertension/advanced age/chronic back pain Complicates care, management, recovery and prognosis. Family has changed CODE STATUS to DNR Comfort Care arrest with intubation given prognosis. I believe this is appropriate. Given chronic back pain, patient will be placed on fentanyl drip 4. Decreased urine output Unclear etiology. Creatinine is starting to increase. Patient does have some hyperkalemia, but unclear if this is related to intravascular deposition through bleeding. Patient with significant improvement in urine output overnight. Clinical suspicion for ATN secondary to problem #1. Will monitor for polyuric phase. TIME: 38 minutes critical care time, in addition to morning assessment, was spent addressing patient's hemorrhagic shock, respiratory failure, review of all data and collaboration with care team Subjective Subjective Patient did okay from a hemodynamic standpoint overnight. Patient's urine output remains marginal. Patient has been on Levophed. Patient did have a spontaneous awakening trial this morning and became tachycardic with cessation of Levophed. Patient has tolerated tube feeds. Objective Data Objective Data Vital Signs: Vital Signs Temp Pulse Resp BP Pulse Ox O2 Del Method O2 Flow Rate 36.4 C L 129 H 23 H 94/67 92 Mechanical Ventilator 30 12/25/21 05:00 12/25/21 06:00 12/25/21 06:00 12/25/21 06:00 12/25/21 06:00 12/25/21 06:00 12/23/21 10:15 FiO2 28 12/25/21 06:00 Oxygen Flow Rate (L/min) 30 Oxygen Delivery Method Mechanical Ventilator Weight: 89.5 kg Body Mass Index (BMI) 21.4 Intake & Output: Intake and Output for Last 24 Hours 12/23/21 12/24/21 12/25/21 23:59 23:59 23:59 Intake Total 5162.85 / 6187.53 3783.88 / 3844.73 542.64 / 542.64 Output Total 375 / 375 245 / 325 180 / 180 Balance 4787.85 / 5812.53 3538.88 / 3519.73 362.64 / 362.64 Lab / Micro Data Attestation: I reviewed the patient's lab results. Result Diagrams: 12/25/21 05:40 12/25/21 05:40 Labs: Laboratory Results - last 24 hr 12/24/21 03:57: Diff Path Review Reviewed 12/24/21 11:54: POC Glucose 155 H 12/24/21 17:35: POC Glucose 137 H 12/24/21 23:36: POC Glucose 145 H 12/25/21 05:34: POC Glucose 159 H 12/25/21 05:40: WBC 21.1 H, RBC 3.16 L, Hgb 9.9 L, Hct 30.0 L, MCV 94.9 H, MCH 31.3, MCHC 33.0, RDW Std Deviation 52.5 H, RDW Coeff of Jamie 15.1 H, Plt Count 126 L, MPV 10.4, Immature Gran % (Auto) 1.300 H, Neut % (Auto) 91.2 H, Lymph % (Auto) 4.0 L, [place] % (Auto) 3.4, Eos % (Auto) 0.0, Baso % (Auto) 0.1, Absolute Neuts (auto) 19.2 H, Absolute Lymphs (auto) 0.85, Nucleated RBC % 0 12/25/21 05:40: Sodium 141, Potassium 5.8 H, Chloride 110 H, Carbon Dioxide 22.0, Anion Gap 9, BUN 67 H, Creatinine 3.09 H, Estim Creat Clear Calc 24.78, Est GFR (MDRD) Af Amer 26 L, Est GFR (MDRD) Non-Af 21 L, BUN/Creatinine Ratio 21.7 H, Glucose 178 H, Calcium 7.4 L, Phosphorus 6.8 H, Magnesium 2.3, Total Bilirubin 0.90, AST 520 H, ALT 936 H, Alkaline Phosphatase 66, Total Protein 4.6 L, Albumin 1.9 L, Globulin 2.7, Albumin/Globulin Ratio 0.7 L Micro: Microbiology 12/18/21 07:33 Swab (Method) Nasal Screen MRSA/MSSA - Final Rhythm Strip Rhythm Strip: Sinus Tach Rate: 108 Physical Exam Const alert, oriented x3 and no apparent distress Constitutional Narrative: Appears older than stated age. RASS -2 General Appearance: ill appearing and patient mechanically ventilated HEENT head/scalp atraumatic and moist oral mucous membranes Eyes conjunctivae normal and no scleral icterus Eyes Narrative: Scleral edema appreciated. Periorbital edema noted Neck no lymphadenopathy and supple Chest inspection of chest normal Resp normal respiratory effort Effort and Inspection: able to speak in complete sentences and symmetric chest movement Auscultation: Negative for rales, rhonchi or wheezes Cardio regular rate, regular rhythm, S1 normal heart sound, S2 normal heart sound, no murmurs, no rub and no gallops Rate: tachycardic GI normal to inspection, nondistended, normoactive bowel sounds, soft to palpation and non-tender GI Narrative: Slightly distended abdomen. No pulsatile masses or worsening ecchymosis appreciated Narrative: Dark urine with sediment noted in Ziegler Extremity normal to inspection and full ROM Extremity Narrative: Generalized edema noted. General Extremity: clubbing and edema bilateral (Anasarca) Skin Skin Narrative: dermal atrophy. Continued erythema of the hands. Oozing from IV sites noted. Neuro oriented x3, moves all extremities, no focal motor deficits and no sensory deficits noted Psych affect normal Activity / Motor Behavior: restless Mood & Affect: flat affect Charges/Coding Procedures Hospitalists Procedures: 36366 Critial Care 1st Hr
--- NOTE | 2021-12-25 07:42 | EKG12_ITS ---
Test Reason : PRE-OP Blood Pressure : / mmHG Vent. Rate : 085 BPM Atrial Rate : 085 BPM P-R Int : 236 ms QRS Dur : 100 ms QT Int : 362 ms P-R-T Axes : 073 099 091 degrees QTc Int : 430 ms Sinus rhythm with 1st degree A-V block with occasional Premature ventricular complexes Nonspecific ST and T wave abnormality Abnormal ECG Confirmed by MARIBEL BRITTON, NICOLE ([id number]), book editor JAYLA FIGUEROA ([id number]) on 12/28/2021 11:20:54 AM Referred By: Kahlil Fernandes Confirmed By:NICOLE LÓPEZ MD
[2021-12-25] MEDS: Norepinephrine 16 mg/250 mL 0.9% NS 20.6 MG CONT INF (09:05)
[2021-12-25] MEDS: Aspirin 81 MG TAB.CHEW PO (10:19)
[2021-12-25] MEDS: Doxycycline 100 MG CAPSULE PO (10:20)
[2021-12-25] MEDS: Chlorhexidine 15 ML PO ×2 (10:20→19:58)
[2021-12-25] MEDS: Enoxaparin 40 MG/0.4 ML Syringe SC (10:21)
[2021-12-25] MEDS: Amiodarone 360 MG in Dextrose 5% Viaflo Bag 192.8 ML 33.3 MG CONT INF (10:39)
--- NOTE | 2021-12-25 11:48 | PCM.PN.SRG ---
Subjective Subjective Remains on vent, awake and interactive when sedation off. Down to just levo. -BM, sasha trickle TF. Still poor uop. new afib/flutter this AM. Objective Data Objective Data Vital Signs: Vital Signs Temp Pulse Resp BP Pulse Ox O2 Del Method O2 Flow Rate 97.4 F L 112 H 23 H 81/61 L 93 Mechanical Ventilator 30 12/25/21 08:00 12/25/21 10:23 12/25/21 09:05 12/25/21 11:00 12/25/21 09:05 12/25/21 08:30 12/23/21 10:15 FiO2 28 12/25/21 09:05 Oxygen Flow Rate (L/min) 30 Oxygen Delivery Method Mechanical Ventilator Weight: 197 lb 5.019 oz Body Mass Index (BMI) 21.4 Intake & Output: Intake and Output for Last 24 Hours 12/23/21 12/24/21 12/25/21 23:59 23:59 23:59 Intake Total 5162.85 / 6187.53 3783.88 / 3844.73 899.47 / 899.47 Output Total 375 / 375 245 / 325 180 / 180 Balance 4787.85 / 5812.53 3538.88 / 3519.73 719.47 / 719.47 Lab / Micro Data Result Diagrams: 12/25/21 05:40 12/25/21 05:40 Labs: Laboratory Results - last 24 hr 12/24/21 03:57: Diff Path Review Reviewed 12/24/21 11:54: POC Glucose 155 H 12/24/21 17:35: POC Glucose 137 H 12/24/21 23:36: POC Glucose 145 H 12/25/21 05:34: POC Glucose 159 H 12/25/21 05:40: WBC 21.1 H, RBC 3.16 L, Hgb 9.9 L, Hct 30.0 L, MCV 94.9 H, MCH 31.3, MCHC 33.0, RDW Std Deviation 52.5 H, RDW Coeff of Jamie 15.1 H, Plt Count 126 L, MPV 10.4, Immature Gran % (Auto) 1.300 H, Neut % (Auto) 91.2 H, Lymph % (Auto) 4.0 L, [place] % (Auto) 3.4, Eos % (Auto) 0.0, Baso % (Auto) 0.1, Absolute Neuts (auto) 19.2 H, Absolute Lymphs (auto) 0.85, Nucleated RBC % 0 12/25/21 05:40: Sodium 141, Potassium 5.8 H, Chloride 110 H, Carbon Dioxide 22.0, Anion Gap 9, BUN 67 H, Creatinine 3.09 H, Estim Creat Clear Calc 24.78, Est GFR (MDRD) Af Amer 26 L, Est GFR (MDRD) Non-Af 21 L, BUN/Creatinine Ratio 21.7 H, Glucose 178 H, Calcium 7.4 L, Phosphorus 6.8 H, Magnesium 2.3, Total Bilirubin 0.90, AST 520 H, ALT 936 H, Alkaline Phosphatase 66, Total Protein 4.6 L, Albumin 1.9 L, Globulin 2.7, Albumin/Globulin Ratio 0.7 L Micro: Microbiology 12/18/21 07:33 Swab (Method) Nasal Screen MRSA/MSSA - Final Rhythm Strip Rhythm Strip: Sinus Tach Rate: 108 Physical Exam Const Constitutional Narrative: Intubated, sedated. Cardio Rate: tachycardic Rhythm: abnormal rhythm irregularly irregular GI soft to palpation Inspection: abdominal distention Narrative: scrotal edema improved Bladder / Kidney Exam: catheter in place Extremity General Extremity: edema bilateral upper extremity and lower extremity Assessment & Plan Assessment/Plan (1) Ruptured iliac artery: PLAN: -slow improvement -new afib has set back BP progress; likely due to volume overload -KIERSTEN from hypotension; poor UOP and cr cont to rise but K stable -may initiate diuresis efforts tomorrow -Hgb with some dilution, cont to monitor
[2021-12-25] MEDS: Vital AF 1.2 Cal Liquid 1,000 ML 20 ML GT (12:08)
[2021-12-25 12:15] LABS: Bedside Glucose 142 mg/dL (74-106)
--- NOTE | 2021-12-25 12:44 | PCM.PN.CARD ---
Subjective Subjective Seen at bedside and discussed with the nursing staff still on a ventilator Objective Data Vital Signs: Vital Signs Temp Pulse Resp BP Pulse Ox O2 Del Method O2 Flow Rate 97.4 F L 125 H 16 81/61 L 93 Mechanical Ventilator 30 12/25/21 08:00 12/25/21 11:35 12/25/21 11:35 12/25/21 11:00 12/25/21 11:35 12/25/21 08:30 12/23/21 10:15 FiO2 28 12/25/21 11:35 Oxygen Flow Rate (L/min) 30 Oxygen Delivery Method Mechanical Ventilator Weight: 197 lb 5.019 oz Body Mass Index (BMI) 21.4 Intake & Output: Intake and Output for Last 24 Hours 12/23/21 12/24/21 12/25/21 23:59 23:59 23:59 Intake Total 5162.85 / 6187.53 3783.88 / 3844.73 953.84 / 953.84 Output Total 375 / 375 245 / 325 300 / 300 Balance 4787.85 / 5812.53 3538.88 / 3519.73 653.84 / 653.84 Lab / Micro Data Result Diagrams: 12/25/21 05:40 12/25/21 05:40 Labs: Laboratory Results - last 24 hr 12/24/21 03:57: Diff Path Review Reviewed 12/24/21 17:35: POC Glucose 137 H 12/24/21 23:36: POC Glucose 145 H 12/25/21 05:34: POC Glucose 159 H 12/25/21 05:40: WBC 21.1 H, RBC 3.16 L, Hgb 9.9 L, Hct 30.0 L, MCV 94.9 H, MCH 31.3, MCHC 33.0, RDW Std Deviation 52.5 H, RDW Coeff of Jamie 15.1 H, Plt Count 126 L, MPV 10.4, Immature Gran % (Auto) 1.300 H, Neut % (Auto) 91.2 H, Lymph % (Auto) 4.0 L, [place] % (Auto) 3.4, Eos % (Auto) 0.0, Baso % (Auto) 0.1, Absolute Neuts (auto) 19.2 H, Absolute Lymphs (auto) 0.85, Nucleated RBC % 0 12/25/21 05:40: Sodium 141, Potassium 5.8 H, Chloride 110 H, Carbon Dioxide 22.0, Anion Gap 9, BUN 67 H, Creatinine 3.09 H, Estim Creat Clear Calc 24.78, Est GFR (MDRD) Af Amer 26 L, Est GFR (MDRD) Non-Af 21 L, BUN/Creatinine Ratio 21.7 H, Glucose 178 H, Calcium 7.4 L, Phosphorus 6.8 H, Magnesium 2.3, Total Bilirubin 0.90, AST 520 H, ALT 936 H, Alkaline Phosphatase 66, Total Protein 4.6 L, Albumin 1.9 L, Globulin 2.7, Albumin/Globulin Ratio 0.7 L 12/25/21 11:57: POC Glucose 142 H Rhythm Strip Rhythm Strip: Sinus Tach Rate: 108 Cardiology Labs/Tests 12/25/21 05:40: WBC 21.1 H, RBC 3.16 L, Hgb 9.9 L, Hct 30.0 L, MCV 94.9 H, MCH 31.3, MCHC 33.0, Plt Count 126 L, MPV 10.4, Immature Gran % (Auto) 1.300 H, Neut % (Auto) 91.2 H, Lymph % (Auto) 4.0 L, [place] % (Auto) 3.4, Eos % (Auto) 0.0, Baso % (Auto) 0.1, Absolute Neuts (auto) 19.2 H, Nucleated RBC % 0 12/25/21 05:40: Sodium 141, Potassium 5.8 H, Chloride 110 H, Carbon Dioxide 22.0, Anion Gap 9, BUN 67 H, Creatinine 3.09 H, Est GFR (MDRD) Af Amer 26 L, Est GFR (MDRD) Non-Af 21 L, BUN/Creatinine Ratio 21.7 H, Glucose 178 H, Calcium 7.4 L, Phosphorus 6.8 H, Magnesium 2.3, Total Bilirubin 0.90 Rhythm: EKG: ECHO: Stress Test: Cardiac Cath: PCI: CT Surgery: Holter monitor: EPS: PPM: CXR: Chest CT Scan: Physical Exam Narrative development technician showed underlying normal sinus Const Constitutional Narrative: Patient on a ventilator And on anatrophic support with Levophed Underlying cardiac rhythm is a atrial flutter/A. fib and has been on amiodarone IV Assessment & Plan Assessment/Plan (1) Hypotension: (2) Ruptured iliac artery: (3) Stented coronary artery: (4) FH: CABG (coronary artery bypass surgery): (5) Flutter-fibrillation: PLAN: 71-year-old patient with known CAD, history of CABG and prior coronary PCI and stent Recent echocardiogram LV systolic function moderate with EF around 40% Patient had abdominal aortic aneurysm. Ruptured iliac artery Blood pressure stable on the single inotropic support with Levophed noted poor urine output and increasing creatinine New onset atrial flutter/A. fib Cardiac care plan recommendations; 1. We will continue amiodarone IV 2. Continue monitoring renal function and hemoglobin We will continue to monitor and follow-up clinically
[2021-12-25] MEDS: Amiodarone 360 MG in Dextrose 5% Viaflo Bag 192.8 ML 16.7 MG CONT INF (17:10)
[2021-12-25 18:36] LABS: Bedside Glucose 191 mg/dL (74-106)
[2021-12-25] MEDS: Ipratropium/Albuterol Sulfate 3 ML AMPUL.NEB INHALATION (19:21)
--- NOTE | 2021-12-25 19:41 | NURSING ---
education re chronic health concerns deferred till acute illness resolving
[2021-12-25] MEDS: guaiFENesin 600 MG Tablet PO (19:58)
[2021-12-25] MEDS: Atorvastatin Calcium 40 MG Tablet PO (20:00)
[2021-12-25] MEDS: Norepinephrine 16 mg/250 mL 0.9% NS 19.7 MG CONT INF (21:36)
[2021-12-26] VITALS (70 sets, daily range): BP systolic 77–160; BP diastolic 6–128; PULSE 67–131; RESP 13–23; TEMP 36.7–38.7; O2SAT 90–100
[2021-12-26 02:00] LABS: Bedside Glucose 142 mg/dL (74-106)
[2021-12-26] MEDS: Amiodarone 360 MG in Dextrose 5% Viaflo Bag 192.8 ML 16.7 MG CONT INF ×2 (05:09→11:45)
[2021-12-26] MEDS: Hydrocortisone Sod Succinate 100 MG/2 ML Vial IV ×3 (05:25→22:28)
[2021-12-26 05:36] LABS: Bedside Glucose 164 mg/dL (74-106)
[2021-12-26 05:56] LABS: Allen Test Positive; Base Excess -8 mmol/L (-2 to +2); Bicarbonate 18.4 mmol/L (22-26); Blood Gas Specimen Type ART; FI02 30; Mode CPAP/PS; O2 Delivery Device Adult Vent; PEEP 5; PO2 73 mmHG (75-100); PS 5; SITE L Radial; SO2 93 % (95-99); Total Carbon Dioxide 20 mmol/L; pCO2 36.1 mmHg (35-45); pH 7.32 (7.35-7.45)
[2021-12-26 05:58] LABS: Absolute Lymphocyte Count 0.57 X10^3/uL (0.83-4.51); Absolute Neutrophil Count 13.8 X10^3/uL (2.0-7.7); Basophil# 0.04 X10^3/uL; Basophil% 0.3 % (0-1); Hematocrit 28.4 % (40-54); Hemoglobin 9.2 g/dL (13.0-16.5); Lymphocyte # 0.57 X10^3/ul (0.83-4.51); Lymphocyte % 3.8 % (19-41); Mean Corp Hgb Conc 32.4 g/dL (32-36); Mean Corpuscular Hgb 31.3 pg (27.0-32.0); Mean Corpuscular Volume 96.6 fL (80-94); Mean Platelet Vol. 11.1 fl (6.2-12.0); NRBC Flagged by Analyzer 0 % (0-5); Neutrophil # 13.77 X10^3/uL (2.7-7.7); Neutrophil % 91.4 % (47-70); POSITIVE DIFFERENTIAL YES; POSITIVE MORPHOLOGY YES; Platelet Count 127 K/mm3 (150-450); RBC Distribution Width CV 15.2 % (11.6-14.6); RBC Distribution Width SD 53.4 fl (35.1-43.9); Red Blood Count 2.94 M/mm3 (4.6-6.2); White Blood Count 15.1 K/mm3 (4.4-11.0)
[2021-12-26 06:00] LABS: Differential Indicated SCAN CRITERIA MET
[2021-12-26] MEDS: Bisacodyl 5 MG Tablet PO (06:12)
[2021-12-26 06:14] LABS: ALB/GLOB Ratio 0.5 RATIO (0.9-2.4); AST(SGOT) 488 U/L (15-37); Alanine Aminotransfer ALT/SGPT 799 U/L (16-61); Albumin, Serum 1.7 g/dL (3.2-5.0); Alkaline Phosphatase 86 U/L (45-117); Anion Gap 9 (5-15); BUN 77 mg/dL (7-18); BUN/Creat Ratio 23.1 RATIO (10-20); Calcium,Total 7.5 mg/dL (8.5-10.1); Chloride 111 mmol/L (98-107); Creatinine, Serum 3.33 mg/dL (0.70-1.30); EST Glomerular Filtration Rate 20 mL/min (>60); Est Glom Filt Rate - Afr Amer 24 mL/min (>60); Estimated Creatinine Clearance 22.99 ml/min; Globulin 3.1 g/dL (2.2-4.2); Glucose 191 mg/dL (74-106); Protein, Total 4.8 g/dL (6.4-8.2); Sodium Level 141 mmol/L (136-145)
[2021-12-26 06:17] LABS: Differential Comment SCANNED
[2021-12-26] MEDS: Polyethylene Glycol 3350 17 GM PACKET PO (06:23)
--- NOTE | 2021-12-26 06:36 | PN.CC_ITS ---
Assessment & Plan Assessment/Plan (1) Hypotension: (2) COPD (chronic obstructive pulmonary disease): (3) Pulmonary nodule: (4) AAA (abdominal aortic aneurysm) without rupture: PLAN: Plan RECOMMENDATIONS: 1. Continue Precedex and fentanyl therapy 2. Spontaneous breathing and awakening trials per protocol 3. IV fluids as bolus only. Hold on diuresis given pressor requirements 4. Wean Levophed as tolerated. Continue stress dose steroids 5. We will consult nephrology. Treat with Kayexalate 6. Continue amiodarone for now 7. IMPRESSIONS: 1. Hemorrhagic shock secondary to femoral artery bleed Patient on significant therapies at this time to maintain blood pressures. Continue with Levophed. Patient remains on stress dose steroids. Hemoglobin shows no transfusions are necessary at this time. Patient does have significant cardiogenic issues that may be contributing to hypotension, but echocardiogram was relatively unimpressive. Patient is significantly positive, but will hold off on diuresis given pressor requirements. IV fluids should be given as a bolus only. Sinus tachycardia likely secondary to lack of fentanyl, but hemoglobin has been drifting down. 2. Probable COPD/spiculated pulmonary nodule/acute hypoxic respiratory failure Continue mechanical ventilation at the current settings. ABG shows adequate oxygenation and ventilation. Patient still has a small element of metabolic acidosis. Discontinued budesonide as patient is on stress dose steroids. Continue Precedex to help with vent synchrony. Unclear if initial hyponatremia is secondary to spiculated nodule with paraneoplastic SIADH, but this is being investigated as an outpatient. Patient could be bolused with normal saline if necessary for hypotension. Patient starting to have some worsening oxygenation. Unclear how much longer before diuretic challenge will be necessary. 3. AAA/tobacco abuse/poor insight/history of CHF/hypertension/advanced age/chronic back pain/new onset A. fib Complicates care, management, recovery and prognosis. Family has changed CODE STATUS to DNR Comfort Care arrest with intubation given prognosis. I believe this is appropriate. Given chronic back pain, patient will be placed on fentanyl drip. Patient remains in a flutter. Continue amiodarone 4. Decreased urine output Unclear etiology. Creatinine is starting to increase. Patient does have some hyperkalemia, but unclear if this is related to intravascular deposition through bleeding. Patient with increased urine output this morning. Will consult renal given lack of improvement. Clinical suspicion for ATN secondary to problem #1. TIME: 40 minutes critical care time, in addition to morning assessment, was spent addressing patient's hemorrhagic shock, respiratory failure, review of all data and collaboration with care team Subjective Subjective Patient did okay overnight. Patient did have a spontaneous breathing trial this morning and was able to tolerate an hour. ABG showed adequate oxygenation and ventilation. However, patient was tachycardic with cessation of fentanyl. Patient remains on Levophed. Patient has been on amiodarone and remains in a flutter. Patient has not had a bowel movement and is having some more abdominal distention. Nursing has reported slightly increased residuals. Objective Data Objective Data Vital Signs: Vital Signs Temp Pulse Resp BP Pulse Ox O2 Del Method O2 Flow Rate 36.7 C 121 H 23 H 104/67 90 Mechanical Ventilator 30 12/26/21 00:00 12/26/21 06:06 12/26/21 06:06 12/26/21 06:00 12/26/21 06:06 12/26/21 06:00 12/23/21 10:15 FiO2 30 12/26/21 06:00 Oxygen Flow Rate (L/min) 30 Oxygen Delivery Method Mechanical Ventilator Weight: 89.5 kg Body Mass Index (BMI) 21.4 Intake & Output: Intake and Output for Last 24 Hours 12/24/21 12/25/21 12/26/21 23:59 23:59 23:59 Intake Total 3783.88 / 3844.73 3005.28 / 3109.68 765.70 / 765.70 Output Total 245 / 325 485 / 660 300 / 300 Balance 3538.88 / 3519.73 2520.28 / 2449.68 465.70 / 465.70 Lab / Micro Data Attestation: I reviewed the patient's lab results. Result Diagrams: 12/26/21 03:48 12/26/21 03:48 Labs: Laboratory Results - last 24 hr 12/25/21 11:57: POC Glucose 142 H 12/25/21 17:52: POC Glucose 191 H 12/26/21 00:40: POC Glucose 142 H 12/26/21 03:48: WBC 15.1 H, RBC 2.94 L, Hgb 9.2 L, Hct 28.4 L, MCV 96.6 H, MCH 31.3, MCHC 32.4, RDW Std Deviation 53.4 H, RDW Coeff of Jamie 15.2 H, Plt Count 127 L, MPV 11.1, Immature Gran % (Auto) 0.500, Neut % (Auto) 91.4 H, Lymph % (Auto) 3.8 L, [place] % (Auto) 4.0, Eos % (Auto) 0.0, Baso % (Auto) 0.3, Absolute Neuts (auto) 13.8 H, Absolute Lymphs (auto) 0.57 L, Nucleated RBC % 0, Differential Comment SCANNED 12/26/21 03:48: Sodium 141, Potassium 6.0 H*, Chloride 111 H, Carbon Dioxide 21.0, Anion Gap 9, BUN 77 H, Creatinine 3.33 H, Estim Creat Clear Calc 22.99, Est GFR (MDRD) Af Amer 24 L, Est GFR (MDRD) Non-Af 20 L, BUN/Creatinine Ratio 23.1 H, Glucose 191 H, Calcium 7.5 L, Total Bilirubin 0.70, AST 488 H, ALT 799 H , Alkaline Phosphatase 86, Total Protein 4.8 L, Albumin 1.7 L, Globulin 3.1, Albumin/Globulin Ratio 0.5 L 12/26/21 04:42: POC Glucose 164 H Micro: Microbiology 12/18/21 07:33 Swab (Method) Nasal Screen MRSA/MSSA - Final ABG Data ABG results: ABG 12/26/21 05:52 Specimen Type ART Sample Site L Radial pH 7.32 L Bicarbonate Actual 18.4 L Total CO2 20 Base Excess -8 L O2 Saturation 93 L O2 % 30 ABG pCO2 36.1 ABG pO2 73 L Jake Test Positive O2 Delivery Device Adult Vent Vent Mode CPAP/PS POC PEEP 5 POC Pressure Suppt 5 Rhythm Strip Rhythm Strip: A flutter Rate: 125 Physical Exam Const alert, oriented x3 and no apparent distress Constitutional Narrative: Appears older than stated age. RASS -2 General Appearance: ill appearing and patient mechanically ventilated HEENT head/scalp atraumatic and moist oral mucous membranes Eyes conjunctivae normal and no scleral icterus Eyes Narrative: Scleral edema appreciated. Periorbital edema noted Neck no lymphadenopathy and supple Chest inspection of chest normal Resp normal respiratory effort Effort and Inspection: able to speak in complete sentences and symmetric chest movement Auscultation: Negative for rales, rhonchi or wheezes Cardio regular rate, regular rhythm, S1 normal heart sound, S2 normal heart sound, no murmurs, no rub and no gallops Rate: tachycardic GI soft to palpation and non-tender GI Narrative: No pulsatile masses or worsening ecchymosis appreciated Inspection: abdominal distention Narrative: Dark urine with sediment noted in Ziegler Extremity normal to inspection and full ROM Extremity Narrative: Generalized edema noted. General Extremity: clubbing and edema bilateral (Anasarca) Skin Skin Narrative: dermal atrophy. Continued erythema of the hands. Neuro oriented x3, moves all extremities, no focal motor deficits and no sensory deficits noted Psych affect normal Activity / Motor Behavior: restless Mood & Affect: anxious and flat affect Charges/Coding Procedures Hospitalists Procedures: 37816 Critial Care 1st Hr
[2021-12-26] MEDS: Ipratropium/Albuterol Sulfate 3 ML AMPUL.NEB INHALATION ×3 (07:27→19:16)
[2021-12-26] MEDS: Sodium Polystyrene Sulfonate 15 GM/60 ML UDC 30 GM PO ×2 (08:53→13:58)
--- NOTE | 2021-12-26 09:28 | PN.SURG_ITS ---
Subjective Subjective Remains critically ill but essentially stable. Some varied success in weaning levo. UOP also variable, cr seems to have reached plateau. K elevated, receiving Kayexalate. Follows commands when sedation down. Overall ok with SBT though gets agitated. Objective Data Objective Data Vital Signs: Vital Signs Temp Pulse Resp BP Pulse Ox O2 Del Method O2 Flow Rate 98.1 F 89 19 H 104/67 93 Mechanical Ventilator 30 12/26/21 00:00 12/26/21 09:12 12/26/21 09:12 12/26/21 06:00 12/26/21 09:12 12/26/21 06:00 12/23/21 10:15 FiO2 30 12/26/21 06:00 Oxygen Flow Rate (L/min) 30 Oxygen Delivery Method Mechanical Ventilator Weight: 197 lb 5.019 oz Body Mass Index (BMI) 21.4 Intake & Output: Intake and Output for Last 24 Hours 12/24/21 12/25/21 12/26/21 23:59 23:59 23:59 Intake Total 3783.88 / 3844.73 3005.28 / 3109.68 837.34 / 837.34 Output Total 245 / 325 485 / 660 430 / 430 Balance 3538.88 / 3519.73 2520.28 / 2449.68 407.34 / 407.34 Lab / Micro Data Result Diagrams: 12/26/21 03:48 12/26/21 03:48 Labs: Laboratory Results - last 24 hr 12/25/21 11:57: POC Glucose 142 H 12/25/21 17:52: POC Glucose 191 H 12/26/21 00:40: POC Glucose 142 H 12/26/21 03:48: WBC 15.1 H, RBC 2.94 L, Hgb 9.2 L, Hct 28.4 L, MCV 96.6 H, MCH 31.3, MCHC 32.4, RDW Std Deviation 53.4 H, RDW Coeff of Jamie 15.2 H, Plt Count 127 L, MPV 11.1, Immature Gran % (Auto) 0.500, Neut % (Auto) 91.4 H, Lymph % (Auto) 3.8 L, [place] % (Auto) 4.0, Eos % (Auto) 0.0, Baso % (Auto) 0.3, Absolute Neuts (auto) 13.8 H, Absolute Lymphs (auto) 0.57 L, Nucleated RBC % 0, Differential Comment SCANNED 12/26/21 03:48: Sodium 141, Potassium 6.0 H*, Chloride 111 H, Carbon Dioxide 21.0, Anion Gap 9, BUN 77 H, Creatinine 3.33 H, Estim Creat Clear Calc 22.99, Est GFR (MDRD) Af Amer 24 L, Est GFR (MDRD) Non-Af 20 L, BUN/Creatinine Ratio 23.1 H, Glucose 191 H, Calcium 7.5 L, Total Bilirubin 0.70, AST 488 H, ALT 799 H , Alkaline Phosphatase 86, Total Protein 4.8 L, Albumin 1.7 L, Globulin 3.1, Albumin/Globulin Ratio 0.5 L 12/26/21 04:42: POC Glucose 164 H Micro: Microbiology 12/18/21 07:33 Swab (Method) Nasal Screen MRSA/MSSA - Final ABG Data ABG results: ABG 12/26/21 05:52 Specimen Type ART Sample Site L Radial pH 7.32 L Bicarbonate Actual 18.4 L Total CO2 20 Base Excess -8 L O2 Saturation 93 L O2 % 30 ABG pCO2 36.1 ABG pO2 73 L Jake Test Positive O2 Delivery Device Adult Vent Vent Mode CPAP/PS POC PEEP 5 POC Pressure Suppt 5 Rhythm Strip Rhythm Strip: A flutter Rate: 125 Physical Exam Const Constitutional Narrative: Intubated, sedated. HEENT normocephalic Cardio Rate: regular rate Rhythm: regular rhythm GI GI Narrative: soft, distended, non-tender Extremity Extremity Narrative: +edema bilateral upper/lower Assessment & Plan Assessment/Plan (1) Ruptured iliac artery: PLAN: -hgb stable, no further transfusions since nito-op -KIERSTEN from hypotension, k and Cr cont to increase though appears to be reaching plateau and with modest uop; nephro consulted today -cont to wean pressor support -hold active diuresis for now, though will need to consider at some point -afib, rate much better today
[2021-12-26] MEDS: Norepinephrine 16 mg/250 mL 0.9% NS 20.6 MG CONT INF (09:41)
[2021-12-26] MEDS: Aspirin 81 MG TAB.CHEW PO (09:45)
[2021-12-26] MEDS: Enoxaparin 40 MG/0.4 ML Syringe SC ×2 (09:45→20:33)
[2021-12-26] MEDS: Senna/Docusate Sodium 1 Tablet 2 TABLET PO ×2 (09:46→20:32)
[2021-12-26] MEDS: Chlorhexidine 15 ML PO ×2 (09:52→22:26)
[2021-12-26] MEDS: Insulin Lispro 100 UNIT/ML INSULN.PEN SC ×2 (11:47→17:44)
[2021-12-26 12:30] LABS: Bedside Glucose 208 mg/dL (74-106)
--- NOTE | 2021-12-26 13:51 | PN.CARD_ITS ---
Subjective Subjective And evaluated today at bedside along with the nursing staff Still on a ventilator and on a low-dose inotropic support with Levophed. Will has oliguria with a 24-hour urine collection less than 400 and noted also worsening of his renal function and hyperkalemia Objective Data Vital Signs: Vital Signs Temp Pulse Resp BP Pulse Ox O2 Del Method O2 Flow Rate 99.8 F H 78 20 H 92/59 L 94 Mechanical Ventilator 12/26/21 12:00 12/26/21 12:30 12/26/21 12:30 12/26/21 12:30 12/26/21 12:30 12/26/21 12:30 12/23/21 10:15 FiO2 12/26/21 12:30 Oxygen Flow Rate (L/min) 30 Oxygen Delivery Method Mechanical Ventilator Weight: 197 lb 5.019 oz Body Mass Index (BMI) 21.4 Intake & Output: Intake and Output for Last 24 Hours 12/24/21 12/25/21 12/26/21 23:59 23:59 23:59 Intake Total 3783.88 / 3844.73 3005.28 / 3109.68 1756.50 / 1756.50 Output Total 245 / 325 485 / 660 560 / 560 Balance 3538.88 / 3519.73 2520.28 / 2449.68 1196.50 / 1196.50 Lab / Micro Data Result Diagrams: 12/26/21 03:48 12/26/21 03:48 Labs: Laboratory Results - last 24 hr 12/25/21 17:52: POC Glucose 191 H 12/26/21 00:40: POC Glucose 142 H 12/26/21 03:48: WBC 15.1 H, RBC 2.94 L, Hgb 9.2 L, Hct 28.4 L, MCV 96.6 H, MCH 31.3, MCHC 32.4, RDW Std Deviation 53.4 H, RDW Coeff of Jamie 15.2 H, Plt Count 127 L, MPV 11.1, Immature Gran % (Auto) 0.500, Neut % (Auto) 91.4 H, Lymph % (Auto) 3.8 L, [place] % (Auto) 4.0, Eos % (Auto) 0.0, Baso % (Auto) 0.3, Absolute Neuts (auto) 13.8 H, Absolute Lymphs (auto) 0.57 L, Nucleated RBC % 0, Differential Comment SCANNED 12/26/21 03:48: Sodium 141, Potassium 6.0 H*, Chloride 111 H, Carbon Dioxide 21.0, Anion Gap 9, BUN 77 H, Creatinine 3.33 H, Estim Creat Clear Calc 22.99, Est GFR (MDRD) Af Amer 24 L, Est GFR (MDRD) Non-Af 20 L, BUN/Creatinine Ratio 23.1 H, Glucose 191 H, Calcium 7.5 L, Total Bilirubin 0.70, AST 488 H, ALT 799 H , Alkaline Phosphatase 86, Total Protein 4.8 L, Albumin 1.7 L, Globulin 3.1, Albumin/Globulin Ratio 0.5 L 12/26/21 04:42: POC Glucose 164 H 12/26/21 11:43: POC Glucose 208 H ABG Data ABG results: ABG 12/26/21 05:52 Specimen Type ART Sample Site L Radial pH 7.32 L Bicarbonate Actual 18.4 L Total CO2 20 Base Excess -8 L O2 Saturation 93 L O2 % 30 ABG pCO2 36.1 ABG pO2 73 L Jake Test Positive O2 Delivery Device Adult Vent Vent Mode CPAP/PS POC PEEP 5 POC Pressure Suppt 5 Rhythm Strip Rhythm Strip: A flutter Rate: 125 Cardiology Labs/Tests 12/26/21 03:48: WBC 15.1 H, RBC 2.94 L, Hgb 9.2 L, Hct 28.4 L, MCV 96.6 H, MCH 31.3, MCHC 32.4, Plt Count 127 L, MPV 11.1, Immature Gran % (Auto) 0.500, Neut % (Auto) 91.4 H, Lymph % (Auto) 3.8 L, [place] % (Auto) 4.0, Eos % (Auto) 0.0, Baso % (Auto) 0.3, Absolute Neuts (auto) 13.8 H, Nucleated RBC % 0 12/26/21 03:48: Sodium 141, Potassium 6.0 H*, Chloride 111 H, Carbon Dioxide 21.0, Anion Gap 9, BUN 77 H, Creatinine 3.33 H, Est GFR (MDRD) Af Amer 24 L, Est GFR (MDRD) Non-Af 20 L, BUN/Creatinine Ratio 23.1 H, Glucose 191 H, Calcium 7.5 L, Total Bilirubin 0.70 07/24/22 05:52: pH 7.32 L, Bicarbonate Actual 18.4 L, Base Excess -8 L, O2 Saturation 93 L, ABG pCO2 36.1, ABG pO2 73 L, Jake Test Positive Rhythm: EKG: ECHO: Stress Test: Cardiac Cath: PCI: CT Surgery: Holter monitor: EPS: PPM: CXR: Chest CT Scan: Physical Exam Narrative The platen press feeder showed underlying atrial fibrillation with better controlled ventricular rate Assessment & Plan Assessment/Plan (1) Hx of CABG: (2) CAD (coronary artery disease): QUALIFIERS: Coronary Disease-Associated Artery/Lesion type: [place] artery [place] vs. transplanted heart: [place] heart (3) Cardiomyopathy: (4) HLD (hyperlipidemia): QUALIFIERS: Hyperlipidemia type: unspecified hyperlipidemia Qualified Code(s): E78.5 - Hyperlipidemia, unspecified (5) Aneurysm of infrarenal abdominal aorta: (6) COPD (chronic obstructive pulmonary disease): (7) Ruptured iliac artery: (8) Flutter-fibrillation: PLAN: 71-year-old patient with CAD History of CABG Moderate LV function by echocardiogram with EF around 40% Patient has ruptured iliac artery and hypotension Also patient has A. fib with RVR currently on amiodarone Cardiac care plan and recommendations; This patient with multiple medical comorbidities, including coronary artery disease with prior CABG and cardiomyopathy and a prior coronary artery stents Has a AAA with rupture iliac artery and hemorrhagic shock, still on a ventilator, blood pressure stable on low-dose inotropic support with Levophed 1. Patient with oliguria and elevated potassium given Kayexalate and nephrology consultation The platen press feeder showed underlying atrial fibrillation, better controlled on amiodarone, with infrequent episodes of PVCs. 2. From cardiac standpoint we will continue to monitor and follow-up clinically
[2021-12-26] MEDS: 0.9% Saline Lock 10 ML Syringe IV (14:15)
--- NOTE | 2021-12-26 16:36 | CON.PCM.RE_ITS ---
Assessment & Plan Assessment/Plan (1) KIERSTEN (acute kidney injury): PLAN: Baseline creatinine was normal at 0.6 at the time of admission. Slow progressive increase in creatinine over the last 2 to 3 days. Had hypotension in OR and has been on pressors since then. Also has an element of acute liver injury. Most likely ischemic ATN. Renal ultrasound without any hydronephrosis. Urine output is on the lower side, only about 20 cc/h for the last 2 hours. Continue supportive therapy. Hold diuretics. If no turnaround within the next 1 to 2 days, may need renal replacement therapy. (2) Hyperkalemia: PLAN: Received potassium binders this morning. Did not have bowel movements yet. Repeat BMP in a.m. (3) Metabolic acidosis: PLAN: Blood gases consistent with metabolic acidosis. Likely related to renal failure. No need for bicarbonate drip for now. May give 1 to 2 Amps of bi carbonate just to help with hyperkalemia HPI Consult Data Date of Consult: 12/26/21 HPI Narrative Reason for Consultation: Acute renal failure HPI Narrative: ASHLEY ROBLES, is a 71 M who presented to the hospital initially for elective abdominal aortic aneurysm repair. He was found to have hypotension initially, was stabilized. Went to the OR for endovascular stent placement. Decompensated during the surgery, was found to have left iliac rupture, s/p repair. He is currently in the ICU, intubated. Nephrology consulted in view of acute renal failure. Baseline creatinine is normal at 0.6. Creatinine has been slowly increasing over the last 2 to 3 days. Renal ultrasound was done, did not show any hydronephrosis. He is currently intubated, sedated. On moderate amount of norepinephrine, amiodarone along with sedation. Urine output has dropped off. Potassium was noted to be high this morning. Received medical treatment. Review of systems could not be obtained. PENDING SALE TO [facility] Medical History Alcohol abuse Arthritis Bleeding tendency CAD (coronary artery disease) Cardiology follow-up encounter Cardiomyopathy Chronic back pain Chronic cough Congestive heart failure (CHF) COPD (chronic obstructive pulmonary disease) Difficulty chewing Difficulty swallowing Emphysema lung Gout High cholesterol History of back injury History of back pain History of heart attack History of inguinal hernia History of steroid therapy History of stress test HLD (hyperlipidemia) Hx of congestive heart failure Hx of edema Hx of essential hypertension Hx of gastroesophageal reflux (GERD) Hx of migraine headaches Hx of shortness of breath Hx of smoking Hypertension Kidney stones Myocardial infarct Home Medications albuterol sulfate 2.5 mg/3 mL (0.083 %) solution for nebulization 2.5 mg inhalation Q4H PRN PRN Wheezing 04/27/15 [History Last Taken Unknown] aspirin 81 mg chewable tablet 81 mg PO DAILY@0800 HEART 04/27/15 [History Last Taken Unknown] carvedilol 6.25 mg tablet 6.25 mg PO BID HEART 04/27/15 [History Last Taken Unknown] lisinopril 20 mg tablet 20 mg PO DAILY BLOOD PRESSURE 04/27/15 [History Last Taken Unknown] fluticasone propionate 115 mcg-salmeterol 21 mcg/actuation HFA inhaler (Advair HFA) 2 puff inhalation BID COPD 10/31/20 [History Last Taken Unknown] umeclidinium 62.5 mcg/actuation blister powder for inhalation (Incruse Ellipta) 1 inh inhalation DAILY COPD 10/31/20 [History Last Taken Unknown] atorvastatin 40 mg tablet 40 mg PO QHS CHOLESTEROL 12/09/21 [History Last Taken Unknown] doxycycline hyclate 100 mg capsule 100 mg PO BID COUGH 12/17/21 [History Last Taken Unknown] furosemide 40 mg tablet (Lasix) 40 mg PO BID EDEMA 12/17/21 [History Last Taken Unknown] guaifenesin 600 mg tablet, extended release 12 hr (Mucus Relief ER) 600 mg PO BID COUGH 12/17/21 [History Last Taken Unknown] prednisone 10 mg tablet See Taper PO BREAKFAST SOB 12/17/21 [History Last Taken Unknown] spironolactone 25 mg tablet 25 mg PO DAILY BLOOD PRESSURE 12/17/21 [History Last Taken Unknown] Allergy/AdvReac Type Severity Reaction Status Date / Time No Known Allergies Allergy Verified 12/21/21 09:59 Family History Other Cancer Diabetes Essential tremor Surgical History History of cardiac cath History of coronary artery stent placement Hx of CABG Hx of hernia repair S/P CABG x 3 Social History Smoking Status: Light Smoker (<10/day) substance use type: does not use Physical Exam Narrative Intubated no obvious distress no pallor no icterus no JVD s1s2 no murmurs lungs clear abdomen soft no organomegaly no edema no cyanosis fish + Lab / Micro Data Result Diagrams: 12/26/21 03:48 12/26/21 03:48 Labs: Laboratory Results - last 24 hr 12/25/21 17:52: POC Glucose 191 H 12/26/21 00:40: POC Glucose 142 H 12/26/21 03:48: WBC 15.1 H, RBC 2.94 L, Hgb 9.2 L, Hct 28.4 L, MCV 96.6 H, MCH 31.3, MCHC 32.4, RDW Std Deviation 53.4 H, RDW Coeff of Jamie 15.2 H, Plt Count 127 L, MPV 11.1, Immature Gran % (Auto) 0.500, Neut % (Auto) 91.4 H, Lymph % (Auto) 3.8 L, [place] % (Auto) 4.0, Eos % (Auto) 0.0, Baso % (Auto) 0.3, Absolute Neuts (auto) 13.8 H, Absolute Lymphs (auto) 0.57 L, Nucleated RBC % 0, Differential Comment SCANNED 12/26/21 03:48: Sodium 141, Potassium 6.0 H*, Chloride 111 H, Carbon Dioxide 21.0, Anion Gap 9, BUN 77 H, Creatinine 3.33 H, Estim Creat Clear Calc 22.99, Est GFR (MDRD) Af Amer 24 L, Est GFR (MDRD) Non-Af 20 L, BUN/Creatinine Ratio 23.1 H, Glucose 191 H, Calcium 7.5 L, Total Bilirubin 0.70, AST 488 H, ALT 799 H , Alkaline Phosphatase 86, Total Protein 4.8 L, Albumin 1.7 L, Globulin 3.1, A lbumin/Globulin Ratio 0.5 L 12/26/21 04:42: POC Glucose 164 H 12/26/21 11:43: POC Glucose 208 H ABG Data ABG results: ABG 12/26/21 05:52 Specimen Type ART Sample Site L Radial pH 7.32 L Bicarbonate Actual 18.4 L Total CO2 20 Base Excess -8 L O2 Saturation 93 L O2 % 30 ABG pCO2 36.1 ABG pO2 73 L Jake Test Positive O2 Delivery Device Adult Vent Vent Mode CPAP/PS POC PEEP 5 POC Pressure Suppt 5 Rhythm Strip Rhythm Strip: A flutter Rate: 125
--- NOTE | 2021-12-26 17:04 | ART_ITS ---
Reason For Study: concern for showering emboli Procedure A bilateral upper extremity continuous wave Doppler with analog waveform analysis and segmental pressures. Left Segmental Pressures Left brachial= 129mmHg. Left forearm by way of the radial artery = 132mmHg. Left radial= 158mmHg. Left ulnar= 155mmHg. The left radial waveforms are triphasic. The left ulnar waveforms are triphasic. Right Segmental Pressures Right brachial= 123mmHg. Right forearm pressure by way of the radial artery = 147mmHg. Right radial= 154mmHg. Right ulnar= 154mmHg. The right radial waveforms are triphasic. The right ulnar waveforms are triphasic. Indices The right wrist-brachial index is 1.19. The left wrist-brachial index is 1.22. VL/Upper Extremity Arterial Study Interpretation Summary Right wrist-brachial index 1.19, normal. PVR/Doppler waveforms of the right upper extremity normal at rest. Left wrist-brachial index 1.22, normal. PVR/Doppler waveforms of the left upper extremity normal at rest. Ordering Physician: Kahlil Fernandes Referring Physician: Kahlil Fernandes Performed By: Pedrito Richardson RVT
--- NOTE | 2021-12-26 17:04 | ART_ITS ---
Reason For Study: decreased pedal pulses Procedure A bilateral lower extremity continuous wave Doppler with analog waveform analysis,segmental pressures,and ankle brachial indexes without exercise. Left Segmental Pressures Left brachial= 134mmHg. Left posterior tibial artery = 114mmHg. Left dorsalis pedis artery = 142mmHg. The left posterior tibial artery waveforms are biphasic. The left dorsalis pedis waveforms are triphasic. Right Segmental Pressures Right brachial= 128mmHg. Right posterior tibial artery = 138mmHg. Right dorsalis pedis artery = 151mmHg. The right dorsalis pedis waveforms are triphasic. The right posterior tibial artery waveforms are triphasic. Indices The right ankle brachial index by the posterior tibial artery is 1.03. The right ankle brachial index by the dorsalis pedis is 1.13. The left ankle brachial index by the posterior tibial artery is .85. The left ankle brachial index by the dorsalis pedis is 1.06. VL/Lower Ext Art Exam w/o Exercis Interpretation Summary Left CORTNEY 1.06, normal. Doppler/PVR waveforms of the left leg normal at rest. Right CORTNEY 1.13, normal. Doppler/PVR waveforms of the right leg normal at rest. Ordering Physician: Khalil Fernandes Referring Physician: Kahlil Fernandes Performed By: Pedrito Richardson, RVT
[2021-12-26 17:06] LABS: Absolute Lymphocyte Count 0.49 X10^3/uL (0.83-4.51); Absolute Neutrophil Count 13.8 X10^3/uL (2.0-7.7); Basophil# 0.03 X10^3/uL; Basophil% 0.2 % (0-1); Hematocrit 27.8 % (40-54); Hemoglobin 8.9 g/dL (13.0-16.5); Lymphocyte # 0.49 X10^3/ul (0.83-4.51); Lymphocyte % 3.3 % (19-41); Mean Corpuscular Hgb 31.1 pg (27.0-32.0); Mean Corpuscular Volume 97.2 fL (80-94); Mean Platelet Vol. 10.5 fl (6.2-12.0); Monocyte# 0.55 X10^3/uL; Monocyte% 3.7 % (0-10); NRBC Flagged by Analyzer 0 % (0-5); Neutrophil # 13.78 X10^3/uL (2.7-7.7); POSITIVE DIFFERENTIAL YES; POSITIVE MORPHOLOGY YES; Platelet Count 133 K/mm3 (150-450); RBC Distribution Width SD 53.6 fl (35.1-43.9); Red Blood Count 2.86 M/mm3 (4.6-6.2)
[2021-12-26 17:44] LABS: Differential Indicated SCAN CRITERIA MET
[2021-12-26] MEDS: Acetaminophen 325 MG Tablet 650 MG PO (18:03)
[2021-12-26 18:30] LABS: Bedside Glucose 210 mg/dL (74-106)
[2021-12-26] MEDS: guaiFENesin 600 MG Tablet PO (20:32)
[2021-12-26] MEDS: Digoxin 250 MCG/ML Ampul 500 MCG IV (20:33)
[2021-12-26] MEDS: CHLORHEXIDINE GLUC 2% CLOTH 1 EACH TOWELETTE TOPICAL (22:27)
[2021-12-26] MEDS: Atorvastatin Calcium 40 MG Tablet PO (22:30)
[2021-12-27] VITALS (71 sets, daily range): BP systolic 65–135; BP diastolic 45–86; PULSE 8–131; RESP 12–21; TEMP 36.4–37.8; O2SAT 92–97
[2021-12-27] MEDS: Insulin Lispro 100 UNIT/ML INSULN.PEN SC ×4 (00:43→18:16)
[2021-12-27 01:01] LABS: Bedside Glucose 235 mg/dL (74-106)
[2021-12-27] MEDS: Vital AF 1.2 Cal Liquid 1,000 ML 20 ML GT (01:30)
[2021-12-27] MEDS: Norepinephrine 16 mg/250 mL 0.9% NS 10.3 MG CONT INF (01:45)
[2021-12-27] MEDS: TITRATION PARAMETER CHANGE 1 EACH IV (03:43)
[2021-12-27 03:45] LABS: Absolute Lymphocyte Count 0.65 X10^3/uL (0.83-4.51); Absolute Neutrophil Count 14.1 X10^3/uL (2.0-7.7); Basophil# 0.02 X10^3/uL; Basophil% 0.1 % (0-1); Hematocrit 26.1 % (40-54); Hemoglobin 8.4 g/dL (13.0-16.5); Lymphocyte # 0.65 X10^3/ul (0.83-4.51); Lymphocyte % 4.2 % (19-41); Mean Corp Hgb Conc 32.2 g/dL (32-36); Mean Corpuscular Hgb 31.2 pg (27.0-32.0); Mean Platelet Vol. 10.3 fl (6.2-12.0); Monocyte# 0.54 X10^3/uL; Monocyte% 3.5 % (0-10); NRBC Flagged by Analyzer 0.1 % (0-5); Neutrophil # 14.14 X10^3/uL (2.7-7.7); Neutrophil % 91.4 % (47-70); POSITIVE MORPHOLOGY YES; Platelet Count 133 K/mm3 (150-450); RBC Distribution Width CV 15.1 % (11.6-14.6); Red Blood Count 2.69 M/mm3 (4.6-6.2); White Blood Count 15.5 K/mm3 (4.4-11.0)
[2021-12-27 03:47] LABS: Differential Indicated SCAN CRITERIA MET
[2021-12-27 03:57] LABS: Anisocytosis 1+; Macrocytosis 1+
[2021-12-27 04:14] LABS: ALB/GLOB Ratio 0.5 RATIO (0.9-2.4); AST(SGOT) 370 U/L (15-37); Alanine Aminotransfer ALT/SGPT 484 U/L (16-61); Albumin, Serum 1.6 g/dL (3.2-5.0); Alkaline Phosphatase 109 U/L (45-117); Anion Gap 9 (5-15); BUN 94 mg/dL (7-18); BUN/Creat Ratio 23.2 RATIO (10-20); Calcium,Total 7.3 mg/dL (8.5-10.1); Chloride 112 mmol/L (98-107); Creatinine, Serum 4.06 mg/dL (0.70-1.30); EST Glomerular Filtration Rate 16 mL/min (>60); Est Glom Filt Rate - Afr Amer 19 mL/min (>60); Estimated Creatinine Clearance 18.86 ml/min; Globulin 3.4 g/dL (2.2-4.2); Glucose 218 mg/dL (74-106); Sodium Level 142 mmol/L (136-145)
[2021-12-27] MEDS: Hydrocortisone Sod Succinate 100 MG/2 ML Vial IV ×3 (04:46→20:25)
--- NOTE | 2021-12-27 06:05 | PCM.PN.INT ---
Assessment & Plan Assessment/Plan (1) Acute respiratory failure: PLAN: Plan RECOMMENDATIONS: 1. Continue assist-control mode of mechanical ventilation. Continue to wean FiO2 for saturations greater than 90%. 2. In light of ongoing tachycardia, discontinue DuoNebs and as needed albuterol and transition to Atrovent aerosols. 3. Continue Precedex and fentanyl for sedation. Goal to maintain a RASS of -1 to 1. 4. Continue Levophed to maintain a mean arterial pressure at or above 65 mmHg. 5. Continue stress dose steroids. 6. Start scheduled midodrine today to offset reliance on Levophed. 7. Potential need for dialysis support. Will defer decision making to nephrology. 8. Continue empiric antimicrobials for now. 9. Continue tube feeds as tolerated. 10. Continue appropriate ICU prophylaxis. IMPRESSIONS: 1. Hemorrhagic shock secondary to left iliac artery rupture Plan to continue supportive measures including vasopressor support to maintain a mean arterial pressure at or above 65 mmHg. The patient is significantly net positive from a volume perspective for the hospitalization. Blood counts are currently stable. Plan to continue to monitor blood counts daily and transfuse, if needed. In addition to the aforementioned, will initiate the patient on scheduled midodrine today in hopes of weaning further from Levophed. Once the patient is able to be successfully weaned from vasopressor support, stress dose steroids can be weaned. 2. Acute hypoxemic respiratory failure/suspected obstructive lung disease Secondary to #1. In light of the patient's ongoing issues with tachycardia, will discontinue duo nebs and transition the patient to Atrovent. Plan to continue assist-control mode of mechanical ventilation and wean FiO2 for saturations greater than 90%. I do anticipate that further optimization of his volume status will assist in weaning from invasive mechanical ventilatory support. In the interim, continue fentanyl and Precedex for sedation. 3. KIERSTEN likely secondary to ischemic ATN/hyperkalemia In light of the patient's ongoing metabolic and electrolyte derangements, nephrology is considering initiation of hemodialysis. 4. Acute liver injury Secondary to hemodynamic instability in the setting of #1. Transaminase levels continue to improve with supportive measures. 5. Anemia/thrombocytopenia Continue to monitor blood counts and transfuse if hemoglobin drops below 7 g/dL. 6. History of coronary artery disease status post CABG/cardiomyopathy/atrial fibrillation Continue medical support per cardiology recommendations, including amiodarone as ordered. 7. Chronic tobacco dependency/hyperlipidemia/hypertension Complicates care, management, recovery and prognosis. Continue to hold home antihypertensives. Continue tube feeds as tolerated. TIME: 41 minutes of critical care time, independent of procedures, was spent addressing the patient's hemorrhagic shock secondary to left iliac artery rupture, acute hypoxemic respiratory failure, acute kidney injury, acute liver injury, review of all data and collaboration with the care team. Subjective Subjective The patient was seen and examined at the bedside this morning. Events from the last 24 hours have been reviewed. The patient is currently afebrile and maintaining hemodynamic stability on Levophed at 11 mcg/min. Oxygen saturations are appropriate on assist control mode of mechanical ventilation with an FiO2 requirement of 30%. The patient is currently documented to be overall net +17 L for the hospitalization. Hemoglobin and platelet count are stable. Potassium is elevated this morning at 6.0, with a creatinine of 4.06. AST and ALT are improving. The patient again failed his spontaneous breathing trial this morning. According to nursing report, the patient becomes increasingly tachycardic the longer his breathing trial goes on. The patient has been tolerant of tube feeds thus far. Objective Data Objective Data The patient's most recent lab work, culture data and imaging studies have all been personally reviewed. Limited echocardiogram performed on December 23 demonstrated a mildly reduced LV with an ejection fraction of approximately 40%. Infectious work-up has been unrevealing to date. Vital Signs: Vital Signs Temp Pulse Resp BP Pulse Ox O2 Del Method O2 Flow Rate 98.7 F 119 H 18 109/67 93 Mechanical Ventilator 30 12/27/21 04:00 12/27/21 05:03 12/27/21 05:03 12/27/21 05:00 12/27/21 05:03 12/27/21 05:00 12/23/21 10:15 FiO2 30 12/27/21 05:00 Oxygen Flow Rate (L/min) 30 Oxygen Delivery Method Mechanical Ventilator Weight: 206 lb 2.115 oz Body Mass Index (BMI) 21.4 Intake & Output: Intake and Output for Last 24 Hours 12/25/21 12/26/21 12/27/21 23:59 23:59 23:59 Intake Total 3005.28 / 3109.68 3044.82 / 3155.24 618.06 / 618.06 Output Total 485 / 660 810 / 810 90 / 90 Balance 2520.28 / 2449.68 2234.82 / 2345.24 528.06 / 528.06 Lab / Micro Data Attestation: I reviewed the patient's lab results. Result Diagrams: 12/27/21 03:38 12/27/21 03:38 Labs: Laboratory Results - last 24 hr 12/26/21 03:48: Differential Comment SCANNED 12/26/21 03:48: Sodium 141, Potassium 6.0 H*, Chloride 111 H, Carbon Dioxide 21.0, Anion Gap 9, BUN 77 H, Creatinine 3.33 H, Estim Creat Clear Calc 22.99, Est GFR (MDRD) Af Amer 24 L, Est GFR (MDRD) Non-Af 20 L, BUN/Creatinine Ratio 23.1 H, Glucose 191 H, Calcium 7.5 L, Total Bilirubin 0.70, AST 488 H, ALT 799 H, Alkaline Phosphatase 86, Total Protein 4.8 L, Albumin 1.7 L, Globulin 3.1, Albumin/Globulin Ratio 0.5 L 12/26/21 11:43: POC Glucose 208 H 12/26/21 17:00: WBC 15.0 H, RBC 2.86 L, Hgb 8.9 L, Hct 27.8 L, MCV 97.2 H, MCH 31.1, MCHC 32.0, RDW Std Deviation 53.6 H, RDW Coeff of Jamie 15.0 H, Plt Count 133 L, MPV 10.5, Immature Gran % (Auto) 0.800, Neut % (Auto) 92.0 H, Lymph % (Auto) 3.3 L, [place] % (Auto) 3.7, Eos % (Auto) 0.0, Baso % (Auto) 0.2, Absolute Neuts (auto) 13.8 H, Absolute Lymphs (auto) 0.49 L, Nucleated RBC % 0, Differential Comment 12/26/21 17:44: POC Glucose 210 H 12/27/21 00:40: POC Glucose 235 H 12/27/21 03:38: WBC 15.5 H, RBC 2.69 L, Hgb 8.4 L, Hct 26.1 L, MCV 97.0 H, MCH 31.2, MCHC 32.2, RDW Std Deviation 53.0 H, RDW Coeff of Jamie 15.1 H, Plt Count 133 L, MPV 10.3, Immature Gran % (Auto) 0.800, Neut % (Auto) 91.4 H, Lymph % (Auto) 4.2 L, [place] % (Auto) 3.5, Eos % (Auto) 0.0, Baso % (Auto) 0.1, Absolute Neuts (auto) 14.1 H, Absolute Lymphs (auto) 0.65 L, Nucleated RBC % 0.1, Anisocytosis 1+, Macrocytosis 1+ 12/27/21 03:38: Sodium 142, Potassium 6.0 H*, Chloride 112 H, Carbon Dioxide 21.0, Anion Gap 9, BUN 94 H, Creatinine 4.06 H, Estim Creat Clear Calc 18.86, Est GFR (MDRD) Af Amer 19 L, Est GFR (MDRD) Non-Af 16 L, BUN/Creatinine Ratio 23.2 H, Glucose 218 H, Calcium 7.3 L, Total Bilirubin 0.60, AST 370 H, ALT 484 H, Alkaline Phosphatase 109, Total Protein 5.0 L, Albumin 1.6 L, Globulin 3.4, Albumin/Globulin Ratio 0.5 L Micro: Microbiology 12/18/21 07:33 Swab (Method) Nasal Screen MRSA/MSSA - Final Rhythm Strip Rhythm Strip: A flutter Rate: 125 Physical Exam Const General Appearance: ill appearing, intubated and patient mechanically ventilated HEENT normocephalic and head/scalp atraumatic Mouth: endotracheal tube in place and OG tube in place Eyes PERRL and conjunctivae normal Neck supple General: trachea midline and CVC in place Chest inspection of chest normal Resp Resp Narrative: No ventilator dyssynchrony. Auscultation: diminished lung sounds Cardio S1 normal heart sound, S2 normal heart sound and no murmurs Rhythm: abnormal rhythm GI normal to inspection, nondistended, normoactive bowel sounds Extremity General Extremity: edema bilateral upper extremity and lower extremity Skin no rashes or lesions noted Neuro Sensorium / Orientation: sedated on vent Charges/Coding Procedures Hospitalists Procedures: 23945 Critial Care 1st Hr
[2021-12-27 06:07] LABS: Bedside Glucose 187 mg/dL (74-106)
[2021-12-27] MEDS: Ipratropium 0.5 MG/2.5 ML SOLUTION INHALATION ×5 (06:47→22:50)
--- NOTE | 2021-12-27 07:22 | PN.CARD_ITS ---
Subjective Subjective Patient seen and evaluated. Events of this weekend noted. Patient noted to have episodes of atrial flutter and responded well to intravenous amiodarone and digoxin. Objective Data Vital Signs: Vital Signs Temp Pulse Resp BP Pulse Ox O2 Del Method O2 Flow Rate 98.7 F 100 16 90/54 L 93 Mechanical Ventilator 30 12/27/21 04:00 12/27/21 07:00 12/27/21 07:00 12/27/21 07:00 12/27/21 07:00 12/27/21 07:00 12/23/21 10:15 FiO2 30 12/27/21 07:00 Oxygen Flow Rate (L/min) 30 Oxygen Delivery Method Mechanical Ventilator Weight: 206 lb 2.115 oz Body Mass Index (BMI) 21.4 Intake & Output: Intake and Output for Last 24 Hours 12/25/21 12/26/21 12/27/21 23:59 23:59 23:59 Intake Total 3005.28 / 3109.68 3044.82 / 3155.24 737.22 / 737.22 Output Total 485 / 660 810 / 810 90 / 90 Balance 2520.28 / 2449.68 2234.82 / 2345.24 647.22 / 647.22 Lab / Micro Data Result Diagrams: 12/27/21 03:38 12/27/21 03:38 Labs: Laboratory Results - last 24 hr 12/26/21 11:43: POC Glucose 208 H 12/26/21 17:00: WBC 15.0 H, RBC 2.86 L, Hgb 8.9 L, Hct 27.8 L, MCV 97.2 H, MCH 31.1, MCHC 32.0, RDW Std Deviation 53.6 H, RDW Coeff of Jamie 15.0 H, Plt Count 133 L, MPV 10.5, Immature Gran % (Auto) 0.800, Neut % (Auto) 92.0 H, Lymph % (Auto) 3.3 L, [place] % (Auto) 3.7, Eos % (Auto) 0.0, Baso % (Auto) 0.2, Absolute Neuts (auto) 13.8 H, Absolute Lymphs (auto) 0.49 L, Nucleated RBC % 0, Differential Comment 12/26/21 17:44: POC Glucose 210 H 12/27/21 00:40: POC Glucose 235 H 12/27/21 03:38: WBC 15.5 H, RBC 2.69 L, Hgb 8.4 L, Hct 26.1 L, MCV 97.0 H, MCH 31.2, MCHC 32.2, RDW Std Deviation 53.0 H, RDW Coeff of Jamie 15.1 H, Plt Count 133 L, MPV 10.3, Immature Gran % (Auto) 0.800, Neut % (Auto) 91.4 H, Lymph % (Auto) 4.2 L, [place] % (Auto) 3.5, Eos % (Auto) 0.0, Baso % (Auto) 0.1, Absolute Neuts (auto) 14.1 H, Absolute Lymphs (auto) 0.65 L, Nucleated RBC % 0.1, Anisocytosis 1+, Macrocytosis 1+ 12/27/21 03:38: Sodium 142, Potassium 6.0 H*, Chloride 112 H, Carbon Dioxide 21.0, Anion Gap 9, BUN 94 H, Creatinine 4.06 H, Estim Creat Clear Calc 18.86, Est GFR (MDRD) Af Amer 19 L, Est GFR (MDRD) Non-Af 16 L, BUN/Creatinine Ratio 23.2 H, Glucose 218 H, Calcium 7.3 L, Total Bilirubin 0.60, AST 370 H, ALT 484 H , Alkaline Phosphatase 109, Total Protein 5.0 L, Albumin 1.6 L, Globulin 3.4, Albumin/Globulin Ratio 0.5 L 12/27/21 05:35: POC Glucose 187 H Rhythm Strip Rhythm Strip: A flutter Rate: 125 Cardiology Labs/Tests 12/26/21 17:00: WBC 15.0 H, RBC 2.86 L, Hgb 8.9 L, Hct 27.8 L, MCV 97.2 H, MCH 31.1, MCHC 32.0, Plt Count 133 L, MPV 10.5, Immature Gran % (Auto) 0.800, Neut % (Auto) 92.0 H, Lymph % (Auto) 3.3 L, [place] % (Auto) 3.7, Eos % (Auto) 0.0, Baso % (Auto) 0.2, Absolute Neuts (auto) 13.8 H, Nucleated RBC % 0 12/27/21 03:38: WBC 15.5 H, RBC 2.69 L, Hgb 8.4 L, Hct 26.1 L, MCV 97.0 H, MCH 31.2, MCHC 32.2, Plt Count 133 L, MPV 10.3, Immature Gran % (Auto) 0.800, Neut % (Auto) 91.4 H, Lymph % (Auto) 4.2 L, [place] % (Auto) 3.5, Eos % (Auto) 0.0, Baso % (Auto) 0.1, Absolute Neuts (auto) 14.1 H, Nucleated RBC % 0.1 12/27/21 03:38: Sodium 142, Potassium 6.0 H*, Chloride 112 H, Carbon Dioxide 21.0, Anion Gap 9, BUN 94 H, Creatinine 4.06 H, Est GFR (MDRD) Af Amer 19 L, Est GFR (MDRD) Non-Af 16 L, BUN/Creatinine Ratio 23.2 H, Glucose 218 H, Calcium 7.3 L, Total Bilirubin 0.60 Rhythm: EKG: ECHO: Stress Test: Cardiac Cath: PCI: CT Surgery: Holter monitor: EPS: PPM: CXR: Chest CT Scan: Physical Exam Const no apparent distress Constitutional Narrative: Intubated General Appearance: cooperative HEENT hearing grossly normal bilaterally Head and Scalp: atraumatic Eyes EOMs intact bilaterally Neck General: normal visual inspection Chest inspection of chest normal and palpation of chest normal Resp normal respiratory effort Auscultation: clear to auscultation bilaterally Cardio regular rate, regular rhythm, S1 normal heart sound and S2 normal heart sound Jugular Venous Distention: JVD GI normal to inspection, nondistended, normoactive bowel sounds Extremity normal capillary refill and no pedal edema General Extremity: edema bilateral Peripheral Pulses: Yes pulses 2+ throughout and femoral pulses present Skin no rashes or lesions noted General Skin Exam: ecchymosis Neuro oriented x3 and CN's II-XII intact bilaterally Psych Appearance: grossly normal and appropriate Assessment & Plan Assessment/Plan (1) Hypotension: PLAN: Patient developed significant hypotension following AAA repair attempt. Required significant IV fluid resuscitation as well as pressor resuscitation and blood. At the moment appears to be fairly stable. I do not think that this is secondary to an acute cardiac event. We will continue with resuscitative efforts. He is still on some amount of pressor agents but the amount appears to be less and is being titrated down. (2) Stented coronary artery: PLAN: Patient is status post previous angioplasty and stenting. Recent cardiac catheterization also demonstrated a patent ESTRADA to the LAD and disease of the circumflex artery. The above appears to have been stable. Recent echocardiogram demonstrates no significant change in the left ventricular ejection fraction. (3) AAA (abdominal aortic aneurysm) without rupture: PLAN: Abdominal aortic aneurysm status post attempted repair. He does have mild ecchymosis and mottling. I do not think that this is secondary to embolic phenomenon. (4) Cardiomyopathy: PLAN: Patient has a mild cardiomyopathy. At this time I would recommend that we continue to follow expectant management. (5) Flutter-fibrillation: PLAN: The patient has developed atrial fibrillation flutter over the weekend. With his downward trend in his hemoglobin I am hesitant to fully anticoagulate him. In addition he has developed significant renal dysfunction and thus we will keep him on low-dose Lovenox twice daily. I do not think that his peripheral mottling is secondary to embolization however. We will keep him on IV amiodarone for now. We will continue to follow Thank you for allowing me to participate in the care of your patient. Please don't hesitate to call if any issues arise.
[2021-12-27] MEDS: Midodrine HCl 5 MG Tablet 10 MG PO ×2 (10:29→20:24)
[2021-12-27] MEDS: Senna/Docusate Sodium 1 Tablet 2 TABLET PO ×2 (10:29→20:24)
[2021-12-27] MEDS: Chlorhexidine 15 ML PO ×2 (10:30→20:26)
[2021-12-27] MEDS: Aspirin 81 MG TAB.CHEW PO (10:30)
[2021-12-27] MEDS: Amiodarone 360 MG in Dextrose 5% Viaflo Bag 192.8 ML 16.7 MG CONT INF ×3 (10:45→22:39)
[2021-12-27 11:03] LABS: International Normalized Ratio 1.2; Prothrombin Time (Protime)PT. 14.5 SECONDS (11.7-14.9)
[2021-12-27 11:04] LABS: Partial Thromboplast Time 40.9 Seconds (24.1-36.2)
--- NOTE | 2021-12-27 11:18 | PCM.PN.REN ---
Objective Data Objective Data Vital Signs: Vital Signs Temp Pulse Resp BP Pulse Ox O2 Del Method O2 Flow Rate 97.6 F L 84 12 92/61 94 Mechanical Ventilator 30 12/27/21 08:00 12/27/21 11:00 12/27/21 11:00 12/27/21 11:00 12/27/21 11:00 12/27/21 11:00 12/23/21 10:15 FiO2 30 12/27/21 11:00 Oxygen Flow Rate (L/min) 30 Oxygen Delivery Method Mechanical Ventilator Weight: 93.5 kg Body Mass Index (BMI) 21.4 Intake & Output: Intake and Output for Last 24 Hours 12/25/21 12/26/21 12/27/21 23:59 23:59 23:59 Intake Total 3005.28 / 3109.68 3044.82 / 3155.24 1315.05 / 1315.05 Output Total 485 / 660 810 / 810 90 / 90 Balance 2520.28 / 2449.68 2234.82 / 2345.24 1225.05 / 1225.05 Lab / Micro Data Result Diagrams: 12/27/21 03:38 12/27/21 03:38 Labs: Laboratory Results - last 24 hr 12/26/21 11:43: POC Glucose 208 H 12/26/21 17:00: WBC 15.0 H, RBC 2.86 L, Hgb 8.9 L, Hct 27.8 L, MCV 97.2 H, MCH 31.1, MCHC 32.0, RDW Std Deviation 53.6 H, RDW Coeff of Jamie 15.0 H, Plt Count 133 L, MPV 10.5, Immature Gran % (Auto) 0.800, Neut % (Auto) 92.0 H, Lymph % (Auto) 3.3 L, [place] % (Auto) 3.7, Eos % (Auto) 0.0, Baso % (Auto) 0.2, Absolute Neuts (auto) 13.8 H, Absolute Lymphs (auto) 0.49 L, Nucleated RBC % 0, Differential Comment 12/26/21 17:44: POC Glucose 210 H 12/27/21 00:40: POC Glucose 235 H 12/27/21 03:38: WBC 15.5 H, RBC 2.69 L, Hgb 8.4 L, Hct 26.1 L, MCV 97.0 H, MCH 31.2, MCHC 32.2, RDW Std Deviation 53.0 H, RDW Coeff of Jamie 15.1 H, Plt Count 133 L, MPV 10.3, Immature Gran % (Auto) 0.800, Neut % (Auto) 91.4 H, Lymph % (Auto) 4.2 L, [place] % (Auto) 3.5, Eos % (Auto) 0.0, Baso % (Auto) 0.1, Absolute Neuts (auto) 14.1 H, Absolute Lymphs (auto) 0.65 L, Nucleated RBC % 0.1, Anisocytosis 1+, Macrocytosis 1+ 12/27/21 03:38: Sodium 142, Potassium 6.0 H*, Chloride 112 H, Carbon Dioxide 21.0, Anion Gap 9, BUN 94 H, Creatinine 4.06 H, Estim Creat Clear Calc 18.86, Est GFR (MDRD) Af Amer 19 L, Est GFR (MDRD) Non-Af 16 L, BUN/Creatinine Ratio 23.2 H, Glucose 218 H, Calcium 7.3 L, Total Bilirubin 0.60, AST 370 H, ALT 484 H, Alkaline Phosphatase 109, Total Protein 5.0 L, Albumin 1.6 L, Globulin 3.4, Albumin/Globulin Ratio 0.5 L 12/27/21 05:35: POC Glucose 187 H 12/27/21 10:45: PT 14.5, INR 1.2, APTT 40.9 H Micro: Microbiology 12/18/21 07:33 Swab (Method) Nasal Screen MRSA/MSSA - Final Rhythm Strip Rhythm Strip: A flutter Rate: 125
--- NOTE | 2021-12-27 12:13 | PN.RENAL_ITS ---
Subjective Subjective Patient remains intubated Making some urine Potassium remains high Objective Data Objective Data Vital Signs: Vital Signs Temp Pulse Resp BP Pulse Ox O2 Del Method O2 Flow Rate 99.0 F 107 H 19 H 121/60 H 93 Mechanical Ventilator 30 12/27/21 12:00 12/27/21 12:00 12/27/21 12:00 12/27/21 12:00 12/27/21 12:00 12/27/21 12:00 12/23/21 10:15 FiO2 30 12/27/21 12:00 Oxygen Flow Rate (L/min) 30 Oxygen Delivery Method Mechanical Ventilator Weight: 93.5 kg Body Mass Index (BMI) 21.4 Intake & Output: Intake and Output for Last 24 Hours 12/25/21 12/26/21 12/27/21 23:59 23:59 23:59 Intake Total 3005.28 / 3109.68 3044.82 / 3155.24 1315.05 / 1315.05 Output Total 485 / 660 810 / 810 240 / 240 Balance 2520.28 / 2449.68 2234.82 / 2345.24 1075.05 / 1075.05 Lab / Micro Data Attestation: I reviewed the patient's lab results. Result Diagrams: 12/27/21 03:38 12/27/21 03:38 Labs: Laboratory Results - last 24 hr 12/26/21 11:43: POC Glucose 208 H 12/26/21 17:00: WBC 15.0 H, RBC 2.86 L, Hgb 8.9 L, Hct 27.8 L, MCV 97.2 H, MCH 31.1, MCHC 32.0, RDW Std Deviation 53.6 H, RDW Coeff of Jamie 15.0 H, Plt Count 133 L, MPV 10.5, Immature Gran % (Auto) 0.800, Neut % (Auto) 92.0 H, Lymph % (Auto) 3.3 L, [place] % (Auto) 3.7, Eos % (Auto) 0.0, Baso % (Auto) 0.2, Absolute Neuts (auto) 13.8 H, Absolute Lymphs (auto) 0.49 L, Nucleated RBC % 0, Differen tial Comment 12/26/21 17:44: POC Glucose 210 H 12/27/21 00:40: POC Glucose 235 H 12/27/21 03:38: WBC 15.5 H, RBC 2.69 L, Hgb 8.4 L, Hct 26.1 L, MCV 97.0 H, MCH 31.2, MCHC 32.2, RDW Std Deviation 53.0 H, RDW Coeff of Jamie 15.1 H, Plt Count 133 L, MPV 10.3, Immature Gran % (Auto) 0.800, Neut % (Auto) 91.4 H, Lymph % (Auto) 4.2 L, [place] % (Auto) 3.5, Eos % (Auto) 0.0, Baso % (Auto) 0.1, Absolute Neuts (auto) 14.1 H, Absolute Lymphs (auto) 0.65 L, Nucleated RBC % 0.1, Anisocytosis 1+, Macrocytosis 1+ 12/27/21 03:38: Sodium 142, Potassium 6.0 H*, Chloride 112 H, Carbon Dioxide 21.0, Anion Gap 9, BUN 94 H, Creatinine 4.06 H, Estim Creat Clear Calc 18.86, Est GFR (MDRD) Af Amer 19 L, Est GFR (MDRD) Non-Af 16 L, BUN/Creatinine Ratio 23 .2 H, Glucose 218 H, Calcium 7.3 L, Total Bilirubin 0.60, AST 370 H, ALT 484 H, Alkaline Phosphatase 109, Total Protein 5.0 L, Albumin 1.6 L, Globulin 3.4, Albumin/Globulin Ratio 0.5 L 12/27/21 05:35: POC Glucose 187 H 12/27/21 10:45: PT 14.5, INR 1.2, APTT 40.9 H Micro: Microbiology 12/26/21 20:23 Sputum, Tracheal Aspirate Gram Stain - Final 12/26/21 20:23 Sputum, Tracheal Aspirate Respiratory Culture - Preliminary Gram negative mimi 12/26/21 20:50 Urine Catheter - Ziegler Urine Culture - Preliminary Culture exhibits no growth. 12/18/21 07:33 Swab (Method) Nasal Screen MRSA/MSSA - Final Rhythm Strip Rhythm Strip: A flutter Rate: 125 Physical Exam Narrative Intubated, sedated S1-S2 regular Breath sounds are diminished Abdomen is obese Positive for peripheral edema Assessment & Plan Assessment/Plan (1) KIERSTEN (acute kidney injury): PLAN: Baseline creatinine was normal at 0.6 at the time of admission. Slow progressive increase in creatinine over the last 2 to 3 days. Had hypotension in OR and has been on pressors since then. Also has an element of acute liver i njury. Most likely ischemic ATN. Renal ultrasound without any hydronephrosis. -Unfortunately urine output remains sluggish with concomitant persistent hyperkalemia -Given the fact the patient remains hypotensive suspect the function will further decline -At this point given volume overload in conjunction with hyperkalemia and poor solute clearance will initiate renal replacement therapy -Discussed this with his at bedside (2) Hyperkalemia: PLAN: Morning labs reviewed, potassium remains elevated at 6.0 (3) Metabolic acidosis: PLAN: Bicarb is relatively stable Thank you discussed this with ICU attending and RN Please call [phone] with any concerns
[2021-12-27 13:05] LABS: Bedside Glucose 212 mg/dL (74-106)
--- NOTE | 2021-12-27 13:59 | PCM.OP.PRO ---
Procedure Report Date of Procedure: 12/27/21 Temporary Hemodialysis Catheter Indication: Need for hemodialysis Consent was obtained from: Patient's A time-out was completed verifying correct patient, procedure, site, positioning, and special equipment if applicable. The patient was placed in a dependent position appropriate for hemodialysis line placement based on the vein to be cannulated. Initially, an attempt was made to access the patient's left IJ with ultrasound guidance. Unfortunately, the guidewire was able to be advanced without encountering resistance. Therefore, the procedure was terminated and the right femoral vein was selected as a secondary site. The patient's right femoral vein was prepped and draped in the sterile fashion. A 16 cm catheter was introduced into the right femoral vein, following sequential dilations, using the Seldinger technique and under ultrasound guidance. The catheter was threaded smoothly over the guidewire and appropriate blood return was obtained. Each lumen of the catheter was evacuated of air and flushed with sterile saline. The catheter was then sutured in place to the skin and a sterile dressing applied. ULTRASOUND GUIDANCE STATEMENT (Vascular Access): I performed an ultrasound image acquisition and interpretation for needle placement during the procedure. The vessel was identified and was found to be free of thrombosis by compression technique. A safe point of entry was marked at the skin in an angle for axis was determined. The needle was guided by obtaining free-flowing fluid and by real-time visualization. Procedures Hospitalists Procedures: 12647 Insert Non-tunnel CV Cath
[2021-12-27] MEDS: Enoxaparin 40 MG/0.4 ML Syringe SC ×2 (14:12→20:27)
--- NOTE | 2021-12-27 15:06 | PCM.PN.SRG ---
Subjective Subjective Slow improvement, weaning pressors, tolerating vent wean but tachycardic with SBT. Improved UOP, K remains elevated. +BM Concern yesterday evening over appearance of left arm, bilateral feet; more cool, cyanotic, intact signals. Objective Data Objective Data Vital Signs: Vital Signs Temp Pulse Resp BP Pulse Ox O2 Del Method O2 Flow Rate 99.0 F 77 19 H 96/59 L 95 Mechanical Ventilator 30 12/27/21 12:00 12/27/21 14:49 12/27/21 14:49 12/27/21 14:00 12/27/21 14:00 12/27/21 14:00 12/23/21 10:15 FiO2 30 12/27/21 14:00 Oxygen Flow Rate (L/min) 30 Oxygen Delivery Method Mechanical Ventilator Weight: 206 lb 2.115 oz Body Mass Index (BMI) 21.4 Intake & Output: Intake and Output for Last 24 Hours 12/25/21 12/26/21 12/27/21 23:59 23:59 23:59 Intake Total 3005.28 / 3109.68 3044.82 / 3155.24 1660.96 / 1660.96 Output Total 485 / 660 810 / 810 240 / 240 Balance 2520.28 / 2449.68 2234.82 / 2345.24 1420.96 / 1420.96 Lab / Micro Data Result Diagrams: 12/27/21 03:38 12/27/21 03:38 Labs: Laboratory Results - last 24 hr 12/26/21 17:00: WBC 15.0 H, RBC 2.86 L, Hgb 8.9 L, Hct 27.8 L, MCV 97.2 H, MCH 31.1, MCHC 32.0, RDW Std Deviation 53.6 H, RDW Coeff of Jamie 15.0 H, Plt Count 133 L, MPV 10.5, Immature Gran % (Auto) 0.800, Neut % (Auto) 92.0 H, Lymph % (Auto) 3.3 L, [place] % (Auto) 3.7, Eos % (Auto) 0.0, Baso % (Auto) 0.2, Absolute Neuts (auto) 13.8 H, Absolute Lymphs (auto) 0.49 L, Nucleated RBC % 0, Differential Comment 12/26/21 17:44: POC Glucose 210 H 12/27/21 00:40: POC Glucose 235 H 12/27/21 03:38: WBC 15.5 H, RBC 2.69 L, Hgb 8.4 L, Hct 26.1 L, MCV 97.0 H, MCH 31.2, MCHC 32.2, RDW Std Deviation 53.0 H, RDW Coeff of Jamie 15.1 H, Plt Count 133 L, MPV 10.3, Immature Gran % (Auto) 0.800, Neut % (Auto) 91.4 H, Lymph % (Auto) 4.2 L, [place] % (Auto) 3.5, Eos % (Auto) 0.0, Baso % (Auto) 0.1, Absolute Neuts (auto) 14.1 H, Absolute Lymphs (auto) 0.65 L, Nucleated RBC % 0.1, Anisocytosis 1+, Macrocytosis 1+ 12/27/21 03:38: Sodium 142, Potassium 6.0 H*, Chloride 112 H, Carbon Dioxide 21.0, Anion Gap 9, BUN 94 H, Creatinine 4.06 H, Estim Creat Clear Calc 18.86, Est GFR (MDRD) Af Amer 19 L, Est GFR (MDRD) Non-Af 16 L, BUN/Creatinine Ratio 23.2 H, Glucose 218 H, Calcium 7.3 L, Total Bilirubin 0.60, AST 370 H, ALT 484 H, Alkaline Phosphatase 109, Total Protein 5.0 L, Albumin 1.6 L, Globulin 3.4, Albumin/Globulin Ratio 0.5 L 12/27/21 05:35: POC Glucose 187 H 12/27/21 10:45: PT 14.5, INR 1.2, APTT 40.9 H 12/27/21 12:09: POC Glucose 212 H Micro: Microbiology 12/26/21 20:23 Sputum, Tracheal Aspirate Gram Stain - Final 12/26/21 20:23 Sputum, Tracheal Aspirate Respiratory Culture - Preliminary Gram negative mimi 12/26/21 20:50 Urine Catheter - Ziegler Urine Culture - Preliminary Culture exhibits no growth. 12/18/21 07:33 Swab (Method) Nasal Screen MRSA/MSSA - Final Rhythm Strip Rhythm Strip: A flutter Rate: 125 Physical Exam Narrative Intubated, sedated. Const General Appearance: ill appearing Cardio regular rate and regular rhythm GI soft to palpation and non-tender Inspection: abdominal distention Extremity Extremity Narrative: LUE- triphasic radial/ulnar RLE- monophasic DP/PT LLE- triphasic DP, monophasic PT General Extremity: edema Assessment & Plan Assessment/Plan (1) Ruptured iliac artery: PLAN: -improving hemodynamics, weaning support -intermittent a.fib/flutter; with paroxysmal nature and concern of changes in pulse exam, reasonable to cont heparin, will re-eval if signs of bleeding -extremities viable, suspect baseline ASO with pressors/hemodynamic variability causing foot appearance; passive warming, off load pressure -Cr and K cont to rise, better uop; HD initiation today to help with volume overload and electrolytes though hopefully with cont renal recovery
[2021-12-27 16:50] LABS: Bedside Glucose 191 mg/dL (74-106)
[2021-12-27] MEDS: Albumin Human 25% (100 mL) 25 GM/100 ML BAG IV (17:30)
[2021-12-27 18:40] LABS: Bedside Glucose 174 mg/dL (74-106)
[2021-12-27] MEDS: Heparin 10,000 UNITS/10 ML Vial IV (19:07)
--- NOTE | 2021-12-27 19:22 | DIALYSIS ---
first hemodialysis tx completed x 3 hrs. Access via right groin temporary HD cath. Lines reversed. hep B labs drawn. pt had A fib RVR briefly at start of dialysis. Albumin given for hypotension. Net UF 500ml. See HD flowsheet in chart.
[2021-12-27] MEDS: Atorvastatin Calcium 40 MG Tablet PO (20:27)
[2021-12-28] VITALS (60 sets, daily range): BP systolic 73–145; BP diastolic 43–88; PULSE 79–147; RESP 15–26; TEMP 36.6–37.3; O2SAT 92–99
[2021-12-28] MEDS: Insulin Lispro 100 UNIT/ML INSULN.PEN SC ×3 (01:05→11:36)
[2021-12-28 01:26] LABS: Bedside Glucose 185 mg/dL (74-106)
[2021-12-28] MEDS: TITRATION PARAMETER CHANGE 1 EACH IV (01:48)
[2021-12-28] MEDS: Ipratropium 0.5 MG/2.5 ML SOLUTION INHALATION ×6 (02:14→23:00)
[2021-12-28 05:16] LABS: Hepatitis B Surface Antibody Non-Reactive; Hepatitis B Surface Antigen Non-Reactive (Nonreactive)
[2021-12-28] MEDS: Hydrocortisone Sod Succinate 100 MG/2 ML Vial IV ×2 (05:22→21:32)
[2021-12-28 05:50] LABS: Bedside Glucose 178 mg/dL (74-106)
--- NOTE | 2021-12-28 05:53 | PN.CC_ITS ---
Assessment & Plan Assessment/Plan (1) Acute respiratory failure: PLAN: Plan RECOMMENDATIONS: 1. Proceed with a trial of extubation. Once extubated, wean supplemental oxygen for saturations greater than 90%. 2. Obtain speech therapy evaluation, prior to consideration for advancement of diet. 3. Levophed, if needed, to maintain a mean arterial pressure at or above 65 mmHg. 4. Ongoing dialysis support per nephrology recommendations. 5. Continue empiric antimicrobials, pending finalized culture results. 6. Will begin to wean stress dose steroids beginning tomorrow, if the patient remains hemodynamically stable for the next 24 hours. 7. Continue scheduled Atrovent aerosols. 8. Continue midodrine as ordered. 9. Continue appropriate ICU prophylaxis. IMPRESSIONS: 1. 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 The patient is significantly net positive from a volume perspective for the hospitalization. Blood counts are currently stable. Plan to continue to monitor blood counts daily and transfuse, if needed. Continue scheduled midodrine for now along with stress dose steroids. If the patient remains hemodynamically stable over the next 24 hours, will begin to wean stress dose steroids. 2. Acute hypoxemic respiratory failure/suspected obstructive lung disease and gram-negative pneumonia Secondary to #1. The patient has improved from a respiratory perspective and will be extubated this morning. Continue antimicrobials as ordered, pending finalized culture results. Continue scheduled Atrovent aerosols. Wean supplemental oxygen to maintain saturations at or above 90%. Encourage incentive spirometer use while in bed. Speech therapy evaluation will need to be obtained prior to consideration for advancement of diet. 3. KIERSTEN likely secondary to ischemic ATN/hyperkalemia Stable. Ongoing hemodialysis support per nephrology recommendations. 4. Acute liver injury Improving. Secondary to hemodynamic instability in the setting of #1. Transaminase levels continue to improve with supportive measures. 5. Anemia/thrombocytopenia Continue to monitor blood counts and transfuse if hemoglobin drops below 7 g/dL. 6. History of coronary artery disease status post CABG/cardiomyopathy/atrial fibrillation Continue medical support per cardiology recommendations, including amiodarone as ordered. 7. Chronic tobacco dependency/hyperlipidemia/hypertension Complicates care, management, recovery and prognosis. Continue to hold home antihypertensives. The patient will ultimately require physical therapy evaluation in the near future. 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 Subjective Subjective The patient was seen and examined at the bedside this morning. Events from the last 24 hours have been reviewed. The patient did have a fever last evening documented to be 101.7 ?F. However, the patient at the present time, is a febrile. The patient's Levophed was able to be weaned down to 5 mcg/min. In fact, it was able to be shut off completely when he was placed on his spontaneous awakening trial this morning. The patient has done well on his spontaneous breathing trial. The patient is currently documented to be overall net +18.5 L for the hospitalization. The patient tolerated 3 hours of dialysis yesterday, with albumin given for hypotension. Net UF was noted to be 500 mL. He is currently alert and able to follow simple commands. FiO2 requirement is minimal at 30%. The patient's hemoglobin is down to 7.3 g/dL. He remains thrombocytopenic with a platelet count of 129,000. Potassium remains high at 5.3. Phosphorus is elevated at 6.7 with a magnesium of 2.8. Transaminases continue to improve. Objective Data Objective Data The patient's most recent lab work, culture data and imaging studies have all been personally reviewed. Limited echocardiogram performed on December 23 demonstrated a mildly reduced LV with an ejection fraction of approximately 40%. Gram-negative rods were noted on preliminary sputum culture, dated December 26. Vital Signs: Vital Signs Temp Pulse Resp BP Pulse Ox O2 Del Method O2 Flow Rate 99.0 F 116 H 20 H 107/71 95 Mechanical Ventilator 12/28/21 00:00 12/28/21 05:07 12/28/21 05:07 12/28/21 05:00 12/28/21 05:07 12/28/21 05:00 12/23/21 10:15 FiO2 12/28/21 05:00 Oxygen Flow Rate (L/min) 30 Oxygen Delivery Method Mechanical Ventilator Weight: 209 lb 3.499 oz Body Mass Index (BMI) 21.4 Intake & Output: Intake and Output for Last 24 Hours 12/26/21 12/27/21 12/28/21 23:59 23:59 23:59 Intake Total 3044.82 / 3155.24 2694.46 / 2737.98 369.14 / 369.14 Output Total 810 / 810 890 / 890 40 / 40 Balance 2234.82 / 2345.24 1804.46 / 1847.98 329.14 / 329.14 Lab / Micro Data Attestation: I reviewed the patient's lab results. Result Diagrams: 12/28/21 03:30 12/28/21 03:30 Labs: Laboratory Results - last 24 hr 12/27/21 05:35: POC Glucose 187 H 12/27/21 10:45: PT 14.5, INR 1.2, APTT 40.9 H 12/27/21 12:09: POC Glucose 212 H 12/27/21 16:05: Hep Bs Antigen Non-Reactive, Hep Bs Antibody Non-Reactive 12/27/21 16:30: POC Glucose 191 H 12/27/21 18:14: POC Glucose 174 H 12/28/21 01:03: POC Glucose 185 H 12/28/21 05:25: POC Glucose 178 H Micro: Microbiology 12/26/21 20:23 Sputum, Tracheal Aspirate Gram Stain - Final 12/26/21 20:23 Sputum, Tracheal Aspirate Respiratory Culture - Preliminary Gram negative mimi 12/26/21 20:50 Urine Catheter - Ziegler Urine Culture - Preliminary Culture exhibits no growth. 12/18/21 07:33 Swab (Method) Nasal Screen MRSA/MSSA - Final Rhythm Strip Rhythm Strip: A flutter Rate: 125 Physical Exam Const alert General Appearance: cooperative, ill appearing, intubated and patient mechanically ventilated HEENT normocephalic and head/scalp atraumatic Mouth: endotracheal tube in place and OG tube in place Eyes PERRL and conjunctivae normal Neck supple General: trachea midline and CVC in place Chest inspection of chest normal Resp Resp Narrative: No ventilator dyssynchrony. Auscultation: diminished lung sounds Cardio S1 normal heart sound, S2 normal heart sound and no murmurs Rate: tachycardic Rhythm: abnormal rhythm GI normal to inspection, nondistended, normoactive bowel sounds Extremity Extremity Narrative: +Anasarca. Right femoral temporary HD line in place. General Extremity: edema bilateral upper extremity and lower extremity Skin no rashes or lesions noted Neuro Neuro Narrative: The patient is alert on his spontaneous awakening trial. He is able to follow simple commands. Psych cooperative Charges/Coding Procedures Hospitalists Procedures: 19508 Critial Care 1st Hr
[2021-12-28 06:21] LABS: ALB/GLOB Ratio 0.7 RATIO (0.9-2.4); AST(SGOT) 272 U/L (15-37); Absolute Lymphocyte Count 0.56 X10^3/uL (0.83-4.51); Absolute Neutrophil Count 14.2 X10^3/uL (2.0-7.7); Alanine Aminotransfer ALT/SGPT 368 U/L (16-61); Alkaline Phosphatase 86 U/L (45-117); Anion Gap 9 (5-15); BUN 85 mg/dL (7-18); BUN/Creat Ratio 21.9 RATIO (10-20); Basophil# 0.02 X10^3/uL; Basophil% 0.1 % (0-1); Calcium,Total 7.3 mg/dL (8.5-10.1); Chloride 108 mmol/L (98-107); Creatinine, Serum 3.88 mg/dL (0.70-1.30); EST Glomerular Filtration Rate 16 mL/min (>60); Est Glom Filt Rate - Afr Amer 20 mL/min (>60); Estimated Creatinine Clearance 19.73 ml/min; Glucose 196 mg/dL (74-106); Hematocrit 23.1 % (40-54); Hemoglobin 7.3 g/dL (13.0-16.5); Lymphocyte # 0.56 X10^3/ul (0.83-4.51); Lymphocyte % 3.6 % (19-41); Magnesium 2.8 mg/dL (1.6-2.6); Mean Corp Hgb Conc 31.6 g/dL (32-36); Mean Corpuscular Hgb 30.8 pg (27.0-32.0); Mean Corpuscular Volume 97.5 fL (80-94); Mean Platelet Vol. 11.4 fl (6.2-12.0); Monocyte% 3.9 % (0-10); NRBC Flagged by Analyzer 0.1 % (0-5); Neutrophil # 14.16 X10^3/uL (2.7-7.7); Neutrophil % 91.3 % (47-70); POSITIVE DIFFERENTIAL YES; Phosphorus 6.7 mg/dL (2.5-4.9); Platelet Count 129 K/mm3 (150-450); Potassium 5.3 mmol/L (3.5-5.1); RBC Distribution Width CV 15.1 % (11.6-14.6); RBC Distribution Width SD 53.5 fl (35.1-43.9); Red Blood Count 2.37 M/mm3 (4.6-6.2); Sodium Level 140 mmol/L (136-145); White Blood Count 15.5 K/mm3 (4.4-11.0)
[2021-12-28 06:22] LABS: Differential Indicated SCAN CRITERIA MET
[2021-12-28 06:34] LABS: Anisocytosis 1+; Macrocytosis 1+
--- NOTE | 2021-12-28 06:39 | NURSING ---
0630- RT at the bedside and pt extubated to 3L NC. 0640- Dr. Mi at the bedside requesting precedex drip be discontinued. Precedex discontinued at this time.
[2021-12-28] MEDS: Digoxin 250 MCG/ML Ampul 500 MCG IV (07:47)
--- NOTE | 2021-12-28 08:47 | PN.CARD_ITS ---
Subjective Subjective Patient seen and evaluated. Successfully extubated Objective Data Vital Signs: Vital Signs Temp Pulse Resp BP Pulse Ox O2 Del Method O2 Flow Rate 98.9 F 130 H 15 107/58 L 98 Nasal Cannula 4 12/28/21 08:00 12/28/21 08:00 12/28/21 08:00 12/28/21 08:00 12/28/21 08:00 12/28/21 08:00 12/28/21 08:00 FiO2 30 12/28/21 06:00 Oxygen Flow Rate (L/min) 4 Oxygen Delivery Method Nasal Cannula Weight: 209 lb 3.499 oz Body Mass Index (BMI) 21.4 Intake & Output: Intake and Output for Last 24 Hours 12/26/21 12/27/21 12/28/21 23:59 23:59 23:59 Intake Total 3044.82 / 3155.24 2694.46 / 2737.98 537.93 / 537.93 Output Total 810 / 810 890 / 890 40 / 40 Balance 2234.82 / 2345.24 1804.46 / 1847.98 497.93 / 497.93 Lab / Micro Data Result Diagrams: 12/28/21 03:30 12/28/21 03:30 Labs: Laboratory Results - last 24 hr 12/27/21 10:45: PT 14.5, INR 1.2, APTT 40.9 H 12/27/21 12:09: POC Glucose 212 H 12/27/21 16:05: Hep Bs Antigen Non-Reactive, Hep Bs Antibody Non-Reactive 12/27/21 16:30: POC Glucose 191 H 12/27/21 18:14: POC Glucose 174 H 12/28/21 01:03: POC Glucose 185 H 12/28/21 03:30: WBC 15.5 H, RBC 2.37 L, Hgb 7.3 L, Hct 23.1 L, MCV 97.5 H, MCH 30.8, MCHC 31.6 L, RDW Std Deviation 53.5 H, RDW Coeff of Jamie 15.1 H, Plt Count 129 L, MPV 11.4, Immature Gran % (Auto) 1.100 H, Neut % (Auto) 91.3 H, Lymph % (Auto) 3.6 L, [place] % (Auto) 3.9, Eos % (Auto) 0.0, Baso % (Auto) 0.1, Absolute Neuts (auto) 14.2 H, Absolute Lymphs (auto) 0.56 L, Nucleated RBC % 0.1, Anisocytosis 1+, Macrocytosis 1+ 12/28/21 03:30: Sodium 140, Potassium 5.3 H, Chloride 108 H, Carbon Dioxide 23.0, Anion Gap 9, BUN 85 H, Creatinine 3.88 H, Estim Creat Clear Calc 19.73, Est GFR (MDRD) Af Amer 20 L, Est GFR (MDRD) Non-Af 16 L, BUN/Creatinine Ratio 21.9 H, Glucose 196 H, Calcium 7.3 L, Phosphorus 6.7 H, Magnesium 2.8 H, Total Bilirubin 0.60, AST 272 H, ALT 368 H, Alkaline Phosphatase 86, Total Protein 5.0 L, Albumin 2.0 L, Globulin 3.0, Albumin/Globulin Ratio 0.7 L 12/28/21 05:25: POC Glucose 178 H Micro: Microbiology 12/26/21 20:50 Urine Catheter - Ziegler Urine Culture - Final Culture exhibits no growth. 12/26/21 20:23 Sputum, Tracheal Aspirate Gram Stain - Final 12/26/21 20:23 Sputum, Tracheal Aspirate Respiratory Culture - Preliminary Serratia liquefaciens Rhythm Strip Rhythm Strip: A flutter Rate: 125 Cardiology Labs/Tests 12/27/21 10:45: PT 14.5, INR 1.2, APTT 40.9 H 12/28/21 03:30: WBC 15.5 H, RBC 2.37 L, Hgb 7.3 L, Hct 23.1 L, MCV 97.5 H, MCH 30.8, MCHC 31.6 L, Plt Count 129 L, MPV 11.4, Immature Gran % (Auto) 1.100 H, Neut % (Auto) 91.3 H, Lymph % (Auto) 3.6 L, [place] % (Auto) 3.9, Eos % (Auto) 0.0, Baso % (Auto) 0.1, Absolute Neuts (auto) 14.2 H, Nucleated RBC % 0.1 12/28/21 03:30: Sodium 140, Potassium 5.3 H, Chloride 108 H, Carbon Dioxide 23 .0, Anion Gap 9, BUN 85 H, Creatinine 3.88 H, Est GFR (MDRD) Af Amer 20 L, Est GFR (MDRD) Non-Af 16 L, BUN/Creatinine Ratio 21.9 H, Glucose 196 H, Calcium 7.3 L, Phosphorus 6.7 H, Magnesium 2.8 H, Total Bilirubin 0.60 Rhythm: EKG: ECHO: Stress Test: Cardiac Cath: PCI: CT Surgery: Holter monitor: EPS: PPM: CXR: Chest CT Scan: Physical Exam Const alert General Appearance: cooperative and ill appearing HEENT normocephalic and head/scalp atraumatic Eyes PERRL and conjunctivae normal Neck supple General: trachea midline and CVC in place Chest inspection of chest normal Resp Resp Narrative: No ventilator dyssynchrony. Auscultation: diminished lung sounds Cardio S1 normal heart sound, S2 normal heart sound and no murmurs Rate: tachycardic Rhythm: abnormal rhythm GI normal to inspection, nondistended, normoactive bowel sounds Extremity Extremity Narrative: +Anasarca. Right femoral temporary HD line in place. General Extremity: edema bilateral upper extremity and lower extremity Skin no rashes or lesions noted Psych cooperative Assessment & Plan Assessment/Plan (1) Hypotension: PLAN: Patient developed significant hypotension following AAA repair attempt. Required significant IV fluid resuscitation as well as pressor resuscitation and blood. At the moment appears to be fairly stable. I do not think that this is secondary to an acute cardiac event. We will continue with resuscitative efforts. He is still on reduced amount of pressor agents but the amount appears to be less and is being titrated down. (2) Stented coronary artery: PLAN: Patient is status post previous angioplasty and stenting. Recent cardiac catheterization also demonstrated a patent ESTRADA to the LAD and disease of the circumflex artery. The above appears to have been stable. Recent echocardiogram demonstrates no significant change in the left ventricular ejection fraction. (3) AAA (abdominal aortic aneurysm) without rupture: PLAN: Abdominal aortic aneurysm status post attempted repair. He does have mild ecchymosis and mottling. I do not think that this is secondary to embolic phenomenon. (4) Cardiomyopathy: PLAN: Patient has a mild cardiomyopathy. At this time I would recommend that we continue to follow expectant management. (5) Flutter-fibrillation: PLAN: The patient has developed atrial fibrillation flutter over the weekend. With his downward trend in his hemoglobin I am hesitant to fully anticoagulate him. In addition he has developed significant renal dysfunction and thus we will keep him on low-dose Lovenox twice daily. I do not think that his peripheral mottling is secondary to embolization however. We will keep him on IV amiodarone for now. We will continue to follow Thank you for allowing me to participate in the care of your patient. Please don't hesitate to call if any issues arise.
[2021-12-28] MEDS: Enoxaparin 40 MG/0.4 ML Syringe SC ×2 (09:21→21:32)
[2021-12-28] MEDS: Amiodarone 360 MG in Dextrose 5% Viaflo Bag 192.8 ML 16.7 MG CONT INF ×2 (09:50→21:50)
--- NOTE | 2021-12-28 10:42 | CASEMGMT ---
SW met with patient's . Introduced self and role at [facility]. Patient was just extubated today and continues to have many medical issues so patient's discharge needs are unknown at this time. However, it is highly likely patient will need either a assisted facility or an LTACH. SW provided patient's with a list of SNF and LTCH providers including quality and resource use data and consistent with the patient?s preferred geographic region, medical needs, and insurance network. GLORIA told patient's that GLORIA and [facility] will continue to follow for d/c planning needs. Felicia Torres [employer]
--- NOTE | 2021-12-28 11:22 | PN.RENAL_ITS ---
Subjective Subjective Patient is now extubated Off pressor support tolerated dialysis relatively okay yesterday Objective Data Objective Data Vital Signs: Vital Signs Temp Pulse Resp BP Pulse Ox O2 Del Method O2 Flow Rate 98.9 F 94 17 113/70 96 Nasal Cannula 3 12/28/21 08:00 12/28/21 11:00 12/28/21 11:00 12/28/21 11:00 12/28/21 11:00 12/28/21 11:00 12/28/21 11:00 FiO2 3 12/28/21 09:00 Oxygen Flow Rate (L/min) 3 Oxygen Delivery Method Nasal Cannula Weight: 94.9 kg Body Mass Index (BMI) 21.4 Intake & Output: Intake and Output for Last 24 Hours 12/26/21 12/27/21 12/28/21 23:59 23:59 23:59 Intake Total 3044.82 / 3155.24 2694.46 / 2737.98 711.95 / 711.95 Output Total 810 / 810 890 / 890 70 / 70 Balance 2234.82 / 2345.24 1804.46 / 1847.98 641.95 / 641.95 Lab / Micro Data Result Diagrams: 12/28/21 03:30 12/28/21 03:30 Labs: Laboratory Results - last 24 hr 12/27/21 12:09: POC Glucose 212 H 12/27/21 16:05: Hep Bs Antigen Non-Reactive, Hep Bs Antibody Non-Reactive 12/27/21 16:30: POC Glucose 191 H 12/27/21 18:14: POC Glucose 174 H 12/28/21 01:03: POC Glucose 185 H 12/28/21 03:30: WBC 15.5 H, RBC 2.37 L, Hgb 7.3 L, Hct 23.1 L, MCV 97.5 H, MCH 30.8, MCHC 31.6 L, RDW Std Deviation 53.5 H, RDW Coeff of Jamie 15.1 H, Plt Count 129 L, MPV 11.4, Immature Gran % (Auto) 1.100 H, Neut % (Auto) 91.3 H, Lymph % (Auto) 3.6 L, [place] % (Auto) 3.9, Eos % (Auto) 0.0, Baso % (Auto) 0.1, Absolute Neuts (auto) 14.2 H, Absolute Lymphs (auto) 0.56 L, Nucleated RBC % 0.1, Anisocytosis 1+, Macrocytosis 1+ 12/28/21 03:30: Sodium 140, Potassium 5.3 H, Chloride 108 H, Carbon Dioxide 23.0, Anion Gap 9, BUN 85 H, Creatinine 3.88 H, Estim Creat Clear Calc 19.73, Est GFR (MDRD) Af Amer 20 L, Est GFR (MDRD) Non-Af 16 L, BUN/Creatinine Ratio 21.9 H, Glucose 196 H, Calcium 7.3 L, Phosphorus 6.7 H, Magnesium 2.8 H, Total Bilirubin 0.60, AST 272 H, ALT 368 H, Alkaline Phosphatase 86, Total Protein 5.0 L, Albumin 2.0 L, Globulin 3.0, Albumin/Globulin Ratio 0.7 L 12/28/21 05:25: POC Glucose 178 H 12/28/21 08:40: Blood Type O POSITIVE, Antibody Screen NEGATIVE, Crossmatch See Detail Micro: Microbiology 12/26/21 20:50 Urine Catheter - Ziegler Urine Culture - Final Culture exhibits no growth. 12/26/21 20:23 Sputum, Tracheal Aspirate Gram Stain - Final 12/26/21 20:23 Sputum, Tracheal Aspirate Respiratory Culture - Preliminary Serratia liquefaciens 12/18/21 07:33 Swab (Method) Nasal Screen MRSA/MSSA - Final Rhythm Strip Rhythm Strip: A flutter Rate: 125 Physical Exam Narrative Awake extubated Coarse breath sound anteriorly S1-S2 regular Abdomen is obese Positive for right femoral Vas-Cath Positive for edema Assessment & Plan Assessment/Plan (1) KIERSTEN (acute kidney injury): PLAN: Baseline creatinine was normal at 0.6 at the time of admission. Slow progressive increase in creatinine over the last 2 to 3 days. Had hypotension in OR and has been on pressors since then. Also has an element of acute liver injury. Most likely ischemic ATN. Renal ultrasound without any hydronephrosis. -Unfortunately urine output remains sluggish with concomitant persistent hyperkalemia -Given the fact the patient remains hypotensive suspect the function will further decline -At this point given volume overload in conjunction with hyperkalemia and poor solute clearance will initiate renal replacement therapy -Discussed this with his at bedside (2) Hyperkalemia: (3) Metabolic acidosis: PLAN: Plan 12/28 -Renal placement initiated on 12/27 for solute clearance and electrolyte derangem ent -Now off pressor support -We will repeat short course of dialysis today -Continue with supportive care -Monitor for renal recovery Discussed with ICU attending Please call [phone] with any concerns
[2021-12-28] MEDS: 0.9% Saline Lock 10 ML Syringe IV ×3 (11:40→21:34)
[2021-12-28] MEDS: HYDROmorphone 0.5 MG/0.5 ML SYRINGE IV ×2 (11:40→14:46)
[2021-12-28 12:00] LABS: Bedside Glucose 202 mg/dL (74-106)
--- NOTE | 2021-12-28 18:18 | DIALYSIS ---
HD x 3 hours UF-1000ml given 1 unit PRBC with tx- started back on levo for low BP during run Report to Annemarie SCHNEIDER
[2021-12-28 20:21] LABS: Bedside Glucose 138 mg/dL (74-106)
[2021-12-28] MEDS: HYDROmorphone 1 MG/ML Syringe IV (20:22)
[2021-12-28] MEDS: Ondansetron 4 MG/2 ML Vial IV (20:22)
[2021-12-29] VITALS (30 sets, daily range): BP systolic 68–128; BP diastolic 44–79; PULSE 102–110; RESP 12–41; TEMP 36.6–37.2; O2SAT 91–100
[2021-12-29 00:16] LABS: Bedside Glucose 138 mg/dL (74-106)
[2021-12-29] MEDS: HYDROmorphone 1 MG/ML Syringe IV (01:43)
[2021-12-29] MEDS: Ipratropium 0.5 MG/2.5 ML SOLUTION INHALATION ×3 (03:40→10:26)
[2021-12-29] MEDS: Ondansetron 4 MG/2 ML Vial IV (04:04)
[2021-12-29] MEDS: TITRATION PARAMETER CHANGE 1 EACH IV (04:05)
--- NOTE | 2021-12-29 05:55 | RAD_ITS ---
STUDY: X-RAY CHEST REASON FOR EXAM: Male, 71 years old. Dyspnea TECHNIQUE: Single AP portable view of the chest. COMPARISON: Comparison is made with prior examination dated 12/22/2021. FINDINGS: A right-sided internal jugular venous catheter seen with the tip at the junction of the superior vena cava and right atrium. EKG electrodes are seen. Mild residual right upper lobe infiltrate. Further follow-up recommended. There is no demonstrated pleural abnormality. Sternal cerclage wires and vascular clips are present from a prior sternotomy and coronary artery bypass graft procedure (CABG). Normal mediastinum and arnoldo. Normal visualized pulmonary arteries. There is atherosclerotic calcification of the aortic arch with tortuosity. There are diffuse degenerative changes of the visualized thoracic spine. Normal visualized ribs, clavicles, and shoulders. There is no demonstrated abnormality of the visualized soft tissue structures of the upper abdomen. RAD/Chest 1 View (Portable) IMPRESSION: Residual right upper lobe infiltrate. Further follow-up recommended. Electronically Signed: Braydon Guthrie MD at 10:00 EDT ,
--- NOTE | 2021-12-29 06:06 | PCM.PN.INT ---
Assessment & Plan Assessment/Plan (1) Acute respiratory failure: PLAN: Plan RECOMMENDATIONS: 1. Continue to wean supplemental oxygen for saturations greater than 90%. 2. Initiate aggressive pain and anxiolytic therapy. 3. Remove indwelling lines. 4. CODE STATUS update to DNR comfort care. 5. Hospice care referral. IMPRESSIONS: 1. 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 The patient is significantly net positive from a volume perspective for the hospitalization. Blood counts are currently stable. Plan to continue to monitor blood counts daily and transfuse, if needed. Continue scheduled midodrine for now along with stress dose steroids. Continue to wean stress dose steroids. 2. Acute hypoxemic respiratory failure/suspected obstructive lung disease and gram-negative pneumonia Secondary to #1. Continue antimicrobials as ordered, pending finalized culture results. Continue scheduled Atrovent aerosols. Wean supplemental oxygen to maintain saturations at or above 90%. Encourage incentive spirometer use while in bed. 3. KIERSTEN likely secondary to ischemic ATN/hyperkalemia Stable. Ongoing hemodialysis support per nephrology recommendations. 4. Acute liver injury Improving. Secondary to hemodynamic instability in the setting of #1. Transaminase levels continue to improve with supportive measures. 5. Anemia/thrombocytopenia Continue to monitor blood counts and transfuse if hemoglobin drops below 7 g/dL. 6. History of coronary artery disease status post CABG/cardiomyopathy/atrial fibrillation Continue medical support per cardiology recommendations, including amiodarone as ordered. 7. Chronic tobacco dependency/hyperlipidemia/hypertension Complicates care, management, recovery and prognosis. Continue to hold home antihypertensives. CODE status: Discussed CODE status at length including difference between FULL code, DNR-CCA and DNR-CC status. Following discussions about the differences in these status, patient's requested DNR-CC CODE STATUS. TIME: 40 minutes of critical care time, independent of procedures, was spent addressing the patient's hemorrhagic shock secondary to left iliac artery rupture, acute hypoxemic respiratory failure, acute kidney injury, acute liver injury, review of all data and collaboration with the care team. Subjective Subjective The patient was seen and examined at the bedside this morning. Events from the last 24 hours have been reviewed. Yesterday afternoon, as a consequence of being placed on dialysis, the patient's vasopressor had to be restarted to maintain hemodynamic stability. He remains on Levophed this morning at 7 mcg/min. In addition, the patient was noted overnight by nursing staff to have coarse breath sounds. Therefore, he was placed empirically on BiPAP therapy with an FiO2 requirement of 25%. The patient has tolerated PAP therapy without issue. He is alert and conversant this morning, but remains confused and disoriented. Approximately 1 L of fluid was able to be removed yesterday with dialysis. The patient is currently documented to be overall net +19.5 L for the hospitalization. Over the last 24 hours, the patient has been complaining of abdominal discomfort. After discussing the case with nephrology this morning, I met with the patient's at the bedside. She was updated on the patient's overall clinical state including the events of the last 24 hours. She reported to me that she had a very felix discussion with her son regarding goals of care. In light of the fact that the patient will ultimately require some form of dialysis support for the near future, including the need for tunneled HD line placement, the patient's indicated that this would not be a wish that her would entertain. Keeping in mind his wishes regarding goals of care, she and her family are electing to make him comfort care and pursue referral to hospice care services. Objective Data Objective Data The patient's most recent lab work, culture data and imaging studies have all been personally reviewed. Limited echocardiogram performed on December 23 demonstrated a mildly reduced LV with an ejection fraction of approximately 40%. Sputum culture dated December 26 was positive for 3+ Serratia. Vital Signs: Vital Signs Temp Pulse Resp BP Pulse Ox O2 Del Method O2 Flow Rate 98.8 F 105 H 20 H 127/72 H 95 Nasal Cannula 6 12/29/21 00:00 12/29/21 04:00 12/29/21 04:00 12/29/21 01:00 12/29/21 04:00 12/29/21 04:00 12/29/21 04:00 FiO2 30 12/29/21 04:00 Oxygen Flow Rate (L/min) 6 Oxygen Delivery Method Nasal Cannula Weight: 205 lb 4.006 oz Body Mass Index (BMI) 21.4 Intake & Output: Intake and Output for Last 24 Hours 12/27/21 12/28/21 12/29/21 23:59 23:59 23:59 Intake Total 2694.46 / 2737.98 1490.97 / 1490.97 68.8 / 68.8 Output Total 890 / 890 155 / 185 155 / 155 Balance 1804.46 / 1847.98 1335.97 / 1305.97 -86.2 / -86.2 Lab / Micro Data Attestation: I reviewed the patient's lab results. Result Diagrams: 12/29/21 05:10 12/29/21 05:10 Labs: Laboratory Results - last 24 hr 12/18/21 07:33: Crossmatch See Detail 12/28/21 03:30: WBC 15.5 H, RBC 2.37 L, Hgb 7.3 L, Hct 23.1 L, MCV 97.5 H, MCH 30.8, MCHC 31.6 L, RDW Std Deviation 53.5 H, RDW Coeff of Jamie 15.1 H, Plt Count 129 L, MPV 11.4, Immature Gran % (Auto) 1.100 H, Neut % (Auto) 91.3 H, Lymph % (Auto) 3.6 L, [place] % (Auto) 3.9, Eos % (Auto) 0.0, Baso % (Auto) 0.1, Absolute Neuts (auto) 14.2 H, Absolute Lymphs (auto) 0.56 L, Nucleated RBC % 0.1, Anisocytosis 1+, Macrocytosis 1+ 12/28/21 03:30: Sodium 140, Potassium 5.3 H, Chloride 108 H, Carbon Dioxide 23.0, Anion Gap 9, BUN 85 H, Creatinine 3.88 H, Estim Creat Clear Calc 19.73, Est GFR (MDRD) Af Amer 20 L, Est GFR (MDRD) Non-Af 16 L, BUN/Creatinine Ratio 21.9 H, Glucose 196 H, Calcium 7.3 L, Phosphorus 6.7 H, Magnesium 2.8 H, Total Bilirubin 0.60, AST 272 H, ALT 368 H, Alkaline Phosphatase 86, Total Protein 5.0 L, Albumin 2.0 L, Globulin 3.0, Albumin/Globulin Ratio 0.7 L 12/28/21 08:40: Blood Type O POSITIVE, Antibody Screen NEGATIVE, Crossmatch See Detail 12/28/21 11:34: POC Glucose 202 H 12/28/21 17:51: POC Glucose 138 H 12/28/21 23:55: POC Glucose 138 H Micro: Microbiology 12/26/21 20:50 Urine Catheter - [place] Urine Culture - Final Culture exhibits no growth. 12/26/21 20:23 Sputum, Tracheal Aspirate Gram Stain - Final 12/26/21 20:23 Sputum, Tracheal Aspirate Respiratory Culture - Preliminary Serratia liquefaciens 12/18/21 07:33 Swab (Method) Nasal Screen MRSA/MSSA - Final Radiography Diagnostic Testing: Radiology Impression Extremity Arterial Study 12/26/21 17:04 Interpretation Summary Left CORTNEY 1.06, normal. Doppler/PVR waveforms of the left leg normal at rest. Right CORTNEY 1.13, normal. Doppler/PVR waveforms of the right leg normal at rest. Ordering Physician: Kahlil Fernandes Referring Physician: Kahlil Fernandes Performed By: Pedrito Richardson RVT Extremity Arterial Study 12/26/21 17:04 Interpretation Summary Right wrist-brachial index 1.19, normal. PVR/Doppler waveforms of the right upper extremity normal at rest. Left wrist-brachial index 1.22, normal. PVR/Doppler waveforms of the left upper extremity normal at rest. Ordering Physician: Kahlil Fernandes Referring Physician: Kahlil Fernandes Performed By: Debra, Pedrito, RVT Rhythm Strip Rhythm Strip: A flutter Rate: 125 Physical Exam Const alert Constitutional Narrative: Frequently yelling out. General Appearance: ill appearing Orientation / Consciousness: confused and disoriented HEENT normocephalic and head/scalp atraumatic Teeth and Gingiva: poor dentition Eyes PERRL and conjunctivae normal Neck supple General: trachea midline and CVC in place Chest inspection of chest normal Resp Effort and Inspection: tachypneic Auscultation: rhonchi and diminished lung sounds Cardio S1 normal heart sound, S2 normal heart sound and no murmurs Rate: tachycardic Rhythm: abnormal rhythm GI soft to palpation Inspection: abdominal distention Palpation: tender Extremity Extremity Narrative: +Anasarca. Right femoral temporary HD line in place. General Extremity: edema bilateral upper extremity and lower extremity Skin no rashes or lesions noted Neuro moves all extremities Psych Activity / Motor Behavior: restless Charges/Coding Procedures Hospitalists Procedures: 53094 Critial Care 1st Hr
[2021-12-29 06:19] LABS: Absolute Lymphocyte Count 0.36 X10^3/uL (0.83-4.51); Absolute Neutrophil Count 16.5 X10^3/uL (2.0-7.7); Basophil# 0.04 X10^3/uL; Basophil% 0.2 % (0-1); Eosinophil# 0.02 X10^3/uL; Eosinophils% 0.1 % (0-5); Hematocrit 26.3 % (40-54); Hemoglobin 8.6 g/dL (13.0-16.5); Lymphocyte # 0.36 X10^3/ul (0.83-4.51); Mean Corp Hgb Conc 32.7 g/dL (32-36); Mean Corpuscular Hgb 32.2 pg (27.0-32.0); Mean Corpuscular Volume 98.5 fL (80-94); Mean Platelet Vol. 11.3 fl (6.2-12.0); Monocyte# 0.66 X10^3/uL; Monocyte% 3.7 % (0-10); NRBC Flagged by Analyzer 0.2 % (0-5); Neutrophil # 16.48 X10^3/uL (2.7-7.7); Neutrophil % 91.2 % (47-70); POSITIVE DIFFERENTIAL YES; POSITIVE MORPHOLOGY YES; Platelet Count 146 K/mm3 (150-450); RBC Distribution Width SD 53.6 fl (35.1-43.9); Red Blood Count 2.67 M/mm3 (4.6-6.2); White Blood Count 18.1 K/mm3 (4.4-11.0)
[2021-12-29 06:22] LABS: Differential Indicated SCAN CRITERIA MET
--- NOTE | 2021-12-29 06:24 | RAD_ITS ---
STUDY: X-RAY - ABDOMEN/PELVIS REASON FOR EXAM: Male, 71 years old. Abdominal Pain TECHNIQUE: Single AP view of the abdomen / pelvis. COMPARISON: Comparison is made with prior study dated 12/23/2021. FINDINGS: There is gaseous distention of the colon down to the rectum. Gaseous distention of the sigmoid. There is evidence of a atherosclerotic calcification of the iliac arteries with a stent in the left common and external iliac arteries. A catheter is seen within the right groin. There is evidence of prior left hernia repair with mesh. The visualized liver, spleen and kidneys are grossly normal in size and morphology. There are diffuse degenerative changes of the visualized lumbar spine. RAD/Abdomen Single View (Portable) IMPRESSION: Gaseous distention of the colon down to the rectum. Electronically Signed: Braydon Guthrie MD at 8:37 EDT ,
[2021-12-29 06:36] LABS: Anion Gap 10 (5-15); BUN 77 mg/dL (7-18); Calcium,Total 7.4 mg/dL (8.5-10.1); Chloride 104 mmol/L (98-107); Creatinine, Serum 3.66 mg/dL (0.70-1.30); EST Glomerular Filtration Rate 18 mL/min (>60); Est Glom Filt Rate - Afr Amer 21 mL/min (>60); Estimated Creatinine Clearance 20.92 ml/min; Glucose 195 mg/dL (74-106); Potassium 5.1 mmol/L (3.5-5.1); Sodium Level 138 mmol/L (136-145)
[2021-12-29 07:01] LABS: Anisocytosis 1+; Macrocytosis 1+
[2021-12-29 07:07] LABS: Lactic Acid 1.1 mmol/L (0.4-1.9)
[2021-12-29] MEDS: fentaNYL 100 MCG/2 ML Ampul 25 MCG IV (10:00)
--- NOTE | 2021-12-29 10:09 | CASEMGMT ---
Addendum entered by Felicia Torres 12/29/21 10:56: GLORIA updated RN. Felicia AGOSTO Original Note: Dr Mi spoke with patient's Shalonda and she would like Hospice for patient. GLORIA met with patient's . Introduced self and role at [facility]. Shalonda confirmed she would like Hospice for patient and she would like him to go to the inpatient Hospice unit. GLORIA let Shalonda know SW will make the referral and Hospice will call her to set up meeting. GLORIA called Shalonda at [facility] and let her know about referral that will be coming. GLORIA then called the admissions office and made official referral as well as faxed information. Await call from Hospice. Felicia AGOSTO
[2021-12-29 10:26] LABS: Hepatitis B Core Ab Total Negative (Negative)
--- NOTE | 2021-12-29 11:40 | PN.SURG_ITS ---
Subjective Subjective Worsened delirium. Difficult to control back pain. Renal function has also worsened over the past 48 hrs with minimal UOP yesterday. Family has had lengthy discussions with ICU and nephrology regarding prognosis of potential renal recovery and prospects of going home at discharge. Objective Data Objective Data Vital Signs: Vital Signs Temp Pulse Resp BP Pulse Ox O2 Del Method O2 Flow Rate 97.9 F 106 H 26 H 105/59 L 94 Nasal Cannula 3 12/29/21 08:00 12/29/21 10:27 12/29/21 10:27 12/29/21 08:45 12/29/21 08:00 12/29/21 08:00 12/29/21 08:00 FiO2 35 12/29/21 04:00 Oxygen Flow Rate (L/min) 3 Oxygen Delivery Method Nasal Cannula Weight: 205 lb 4.006 oz Body Mass Index (BMI) 21.4 Intake & Output: Intake and Output for Last 24 Hours 12/27/21 12/28/21 12/29/21 23:59 23:59 23:59 Intake Total 2694.46 / 2737.98 1490.97 / 1490.97 348.90 / 348.90 Output Total 890 / 890 155 / 185 155 / 155 Balance 1804.46 / 1847.98 1335.97 / 1305.97 193.90 / 193.90 Lab / Micro Data Result Diagrams: 12/29/21 05:10 12/29/21 05:10 Labs: Laboratory Results - last 24 hr 12/18/21 07:33: Crossmatch See Detail 12/27/21 16:05: Hep B Core Total Ab Negative 12/28/21 08:40: Blood Type O POSITIVE, Antibody Screen NEGATIVE, Crossmatch See Detail 12/28/21 11:34: POC Glucose 202 H 12/28/21 17:51: POC Glucose 138 H 12/28/21 23:55: POC Glucose 138 H 12/29/21 05:10: WBC 18.1 H, RBC 2.67 L, Hgb 8.6 L, Hct 26.3 L, MCV 98.5 H, MCH 32.2 H, MCHC 32.7, RDW Std Deviation 53.6 H, RDW Coeff of Jamie 15.0 H, Plt Count 146 L, MPV 11.3, Immature Gran % (Auto) 2.800 H, Neut % (Auto) 91.2 H, Lymph % (Auto) 2.0 L, [place] % (Auto) 3.7, Eos % (Auto) 0.1, Baso % (Auto) 0.2, Absolute Neuts (auto) 16.5 H, Absolute Lymphs (auto) 0.36 L, Nucleated RBC % 0.2, Anisocytosis 1+, Macrocytosis 1+ 12/29/21 05:10: Sodium 138, Potassium 5.1, Chloride 104, Carbon Dioxide 24.0, Anion Gap 10, BUN 77 H, Creatinine 3.66 H, Estim Creat Clear Calc 20.92, Est GFR (MDRD) Af Amer 21 L, Est GFR (MDRD) Non-Af 18 L, BUN/Creatinine Ratio 21.0 H, Glucose 195 H, Calcium 7.4 L 12/29/21 06:30: Lactic Acid 1.1 Micro: Microbiology 12/26/21 20:23 Sputum, Tracheal Aspirate Gram Stain - Final 12/26/21 20:23 Sputum, Tracheal Aspirate Respiratory Culture - Final Serratia liquefaciens group 12/26/21 20:50 Urine Catheter - [place] Urine Culture - Final Culture exhibits no growth. 12/18/21 07:33 Swab (Method) Nasal Screen MRSA/MSSA - Final Radiography Diagnostic Testing: Radiology Impression Extremity Arterial Study 12/26/21 17:04 Interpretation Summary Left CORTNEY 1.06, normal. Doppler/PVR waveforms of the left leg normal at rest. Right CORTNEY 1.13, normal. Doppler/PVR waveforms of the right leg normal at rest. Ordering Physician: Kahlil Fernandes Referring Physician: Kahlil Fernandes Performed By: Pedrito Richardson RVT Extremity Arterial Study 12/26/21 17:04 Interpretation Summary Right wrist-brachial index 1.19, normal. PVR/Doppler waveforms of the right upper extremity normal at rest. Left wrist-brachial index 1.22, normal. PVR/Doppler waveforms of the left upper extremity normal at rest. Ordering Physician: Kahlil Fernandes Referring Physician: Kahlil Fernandes Performed By: Pedrito Richardson, T Chest X-Ray 12/29/21 05:55 IMPRESSION: Residual right upper lobe infiltrate. Further follow-up recommended. Electronically Signed: Braydon Guthrie MD at 10:00 EDT , KUB X-Ray 12/29/21 06:24 IMPRESSION: Gaseous distention of the colon down to the rectum. Electronically Signed: Braydon Guthrie MD at 8:37 EDT , Rhythm Strip Rhythm Strip: A flutter Rate: 125 Physical Exam Const General Appearance: grossly edematous Orientation / Consciousness: confused and disoriented Resp Effort and Inspection: tachypneic, labored, actively coughing and uses accessory muscles Cardio Rate: tachycardic GI Inspection: abdominal distention Assessment & Plan Assessment/Plan (1) Ruptured iliac artery: PLAN: -with steps backwards in renal recovery over last 48 hrs, agree hopes of rapid/full recovery not likely -worsened delirium and respiratory status, trouble clearing secretions -given poor prognosis of recovery to full home going independence and free of HD, family wishes to focus on comfort only as he would not want to live facility based on HD with uncertain odds of eventual recovery -hospice consult with likely DC to facility later today
--- NOTE | 2021-12-29 13:56 | CASEMGMT ---
SW received a call from Alfonso with Hospice. Papers have been signed and Hospice's mobile unit will pick patient up at 4p. Plan: d/c to [facility] Inpatient Unit. Hospice transported via their mobile unit. Felicia AGOSTO
--- NOTE | 2021-12-29 14:08 | DS.PCM_ITS ---
Providers Date of Admission: 12/21/21 Primary Care Physician: Dr. Connor Villasenor MD Consultations 12/21/21 10:36 Consult: Cardiology Routine Consulting Provider: Kahlil Fernandes Reason for Consult: CAD, CHF, optimize for AAA EMERGENT Consult: No MD Notified: Yes Date Notified: 12/21/21 Time Notified: 10:38 Method of Notification: Verbal Consult: Conservation Or Heritage Architect / Pulmonary Medicine Routine Consulting Provider: Pulmonary Medicine billy [place] Reason for Consult: Hypotension, COPD, optimize for AAA EMERGENT Consult: No MD Notified: Yes Date Notified: 12/21/21 Time Notified: 10:39 Method of Notification: Verbal 12/21/21 12:13 Consult: Cardiology Routine Consulting Provider: Michael Cedeno Reason for Consult: CAD, CHF, AAA EMERGENT Consult: No Notified: Yes Date Notified: 12/21/21 Time Notified: 12:13 Method of Notification: Verbal 12/26/21 09:38 Consult: Nephrology Routine Consulting Provider: Ioana Stevens Reason for Consult: Renal failure EMERGENT Consult: No Notified: Yes Date Notified: 12/26/21 Time Notified: 09:38 Method of Notification: Answering Service Reason For Visit: Abdominal aortic aneurysm, without rupture Diagnosis Discharge Diagnosis (1) Ruptured iliac artery: Status: Acute Code(s): I77.2 - Rupture of artery Plan: -suffered rupture of left external iliac artery during attempted endovascular exclusion of AAA -hemodynamic instability and metabolic derangements resulted in need for prolonged intubation, pressor support, and KIERSTEN with oligouria -eventually weaned from vent and extubated, pressors weaned, but renal function only transiently improved then again worsened -he did not tolerate HD well from hemodynamic standpoint, and also family knew he would not want 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 -significant pain and delirium after extubation, also contrary to what his wishes would have been -family chose to focus on comfort measures and transfer to hospice facility Medications at Discharge Home Medications albuterol sulfate 2.5 mg/3 mL (0.083 %) solution for nebulization 2.5 mg inhalation Q4H PRN PRN Wheezing 04/27/15 aspirin 81 mg chewable tablet 81 mg PO DAILY@0800 HEART 04/27/15 carvedilol 6.25 mg tablet 6.25 mg PO BID HEART 04/27/15 lisinopril 20 mg tablet 20 mg PO DAILY BLOOD PRESSURE 04/27/15 fluticasone propionate 115 mcg-salmeterol 21 mcg/actuation HFA inhaler (Advair HFA) 2 puff inhalation BID COPD 10/31/20 umeclidinium 62.5 mcg/actuation blister powder for inhalation (Incruse Ellipta) 1 inh inhalation DAILY COPD 10/31/20 atorvastatin 40 mg tablet 40 mg PO QHS CHOLESTEROL 12/09/21 doxycycline hyclate 100 mg capsule 100 mg PO BID COUGH 12/17/21 furosemide 40 mg tablet (Lasix) 40 mg PO BID EDEMA 12/17/21 guaifenesin 600 mg tablet, extended release 12 hr (Mucus Relief ER) 600 mg PO BID COUGH 12/17/21 prednisone 10 mg tablet See Taper PO BREAKFAST SOB 12/17/21 spironolactone 25 mg tablet 25 mg PO DAILY BLOOD PRESSURE 12/17/21 Hospital Course Operations - (Attempted endovascular AAA repair, complicated by left iliac rupture treated with covered stent) Procedures 2-D Echocardiogram, Blood transfusion, Central line placement and Dialysis Summary of Care Provided Hospital Course: Patient presented initially 12/21/2021 as outpatient for endovascular aneurysm repair. He was found to be hypotensive in pre-op so was admitted and optimized. Taken following day, 12/22, for evar. His left external iliac artery was torturous and calcified though normal caliber. While attempting to advance sheath anesthesia reported sudden drop in blood pressure. Angiogram revealed disruption of external iliac artery below the tortuosity. This was temporarily controlled with balloon occlusion. Fluid, blood resuscitation and pressor support stabilized the patient and the disruption was covered by a stent graft with satisfactory resolution. Post operatively he remained unstable with ventilator and pressor support requirements. He also suffered significant KIERSTEN with oliguria. The hemodynamic and respiratory compromise slowly resolved and he was weaned from vent and pressor support. His renal function transiently improved with a period of non-oliguria though this was only temporary. Dialysis was initiated which he did not tolerate hemodynamically. He also had significant delirium. As hopes for renal improvement and recovery for disposition home dwindled the family decided to focus on comfort measures and hospice was consulted. He was discharged to the hospice facility 12/29/2021 Physical Exam Const General Appearance: lethargic, ill appearing and grossly edematous Resp Effort and Inspection: tachypneic, respiratory distress, actively coughing and uses accessory muscles Cardio Rate: tachycardic GI Inspection: abdominal distention Extremity General Extremity: edema bilateral upper extremity and lower extremity Skin General Skin Exam: ecchymosis Weight / BMI Weight Weight: 205 lb 4.006 oz Body Mass Index (BMI) 21.4 ABG / Lab / Microbiology Data Result Diagrams: 12/29/21 05:10 12/29/21 05:10 Laboratory: Laboratory Results - last 24 hr 12/18/21 07:33: Crossmatch See Detail 12/27/21 16:05: Hep B Core Total Ab Negative 12/28/21 08:40: Blood Type O POSITIVE, Antibody Screen NEGATIVE, Crossmatch See Detail 12/28/21 17:51: POC Glucose 138 H 12/28/21 23:55: POC Glucose 138 H 12/29/21 05:10: WBC 18.1 H, RBC 2.67 L, Hgb 8.6 L, Hct 26.3 L, MCV 98.5 H, MCH 32.2 H, MCHC 32.7, RDW Std Deviation 53.6 H, RDW Coeff of Jamie 15.0 H, Plt Count 146 L, MPV 11.3, Immature Gran % (Auto) 2.800 H, Neut % (Auto) 91.2 H, Lymph % (Auto) 2.0 L, [place] % (Auto) 3.7, Eos % (Auto) 0.1, Baso % (Auto) 0.2, Absolute Neuts (auto) 16.5 H, Absolute Lymphs (auto) 0.36 L, Nucleated RBC % 0.2, Anisocytosis 1+, Macrocytosis 1+ 12/29/21 05:10: Sodium 138, Potassium 5.1, Chloride 104, Carbon Dioxide 24.0, Anion Gap 10, BUN 77 H, Creatinine 3.66 H, Estim Creat Clear Calc 20.92, Est GFR (MDRD) Af Amer 21 L, Est GFR (MDRD) Non-Af 18 L, BUN/Creatinine Ratio 21.0 H, Glucose 195 H, Calcium 7.4 L 12/29/21 06:30: Lactic Acid 1.1 Microbiology: Microbiology 12/26/21 20:23 Sputum, Tracheal Aspirate Gram Stain - Final 12/26/21 20:23 Sputum, Tracheal Aspirate Respiratory Culture - Final Serratia liquefaciens group 12/26/21 20:50 Urine Catheter - [place] Urine Culture - Final Culture exhibits no growth. 12/18/21 07:33 Swab (Method) Nasal Screen MRSA/MSSA - Final Radiography Diagnostic Testing: Radiology Impression Extremity Arterial Study 12/26/21 17:04 Interpretation Summary Left CORTNEY 1.06, normal. Doppler/PVR waveforms of the left leg normal at rest. Right CORTNEY 1.13, normal. Doppler/PVR waveforms of the right leg normal at rest. Ordering Physician: Kahlil Fernandes Referring Physician: Kahlil Fernandes Performed By: Pedrito Richardson RVT Extremity Arterial Study 12/26/21 17:04 Interpretation Summary Right wrist-brachial index 1.19, normal. PVR/Doppler waveforms of the right upper extremity normal at rest. Left wrist-brachial index 1.22, normal. PVR/Doppler waveforms of the left upper extremity normal at rest. Ordering Physician: Kahlil Fernandes Referring Physician: Kahlil Fernandes Performed By: Pedrito Richardson, RVT Chest X-Ray 12/29/21 05:55 IMPRESSION: Residual right upper lobe infiltrate. Further follow-up recommended. Electronically Signed: Braydon Guthrie MD at 10:00 EDT , KUB X-Ray 12/29/21 06:24 IMPRESSION: Gaseous distention of the colon down to the rectum. Electronically Signed: Braydon Guthrie MD at 8:37 EDT , Meaningful Use Info Meaningful Use Diagnoses (Choose all that apply): CHF CHF DEBORA/ARB ordered at discharge?: No Reason DEBORA/ARB not ordered?: Worsening renal dysfunctn Documented LVEF (%): 40 Discharge Plan Admission Admit Date/Time: 12/21/21 09:04 Attending Provider: Kahlil Fernandes Primary Care Provider: Connor Villasenor Consulting Providers: Kahlil Fernandes ; Michael Cedeno ; Randal Davis ; Juan Mi ; Dinora Torres HEALTH OCCUPATIONS TEACHER ; Ioana Stevens Discharge Orders/Prescriptions Prescriptions: No Action carvedilol 6.25 MG tablet 6.25 mg PO BID albuterol sulfate 2.5 MG/3 ML solution for nebulization 2.5 mg inhalation Q4H PRN PRN (Reason: Wheezing) lisinopril 20 MG tablet 20 mg PO DAILY aspirin 81 MG tablet,chewable 81 mg PO DAILY@0800 Advair HFA 115-21 mcg/actuation Hfa Aerosol Inhaler 2 puff INHALATION BID Incruse Ellipta 62.5 mcg/actuation Blister With Device 1 inh INHALATION DAILY atorvastatin 40 mg tablet 40 mg PO QHS Label Comments: TAKE ONE TABLET BY MOUTH EVERY DAY furosemide [Lasix] 40 mg tablet 40 mg PO BID prednisone 10 mg tablet See Taper PO BREAKFAST Taper: Prednisone Taper 40 mg WITH BREAKFAST for 3 Days and 0 Hour 30 mg WITH BREAKFAST for 3 Days and 0 Hour 20 mg WITH BREAKFAST for 3 Days and 0 Hour 10 mg WITH BREAKFAST for 3 Days and 0 Hour doxycycline hyclate 100 mg capsule 100 mg PO BID spironolactone 25 mg tablet 25 mg PO DAILY guaifenesin [Mucus Relief ER] 600 mg tablet extended release 12hr 600 mg PO BID Referrals / Follow Up: Connor Villasenor MD [Primary Care Provider] - Disposition Disposition (needs filled in before D/C Order can be placed): Hospice in Medical Facility
--- NOTE | 2021-12-29 14:38 | PN.RENAL_ITS ---
Subjective Subjective remains extubated still having delerium Objective Data Objective Data Vital Signs: Vital Signs Temp Pulse Resp BP Pulse Ox O2 Del Method O2 Flow Rate 98.4 F 107 H 32 H 94/51 L 95 Nasal Cannula 3 12/29/21 12:00 12/29/21 14:00 12/29/21 14:00 12/29/21 14:00 12/29/21 14:00 12/29/21 14:00 12/29/21 14:00 FiO2 35 12/29/21 04:00 Oxygen Flow Rate (L/min) 3 Oxygen Delivery Method Nasal Cannula Weight: 93.1 kg Body Mass Index (BMI) 21.4 Intake & Output: Intake and Output for Last 24 Hours 12/27/21 12/28/21 12/29/21 23:59 23:59 23:59 Intake Total 2694.46 / 2737.98 1490.97 / 1490.97 348.90 / 348.90 Output Total 890 / 890 155 / 185 160 / 160 Balance 1804.46 / 1847.98 1335.97 / 1305.97 188.90 / 188.90 Lab / Micro Data Result Diagrams: 12/29/21 05:10 12/29/21 05:10 Labs: Laboratory Results - last 24 hr 12/18/21 07:33: Crossmatch See Detail 12/27/21 16:05: Hep B Core Total Ab Negative 12/28/21 08:40: Blood Type O POSITIVE, Antibody Screen NEGATIVE, Crossmatch See Detail 12/28/21 17:51: POC Glucose 138 H 12/28/21 23:55: POC Glucose 138 H 12/29/21 05:10: WBC 18.1 H, RBC 2.67 L, Hgb 8.6 L, Hct 26.3 L, MCV 98.5 H, MCH 32.2 H, MCHC 32.7, RDW Std Deviation 53.6 H, RDW Coeff of Jamie 15.0 H, Plt Count 146 L, MPV 11.3, Immature Gran % (Auto) 2.800 H, Neut % (Auto) 91.2 H, Lymph % (Auto) 2.0 L, [place] % (Auto) 3.7, Eos % (Auto) 0.1, Baso % (Auto) 0.2, Absolute Neuts (auto) 16.5 H, Absolute Lymphs (auto) 0.36 L, Nucleated RBC % 0.2, Anisocytosis 1+, Macrocytosis 1+ 12/29/21 05:10: Sodium 138, Potassium 5.1, Chloride 104, Carbon Dioxide 24.0, Anion Gap 10, BUN 77 H, Creatinine 3.66 H, Estim Creat Clear Calc 20.92, Est GFR (MDRD) Af Amer 21 L, Est GFR (MDRD) Non-Af 18 L, BUN/Creatinine Ratio 21.0 H, Glucose 195 H, Calcium 7.4 L 12/29/21 06:30: Lactic Acid 1.1 Micro: Microbiology 12/26/21 20:23 Sputum, Tracheal Aspirate Gram Stain - Final 12/26/21 20:23 Sputum, Tracheal Aspirate Respiratory Culture - Final Serratia liquefaciens group 12/26/21 20:50 Urine Catheter - Ziegler Urine Culture - Final Culture exhibits no growth. 12/18/21 07:33 Swab (Method) Nasal Screen MRSA/MSSA - Final Radiography Diagnostic Testing: Radiology Impression Extremity Arterial Study 12/26/21 17:04 Interpretation Summary Left CORTNEY 1.06, normal. Doppler/PVR waveforms of the left leg normal at rest. Right CORTNEY 1.13, normal. Doppler/PVR waveforms of the right leg normal at rest. Ordering Physician: Kahlil Fernandes Referring Physician: Kahlil Fernandes Performed By: Pedrito Richardson, RVT Extremity Arterial Study 12/26/21 17:04 Interpretation Summary Right wrist-brachial index 1.19, normal. PVR/Doppler waveforms of the right upper extremity normal at rest. Left wrist-brachial index 1.22, normal. PVR/Doppler waveforms of the left upper extremity normal at rest. Ordering Physician: Kahlil Fernandes Referring Physician: Kahlil Fernandes Performed By: Pedrito Richardson, RVT Chest X-Ray 12/29/21 05:55 IMPRESSION: Residual right upper lobe infiltrate. Further follow-up recommended. Electronically Signed: Braydon Guthrie MD at 10:00 EDT , KUB X-Ray 12/29/21 06:24 IMPRESSION: Gaseous distention of the colon down to the rectum. Electronically Signed: Braydon Guthrie MD at 8:37 EDT , Rhythm Strip Rhythm Strip: A flutter Rate: 125 Physical Exam Narrative awake, confused s1s2 regular coarse b/s abdomen obese +LE edema Assessment & Plan Assessment/Plan (1) KIERSTEN (acute kidney injury): PLAN: Baseline creatinine was normal at 0.6 at the time of admission. Slow progressive increase in creatinine over the last 2 to 3 days. Had hypotension in OR and has been on pressors since then. Also has an element of acute liver injury. Most likely ischemic ATN. Renal ultrasound without any hydronephrosis. -Unfortunately urine output remains sluggish with concomitant persistent hyperkalemia -Given the fact the patient remains hypotensive suspect the function will further decline -At this point given volume overload in conjunction with hyperkalemia and poor solute clearance will initiate renal replacement therapy -Discussed this with his at bedside (2) Hyperkalemia: (3) Metabolic acidosis: PLAN: Plan 12/29 -patient had 2 HD treatments thus far -remains oliguric -patient's at bedside, wishes to not proceed with further dialysis treatment. Patient will meet with ICU team for further discussion regarding go als of care -hold off HD for now Discussed with ICU attending Please call [phone] with any concerns
[2021-12-29] MEDS: LORazepam 2 MG/ML Syringe 1 MG IV (14:40)
[2021-12-29] MEDS: Morphine 2 MG/ML Syringe IV (14:40)
== END 2021-12-29 16:00 | disposition hospice, inpatient (51) | DRG 268 ==
LOC: ACINP 09:08 → ICU 11:44
PROVIDERS: Internal Medicine; Internal Medicine Critical Care Medicine; Admitting Provider Surgery Trauma Surgery; PCP Family Medicine; Referring Provider Surgery Trauma Surgery; Visit Provider Surgery Trauma Surgery
PROC: 04L Lower Arteries, Occlusion (ICD-10-PCS; principal; 2021-12-22 11:30)
DX: I95.2 Hypotension due to drugs (principal); J96.01 Acute respiratory failure with hypoxia; N17.0 Acute kidney failure with tubular necrosis; R57.8 Other shock; J15.6 Pneumonia due to other Gram-negative bacteria; T81.19XA Other postprocedural shock, initial encounter; E87.2 Acidosis; E87.4 Mixed disorder of acid-base balance; I77.2 Rupture of artery; I42.9 Cardiomyopathy, unspecified; I48.92 Unspecified atrial flutter; D62 Acute posthemorrhagic anemia; I97.418 Intraoperative hemorrhage and hematoma of a circulatory system organ or structure complicating other circulatory system procedure; D69.6 Thrombocytopenia, unspecified; I71.4 Abdominal aortic aneurysm, without rupture; I11.0 Hypertensive heart disease with heart failure; I50.9 Heart failure, unspecified; J43.9 Emphysema, unspecified; I48.91 Unspecified atrial fibrillation; F17.200 Nicotine dependence, unspecified, uncomplicated; I25.10 Atherosclerotic heart disease of native coronary artery without angina pectoris; E78.00 Pure hypercholesterolemia, unspecified; I25.2 Old myocardial infarction; E87.5 Hyperkalemia; E87.70 Fluid overload, unspecified; E87.8 Other disorders of electrolyte and fluid balance, not elsewhere classified; Y92.234 Operating room of hospital as the place of occurrence of the external cause; T46.5X5A Adverse effect of other antihypertensive drugs, initial encounter; G89.29 Other chronic pain; R74.01 Elevation of levels of liver transaminase levels; Z20.822 Contact with and (suspected) exposure to COVID-19; Z66 Do not resuscitate; Z79.82 Long term (current) use of aspirin; Z79.899 Other long term (current) drug therapy; Z95.1 Presence of aortocoronary bypass graft; Z95.5 Presence of coronary angioplasty implant and graft; Z53.09 Procedure and treatment not carried out because of other contraindication
CPT/HCPCS: 31720; 34713; 36415; 36600; 37221; 37223; 71045; 74018; 76770; 80048; 80053; 82550; 82803; 82962; 83605; 83735; 84100; 84478; 85025; 85610; 85730; 86704; 86706; 86850; 86900; 86901; 86920; 86922; 87040; 87070; 87077; 87081; 87086; 87186; 87205; 87340; 90937; 92610; 93005; 93308; 93923; 94002; 94003; 94640; 94660; 97162; 97802; 97803; 99251; J7030; J7040; J7050; J7120; P9016; P9040; P9047; Q9957; Q9967; A4216; C1725; C1751; C1752; C1769; C1874; C1887; C1894; C8924; G0257; G0463; J2405; J3010; J3490; J7799